=== PATIENT | male | born 1945 | race Caucasian/White ===

== ENCOUNTER 2022-01-09 14:43 | Inpatient (IN) | payer MEDICARE, OTHER ==
[2022-01-09 15:52] LABS: Basophils % (A) 0 %; Eosinophils % (A) 0 %; HCT 30.7 % (39.0-53.0); HGB 9.8 gm/dL (13.0-17.5); Lymphocytes # (A) 0.9 k/uL (1.0-4.8); Lymphocytes % (A) 22 %; MCH 29.7 pg (25.0-35.0); MCHC 31.9 g/dL (31.0-37.0); MCV 93.2 fL (80.0-100.0); Mean Platelet Volume 7.9; Monocytes # (A) 0.2 k/uL (0-1.0); Monocytes % (A) 5 %; Neutrophils # (A) 2.8 k/uL (1.3-7.7); Neutrophils % (A) 69 %; Platelet Count 258 k/uL (150-450); RBC 3.29 m/uL (4.30-5.90); RDW 13.8 % (11.5-15.5); WBC 4.1 k/uL (3.8-10.6)
[2022-01-09 15:54] LABS: INR 0.9 (<1.2); Partial Thromboplastin Time 26.8 sec (22.0-30.0); Prothrombin Time 10.2 sec (9.0-12.0)
[2022-01-09 16:04] LABS: Albumin 2.7 g/dL (3.5-5.0); Calcium 7.8 mg/dL (8.4-10.2); Magnesium 1.9 mg/dL (1.6-2.3); Potassium 3.7 mmol/L (3.5-5.1); Total Bilirubin 0.9 mg/dL (0.2-1.3); Total Protein 5.4 g/dL (6.3-8.2)
--- NOTE | 2022-01-09 16:12 | XR ---
EXAMINATION TYPE: XR chest 2V DATE OF EXAM: 01/09/2022 COMPARISON: NONE HISTORY: Difficulty breathing TECHNIQUE: 2 views FINDINGS: There is mild pulmonary vascular congestion. Heart is not grossly enlarged. There is some b lunting of the costophrenic angles. IMPRESSION: There is evidence for congestive heart failure with mild pleural effusions.
[2022-01-09 16:23] LABS: RBC Morphology Normal; Toxic Granulation Present; Toxic Vacuolation Present
[2022-01-09] MEDS ORDERED: FUROSEMIDE 10 MG/ML 10 ML VIAL IV STA (16:37)
--- NOTE | 2022-01-09 16:46 | ED ---
SOB HPI - General Chief Complaint: Shortness of Breath Stated Complaint: Difficulty Breathing Time Seen by Provider: 01/09/22 15:00 Source: EMS Mode of arrival: EMS Limitations: altered mental status - History of Present Illness Initial Comments: 76-year-old male presents to the emergency department from [facility] facility. EMS attempt to provide a history however they state that the nursing facility did not give him much information. They were called today after it was reported that the patient was having trouble breathing. He was saturating in the 80s without oxygen on. Does not wear oxygen. The patient is not able to provide any history. EMS reported he had hip surgery followed by a PE in August. No long on anticoagulation. Patient on Toprol, omeprazole, Synthroid, Paxil and ferrous sulfate. - Related Data Home Medications Medication Instructions Recorded Confirmed Alendronate Sodium [Fosamax] 70 mg PO SA@69901/09/22 01/09/22 Azithromycin [Zithromax Z-pack (6 See Taper PO DIRECTED 01/09/22 01/09/22 tabs)] Benzonatate [Tessalon Perles] 100 - 200 mg PO TID PRN 01/09/22 01/09/22 Cholecalciferol [Vitamin D3 (25 25 mcg PO BID@0700,1700 01/09/22 01/09/22 Mcg = 1000 Iu)] Cyanocobalamin (Vitamin B-12) 1,000 mcg PO DAILY@69901/09/22 01/09/22 [Vitamin B-12] Docusate [Colace] 100 mg PO HS@209901/09/22 01/09/22 Ferrous Sulfate [Feosol] 325 mg PO DAILY@69901/09/22 01/09/22 Lactulose 20 gm PO DAILY@699 PRN 01/09/22 01/09/22 Levothyroxine Sodium [Synthroid] 25 mcg PO DAILY@69901/09/22 01/09/22 Loratadine 10 mg PO DAILY@00 PRN 01/09/22 01/09/22 Melatonin 10 mg PO HS@209901/09/22 01/09/22 Metoprolol Tartrate 25 mg PO BID@0700,1700 01/09/22 01/09/22 [place]-3 Fatty Acids/Fish Oil [Fish 1 cap PO DAILY@0700 01/09/22 01/09/22 Oil 1,000 mg Softgel] Omeprazole [PriLOSEC] 20 mg PO BID@0700,2100 01/09/22 01/09/22 PARoxetine HCL 40 mg PO HS@209901/09/22 01/09/22 Triamterene/Hydrochlorothiazid 1 tab PO DAILY@0700 01/09/22 01/09/22 [Triamterene-Hctz 37.5-25 mg Tb] Allergies Allergy/AdvReac Type Severity Reaction Status Date / Time No Known Allergies Allergy Unverified 01/09/22 17:01 Review of Systems ROS Statement: Those systems with pertinent positive or pertinent negative responses have been documented in the HPI. ROS Other: All systems not noted in ROS Statement are negative. Past Medical History Past Medical History: Unable to Obtain History of Any Multi-Drug Resistant Organisms: Unobtainable Past Surgical History: Unable to Obtain Past Psychological History: Unable to Obtain Smoking Status: Unknown if ever smoked Past Alcohol Use History: Unable to Obtain Past Drug Use History: Unable to Obtain General Exam Limitations: altered mental status General appearance: alert, anxious Head exam: Present: atraumatic, normocephalic, normal inspection Eye exam: Present: normal appearance, PERRL, EOMI. Absent: scleral icterus, conjunctival injection, periorbital swelling ENT exam: Present: normal exam, mucous membranes moist Neck exam: Present: normal inspection. Absent: tenderness, meningismus, lymphadenopathy Respiratory exam: Present: respiratory distress, rales, accessory muscle use. Absent: wheezes, rhonchi, stridor Cardiovascular Exam: Present: regular rate, normal rhythm, normal heart sounds. Absent: systolic murmur, diastolic murmur, rubs, gallop, clicks GI/Abdominal exam: Present: soft, normal bowel sounds. Absent: distended, tenderness, guarding, rebound, rigid Extremities exam: Present: normal inspection, full ROM, normal capillary refill. Absent: tenderness, pedal edema, joint swelling, calf tenderness Back exam: Present: normal inspection Neurological exam: Present: alert, CN II-XII intact Psychiatric exam: Present: normal affect, normal mood Skin exam: Present: warm, dry, intact, normal color. Absent: rash Course Vital Signs 01/09/22 01/09/22 01/09/22 14:47 15:15 15:26 Temperature 99.6 F Pulse Rate 80 Pulse Rate [ Pulse Oximetery ] Respiratory 18 20 35 H Rate Blood Pressure 111/54 Blood Pressure [Left Arm] O2 Sat by Pulse 87 L 90 L Oximetry 01/09/22 01/09/22 01/09/22 15:30 16:00 18:00 Temperature Pulse Rate 91 92 102 H Pulse Rate [ Pulse Oximetery ] Respiratory 20 20 20 Rate Blood Pressure 113/54 120/58 125/63 Blood Pressure [Left Arm] O2 Sat by Pulse 93 L 97 Oximetry 01/09/22 01/09/22 01/09/22 18:30 19:00 19:18 Temperature Pulse Rate 98 102 H 106 H Pulse Rate [ Pulse Oximetery ] Respiratory 20 20 20 Rate Blood Pressure 128/63 106/54 107/62 Blood Pressure [Left Arm] O2 Sat by Pulse 95 81 L 98 Oximetry 01/09/22 20:00 Temperature 101.0 F H Pulse Rate Pulse Rate [ 108 H Pulse Oximetery ] Respiratory 22 Rate Blood Pressure Blood Pressure 107/45 [Left Arm] O2 Sat by Pulse 91 L Oximetry Medical Decision Making - Medical Decision Making Upon arrival patient is placed into room 5. A thorough history and physical exam was performed. He is placed on 6 L. Laboratory studies are conducted and reviewed. I have no old for comparison. Creatinine is 1.3. Troponin 0.055. BNP 5950. Cold and influenza are negative. Chest x-ray demonstrates pulmonary vascular congestion. I did CT the chest because of the patient's history of PE which demonstrates no evidence of pulmonary embolism however there is bilateral lower lobe pneumonia and atelectasis. The interstitial edema. Patient will be admitted. Given 60 mg of Lasix. Admitted with home and cardiology consults. Antibiotics additionally ordered as well as chest physiotherapy. Spoke with who agreed to admit the patient - Lab Data Result diagrams: 01/13/22 06:58 01/15/22 08:05 Lab Results 01/09/22 01/09/22 01/09/22 Range/Units 15:26 15:26 15:26 WBC 4.1 (3.8-10.6) k/uL RBC 3.29 L (4.30-5.90) m/uL Hgb 9.8 L (13.0-17.5) gm/dL Hct 30.7 L (39.0-53.0) % MCV 93.2 (80.0-100.0) fL MCH 29.7 (25.0-35.0) pg MCHC 31.9 (31.0-37.0) g/dL RDW 13.8 (11.5-15.5) % Plt Count 258 (150-450) k/uL MPV 7.9 Neutrophils % 69 % Lymphocytes % 22 % Monocytes % 5 % Eosinophils % 0 % Basophils % 0 % Neutrophils # 2.8 (1.3-7.7) k/uL Lymphocytes # 0.9 L (1.0-4.8) k/uL Monocytes # 0.2 (0-1.0) k/uL Eosinophils # 0.0 (0-0.7) k/uL Basophils # 0.0 (0-0.2) k/uL Manual Slide Review Performed Toxic Granulation Present Toxic Vacuolation Present RBC Morphology Normal PT 10.2 (9.0-12.0) sec INR 0.9 (<1.2) APTT 26.8 (22.0-30.0) sec Sodium 132 L (137-145) mmol/L Potassium 3.7 (3.5-5.1) mmol/L Chloride 98 (98-107) mmol/L Carbon Dioxide 28 (22-30) mmol/L Anion Gap 6 mmol/L BUN 32 H (9-20) mg/dL Creatinine 1.30 H (0.66-1.25) mg/dL Est GFR (CKD-EPI)AfAm 61 (>60 ml/min/1.73 sqM) Est GFR (CKD-EPI)NonAf 52 (>60 ml/min/1.73 sqM) Glucose 94 (74-99) mg/dL Plasma Lactic Acid Ata (0.7-2.0) mmol/L Calcium 7.8 L (8.4-10.2) mg/dL Magnesium 1.9 (1.6-2.3) mg/dL Total Bilirubin 0.9 (0.2-1.3) mg/dL AST 26 (17-59) U/L ALT 22 (4-49) U/L Alkaline Phosphatase 77 (38-126) U/L Troponin I (0.000-0.034) ng/mL NT-Pro-B Natriuret Pep pg/mL Total Protein 5.4 L (6.3-8.2) g/dL Albumin 2.7 L (3.5-5.0) g/dL Procalcitonin (0.02-0.09) ng/mL Coronavirus (PCR) (Not Detectd) Influenza Type A RNA (Not Detectd) Influenza Type B (PCR) (Not Detectd) 01/09/22 01/09/22 01/09/22 Range/Units 15:26 15:26 15:26 WBC (3.8-10.6) k/uL RBC (4.30-5.90) m/uL Hgb (13.0-17.5) gm/dL Hct (39.0-53.0) % MCV (80.0-100.0) fL MCH (25.0-35.0) pg MCHC (31.0-37.0) g/dL RDW (11.5-15.5) % Plt Count (150-450) k/uL MPV Neutrophils % % Lymphocytes % % Monocytes % % Eosinophils % % Basophils % % Neutrophils # (1.3-7.7) k/uL Lymphocytes # (1.0-4.8) k/uL Monocytes # (0-1.0) k/uL Eosinophils # (0-0.7) k/uL Basophils # (0-0.2) k/uL Manual Slide Review Toxic Granulation Toxic Vacuolation RBC Morphology PT (9.0-12.0) sec INR (<1.2) APTT (22.0-30.0) sec Sodium (137-145) mmol/L Potassium (3.5-5.1) mmol/L Chloride (98-107) mmol/L Carbon Dioxide (22-30) mmol/L Anion Gap mmol/L BUN (9-20) mg/dL Creatinine (0.66-1.25) mg/dL Est GFR (CKD-EPI)AfAm (>60 ml/min/1.73 sqM) Est GFR (CKD-EPI)NonAf (>60 ml/min/1.73 sqM) Glucose (74-99) mg/dL Plasma Lactic Acid Ata 1.1 (0.7-2.0) mmol/L Calcium (8.4-10.2) mg/dL Magnesium (1.6-2.3) mg/dL Total Bilirubin (0.2-1.3) mg/dL AST (17-59) U/L ALT (4-49) U/L Alkaline Phosphatase (38-126) U/L Troponin I 0.055 H* (0.000-0.034) ng/mL NT-Pro-B Natriuret Pep 5950 pg/mL Total Protein (6.3-8.2) g/dL Albumin (3.5-5.0) g/dL Procalcitonin (0.02-0.09) ng/mL Coronavirus (PCR) (Not Detectd) Influenza Type A RNA (Not Detectd) Influenza Type B (PCR) (Not Detectd) 01/09/22 01/09/22 01/09/22 Range/Units 15:26 15:26 15:26 WBC (3.8-10.6) k/uL RBC (4.30-5.90) m/uL Hgb (13.0-17.5) gm/dL Hct (39.0-53.0) % MCV (80.0-100.0) fL MCH (25.0-35.0) pg MCHC (31.0-37.0) g/dL RDW (11.5-15.5) % Plt Count (150-450) k/uL MPV Neutrophils % % Lymphocytes % % Monocytes % % Eosinophils % % Basophils % % Neutrophils # (1.3-7.7) k/uL Lymphocytes # (1.0-4.8) k/uL Monocytes # (0-1.0) k/uL Eosinophils # (0-0.7) k/uL Basophils # (0-0.2) k/uL Manual Slide Review Toxic Granulation Toxic Vacuolation RBC Morphology PT (9.0-12.0) sec INR (<1.2) APTT (22.0-30.0) sec Sodium (137-145) mmol/L Potassium (3.5-5.1) mmol/L Chloride (98-107) mmol/L Carbon Dioxide (22-30) mmol/L Anion Gap mmol/L BUN (9-20) mg/dL Creatinine (0.66-1.25) mg/dL Est GFR (CKD-EPI)AfAm (>60 ml/min/1.73 sqM) Est GFR (CKD-EPI)NonAf (>60 ml/min/1.73 sqM) Glucose (74-99) mg/dL Plasma Lactic Acid Ata (0.7-2.0) mmol/L Calcium (8.4-10.2) mg/dL Magnesium (1.6-2.3) mg/dL Total Bilirubin (0.2-1.3) mg/dL AST (17-59) U/L ALT (4-49) U/L Alkaline Phosphatase (38-126) U/L Troponin I (0.000-0.034) ng/mL NT-Pro-B Natriuret Pep pg/mL Total Protein (6.3-8.2) g/dL Albumin (3.5-5.0) g/dL Procalcitonin 3.74 H (0.02-0.09) ng/mL Coronavirus (PCR) Not Detected (Not Detectd) Influenza Type A RNA Not Detected (Not Detectd) Influenza Type B (PCR) Not Detected (Not Detectd) - EKG Data EKG Comments: EKG demonstrates sinus rhythm with a rate of 93. [place] interval 148. QRS 89. QTC of 394. No acute ST segment elevations or depressions Disposition Clinical Impression: Hypoxia, Acute respiratory failure, Heart failure Disposition: ADMITTED IP TO THIS HOSP Condition: Stable Is patient prescribed a controlled substance at d/c from ED?: No Time of Disposition: 16:54 Decision to Admit Reason: Admit from EC Decision Date: 01/09/22 Decision Time: 16:54
--- NOTE | 2022-01-09 17:15 | CT ---
EXAMINATION TYPE: CT chest angio for PE DATE OF EXAM: 01/09/2022 COMPARISON: None HISTORY: SOB CT DLP: 341 mGycm Automated exposure control for dose reduction was used. CONTRAST: Performed with IV Contrast, patient injected with 80cc mL of Isovue 370. Images obtained from the thoracic inlet through the diaphragm with IV contrast. There are Three-D pos tprocessed images. There are patchy airspace infiltrates and atelectasis at the posterior lung bases. There is consolida tion at the posterior lung bases. No pleural effusion. Heart is borderline enlarged. No evidence of p neumothorax. Thoracic aorta is atheromatous. No aneurysm or dissection. The ascending aorta measures 3.2 cm. There is no evidence of filling defect in the pulmonary arteries. There is biconcave compression fractures in the lower thoracic spine. There is involvement of T10-T11 and T12 and L1 and L2. IMPRESSION: No evidence of pulmonary embolism. Bilateral lower lobe pneumonia and atelectasis. Mild pulmonary int erstitial edema.
[2022-01-09] MEDS ORDERED: AZITHROMYCIN 500 MG in SODIUM CHLORIDE 0.9% 250 ML IVPB STA (17:17)
[2022-01-09] MEDS ORDERED: ALBUTEROL NEBULIZED 2.5 MG/3 ML INHALATION PRN (17:17)
[2022-01-09] MEDS ORDERED: PNEUMONIA PROTOCOL UTILIZED 1 EACH MISC PO PRN (17:17)
[2022-01-09] MEDS: ACETAMINOPHEN TAB 325 MG TAB PO PRN (21:36)
[2022-01-09] MEDS: PARoxetine 20 MG TAB PO SCH (21:37)
[2022-01-09] MEDS: PANTOPRAZOLE 40 MG TABLET PO SCH (21:43)
[2022-01-09] MEDS: DOCUSATE 100 MG CAP PO SCH (21:43)
[2022-01-09] MEDS: MELATONIN 5 MG TABLET PO SCH (21:45)
[2022-01-10 02:59] LABS: Glucose,Whole Blood 95 mg/dL (75-99)
[2022-01-10] MEDS: METOPROLOL TARTRATE 25 MG TAB PO SCH ×2 (06:05→17:04)
[2022-01-10] MEDS: PANTOPRAZOLE 40 MG TABLET PO SCH ×2 (06:06→21:29)
[2022-01-10] MEDS: LEVOTHYROXINE 25 MCG TAB PO SCH (06:06)
[2022-01-10] MEDS: CYANOCOBALAMIN 500 MCG TAB PO SCH (06:08)
[2022-01-10] MEDS: CHOLECALCIFEROL 25 MCG (1000 IU) TABLET PO SCH ×2 (06:08→17:04)
[2022-01-10] MEDS: FERROUS SULFATE 325 MG TAB PO SCH (06:08)
[2022-01-10] MEDS ORDERED: LORATADINE 10 MG TAB PO PRN (07:00)
[2022-01-10] MEDS ORDERED: LACTULOSE 20 GM/30 ML CUP PO PRN (07:00)
[2022-01-10] MEDS ORDERED: NON FORMULARY DRUG (Omega-3 Fatty Acids/Fish Oil [Fish Oil 1,000 Mg Softgel] 1 EACH Capsul PO SCH (07:00)
[2022-01-10] MEDS ORDERED: TRIAMTERENE-HCTZ 37.5-25MG 1 EACH TAB PO SCH (07:00)
[2022-01-10] MEDS: FUROSEMIDE 10 MG/ML 4 ML VIAL IV SCH ×2 (08:08→21:31)
--- NOTE | 2022-01-10 08:09 | P.CRDCN ---
History of Present Illness Consult date: 01/10/22 Chief complaint: Shortness of breath History of present illness: The patient is a 76-year-old gentleman who we requested to see for further evalu ation of congestive heart failure. The patient is a poor historian and he does have some underlying dementia. He lives at [facility]. The history was taken from the chart as well as from the nurse taking care of the patient. Apparently the patient was noted to be more short of breath and he was hypoxic at the extended care facility. No indication that he was experiencing any sympt oms of chest pain or chest discomfort. It also noted that he did have increase in the lower extremities edema and also change in mental status. For the above reasons he was brought to the emergency department here for further evaluation. At this point I don't know if the patient is on oxygen at the [facility] care facility or no. He underwent an extensive evaluation here including an EKG which showed sinus rhythm without any significant ST or T-wave abnormalities. He also underwent a chest x-ray which showed evidence of heart failure with pleural effusion. Also he underwent a computed tomography scan of the chest which showed no evidence of pulmonary embolism. His blood work was reviewed and showed mildly elevated NT proBNP at around 6000. Troponin was also mildly elevated. Subsequently the patient wasn't started on Lasix and also he was started on antibiotic for possible underlying pneumonia. No indication that the patient did have any previous cardiac history. When I interviewed him he stated that he is a bit more short of breath. On examination he definitely had diminished breathing sounds bilaterally and also does have mild bilateral lower extended is edema noted. Beside that an echocardiogram was ordered. Past Medical History Past Medical History: Unable to Obtain History of Any Multi-Drug Resistant Organisms: Unobtainable Past Surgical History: Unable to Obtain Additional Past Surgical History / Comment(s): R Hip Surgery; unspecified abdominal surgery Past Psychological History: Unable to Obtain Smoking Status: Unknown if ever smoked Past Alcohol Use History: Unable to Obtain Past Drug Use History: Unable to Obtain Medications and Allergies Home Medications Medication Instructions Recorded Confirmed Type Alendronate Sodium [Fosamax] 70 mg PO SA@0700 01/09/22 01/09/22 History Azithromycin [Zithromax Z-pack (6 See Taper PO DIRECTED 01/09/22 01/09/22 History tabs)] Benzonatate [Tessalon Perles] 100 - 200 mg PO TID PRN 01/09/22 01/09/22 History Cholecalciferol [Vitamin D3 (25 25 mcg PO BID@0700,1700 01/09/22 01/09/22 History Mcg = 1000 Iu)] Cyanocobalamin (Vitamin B-12) 1,000 mcg PO DAILY@0700 01/09/22 01/09/22 History [Vitamin B-12] Docusate [Colace] 100 mg PO HS@209901/09/22 01/09/22 History Ferrous Sulfate [Feosol] 325 mg PO DAILY@69901/09/22 01/09/22 History Lactulose 20 gm PO DAILY@0700 PRN 01/09/22 01/09/22 History Levothyroxine Sodium [Synthroid] 25 mcg PO DAILY@69901/09/22 01/09/22 History Loratadine 10 mg PO DAILY@0700 PRN 01/09/22 01/09/22 History Melatonin 10 mg PO HS@209901/09/22 01/09/22 History Metoprolol Tartrate 25 mg PO BID@0700,1700 01/09/22 01/09/22 History [place]-3 Fatty Acids/Fish Oil [Fish 1 cap PO DAILY@69901/09/22 01/09/22 History Oil 1,000 mg Softgel] Omeprazole [PriLOSEC] 20 mg PO BID@0700,209901/09/22 01/09/22 History PARoxetine HCL 40 mg PO HS@209901/09/22 01/09/22 History Triamterene/Hydrochlorothiazid 1 tab PO DAILY@69901/09/22 01/09/22 History [Triamterene-Hctz 37.5-25 mg Tb] Allergies Allergy/AdvReac Type Severity Reaction Status Date / Time No Known Allergies Allergy Unverified 01/09/22 17:01 Physical Exam Vitals: Vital Signs Temp Pulse Pulse Resp BP BP Pulse Ox 01/10/22 07:43 76 01/10/22 07:35 98 01/10/22 07:34 78 01/10/22 04:00 98.1 F 94 20 126/57 96 01/09/22 23:55 99.4 F 101 H 20 93/46 90 L 01/09/22 22:49 100.3 F H 05/07/22 20:00 101.0 F H 108 H 22 107/45 91 L 01/09/22 19:18 106 H 20 107/62 98 01/09/22 19:00 102 H 20 106/54 81 L 01/09/22 18:30 98 20 128/63 95 01/09/22 18:00 102 H 20 125/63 01/09/22 16:00 92 20 120/58 97 01/09/22 15:30 91 20 113/54 93 L 01/09/22 15:26 35 H 90 L 01/09/22 15:15 20 01/09/22 14:47 99.6 F 80 18 111/54 87 L Intake and Output 01/09/22 01/10/22 01/10/22 22:59 06:59 14:59 Output Total 200 Balance -200 Output: Urine 200 Other: # Voids 1 Weight 62.596 kg 59.4 kg - Constitutional General appearance: no acute distress - Respiratory Respiratory: bilateral: diminished - Cardiovascular Rhythm: regular Heart sounds: normal: S1, S2 Abnormal Heart Sounds: systolic murmur Results 01/09/22 15:26 01/09/22 15:26 Cardiac Enzymes 01/09/22 01/09/22 Range/Units 15:26 15:26 AST 26 (17-59) U/L Troponin I 0.055 H* (0.000-0.034) ng/mL Coagulation 01/09/22 Range/Units 15:26 PT 10.2 (9.0-12.0) sec APTT 26.8 (22.0-30.0) sec CBC 01/09/22 Range/Units 15:26 WBC 4.1 (3.8-10.6) k/uL RBC 3.29 L (4.30-5.90) m/uL Hgb 9.8 L (13.0-17.5) gm/dL Hct 30.7 L (39.0-53.0) % Plt Count 258 (150-450) k/uL Comprehensive Metabolic Panel 01/09/22 Range/Units 15:26 Sodium 132 L (137-145) mmol/L Potassium 3.7 (3.5-5.1) mmol/L Chloride 98 (98-107) mmol/L Carbon Dioxide 28 (22-30) mmol/L BUN 32 H (9-20) mg/dL Creatinine 1.30 H (0.66-1.25) mg/dL Glucose 94 (74-99) mg/dL Calcium 7.8 L (8.4-10.2) mg/dL AST 26 (17-59) U/L ALT 22 (4-49) U/L Alkaline Phosphatase 77 (38-126) U/L Total Protein 5.4 L (6.3-8.2) g/dL Albumin 2.7 L (3.5-5.0) g/dL Current Medications Generic Name Dose Route Start Last Admin Trade Name Freq PRN Reason Stop Dose Admin Acetaminophen 650 mg 01/09/22 21:30 01/09/22 21:36 Acetaminophen Tab 325 Mg Tab PO 650 mg Q6HR PRN Administration Fever and/ or Pain Albuterol Sulfate 2.5 mg 01/09/22 17:17 01/10/22 07:32 Albuterol Nebulized 2.5 Mg/3 Ml INHALATION 2.5 mg RT-Q4H PRN Administration Shortness Of Breath Or Wheezing Cholecalciferol 25 mcg 01/10/22 07:00 01/10/22 06:08 Cholecalciferol 25 Mcg (1000 Iu) Tablet PO 25 mcg BID@0700,1700 [facility] Administration Cyanocobalamin 1,000 mcg 01/10/22 07:00 01/10/22 06:08 Cyanocobalamin 500 Mcg Tab PO 1,000 mcg DAILY@0700 [facility] Administration Docusate Sodium 100 mg 01/09/22 21:00 01/09/22 21:43 Docusate 100 Mg Cap PO 100 mg HS@2100 [facility] Administration Ferrous Sulfate 325 mg 01/10/22 07:00 01/10/22 06:08 Ferrous Sulfate 325 Mg Tab PO 325 mg DAILY@0700 [facility] Administration Furosemide 40 mg 01/10/22 09:00 Furosemide 10 Mg/Ml 4 Ml Vial IV Q12HR [facility] Ceftriaxone Sodium 2 gm/ 50 mls @ 100 mls/hr 01/10/22 18:00 Sodium Chloride IVPB 01/13/22 18:29 Q24H [facility] Protocol Lactulose 20 gm 01/10/22 07:00 Lactulose 20 Gm/30 Ml Cup PO DAILY@0700 PRN HOLD FOR LOOSE STOOLS Levothyroxine Sodium 25 mcg 01/10/22 07:00 01/10/22 06:06 Levothyroxine 25 Mcg Tab PO 25 mcg DAILY@0700 [facility] Administration Loratadine 10 mg 01/10/22 07:00 Loratadine 10 Mg Tab PO DAILY@0700 PRN Allergy Symptoms Melatonin 10 mg 01/09/22 21:00 01/09/22 21:45 Melatonin 5 Mg Tablet PO Not Given HS@2100 [facility] Metoprolol Tartrate 25 mg 01/10/22 07:00 01/10/22 06:05 Metoprolol Tartrate 25 Mg Tab PO 25 mg BID@0700,1700 [facility] Administration Miscellaneous Information 1 each 01/09/22 17:17 Pneumonia Protocol Utilized 1 Each Misc PO ONCE PRN Per Protocol Pantoprazole Sodium 40 mg 01/09/22 21:00 01/10/22 06:06 Pantoprazole 40 Mg Tablet PO 40 mg BID@0700,2100 [facility] Administration Paroxetine HCl 40 mg 01/09/22 21:00 01/09/22 21:37 Paroxetine 20 Mg Tab PO 40 mg HS@2100 [facility] Administration Triamterene/Hydrochlorothiazide 1 each 01/10/22 07:00 01/10/22 06:11 Triamterene-Hctz 37.5-25mg 1 Each Tab PO 1 each DAILY@0700 [facility] Administration Intake and Output 01/09/22 01/10/22 01/10/22 22:59 06:59 14:59 Output Total 200 Balance -200 Output: Urine 200 Other: # Voids 1 Weight 62.596 kg 59.4 kg 01/09/22 15:26 01/09/22 15:26 Assessment and Plan Assessment: Assessment #1 change in mental status #2 evidence of myocardial injury without any evidence of ischemia clinically or by EKG #3 heart failure of unknown etiology at this point #4 possible underlying pneumonia Plan #1 consider medical treatment for the abnormal troponin in the light of absence of any ischemia as well as the patient's age and mental status #2 continue IV Lasix for additional 24 hours #3 monitor the kidney function and electrolytes #4 follow-up on the echocardiogram #5 follow-up with the patient
[2022-01-10] MEDS: IPRATROPIUM-ALBUTEROL 3 ML NEB INHALATION SCH ×3 (11:23→19:15)
[2022-01-10 11:39] LABS: Glucose,Whole Blood 112 mg/dL (75-99)
[2022-01-10] MEDS: methylPREDNISolone SOD SUCCI 125 MG/2 ML VIAL IV SCH ×3 (11:50→23:59)
--- NOTE | 2022-01-10 12:43 | P.CNPUL ---
History of Present Illness Consult date: 01/10/22 Requesting physician: Jarred Cullen Reason for consult: pneumonia Chief complaint: Shortness of breath History of present illness: This is a 76-year-old white male admitted yesterday from the emergency room, patient is an adult foster care facility resident, apparently the patient was noted to have trouble breathing at the facility. His O2 saturation was in the 80s without oxygen, patient does not normally wear oxygen. The patient himself is a very poor historian, and not much information could be obtained from the patient as he does have profound dementia. Apparently the patient is known to have history of pulmonary embolism back in August but has been off anticoagulation therapy maintained mostly on Toprol omeprazole Synthroid and Paxil as well as iron. Workup in the ER included a CT of the chest which showed evidence of bilateral infiltrates/pneumonia and atelectasis it was also suspicious for interstitial edema. Patient had a relatively elevated pro BNP level, and he also had significantly elevated pro calcitonin level of 3.74. CT of the chest was reviewed, I am strongly suspicious that the patient may be having aspiration pneumonia. Hence I have changed his antibiotics to Zosyn. In the meantime the patient will remain on oxygen and it will be titrated accordin gly. He is receiving Lasix 40 mg IV push every 12 hours, ordered by cardiology, and I have recommended methylprednisolone as the patient has significant wheezing on physical examination. Patient may have a component of underlying COPD. Again not much history could be obtained from the patient himself most of the information was obtained from the chart Review of Systems ROS unobtainable: due to mental status Past Medical History Past Medical History: Unable to Obtain History of Any Multi-Drug Resistant Organisms: Unobtainable Past Surgical History: Unable to Obtain Additional Past Surgical History / Comment(s): R Hip Surgery; unspecified abdominal surgery Past Psychological History: Unable to Obtain Smoking Status: Unknown if ever smoked Past Alcohol Use History: Unable to Obtain Past Drug Use History: Unable to Obtain Medications and Allergies Home Medications Medication Instructions Recorded Confirmed Type Alendronate Sodium [Fosamax] 70 mg PO SA@0700 01/09/22 01/09/22 History Azithromycin [Zithromax Z-pack (6 See Taper PO DIRECTED 01/09/22 01/09/22 History tabs)] Benzonatate [Tessalon Perles] 100 - 200 mg PO TID PRN 01/09/22 01/09/22 History Cholecalciferol [Vitamin D3 (25 25 mcg PO BID@0700,1700 01/09/22 01/09/22 History Mcg = 1000 Iu)] Cyanocobalamin (Vitamin B-12) 1,000 mcg PO DAILY@69901/09/22 01/09/22 History [Vitamin B-12] Docusate [Colace] 100 mg PO HS@209901/09/22 01/09/22 History Ferrous Sulfate [Feosol] 325 mg PO DAILY@69901/09/22 01/09/22 History Lactulose 20 gm PO DAILY@0700 PRN 01/09/22 01/09/22 History Levothyroxine Sodium [Synthroid] 25 mcg PO DAILY@69901/09/22 01/09/22 History Loratadine 10 mg PO DAILY@07 PRN 01/09/22 01/09/22 History Melatonin 10 mg PO HS@209901/09/22 01/09/22 History Metoprolol Tartrate 25 mg PO BID@0700,169901/09/22 01/09/22 History [place]-3 Fatty Acids/Fish Oil [Fish 1 cap PO DAILY@69901/09/22 01/09/22 History Oil 1,000 mg Softgel] Omeprazole [PriLOSEC] 20 mg PO BID@0700,209901/09/22 01/09/22 History PARoxetine HCL 40 mg PO HS@209901/09/22 01/09/22 History Triamterene/Hydrochlorothiazid 1 tab PO DAILY@69901/09/22 01/09/22 History [Triamterene-Hctz 37.5-25 mg Tb] Allergies Allergy/AdvReac Type Severity Reaction Status Date / Time No Known Allergies Allergy Unverified 01/09/22 17:01 Physical Exam Vitals: Vital Signs Temp Pulse Pulse Resp BP BP Pulse Ox 01/10/22 11:50 98.4 F 70 18 103/49 92 L 01/10/22 08:04 97.3 F L 79 18 107/48 97 01/10/22 07:43 76 01/10/22 07:35 98 01/10/22 07:34 78 01/10/22 04:00 98.1 F 94 20 126/57 96 01/09/22 23:55 99.4 F 101 H 20 93/46 90 L 01/09/22 22:49 100.3 F H 01/09/22 20:00 101.0 F H 108 H 22 107/45 91 L 01/09/22 19:18 106 H 20 107/62 98 01/09/22 19:00 102 H 20 106/54 81 L 01/09/22 18:30 98 20 128/63 95 01/09/22 18:00 102 H 20 125/63 01/09/22 16:00 92 20 120/58 97 01/09/22 15:30 91 20 113/54 93 L 01/09/22 15:26 35 H 90 L 01/09/22 15:15 20 01/09/22 14:47 99.6 F 80 18 111/54 87 L Intake and Output 01/09/22 01/10/22 01/10/22 22:59 06:59 14:59 Intake Total 118 Output Total 200 Balance -200 118 Intake: Oral 118 Output: Urine 200 Other: # Voids 1 Weight 62.596 kg 59.4 kg Physical Exam: Revealed 76-year-old white male, confused, on oxygen at 2 L nasal cannula, and his O2 sats is 92%. Patient does not seem to be in respiratory distress. Patient looks frail and chronically ill. Head: Atraumatic, normocephalic. HEENT:[Neck is supple.] [No neck masses.] [No thyromegaly.] [No JVD.] Chest: [Crackles and rhonchi and wheezes noted bilaterally. Symmetrical chest expansion.] Cardiac Exam: [Normal S1 and S2, no S3 gallop, no murmur.] Abdomen: [Soft, nontender, no megaly, no rebound, no guarding, normal bowel sounds.] Extremities: [No clubbing, no edema, no cyanosis.] Neurological Exam: Patient follows simple instructions, however he is quite conf used, and obviously has underlying dementia. Psychiatric: Normal mood affect and abnormal mental status. Patient seems to be quite confused. Results - Laboratory Findings CBC and BMP: 01/09/22 15:26 01/09/22 15:26 PT/INR, D-dimer PT 10.2 sec (9.0-12.0) 01/09/22 15:26 INR 0.9 (<1.2) 01/09/22 15:26 Abnormal lab findings: Abnormal Labs 01/09/22 01/09/22 01/09/22 15:26 15:26 15:26 RBC 3.29 L Hgb 9.8 L Hct 30.7 L Lymphocytes # 0.9 L Sodium 132 L BUN 32 H Creatinine 1.30 H POC Glucose (mg/dL) Calcium 7.8 L Troponin I 0.055 H* Total Protein 5.4 L Albumin 2.7 L Procalcitonin 01/09/22 01/10/22 01/10/22 15:26 07:03 09:55 RBC Hgb Hct Lymphocytes # Sodium BUN Creatinine POC Glucose (mg/dL) Calcium Troponin I 0.044 H* 0.036 H* Total Protein Albumin Procalcitonin 3.74 H 01/10/22 11:37 RBC Hgb Hct Lymphocytes # Sodium BUN Creatinine POC Glucose (mg/dL) 112 H Calcium Troponin I Total Protein Albumin Procalcitonin - Diagnostic Findings CT scan - chest: image reviewed (As noted in HPI.) Assessment and Plan Assessment: Impression: Acute hypoxic respiratory failure, multifactorial. Acute pneumonia, most likely aspiration related unless for otherwise. Acute diastolic congestive heart failure is also suspected, echocardiogram is pending. Acute exacerbation of COPD History of underlying dementia. Possible acute kidney injury, baseline creatinine is unknown but his creatinine on this admission is 1.30. Possible sepsis History of hypothyroidism Benign essential hypertension Recommendation: Continue oxygen and titrate accordingly Empiric antibiotics in the form of Zosyn. Continue bronchodilators for his underlying COPD. Swallow evaluation should be addressed on this patient. Continue diuretics as per cardiology on the case. GI and DVT prophylaxis. Echocardiogram is pending. Continue to monitor renal profile and electrolytes on a daily basis. Patient will eventually require placement. Overall prognosis is relatively guarded. We will continue to follow Time with Patient: Greater than 30
[2022-01-10] MEDS: INSULIN ASPART (NovoLOG) 100 UNIT/ML VIAL SQ SCH ×3 (12:46→21:25)
[2022-01-10] MEDS: ENOXAPARIN 40 MG/0.4 ML SYRINGE SQ SCH (12:52)
[2022-01-10] MEDS: PIPERACILLIN-TAZOBACTAM 3.375 GM in SODIUM CHLORIDE 0.9% 100 ML IVPB SCH (15:50)
[2022-01-10 16:19] LABS: Glucose,Whole Blood 129 mg/dL (75-99)
--- NOTE | 2022-01-10 18:32 | P.HPIM ---
History of Present Illness H&P Date: 01/10/22 Chief Complaint: Short of breath This is a 76-year-old patient who follows with visiting physicians Dr. Watson. Chronic stable medical conditions include osteoporosis, hypothyroid, insomnia, hypertension, depression. Patient unable to give much of history.. Per the nursing noted ER patient been increasingly short of breath for one week. Patient was started on Z-Sedrick by the family doctor. Patient normally uses a walker to get about. For one week has had decreased activity. Patient lives at the [facility]. This morning patient did eat with assistance. At her baseline patient really does not speak. Patient is noted to have a fever of 101 last night. Admitting review of systems cannot be done as patient does not really communicate Past medical history to include: Osteoporosis, hypothyroid, insomnia, hypertension, GERD, depression, Social history: Lives at [facility]. Does use a walker. Cannot tell any history of smoking or alcohol. Family history: Patient cannot tell Physical examination: VITAL SIGNS: 101, 108, 22, 107/45, 91% on 4 L GENERAL: BMI 19.9, laying in bed, short of breath. EYES: Pupils equal. Conjunctiva normal. HEENT: External appearance of nose and ears normal, oral cavity grossly normal. NECK: JVD not raised; masses not palpable. HEART: First and second heart sounds are normal; no edema. LUNGS: Respiratory rate increased; decreased breath sounds. ABDOMEN: Soft, nontender, liver spleen not palpable, no masses palpable. PSYCH: Unable to assess, patient able to answer questionsl. MUSCULOSKELETAL:No Clubbing/cyanosis;muscles-grossly intact. Evidence of OA NEUROLOGICAL: [Cranial nerves grossly intact; no facial asymmetry, sensation grossly present. Moving all 4 limbs. LYMPHATICS: No lymph nodes palpable in the axilla and neck INVESTIGATIONS, reviewed in the clinical context: White count 4.1 hemoglobin 9.8 platelets 258 sodium 132 potassium 3.7 BUN 32 creatinine 1.3 Troponin I 0.055, 0.044, 0.036 Pro-calcitonin 3.74 COVID 19/influenza type A/influenza type B: Not detected EKG tracing personally reviewed by me-normal sinus rhythm, rate 93 Chest x-ray film personally reviewed by me-bilateral infiltrates Assessment plan: -Bilateral pneumonia suspected gram-negative organism, causing sepsis IV Zosyn. -Sepsis secondary to pneumonia IV Zosyn. 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 IV Solu-Medrol -Abdominal renal function. Chronicity not known Reason ultrasound. UA IV Zosyn. IV Solu-Medrol. Bronchodilator. IV Lasix per cardiology. Consultation to pulmonary and cardiology. Feedings with assistance. Given the complexity and severity of patient's condition expect the patient to be in the hospital at least for 2 overnights Past Medical History Past Medical History: Unable to Obtain History of Any Multi-Drug Resistant Organisms: Unobtainable Past Surgical History: Unable to Obtain Additional Past Surgical History / Comment(s): R Hip Surgery; unspecified abdominal surgery Past Psychological History: Unable to Obtain Smoking Status: Unknown if ever smoked Past Alcohol Use History: Unable to Obtain Past Drug Use History: Unable to Obtain Medications and Allergies Home Medications Medication Instructions Recorded Confirmed Type Alendronate Sodium [Fosamax] 70 mg PO SA@0701/09/22 01/09/22 History Azithromycin [Zithromax Z-pack (6 See Taper PO DIRECTED 01/09/22 01/09/22 History tabs)] Benzonatate [Tessalon Perles] 100 - 200 mg PO TID PRN 01/09/22 01/09/22 History Cholecalciferol [Vitamin D3 (25 25 mcg PO BID@0700,1700 01/09/22 01/09/22 History Mcg = 1000 Iu)] Cyanocobalamin (Vitamin B-12) 1,000 mcg PO DAILY@0700 01/09/22 01/09/22 History [Vitamin B-12] Docusate [Colace] 100 mg PO HS@2100 01/09/22 01/09/22 History Ferrous Sulfate [Feosol] 325 mg PO DAILY@69901/09/22 01/09/22 History Lactulose 20 gm PO DAILY@0700 PRN 01/09/22 01/09/22 History Levothyroxine Sodium [Synthroid] 25 mcg PO DAILY@0700 01/09/22 01/09/22 History Loratadine 10 mg PO DAILY@0700 PRN 01/09/22 01/09/22 History Melatonin 10 mg PO HS@209901/09/22 01/09/22 History Metoprolol Tartrate 25 mg PO BID@0700,1700 01/09/22 01/09/22 History [place]-3 Fatty Acids/Fish Oil [Fish 1 cap PO DAILY@0701/09/22 01/09/22 History Oil 1,000 mg Softgel] Omeprazole [PriLOSEC] 20 mg PO BID@0700,2100 01/09/22 01/09/22 History PARoxetine HCL 40 mg PO HS@209901/09/22 01/09/22 History Triamterene/Hydrochlorothiazid 1 tab PO DAILY@00 01/09/22 01/09/22 History [Triamterene-Hctz 37.5-25 mg Tb] Allergies Allergy/AdvReac Type Severity Reaction Status Date / Time No Known Allergies Allergy Unverified 01/09/22 17:01 Physical Exam Vitals: Vital Signs Temp Pulse Pulse Resp BP BP Pulse Ox 01/10/22 11:50 98.4 F 70 18 103/49 92 L 01/10/22 08:04 97.3 F L 79 18 107/48 97 01/10/22 07:43 76 01/10/22 07:35 98 01/10/22 07:34 78 01/10/22 04:00 98.1 F 94 20 126/57 96 01/09/22 23:55 99.4 F 101 H 20 93/46 90 L 01/09/22 22:49 100.3 F H 01/09/22 20:00 101.0 F H 108 H 22 107/45 91 L 01/09/22 19:18 106 H 20 107/62 98 01/09/22 19:00 102 H 20 106/54 81 L 01/09/22 18:30 98 20 128/63 95 01/09/22 18:00 102 H 20 125/63 01/09/22 16:00 92 20 120/58 97 01/09/22 15:30 91 20 113/54 93 L 01/09/22 15:26 35 H 90 L 01/09/22 15:15 20 01/09/22 14:47 99.6 F 80 18 111/54 87 L Intake and Output 05/07/22 05/08/22 05/08/22 22:59 06:59 14:59 Intake Total 118 Output Total 200 Balance -200 118 Intake: Oral 118 Output: Urine 200 Other: # Voids 1 Weight 62.596 kg 59.4 kg Results CBC & Chem 7: 01/09/22 15:26 01/09/22 15: Labs: Abnormal Lab Results - Last 24 Hours (Table) 01/09/22 01/09/22 01/09/22 Range/Units 15:26 15: 15: RBC 3.29 L (4.30-5.90) m/uL Hgb 9.8 L (13.0-17.5) gm/dL Hct 30.7 L (39.0-53.0) % Lymphocytes # 0.9 L (1.0-4.8) k/uL Sodium 132 L (137-145) mmol/L BUN 32 H (9-20) mg/dL Creatinine 1.30 H (0.66-1.25) mg/dL POC Glucose (mg/dL) (75-99) mg/dL Calcium 7.8 L (8.4-10.2) mg/dL Troponin I 0.055 H* (0.000-0.034) ng/mL Total Protein 5.4 L (6.3-8.2) g/dL Albumin 2.7 L (3.5-5.0) g/dL Procalcitonin (0.02-0.09) ng/mL 01/09/22 01/10/22 01/10/22 Range/Units 15:26 07:03 09:55 RBC (4.30-5.90) m/uL Hgb (13.0-17.5) gm/dL Hct (39.0-53.0) % Lymphocytes # (1.0-4.8) k/uL Sodium (137-145) mmol/L BUN (9-20) mg/dL Creatinine (0.66-1.25) mg/dL POC Glucose (mg/dL) (75-99) mg/dL Calcium (8.4-10.2) mg/dL Troponin I 0.044 H* 0.036 H* (0.000-0.034) ng/mL Total Protein (6.3-8.2) g/dL Albumin (3.5-5.0) g/dL Procalcitonin 3.74 H (0.02-0.09) ng/mL 01/10/22 Range/Units 11:37 RBC (4.30-5.90) m/uL Hgb (13.0-17.5) gm/dL Hct (39.0-53.0) % Lymphocytes # (1.0-4.8) k/uL Sodium (137-145) mmol/L BUN (9-20) mg/dL Creatinine (0.66-1.25) mg/dL POC Glucose (mg/dL) 112 H (75-99) mg/dL Calcium (8.4-10.2) mg/dL Troponin I (0.000-0.034) ng/mL Total Protein (6.3-8.2) g/dL Albumin (3.5-5.0) g/dL Procalcitonin (0.02-0.09) ng/mL Thrombosis Risk Factor Assmnt - Choose All That Apply Any of the Below Risk Factors Present?: Yes Each Factor Represents 1 point: Medical pt on bed rest, Serious lung disease incl. pneumonia (< 1month) Other Risk Factors: Yes Each Risk Factor Represents 3 Points: Age 75 years or older Other congenital or acquired thrombophilia - If yes, enter type in comment: No Thrombosis Risk Factor Assessment Total Risk Factor Score: 5 Thrombosis Risk Factor Assessment Level: High Risk
[2022-01-10 20:00] LABS: Glucose,Whole Blood 220 mg/dL (75-99)
--- NOTE | 2022-01-10 20:28 | US ---
EXAMINATION TYPE: US kidneys/renal and bladder DATE OF EXAM: 01/10/2022 COMPARISON: NONE CLINICAL HISTORY: Abnormal renal function. Abnormal renal function. Unable to obtain history from pat ient. EXAM MEASUREMENTS: Right Kidney: 9.9 x 4.2 x 4.1 cm Left Kidney: 9.9 x 4.8 x 4.7 cm Exam is limited due to gas. Right Kidney: Limited visibility of lower pole. Hypoechoic area seen laterally: 2.3 x 2.1 x 2.3 cm. Left Kidney: Hyperechoic focus seen: 0.4 x 0.7 x 0.3 cm. Bladder: Not distended, unable to properly evaluate. Pt has external catheter. Bilateral Jets seen: No IMPRESSION: No evidence of renal obstruction. Small right renal cortical cyst. Nonobstructing calcifi cation in the left kidney.
[2022-01-10] MEDS: MELATONIN 5 MG TABLET PO SCH (21:29)
[2022-01-10] MEDS: DOCUSATE 100 MG CAP PO SCH (21:29)
[2022-01-10] MEDS: PARoxetine 20 MG TAB PO SCH (21:29)
[2022-01-10 21:30] LABS: Glucose,Whole Blood 250 mg/dL (75-99)
[2022-01-11] MEDS: PIPERACILLIN-TAZOBACTAM 3.375 GM in SODIUM CHLORIDE 0.9% 100 ML IVPB SCH ×4 (00:01→23:21)
[2022-01-11 00:38] LABS: Amorphous Sediment,Urine Few /hpf; Appearance,Urine Cloudy (Clear); Bilirubin,Urine Negative (Negative); Blood,Urine Trace (Negative); Color,Urine Yellow; Glucose,Urine (UA) Negative (Negative); Hyaline Casts,Urine 1 /lpf (0-2); Ketones,Urine Negative (Negative); Leukocyte Esterase,Urine Negative (Negative); Nitrite,Urine Negative (Negative); Protein,Urine 1+ (Negative); Squamous Epithelial Cell,Urine <1 /hpf (0-4); Urobilinogen,Urine <2.0 mg/dL (<2.0); WBC,Urine 1 /hpf (0-5)
[2022-01-11 05:55] LABS: Glucose,Whole Blood 185 mg/dL (75-99)
[2022-01-11] MEDS: PANTOPRAZOLE 40 MG TABLET PO SCH ×2 (06:08→20:50)
[2022-01-11] MEDS: CHOLECALCIFEROL 25 MCG (1000 IU) TABLET PO SCH ×2 (06:08→16:25)
[2022-01-11] MEDS: METOPROLOL TARTRATE 25 MG TAB PO SCH ×2 (06:08→16:25)
[2022-01-11] MEDS: CYANOCOBALAMIN 500 MCG TAB PO SCH (06:08)
[2022-01-11] MEDS: LEVOTHYROXINE 25 MCG TAB PO SCH (06:08)
[2022-01-11] MEDS: FERROUS SULFATE 325 MG TAB PO SCH (06:08)
[2022-01-11] MEDS: methylPREDNISolone SOD SUCCI 125 MG/2 ML VIAL IV SCH (06:10)
[2022-01-11] MEDS: INSULIN ASPART (NovoLOG) 100 UNIT/ML VIAL SQ SCH ×4 (06:53→20:50)
[2022-01-11] MEDS: IPRATROPIUM-ALBUTEROL 3 ML NEB INHALATION SCH ×4 (07:21→20:55)
[2022-01-11] MEDS: ENOXAPARIN 40 MG/0.4 ML SYRINGE SQ SCH (08:38)
[2022-01-11] MEDS: FUROSEMIDE 10 MG/ML 4 ML VIAL IV SCH (08:41)
[2022-01-11 09:31] LABS: Calcium 8.4 mg/dL (8.4-10.2); Potassium 3.5 mmol/L (3.5-5.1)
--- NOTE | 2022-01-11 10:11 | P.PN ---
Subjective Progress Note Date: 01/11/22 Principal diagnosis: Aspiration pneumonia. This is a 76-year-old white male admitted yesterday from the emergency room, patient is an adult foster care facility resident, apparently the patient was noted to have trouble breathing at the facility. His O2 saturation was in the 80s without oxygen, patient does not normally wear oxygen. The patient himself is a very poor historian, and not much information could be obtained from the patient as he does have profound dementia. Apparently the patient is known to have history of pulmonary embolism back in August but has been off anticoagulation therapy maintained mostly on Toprol omeprazole Synthroid and Paxil as well as iron. Workup in the ER included a CT of the chest which showed evidence of bilateral infiltrates/pneumonia and atelectasis it was also suspicious for interstitial edema. Patient had a relatively elevated pro BNP level, and he also had significantly elevated pro calcitonin level of 3.74. CT of the chest was reviewed, I am strongly suspicious that the patient may be having aspiration pneumonia. Hence I have changed his antibiotics to Zosyn. In the meantime the patient will remain on oxygen and it will be titrated accordingly. He is receiving Lasix 40 mg IV push every 12 hours, ordered by car diology, and I have recommended methylprednisolone as the patient has significant wheezing on physical examination. Patient may have a component of underlying COPD. Again not much history could be obtained from the patient himself most of the information was obtained from the chart Progress note dated 01/11/2022. The patient is seen in room 352, for possible aspiration pneumonia. The patient was seen yesterday in consultation. The patient's temperature is 97.8 degrees. 4 L saturation 91%. Blood pressure is 135/70. Sodium 138, potassium 3.5, chlorides 98, CO2 28, anion gap 12, BUN 59, creatinine 2.41. The urine is essentially negative. CT angiogram was negative for pulmonary embolism, but did show bilateral lower lobe pneumonia and atelectasis. In addition, there may be some mild interstitial edema. The patient's antibiotic is switched to Zosyn. Corticosteroids are discontinued. Objective - Vital Signs Vital signs: Vital Signs Temp 98.0 F 01/11/22 07:42 Pulse 77 01/11/22 07:42 Resp 18 01/11/22 07:42 BP 135/70 01/11/22 07:42 Pulse Ox 91 L 01/11/22 07:42 Intake & Output 01/10/22 01/11/22 01/11/22 18:59 06:59 18:59 Intake Total 356 Output Total 1000 350 Balance -644 -350 Weight 61 kg Intake: Oral 356 Output: Urine 1000 350 Other: Voiding Method External Catheter # Bowel Movements 1 - Exam No acute distress, confused, and not able to give much in the way of additional history. HEENT examination is grossly unremarkable. Neck supple. Full range of motion. No adenopathy thyromegaly or neck vein distention. Cardiovascular examination reveals regular rhythm rate. S1-S2 normal. No S3 or S4. No discernible murmur noted. Heart sounds are distant. Heart rate 77 bpm. Lungs reveal scattered bilateral rhonchi. No wheezes or crackles. 4 L saturation is 94%. Abdomen soft, without bowel sounds. No masses or tenderness. Extremities are intact. No cyanosis clubbing or edema. Skin is without rash or lesion. Neurologic examination is difficult to assess. The patient is confused. He does move all 4 extremities. - Labs CBC & Chem 7: 01/09/22 15:26 01/11/22 08:48 Labs: Abnormal Lab Results - Last 24 Hours (Table) 01/10/22 01/10/22 01/10/22 Range/Units 09:55 11:37 16:17 BUN (9-20) mg/dL Creatinine (0.66-1.25) mg/dL Glucose (74-99) mg/dL POC Glucose (mg/dL) 112 H 129 H (75-99) mg/dL Troponin I 0.036 H* (0.000-0.034) ng/mL Urine Protein (Negative) Urine Blood (Negative) Amorphous Sediment (None) /hpf 01/10/22 01/10/22 01/10/22 Range/Units 19:58 21:28 22:18 BUN (9-20) mg/dL Creatinine (0.66-1.25) mg/dL Glucose (74-99) mg/dL POC Glucose (mg/dL) 220 H 250 H (75-99) mg/dL Troponin I (0.000-0.034) ng/mL Urine Protein 1+ H (Negative) Urine Blood Trace H (Negative) Amorphous Sediment Few H (None) /hpf 01/11/22 01/11/22 Range/Units 05:54 08:48 BUN 59 H (9-20) mg/dL Creatinine 2.41 H (0.66-1.25) mg/dL Glucose 141 H (74-99) mg/dL POC Glucose (mg/dL) 185 H (75-99) mg/dL Troponin I (0.000-0.034) ng/mL Urine Protein (Negative) Urine Blood (Negative) Amorphous Sediment (None) /hpf Microbiology - Last 24 Hours (Table) 01/09/22 18:24 Blood Culture - Preliminary Blood No Growth after 24 hours 01/09/22 18:08 Blood Culture - Preliminary Blood No Growth after 24 hours Assessment and Plan Assessment: Acute hypoxemic respiratory failure, thought to be related to underlying aspiration. Acute diastolic CHF. 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 History of dementia. Acute kidney injury. Hypothyroidism. Benign essential hypertension. Plan: Plan dated January 11 The patient's oxygen is titrated appropriately. We continue the patient on Zosyn. We also continue bronchodilators. The patient is to have a swallow evaluation. The patient continues on GI and DVT prophylaxis. Labs, x-rays, medications are reviewed. Echocardiogram will be done this morning. No additional recommendations. Prognosis is guarded. We will continue to follow the patient make recommendations where appropriate. Time with Patient: Less than 30
--- NOTE | 2022-01-11 11:41 | CA ---
Transthoracic Echo Report Name: Rambo Burton Age: 76 Gender: M : 1945 Exam Date: 01/11/2022 07:56 Exam Location: [facility] Ht (in): 68 Wt (lb): 134 Ordering Physician: Esvin Moya MD ([id number]) Attending/Referring Phys: Supervisor Blood Alicia Gunter RDCS Procedure CPT: Indications: New heart failure Cardiac Hx: Technical Quality: Fair Contrast 1: Total Dose (mL): Contrast 2: Total Dose (mL): MEASUREMENTS (Male / Female) Normal Values 2D ECHO LV Diastolic Diameter PLAX 4.4 cm 4.2 - 5.9 / 3.9 - 5.3 cm LV Systolic Diameter PLAX 2.7 cm IVS Diastolic Thickness 1.0 cm 0.6 - 1.0 / 0.6 - 0.9 cm LVPW Diastolic Thickness 1.0 cm 0.6 - 1.0 / 0.6 - 0.9 cm LV Relative Wall Thickness 0.5 RV Internal Dim ED PLAX 2.8 cm LA Systolic Diameter LX 3.1 cm 3.0 - 4.0 / 2.7 - 3.8 cm LA Volume 31.6 cm??? 18 - 58 / 22 - 52 cm??? M-MODE Aortic Root Diameter MM 3.2 cm MV E Point Septal Separation 0.7 cm AV Cusp Separation MM 1.8 cm DOPPLER AV Peak Velocity 121.5 cm/s AV Peak Gradient 5.9 mmHg MV E' Velocity 6.9 cm/s FINDINGS Left Ventricle Left ventricular ejection fraction is estimated at 55-60 %. Left ventricular cavity size normal. Left ventricular wall thickness at upper limits of normal. Right Ventricle Normal right ventricular size and function. Unable to estimate the right ventricular systolic pressure. Right Atrium Normal right atrial size. Left Atrium Normal left atrial size. Mitral Valve Structurally normal mitral valve. No mitral stenosis, regurgitation or prolapse. Aortic Valve Trileaflet aortic valve. No aortic valve stenosis or regurgitation. Tricuspid Valve Structurally normal tricuspid valve. Pulmonic Valve Pulmonic valve not well visualized. Pericardium Trace pericardial effusion Aorta Normal size aortic root and proximal ascending aorta. CONCLUSIONS Normal LV systolic function Trace pericardial effusion Previewed by: Dr. Hans Boone MD (Electronically Signed) Final Date: 11 Jan 2022 11:40
[2022-01-11 11:50] LABS: Glucose,Whole Blood 158 mg/dL (75-99)
--- NOTE | 2022-01-11 11:56 | P.PN ---
Subjective This is a 76-year-old male with a past medical history of dementia, hypertension, GERD, hypothyroidism. 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 We have been consulted to see the patient for congestive heart failure. Patient presents for extended care facility with hypoxia and shortness of breath, and also mental status. Chest CT revealed no evidence of pulmonary embolism, bilateral lower lobe pneumonia, pulmonary interstitial edema. Echocardiogram revealed EF 5560 percent, trace pericardial effusion. Patient seen and examined at bedside, no acute distress. He denies any shortness of breath or chest pain. He is compliant pleasant confused. Blood pressure 135/70, heart rate 70, afebrile, oxygen saturations 91% on 4 L nasal cannula. He's currently maintained on IV Lasix 40 mg twice a day, metoprolol titrate 25 mg twice a day Labs revealed sodium 1:30, potassium 4.5, BUN 59, serum creatinine 2.41 (1.30 yesterday) GENERAL: In no acute distress. NECK: Supple without JVD or thyromegaly. LUNGS: Breath sounds mild crackles bases to auscultation bilaterally. Respiration equal and unlabored. No wheezes, rales or rhonchi. HEART: Regular rate and rhythm without murmurs, rubs or gallops. S1 and S2 heard. EXTREMITIES: Normal range of motion, no edema. No clubbing or cyanosis. Peripheral pulses intact. NEURO: Alert, confused ASSESSMENT Acute hypoxic respiratory failure Acute pneumonia Acute on chronic heart failure with preserved ejection fraction Elevated troponin, likely due to hypoxia and supply and demand mismatch, no chest pain or ischemia noted on EKG. Echo with EF 55-60%. COPD exacerbation History of dementia Acute kidney injury, unknown baseline Hypothyroidism History of Hypertension PLAN Stop IV Lasix at this time secondary to increased Scr 2.41. Monitor renal function and electrolyes, I/Os, daily weights Pulmonary following Continue metoprolol tartrate Further recommendations based on clinical course Nurse Practitioner note has been reviewed, I agree with a documented findings and plan of care. Patient was seen and examined. Objective - Vital Signs Vital signs: Vital Signs Temp 98.0 F 01/11/22 07:42 Pulse 76 01/11/22 11:38 Resp 18 01/11/22 07:42 BP 135/70 01/11/22 07:42 Pulse Ox 91 L 01/11/22 07:42 Intake & Output 01/10/22 01/11/22 01/11/22 18:59 06:59 18:59 Intake Total 356 Output Total 1000 350 Balance -644 -350 Weight 61 kg Intake: Oral 356 Output: Urine 1000 350 Other: Voiding Method External Catheter External Catheter # Bowel Movements 1 - Labs CBC & Chem 7: 01/09/22 15:26 01/11/22 08:48 Labs: Abnormal Lab Results - Last 24 Hours (Table) 01/10/22 01/10/22 01/10/22 Range/Units 16:17 19:58 21:28 BUN (9-20) mg/dL Creatinine (0.66-1.25) mg/dL Glucose (74-99) mg/dL POC Glucose (mg/dL) 129 H 220 H 250 H (75-99) mg/dL Urine Protein (Negative) Urine Blood (Negative) Amorphous Sediment (None) /hpf 01/10/22 01/11/22 01/11/22 Range/Units 22:18 05:54 08:48 BUN 59 H (9-20) mg/dL Creatinine 2.41 H (0.66-1.25) mg/dL Glucose 141 H (74-99) mg/dL POC Glucose (mg/dL) 185 H (75-99) mg/dL Urine Protein 1+ H (Negative) Urine Blood Trace H (Negative) Amorphous Sediment Few H (None) /hpf Microbiology - Last 24 Hours (Table) 01/09/22 18:24 Blood Culture - Preliminary Blood No Growth after 24 hours 01/09/22 18:08 Blood Culture - Preliminary Blood No Growth after 24 hours
--- NOTE | 2022-01-11 15:08 | P.PN ---
Progress Note - Text Progress Note Date: 01/11/22 Chief Complaint: Short of breath This is a 76-year-old patient who follows with visiting physicians Dr. Watson. Chronic stable medical conditions include osteoporosis, hypothyroid, insomnia, hypertension, depression. Patient unable to give much of history.. Per the nursing noted ER patient been increasingly short of breath for one week. Patient was started on Z-Sedrick by the family doctor. Patient normally uses a walker to get about. For one week has had decreased activity. [facility]. This morning patient did eat with assistance. baseline patient really does not speak. Patient is noted to have a fever of 101 last night. Admitted with bilateral pneumonia, sepsis, COPD exacerbation. Started on IV Zosyn. January 11: Only fevers at 101 at 8 PM last night. None today. Creatinine has gone up. IV Lasix discontinued. Patient ate some breakfast and lunch today. Seen by speech. Continue with chopped diet. Active Medications Acetaminophen (Acetaminophen Tab 325 Mg Tab) 650 mg PO Q6HR PRN PRN Reason: Fever and/ or Pain Last Admin: 01/09/22 21:36 Dose: 650 mg Documented by: Albuterol/Ipratropium (Ipratropium-Albuterol 3 Ml Neb) 3 ml INHALATION RT-QID [facility] Last Admin: 01/11/22 11:24 Dose: 3 ml Documented by: Cholecalciferol (Cholecalciferol 25 Mcg (1000 Iu) Tablet) 25 mcg PO BID@0700,1700 [facility] Last Admin: 01/11/22 06:08 Dose: 25 mcg Documented by: Cyanocobalamin (Cyanocobalamin 500 Mcg Tab) 1,000 mcg PO DAILY@0700 [facility] Last Admin: 01/11/22 06:08 Dose: 1,000 mcg Documented by: Docusate Sodium (Docusate 100 Mg Cap) 100 mg PO HS@2100 [facility] Last Admin: 01/10/22 21:29 Dose: 100 mg Documented by: Enoxaparin Sodium (Enoxaparin 30 Mg/0.3 Ml Syringe) 30 mg SQ DAILY [facility] Ferrous Sulfate (Ferrous Sulfate 325 Mg Tab) 325 mg PO DAILY@0700 [facility] Last Admin: 01/11/22 06:08 Dose: 325 mg Documented by: Piperacillin Sod/Tazobactam (Sod 3.375 gm/ Sodium Chloride) 100 mls @ 25 mls/hr IVPB Q8HR [facility]; Protocol Last Admin: 01/11/22 08:38 Dose: 25 mls/hr Documented by: Insulin Aspart (Insulin Aspart (Novolog) 100 Unit/Ml Vial) 0 unit SQ ACHS [facility]; Protocol Last Admin: 01/11/22 13:12 Dose: 3 unit Documented by: Lactulose (Lactulose 20 Gm/30 Ml Cup) 20 gm PO DAILY@0700 PRN PRN Reason: HOLD FOR LOOSE STOOLS Levothyroxine Sodium (Levothyroxine 25 Mcg Tab) 25 mcg PO DAILY@0700 [facility] Last Admin: 01/11/22 06:08 Dose: 25 mcg Documented by: Loratadine (Loratadine 10 Mg Tab) 10 mg PO DAILY@0700 PRN PRN Reason: Allergy Symptoms Melatonin (Melatonin 5 Mg Tablet) 10 mg PO HS@2100 [facility] Last Admin: 01/10/22 21:29 Dose: 10 mg Documented by: Metoprolol Tartrate (Metoprolol Tartrate 25 Mg Tab) 25 mg PO BID@0700,1700 [facility] Last Admin: 01/11/22 06:08 Dose: 25 mg Documented by: Miscellaneous Information (Pneumonia Protocol Utilized 1 Each [facility]) 1 each PO ONCE PRN PRN Reason: Per Protocol Pantoprazole Sodium (Pantoprazole 40 Mg Tablet) 40 mg PO BID@0700,2100 [facility] Last Admin: 01/11/22 06:08 Dose: 40 mg Documented by: Paroxetine HCl (Paroxetine 20 Mg Tab) 40 mg PO HS@2100 [facility] Last Admin: 01/10/22 21:29 Dose: 40 mg Documented by: Past medical history to include: Osteoporosis, hypothyroid, insomnia, hypertension, GERD, depression, Social history: Lives at [facility]. Does use a walker. Cannot tell any history of smoking or alcohol. Family history: Patient cannot tell Physical examination: VITAL SIGNS: 98, 77, 18, 135-70, 91% on 4 L GENERAL: laying in bed, short of breath. EYES: Pupils equal. Conjunctiva normal. HEENT: External appearance of nose and ears normal, oral cavity grossly normal. NECK: JVD not raised; masses not palpable. HEART: First and second heart sounds are normal; no edema. LUNGS: Respiratory rate increased; decreased breath sounds. ABDOMEN: Soft, nontender, liver spleen not palpable, no masses palpable. PSYCH: Unable to assess, patient able to answer questionsl. MUSCULOSKELETAL:No Clubbing/cyanosis;muscles-grossly intact. Evidence of OA INVESTIGATIONS, reviewed in the clinical context: January 11: Potassium 3.5 BUN 59 creatinine 2.41 2-D echocardiogram: EF 55-60%. Ultrasound: No evidence of renal obstruction. White count 4.1 hemoglobin 9.8 platelets 258 sodium 132 potassium 3.7 BUN 32 creatinine 1.3 Troponin I 0.055, 0.044, 0.036 Pro-calcitonin 3.74 COVID 19/influenza type A/influenza type B: Not detected EKG tracing personally reviewed by me-normal sinus rhythm, rate 93 Chest x-ray film personally reviewed by me-bilateral infiltrates Assessment plan: -Bilateral pneumonia suspected gram-negative organism, causing sepsis: Slow to respond IV Zosyn. -Sepsis secondary to pneumonia IV Zosyn. 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 -Acute kidney injury, prerenal from IV diuresis IV Lasix discontinued. Gentle hydration. IV Zosyn. Bronchodilator. IV Lasix discontinued. Gentle hydration. Repeat labs in the morning. Supervised feeding.
[2022-01-11 16:11] LABS: Glucose,Whole Blood 180 mg/dL (75-99)
[2022-01-11] MEDS: SODIUM CHLORIDE 0.9% 1,000 ML IV SCH (16:26)
[2022-01-11 20:41] LABS: Glucose,Whole Blood 169 mg/dL (75-99)
[2022-01-11] MEDS: PARoxetine 20 MG TAB PO SCH (20:50)
[2022-01-11] MEDS: DOCUSATE 100 MG CAP PO SCH (20:50)
[2022-01-11] MEDS: MELATONIN 5 MG TABLET PO SCH (20:50)
[2022-01-12 06:04] LABS: Glucose,Whole Blood 124 mg/dL (75-99)
[2022-01-12] MEDS: SODIUM CHLORIDE 0.9% 1,000 ML IV SCH ×2 (06:11→20:14)
[2022-01-12] MEDS: FERROUS SULFATE 325 MG TAB PO SCH (06:25)
[2022-01-12] MEDS: METOPROLOL TARTRATE 25 MG TAB PO SCH ×2 (06:25→17:47)
[2022-01-12] MEDS: CHOLECALCIFEROL 25 MCG (1000 IU) TABLET PO SCH ×2 (06:25→17:47)
[2022-01-12] MEDS: LEVOTHYROXINE 25 MCG TAB PO SCH (06:25)
[2022-01-12] MEDS: PANTOPRAZOLE 40 MG TABLET PO SCH ×2 (06:25→21:27)
[2022-01-12] MEDS: INSULIN ASPART (NovoLOG) 100 UNIT/ML VIAL SQ SCH ×4 (06:25→21:28)
[2022-01-12] MEDS: CYANOCOBALAMIN 500 MCG TAB PO SCH (06:25)
[2022-01-12 08:55] LABS: Calcium 8.3 mg/dL (8.4-10.2); Potassium 3.4 mmol/L (3.5-5.1)
[2022-01-12] MEDS: IPRATROPIUM-ALBUTEROL 3 ML NEB INHALATION SCH ×4 (09:23→21:25)
[2022-01-12] MEDS: PIPERACILLIN-TAZOBACTAM 3.375 GM in SODIUM CHLORIDE 0.9% 100 ML IVPB SCH ×2 (09:33→21:27)
[2022-01-12] MEDS: ENOXAPARIN 30 MG/0.3 ML SYRINGE SQ SCH (09:34)
[2022-01-12] MEDS ORDERED: Potassium Replacement Protocol 1 EACH MISC MISCELLANE PRN (11:13)
[2022-01-12] MEDS ORDERED: POTASSIUM CHLORIDE ER 20 MEQ TAB.ER PO STA (11:14)
[2022-01-12 11:57] LABS: Glucose,Whole Blood 112 mg/dL (75-99)
--- NOTE | 2022-01-12 12:35 | P.PN ---
Subjective This is a 76-year-old male with a past medical history of dementia, hypertension, GERD, hypothyroidism. 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 We have been consulted to see the patient for congestive heart failure. Patient presents for extended care facility with hypoxia and shortness of breath, and also altered mental status. Chest CT revealed no evidence of pulmonary embolism, bilateral lower lobe pneumonia, pulmonary interstitial edema. Echocardiogram revealed EF 5560%, trace pericardial effusion. He was started on IV lasix for possible congestive heart failure, this was discontinued due to increase serum creatinine to 2.41. Patient seen and examined at bedside, no acute distress. He is alert and oriented to person and knows he is in the hospital in [place]. He denies any shortness of breath or chest pain. He is pleasantly confused. He has been weaned to 2L nasal cannula. Sinus rhythm HR 70s-80s Blood pressure 90/54, heart rate 70, afebrile, oxygen saturations 98% on 2 L nasal cannula. He's currently maintained on metoprolol tartrate 25 mg twice a day Labs revealed sodium 142, potassium 3.4, BUN 77, serum creatinine 3.10 (2.41 yesterday) GENERAL: In no acute distress. NECK: Supple without JVD or thyromegaly. LUNGS: Breath sounds rhonchi to auscultation bilaterally. Respiration equal and unlabored. No wheezes, rales HEART: Regular rate and rhythm without murmurs, rubs or gallops. S1 and S2 heard. EXTREMITIES: Normal range of motion, no edema. No clubbing or cyanosis. Peripheral pulses intact. NEURO: Alert, confused ASSESSMENT Acute hypoxic respiratory failure Acute pneumonia Elevated troponin, likely due to hypoxia and supply and demand mismatch, no chest pain or ischemia noted on EKG. Echo with EF 55-60%. COPD exacerbation History of dementia Acute kidney injury, unknown baseline Hypothyroidism History of Hypertension Hypotension PLAN Hold diuretics. Patient does not appear to be in acute heart failure on exam, symptoms likely related to acute pneumonia. Echocardiogram revealed EF 5560 %, trace pericardial effusion. No significant wall motion abnormalities Monitor renal function and electrolytes Pulmonary following Continue metoprolol tartrate From a cardiac standpoint, no further changes at this time. Please reach out if any questions or concerns. Nurse Practitioner note has been reviewed, I agree with a documented findings and plan of care. Patient was seen and examined. Objective - Vital Signs Vital signs: Vital Signs Temp 98.7 F 01/11/22 20:50 Pulse 83 01/12/22 03:45 Resp 17 01/12/22 03:45 BP 116/59 01/12/22 03:45 Pulse Ox 92 L 01/12/22 03:45 Intake & Output 01/11/22 01/12/22 01/12/22 18:59 06:59 18:59 Intake Total 320 540 Output Total 600 Balance 320 -60 Intake: Oral 320 540 Output: Urine 600 Straight 200 Other: Voiding Method External Catheter External Catheter # Voids 0 - Labs CBC & Chem 7: 01/09/22 15:26 01/12/22 08:04 Labs: Abnormal Lab Results - Last 24 Hours (Table) 01/11/22 01/11/22 01/11/22 Range/Units 08:48 11:46 16:09 BUN 59 H (9-20) mg/dL Creatinine 2.41 H (0.66-1.25) mg/dL Glucose 141 H (74-99) mg/dL POC Glucose (mg/dL) 158 H 180 H (75-99) mg/dL 01/11/22 01/12/22 Range/Units 20:37 05:57 BUN (9-20) mg/dL Creatinine (0.66-1.25) mg/dL Glucose (74-99) mg/dL POC Glucose (mg/dL) 169 H 124 H (75-99) mg/dL Microbiology - Last 24 Hours (Table) 01/09/22 18:24 Blood Culture - Preliminary Blood No Growth after 48 hours 01/09/22 18:08 Blood Culture - Preliminary Blood No Growth after 48 hours
--- NOTE | 2022-01-12 12:37 | P.PN ---
Subjective Progress Note Date: 01/12/22 Principal diagnosis: Aspiration pneumonia. This is a 76-year-old white male admitted yesterday from the emergency room, patient is an adult foster care facility resident, apparently the patient was noted to have trouble breathing at the facility. His O2 saturation was in the 80s without oxygen, patient does not normally wear oxygen. The patient himself is a very poor historian, and not much information could be obtained from the patient as he does have profound dementia. Apparently the patient is known to have history of pulmonary embolism back in August but has been off anticoagulation therapy maintained mostly on Toprol omeprazole Synthroid and Paxil as well as iron. Workup in the ER included a CT of the chest which showed evidence of bilateral infiltrates/pneumonia and atelectasis it was also suspicious for interstitial edema. Patient had a relatively elevated pro BNP level, and he also had significantly elevated pro calcitonin level of 3.74. CT of the chest was reviewed, I am strongly suspicious that the patient may be having aspiration pneumonia. Hence I have changed his antibiotics to Zosyn. In the meantime the patient will remain on oxygen and it will be titrated accordingly. He is receiving Lasix 40 mg IV push every 12 hours, ordered by car diology, and I have recommended methylprednisolone as the patient has significant wheezing on physical examination. Patient may have a component of underlying COPD. Again not much history could be obtained from the patient himself most of the information was obtained from the chart Progress note dated 01/11/2022. The patient is seen in room 352, for possible aspiration pneumonia. The patient was seen yesterday in consultation. The patient's temperature is 97.8 degrees. 4 L saturation 91%. Blood pressure is 135/70. Sodium 138, potassium 3.5, chlorides 98, CO2 28, anion gap 12, BUN 59, creatinine 2.41. The urine is essentially negative. CT angiogram was negative for pulmonary embolism, but did show bilateral lower lobe pneumonia and atelectasis. In addition, there may be some mild interstitial edema. The patient's antibiotic is switched to Zosyn. Corticosteroids are discontinued. Progress note dated 01/12/2022. The patient is again seen in room 352 for aspiration pneumonia. The patient not a particularly good historian. He was not wearing his nasal oxygen properly. I did mention this to the nurse. The patient is a very poor historian. Somewhat lethargic and somnolent. Labs today include a sodium 142, potassium 3.4, chlorides 103, CO2 27, BUN 77, and creatinine 3.10. The pro-calcitonin level is 3.96. Calcium is 8.3. Blood cultures are negative. CT angiogram was negative for pulmonary embolism. The patient is currently on Zosyn. He's on 2 L nasal cannula. Objective - Vital Signs Vital signs: Vital Signs Temp 98.1 F 01/12/22 08:00 Pulse 72 01/12/22 09:36 Resp 18 01/12/22 08:00 BP 90/54 01/12/22 08:00 Pulse Ox 92 L 01/12/22 09:25 Intake & Output 01/11/22 01/12/22 01/12/22 18:59 06:59 18:59 Intake Total 320 540 Output Total 600 Balance 320 -60 Intake: Oral 320 540 Output: Urine 600 Straight 200 Other: Voiding Method External Catheter External Catheter External Catheter # Voids 0 - Exam No acute distress, confused, and not able to give much in the way of additional history. HEENT examination is grossly unremarkable. Neck supple. Full range of motion. No adenopathy thyromegaly or neck vein distention. Cardiovascular examination reveals regular rhythm rate. S1-S2 normal. No S3 or S4. No discernible murmur noted. Heart sounds are distant. Heart rate 72 bpm. Lungs reveal scattered bilateral rhonchi. No wheezes or crackles. 2 L saturation is 95%. Abdomen soft, without bowel sounds. No masses or tenderness. Extremities are intact. No cyanosis clubbing or edema. Skin is without rash or lesion. Neurologic examination is difficult to assess. The patient is confused. He does move all 4 extremities. - Labs CBC & Chem 7: 01/09/22 15:26 01/12/22 08:04 Labs: Abnormal Lab Results - Last 24 Hours (Table) 01/11/22 01/11/22 01/12/22 Range/Units 16:09 20:37 05:57 Potassium (3.5-5.1) mmol/L BUN (9-20) mg/dL Creatinine (0.66-1.25) mg/dL POC Glucose (mg/dL) 180 H 169 H 124 H (75-99) mg/dL Calcium (8.4-10.2) mg/dL Procalcitonin (0.02-0.09) ng/mL 01/12/22 01/12/22 01/12/22 Range/Units 08:04 08:04 11:55 Potassium 3.4 L (3.5-5.1) mmol/L BUN 77 H (9-20) mg/dL Creatinine 3.10 H (0.66-1.25) mg/dL POC Glucose (mg/dL) 112 H (75-99) mg/dL Calcium 8.3 L (8.4-10.2) mg/dL Procalcitonin 3.96 H (0.02-0.09) ng/mL Microbiology - Last 24 Hours (Table) 01/09/22 18:24 Blood Culture - Preliminary Blood No Growth after 48 hours 01/09/22 18:08 Blood Culture - Preliminary Blood No Growth after 48 hours Assessment and Plan Assessment: Acute hypoxemic respiratory failure, thought to be related to underlying aspiration. Acute diastolic CHF. 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 History of dementia. Acute kidney injury. Hypothyroidism. Benign essential hypertension. Plan: Plan dated January 11 The patient's oxygen is titrated appropriately. We continue the patient on Zosyn. We also continue bronchodilators. The patient is to have a swallow evaluation. The patient continues on GI and DVT prophylaxis. Labs, x-rays, medications are reviewed. Echocardiogram will be done this morning. No additional recommendations. Prognosis is guarded. We will continue to follow the patient make recommendations where appropriate. Plan dated 01/12/2022. The patient is doing about the same today as he was yesterday. He's been weaned down to 2 L. Labs are reviewed. Renal function is poor. The patient is to have a swallow evaluation. He continues on GI and DVT prophylaxis. He also continues on Zosyn. Prognosis is very guarded. We will continue to follow the patient and make recommendations were appropriate. The patient will have a follow-up chest x-ray tomorrow. Time with Patient: Less than 30
--- NOTE | 2022-01-12 15:12 | P.PN ---
Progress Note - Text Progress Note Date: 01/12/22 Chief Complaint: Short of breath This is a 76-year-old patient who follows with visiting physicians Dr. Watson. Chronic stable medical conditions include osteoporosis, hypothyroid, insomnia, hypertension, depression. Patient unable to give much of history.. Per the nursing noted ER patient been increasingly short of breath for one week. Patient was started on Z-Sedrick by the family doctor. Patient normally uses a walker to get about. For one week has had decreased activity. [facility]. This morning patient did eat with assistance. baseline patient really does not speak. Patient is noted to have a fever of 101 last night. Admitted with bilateral pneumonia, sepsis, COPD exacerbation. Started on IV Zosyn. January 11: Only fevers at 101 at 8 PM last night. None today. Creatinine has gone up. IV Lasix discontinued. Patient ate some breakfast and lunch today. Seen by speech. Continue with chopped diet. January 12: Eating about 50%. On IV Zosyn. Afebrile. Diet. 2 L nasal cannula. Short of breath. Active Medications Acetaminophen (Acetaminophen Tab 325 Mg Tab) 650 mg PO Q6HR PRN PRN Reason: Fever and/ or Pain Last Admin: 01/09/22 21:36 Dose: 650 mg Documented by: Albuterol/Ipratropium (Ipratropium-Albuterol 3 Ml Neb) 3 ml INHALATION RT-QID [facility] Last Admin: 01/12/22 13:16 Dose: Not Given Documented by: Cholecalciferol (Cholecalciferol 25 Mcg (1000 Iu) Tablet) 25 mcg PO BID@07 00,1700 [facility] Last Admin: 01/12/22 06:25 Dose: 25 mcg Documented by: Cyanocobalamin (Cyanocobalamin 500 Mcg Tab) 1,000 mcg PO DAILY@0700 [facility] Last Admin: 01/12/22 06:25 Dose: 1,000 mcg Documented by: Docusate Sodium (Docusate 100 Mg Cap) 100 mg PO HS@2100 [facility] Last Admin: 01/11/22 20:50 Dose: 100 mg Documented by: Enoxaparin Sodium (Enoxaparin 30 Mg/0.3 Ml Syringe) 30 mg SQ DAILY [facility] Last Admin: 01/12/22 09:34 Dose: 30 mg Documented by: Ferrous Sulfate (Ferrous Sulfate 325 Mg Tab) 325 mg PO DAILY@0700 [facility] Last Admin: 01/12/22 06:25 Dose: 325 mg Documented by: Sodium Chloride (Saline 0.9%) 1,000 mls @ 75 mls/hr IV .[id number] [facility] Last Admin: 01/12/22 06:11 Dose: Not Given Documented by: Piperacillin Sod/Tazobactam (Sod 3.375 gm/ Sodium Chloride) 100 mls @ 25 mls/hr IVPB Q12H [facility]; Protocol Insulin Aspart (Insulin Aspart (Novolog) 100 Unit/Ml Vial) 0 unit SQ ACHS [facility]; Protocol Last Admin: 01/12/22 13:57 Dose: Not Given Documented by: Lactulose (Lactulose 20 Gm/30 Ml Cup) 20 gm PO DAILY@0700 PRN PRN Reason: HOLD FOR LOOSE STOOLS Levothyroxine Sodium (Levothyroxine 25 Mcg Tab) 25 mcg PO DAILY@0700 [facility] Last Admin: 01/12/22 06:25 Dose: 25 mcg Documented by: Loratadine (Loratadine 10 Mg Tab) 10 mg PO DAILY@0700 PRN PRN Reason: Allergy Symptoms Melatonin (Melatonin 5 Mg Tablet) 10 mg PO HS@2100 [facility] Last Admin: 01/11/22 20:50 Dose: 10 mg Documented by: Metoprolol Tartrate (Metoprolol Tartrate 25 Mg Tab) 25 mg PO BID@0700,1700 [facility] Last Admin: 01/12/22 06:25 Dose: 25 mg Documented by: Miscellaneous Information (Pneumonia Protocol Utilized 1 Each [facility]) 1 each PO ONCE PRN PRN Reason: Per Protocol Miscellaneous Information (Potassium Replacement Protocol 1 Each [facility]) 1 each MISCELLANE DAILY PRN; Protocol PRN Reason: Per Protocol Pantoprazole Sodium (Pantoprazole 40 Mg Tablet) 40 mg PO BID@0700,2100 [facility] Last Admin: 01/12/22 06:25 Dose: 40 mg Documented by: Paroxetine HCl (Paroxetine 20 Mg Tab) 40 mg PO HS@2100 [facility] Last Admin: 01/11/22 20:50 Dose: 40 mg Documented by: Past medical history to include: Osteoporosis, hypothyroid, insomnia, hypertension, GERD, depression, Social history: Lives at [facility]. Does use a walker. Cannot tell any history of smoking or alcohol. Family history: Patient cannot tell Physical examination: VITAL SIGNS: 98.1, 70, 18, 90/54, 98% on 2 L GENERAL: laying in bed, tired EYES: Pupils equal. Conjunctiva normal. HEENT: External appearance of nose and ears normal, oral cavity grossly normal. NECK: JVD not raised; masses not palpable. HEART: First and second heart sounds are normal; no edema. LUNGS: Respiratory rate increased; decreased breath sounds, some crackles. ABDOMEN: Soft, nontender, liver spleen not palpable, no masses palpable. PSYCH: Unable to assess, patient doesn't talk MUSCULOSKELETAL:No Clubbing/cyanosis;muscles-grossly intact. Evidence of OA INVESTIGATIONS, reviewed in the clinical context: January 12: Potassium 3.4 BUN 77 creatinine 3.10 procalcitonin 3.96 January 11: Potassium 3.5 BUN 59 creatinine 2.41 2-D echocardiogram: EF 55-60%. Ultrasound: No evidence of renal obstruction. White count 4.1 hemoglobin 9.8 platelets 258 sodium 132 potassium 3.7 BUN 32 creatinine 1.3 Troponin I 0.055, 0.044, 0.036 Pro-calcitonin 3.74 COVID 19/influenza type A/influenza type B: Not detected EKG tracing personally reviewed by me-normal sinus rhythm, rate 93 Chest x-ray film personally reviewed by me-bilateral infiltrates Assessment plan: -Bilateral pneumonia suspected gram-negative organism, causing sepsis: Slow to respond IV Zosyn. -Sepsis secondary to pneumonia IV Zosyn. 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 -Acute kidney injury, prerenal from IV diuresis: Worsening IV Lasix discontinued. Gentle hydration. IV Zosyn. Bronchodilator. Saline at 75 mL an hour. Supervised feeding. Other medications to continue.
[2022-01-12 17:05] LABS: Glucose,Whole Blood 134 mg/dL (75-99)
[2022-01-12 20:04] LABS: Glucose,Whole Blood 169 mg/dL (75-99)
[2022-01-12] MEDS: PARoxetine 20 MG TAB PO SCH (21:27)
[2022-01-12] MEDS: MELATONIN 5 MG TABLET PO SCH (21:27)
[2022-01-12] MEDS: DOCUSATE 100 MG CAP PO SCH (21:27)
[2022-01-12] MEDS: ACETAMINOPHEN TAB 325 MG TAB PO PRN (21:29)
[2022-01-13] MEDS: LEVOTHYROXINE 25 MCG TAB PO SCH (06:01)
[2022-01-13] MEDS: PANTOPRAZOLE 40 MG TABLET PO SCH ×2 (06:01→20:32)
[2022-01-13] MEDS: FERROUS SULFATE 325 MG TAB PO SCH (06:01)
[2022-01-13] MEDS: CYANOCOBALAMIN 500 MCG TAB PO SCH (06:01)
[2022-01-13] MEDS: CHOLECALCIFEROL 25 MCG (1000 IU) TABLET PO SCH ×2 (06:01→17:19)
[2022-01-13] MEDS: METOPROLOL TARTRATE 25 MG TAB PO SCH ×2 (06:02→17:26)
[2022-01-13 06:03] LABS: Glucose,Whole Blood 144 mg/dL (75-99)
[2022-01-13] MEDS: INSULIN ASPART (NovoLOG) 100 UNIT/ML VIAL SQ SCH ×4 (06:06→20:33)
[2022-01-13] MEDS: SODIUM CHLORIDE 0.9% 1,000 ML IV SCH (06:07)
[2022-01-13 07:52] LABS: Basophils % (A) 0 %; Eosinophils % (A) 0 %; HCT 31.6 % (39.0-53.0); HGB 9.6 gm/dL (13.0-17.5); Lymphocytes # (A) 1.1 k/uL (1.0-4.8); Lymphocytes % (A) 13 %; MCH 29.1 pg (25.0-35.0); MCHC 30.3 g/dL (31.0-37.0); Mean Platelet Volume 7.7; Monocytes # (A) 0.3 k/uL (0-1.0); Monocytes % (A) 3 %; Neutrophils # (A) 7.2 k/uL (1.3-7.7); Neutrophils % (A) 82 %; Platelet Count 362 k/uL (150-450); RBC 3.29 m/uL (4.30-5.90); RDW 13.5 % (11.5-15.5); WBC 8.7 k/uL (3.8-10.6)
--- NOTE | 2022-01-13 08:09 | XR ---
EXAMINATION TYPE: XR chest 1V portable DATE OF EXAM: 01/13/2022 COMPARISON: X-ray dated 01/09/2022 HISTORY: Pneumonia TECHNIQUE: Single frontal view of the chest is obtained. FINDINGS: Slightly improved left lower lung zone opacities/areas of consolidation yet not completely resolved. Questionable small atelectasis in the right lung base. Congested pulmonary vasculature, mild pulmonar y edema cannot be excluded. Blunting of the right CP recess. No gross cardiomegaly. Osteopenia. Chronic healed fracture of the ri ght fourth rib. Multilevel lower thoracic and upper lumbar vertebral body collapse, appreciated previ ously. IMPRESSION: Interval changes as described above.
[2022-01-13 08:14] LABS: Calcium 8.3 mg/dL (8.4-10.2); Potassium 4.1 mmol/L (3.5-5.1)
[2022-01-13] MEDS: IPRATROPIUM-ALBUTEROL 3 ML NEB INHALATION SCH ×4 (09:01→19:16)
[2022-01-13] MEDS: ENOXAPARIN 30 MG/0.3 ML SYRINGE SQ SCH (09:52)
[2022-01-13 11:34] LABS: Glucose,Whole Blood 123 mg/dL (75-99)
[2022-01-13] MEDS: PIPERACILLIN-TAZOBACTAM 3.375 GM in SODIUM CHLORIDE 0.9% 100 ML IVPB SCH ×2 (11:34→20:32)
--- NOTE | 2022-01-13 12:04 | P.PN ---
Subjective Progress Note Date: 01/13/22 Principal diagnosis: Aspiration pneumonia. This is a 76-year-old white male admitted yesterday from the emergency room, patient is an adult foster care facility resident, apparently the patient was noted to have trouble breathing at the facility. His O2 saturation was in the 80s without oxygen, patient does not normally wear oxygen. The patient himself is a very poor historian, and not much information could be obtained from the patient as he does have profound dementia. Apparently the patient is known to have history of pulmonary embolism back in August but has been off anticoagulation therapy maintained mostly on Toprol omeprazole Synthroid and Paxil as well as iron. Workup in the ER included a CT of the chest which showed evidence of bilateral infiltrates/pneumonia and atelectasis it was also suspicious for interstitial edema. Patient had a relatively elevated pro BNP level, and he also had significantly elevated pro calcitonin level of 3.74. CT of the chest was reviewed, I am strongly suspicious that the patient may be having aspiration pneumonia. Hence I have changed his antibiotics to Zosyn. In the meantime the patient will remain on oxygen and it will be titrated accordingly. He is receiving Lasix 40 mg IV push every 12 hours, ordered by car diology, and I have recommended methylprednisolone as the patient has significant wheezing on physical examination. Patient may have a component of underlying COPD. Again not much history could be obtained from the patient himself most of the information was obtained from the chart Progress note dated 01/11/2022. The patient is seen in room 352, for possible aspiration pneumonia. The patient was seen yesterday in consultation. The patient's temperature is 97.8 degrees. 4 L saturation 91%. Blood pressure is 135/70. Sodium 138, potassium 3.5, chlorides 98, CO2 28, anion gap 12, BUN 59, creatinine 2.41. The urine is essentially negative. CT angiogram was negative for pulmonary embolism, but did show bilateral lower lobe pneumonia and atelectasis. In addition, there may be some mild interstitial edema. The patient's antibiotic is switched to Zosyn. Corticosteroids are discontinued. Progress note dated 01/12/2022. The patient is again seen in room 352 for aspiration pneumonia. The patient not a particularly good historian. He was not wearing his nasal oxygen properly. I did mention this to the nurse. The patient is a very poor historian. Somewhat lethargic and somnolent. Labs today include a sodium 142, potassium 3.4, chlorides 103, CO2 27, BUN 77, and creatinine 3.10. The pro-calcitonin level is 3.96. Calcium is 8.3. Blood cultures are negative. CT angiogram was negative for pulmonary embolism. The patient is currently on Zosyn. He's on 2 L nasal cannula. Progress note dated 01/13/2022. This is a 76-year-old male who was seen in consultation a few days ago. He was admitted with a diagnosis of aspiration pneumonia. He is seen today again in room 352. He's currently on 3 L. His saturations are adequate. He does have quite a bit of chest congestion. We did mention to the nurse that the patient could be discharged to a assisted or rehab facility. White count 8.7, hemoglobin 9.6, hematocrit 31.6, with a normal platelet count. Sodium and potassium are normal. Chloride 108. CO2 26, with a normal anion gap, BUN 70, with a creatinine of 2.45. Chest x-ray shows improvement. The patient remains on Zosyn. Blood cultures are negative. Objective - Vital Signs Vital signs: Vital Signs Temp 98.0 F 01/13/22 04:00 Pulse 76 01/13/22 09:09 Resp 18 01/13/22 04:00 BP 108/58 01/13/22 04:00 Pulse Ox 93 L 01/13/22 04:00 Intake & Output 01/12/22 01/13/22 01/13/22 18:59 06:59 18:59 Intake Total 360 10 240 Output Total 250 350 Balance 360 -240 -110 Intake: IV 10 Invasive Line 1 10 Oral 360 240 Output: Urine 250 350 Other: Voiding Method External Catheter External Catheter # Voids 2 2 # Bowel Movements 0 - Exam No acute distress, confused, and not able to give much in the way of additional history. HEENT examination is grossly unremarkable. Neck supple. Full range of motion. No adenopathy thyromegaly or neck vein di stention. Cardiovascular examination reveals regular rhythm rate. S1-S2 normal. No S3 or S4. No discernible murmur noted. Heart sounds are distant. Heart rate 76 bpm. Lungs reveal scattered bilateral rhonchi. No wheezes or crackles. 3 L saturation is 94%. Abdomen soft, without bowel sounds. No masses or tenderness. Extremities are intact. No cyanosis clubbing or edema. Skin is without rash or lesion. Neurologic examination is difficult to assess. The patient is confused. He does move all 4 extremities. - Labs CBC & Chem 7: 01/13/22 06:58 01/13/22 06:58 Labs: Abnormal Lab Results - Last 24 Hours (Table) 01/12/22 01/12/22 01/13/22 Range/Units 17:03 20:03 06:02 RBC (4.30-5.90) m/uL Hgb (13.0-17.5) gm/dL Hct (39.0-53.0) % MCHC (31.0-37.0) g/dL Chloride (98-107) mmol/L BUN (9-20) mg/dL Creatinine (0.66-1.25) mg/dL Glucose (74-99) mg/dL POC Glucose (mg/dL) 134 H 169 H 144 H (75-99) mg/dL Calcium (8.4-10.2) mg/dL 01/13/22 01/13/22 01/13/22 Range/Units 06:58 06:58 11:33 RBC 3.29 L (4.30-5.90) m/uL Hgb 9.6 L (13.0-17.5) gm/dL Hct 31.6 L (39.0-53.0) % MCHC 30.3 L (31.0-37.0) g/dL Chloride 108 H (98-107) mmol/L BUN 70 H (9-20) mg/dL Creatinine 2.45 H (0.66-1.25) mg/dL Glucose 104 H (74-99) mg/dL POC Glucose (mg/dL) 123 H (75-99) mg/dL Calcium 8.3 L (8.4-10.2) mg/dL Microbiology - Last 24 Hours (Table) 01/09/22 18:24 Blood Culture - Preliminary Blood No Growth after 72 hours 01/09/22 18:08 Blood Culture - Preliminary Blood No Growth after 72 hours Assessment and Plan Assessment: Acute hypoxemic respiratory failure, thought to be related to underlying aspiration. Acute diastolic CHF. 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 History of dementia. Acute kidney injury. Hypothyroidism. Benign essential hypertension. Plan: Plan dated January 11 The patient's oxygen is titrated appropriately. We continue the patient on Zosyn. We also continue bronchodilators. The patient is to have a swallow evaluation. The patient continues on GI and DVT prophylaxis. Labs, x-rays, medications are reviewed. Echocardiogram will be done this morning. No additional recommendations. Prognosis is guarded. We will continue to follow the patient make recommendations where appropriate. Plan dated 01/12/2022. The patient is doing about the same today as he was yesterday. He's been weaned down to 2 L. Labs are reviewed. Renal function is poor. The patient is to have a swallow evaluation. He continues on GI and DVT prophylaxis. He also continues on Zosyn. Prognosis is very guarded. We will continue to follow the patient and make recommendations were appropriate. The patient will have a follow-up chest x-ray tomorrow. Plan dated 01/13/2022. The patient's chest x-ray does show improvement. The patient remains on 3 L nasal cannula. The patient is currently being evaluated for placement at a assisted or rehab facility. The patient's labs, x-rays, medications are all reviewed. He continues on GI and DVT prophylaxis. Blood cultures are negative. We will continue to follow the patient make recommendations where appropriate. His prognosis is certainly guarded. Time with Patient: Less than 30
--- NOTE | 2022-01-13 15:20 | P.PN ---
Progress Note - Text Progress Note Date: 01/13/22 Chief Complaint: Short of breath This is a 76-year-old patient who follows with visiting physicians Dr. Watson. Chronic stable medical conditions include osteoporosis, hypothyroid, insomnia, hypertension, depression. Patient unable to give much of history.. Per the nursing noted ER patient been increasingly short of breath for one week. Patient was started on Z-Sedrick by the family doctor. Patient normally uses a walker to get about. For one week has had decreased activity. Patient lives [facility] the [facility]. This morning patient did eat with assistance. baseline patient really does not speak. Patient is noted to have a fever of 101 last night. Admitted with bilateral pneumonia, sepsis, COPD exacerbation. Started on IV Zosyn. January 11: Only fevers at 101 at 8 PM last night. None today. Creatinine has gone up. IV Lasix discontinued. Patient ate some breakfast and lunch today. Seen by speech. Continue with chopped diet. January 12: Eating about 50%. On IV Zosyn. Afebrile. Diet. 2 L nasal cannula. Short of breath. January 13: IV Zosyn. Eating better. Gentle hydration. Congested cough. Active Medications Acetaminophen (Acetaminophen Tab 325 Mg Tab) 650 mg PO Q6HR PRN PRN Reason: Fever and/ or Pain Last Admin: 01/09/22 21:36 Dose: 650 mg Documented by: Albuterol/Ipratropium (Ipratropium-Albuterol 3 Ml Neb) 3 ml INHALATION RT-QID [facility] Last Admin: 01/12/22 13:16 Dose: Not Given Documented by: Cholecalciferol (Cholecalciferol 25 Mcg (1000 Iu) Tablet) 25 mcg PO BID@0700,1700 [facility] Last Admin: 01/12/22 06:25 Dose: 25 mcg Documented by: Cyanocobalamin (Cyanocobalamin 500 Mcg Tab) 1,000 mcg PO DAILY@0700 [facility] Last Admin: 01/12/22 06:25 Dose: 1,000 mcg Documented by: Docusate Sodium (Docusate 100 Mg Cap) 100 mg PO HS@2100 [facility] Last Admin: 01/11/22 20:50 Dose: 100 mg Documented by: Enoxaparin Sodium (Enoxaparin 30 Mg/0.3 Ml Syringe) 30 mg SQ DAILY [facility] Last Admin: 01/12/22 09:34 Dose: 30 mg Documented by: Ferrous Sulfate (Ferrous Sulfate 325 Mg Tab) 325 mg PO DAILY@0700 [facility] Last Admin: 01/12/22 06:25 Dose: 325 mg Documented by: Sodium Chloride (Saline 0.9%) 1,000 mls @ 75 mls/hr IV .[id number] [facility] Last Admin: 01/12/22 06:11 Dose: Not Given Documented by: Piperacillin Sod/Tazobactam (Sod 3.375 gm/ Sodium Chloride) 100 mls @ 25 mls/hr IVPB Q12H [facility]; Protocol Insulin Aspart (Insulin Aspart (Novolog) 100 Unit/Ml Vial) 0 unit SQ ACHS [facility]; Protocol Last Admin: 01/12/22 13:57 Dose: Not Given Documented by: Lactulose (Lactulose 20 Gm/30 Ml Cup) 20 gm PO DAILY@0700 PRN PRN Reason: HOLD FOR LOOSE STOOLS Levothyroxine Sodium (Levothyroxine 25 Mcg Tab) 25 mcg PO DAILY@0700 [facility] Last Admin: 01/12/22 06:25 Dose: 25 mcg Documented by: Loratadine (Loratadine 10 Mg Tab) 10 mg PO DAILY@0700 PRN PRN Reason: Allergy Symptoms Melatonin (Melatonin 5 Mg Tablet) 10 mg PO HS@2100 [facility] Last Admin: 01/11/22 20:50 Dose: 10 mg Documented by: Metoprolol Tartrate (Metoprolol Tartrate 25 Mg Tab) 25 mg PO BID@0700,1700 [facility] Last Admin: 01/12/22 06:25 Dose: 25 mg Documented by: Miscellaneous Information (Pneumonia Protocol Utilized 1 Each [facility]) 1 each PO ONCE PRN PRN Reason: Per Protocol Miscellaneous Information (Potassium Replacement Protocol 1 Each [facility]) 1 each MISCELLANE DAILY PRN; Protocol PRN Reason: Per Protocol Pantoprazole Sodium (Pantoprazole 40 Mg Tablet) 40 mg PO BID@0700,2100 [facility] Last Admin: 01/12/22 06:25 Dose: 40 mg Documented by: Paroxetine HCl (Paroxetine 20 Mg Tab) 40 mg PO HS@2100 [facility] Last Admin: 01/11/22 20:50 Dose: 40 mg Documented by: Past medical history to include: Osteoporosis, hypothyroid, insomnia, hypertension, GERD, depression, Social history: Lives at [facility]. Does use a walker. Cannot tell any history of smoking or alcohol. Family history: Patient cannot tell Physical examination: VITAL SIGNS: 98.1, 70, 18, 90/54, 98% on 2 L GENERAL: laying in bed, tired EYES: Pupils equal. Conjunctiva normal. HEENT: External appearance of nose and ears normal, oral cavity grossly normal. NECK: JVD not raised; masses not palpable. HEART: First and second heart sounds are normal; no edema. LUNGS: Respiratory rate increased; decreased breath sounds, some crackles. ABDOMEN: Soft, nontender, liver spleen not palpable, no masses palpable. PSYCH: Unable to assess, patient doesn't talk MUSCULOSKELETAL:No Clubbing/cyanosis;muscles-grossly intact. Evidence of OA INVESTIGATIONS, reviewed in the clinical context: January 13: Potassium 4.1 creatinine 2.45 January 12: Potassium 3.4 BUN 77 creatinine 3.10 procalcitonin 3.96 January 11: Potassium 3.5 BUN 59 creatinine 2.41 2-D echocardiogram: EF 55-60%. Ultrasound: No evidence of renal obstruction. White count 4.1 hemoglobin 9.8 platelets 258 sodium 132 potassium 3.7 BUN 32 creatinine 1.3 Troponin I 0.055, 0.044, 0.036 Pro-calcitonin 3.74 COVID 19/influenza type A/influenza type B: Not detected EKG tracing personally reviewed by me-normal sinus rhythm, rate 93 Chest x-ray film personally reviewed by me-bilateral infiltrates Assessment plan: -Bilateral pneumonia suspected gram-negative organism, causing sepsis: Slow to respond IV Zosyn. -Sepsis secondary to pneumonia IV Zosyn. 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 -Acute kidney injury, prerenal from IV diuresis: Slow to respond IV Lasix discontinued. Gentle hydration. IV Zosyn. Bronchodilator. DC fluids. Supervised feeding. Other medications to continue.
[2022-01-13 16:14] LABS: Glucose,Whole Blood 153 mg/dL (75-99)
[2022-01-13] MEDS: guaiFENesin 600 MG TABLET.ER PO SCH ×3 (17:19→20:32)
[2022-01-13 19:40] LABS: Glucose,Whole Blood 155 mg/dL (75-99)
[2022-01-13] MEDS: PARoxetine 20 MG TAB PO SCH (20:32)
[2022-01-13] MEDS: ACETAMINOPHEN TAB 325 MG TAB PO PRN (20:32)
[2022-01-13] MEDS: DOCUSATE 100 MG CAP PO SCH (20:32)
[2022-01-13] MEDS: MELATONIN 5 MG TABLET PO SCH (20:32)
[2022-01-14 05:55] LABS: Glucose,Whole Blood 115 mg/dL (75-99)
[2022-01-14] MEDS: INSULIN ASPART (NovoLOG) 100 UNIT/ML VIAL SQ SCH ×4 (06:14→20:34)
[2022-01-14] MEDS: CYANOCOBALAMIN 500 MCG TAB PO SCH (06:41)
[2022-01-14] MEDS: FERROUS SULFATE 325 MG TAB PO SCH (06:41)
[2022-01-14] MEDS: LEVOTHYROXINE 25 MCG TAB PO SCH (06:41)
[2022-01-14] MEDS: PANTOPRAZOLE 40 MG TABLET PO SCH ×2 (06:41→21:08)
[2022-01-14] MEDS: METOPROLOL TARTRATE 25 MG TAB PO SCH ×2 (06:41→17:20)
[2022-01-14] MEDS: CHOLECALCIFEROL 25 MCG (1000 IU) TABLET PO SCH ×2 (06:41→17:20)
[2022-01-14] MEDS: IPRATROPIUM-ALBUTEROL 3 ML NEB INHALATION SCH ×4 (07:29→21:31)
[2022-01-14] MEDS: ENOXAPARIN 30 MG/0.3 ML SYRINGE SQ SCH (08:28)
[2022-01-14] MEDS: guaiFENesin 600 MG TABLET.ER PO SCH ×4 (08:28→21:08)
[2022-01-14] MEDS: PIPERACILLIN-TAZOBACTAM 3.375 GM in SODIUM CHLORIDE 0.9% 100 ML IVPB SCH ×3 (08:28→23:15)
[2022-01-14 09:59] LABS: Calcium 8.5 mg/dL (8.4-10.2); Potassium 3.5 mmol/L (3.5-5.1)
[2022-01-14 11:43] LABS: Glucose,Whole Blood 136 mg/dL (75-99)
--- NOTE | 2022-01-14 11:45 | P.PN ---
Subjective Progress Note Date: 01/14/22 Principal diagnosis: Aspiration pneumonia. This is a 76-year-old white male admitted yesterday from the emergency room, patient is an adult foster care facility resident, apparently the patient was noted to have trouble breathing at the facility. His O2 saturation was in the 80s without oxygen, patient does not normally wear oxygen. The patient himself is a very poor historian, and not much information could be obtained from the patient as he does have profound dementia. Apparently the patient is known to have history of pulmonary embolism back in August but has been off anticoagulation therapy maintained mostly on Toprol omeprazole Synthroid and Paxil as well as iron. Workup in the ER included a CT of the chest which showed evidence of bilateral infiltrates/pneumonia and atelectasis it was also suspicious for interstitial edema. Patient had a relatively elevated pro BNP level, and he also had significantly elevated pro calcitonin level of 3.74. CT of the chest was reviewed, I am strongly suspicious that the patient may be having aspiration pneumonia. Hence I have changed his antibiotics to Zosyn. In the meantime the patient will remain on oxygen and it will be titrated accordingly. He is receiving Lasix 40 mg IV push every 12 hours, ordered by car diology, and I have recommended methylprednisolone as the patient has significant wheezing on physical examination. Patient may have a component of underlying COPD. Again not much history could be obtained from the patient himself most of the information was obtained from the chart Progress note dated 01/11/2022. The patient is seen in room 352, for possible aspiration pneumonia. The patient was seen yesterday in consultation. The patient's temperature is 97.8 degrees. 4 L saturation 91%. Blood pressure is 135/70. Sodium 138, potassium 3.5, chlorides 98, CO2 28, anion gap 12, BUN 59, creatinine 2.41. The urine is essentially negative. CT angiogram was negative for pulmonary embolism, but did show bilateral lower lobe pneumonia and atelectasis. In addition, there may be some mild interstitial edema. The patient's antibiotic is switched to Zosyn. Corticosteroids are discontinued. Progress note dated 01/12/2022. The patient is again seen in room 352 for aspiration pneumonia. The patient not a particularly good historian. He was not wearing his nasal oxygen properly. I did mention this to the nurse. The patient is a very poor historian. Somewhat lethargic and somnolent. Labs today include a sodium 142, potassium 3.4, chlorides 103, CO2 27, BUN 77, and creatinine 3.10. The pro-calcitonin level is 3.96. Calcium is 8.3. Blood cultures are negative. CT angiogram was negative for pulmonary embolism. The patient is currently on Zosyn. He's on 2 L nasal cannula. Progress note dated 01/13/2022. This is a 76-year-old male who was seen in consultation a few days ago. He was admitted with a diagnosis of aspiration pneumonia. He is seen today again in room 352. He's currently on 3 L. His saturations are adequate. He does have quite a bit of chest congestion. We did mention to the nurse that the patient could be discharged to a [facility] or rehab facility. White count 8.7, hemoglobin 9.6, hematocrit 31.6, with a normal platelet count. Sodium and potassium are normal. Chloride 108. CO2 26, with a normal anion gap, BUN 70, with a creatinine of 2.45. Chest x-ray shows improvement. The patient remains on Zosyn. Blood cultures are negative. Progress note dated 01/14/2022. 76-year-old male who was seen in consultation on January 10. The patient was admitted with a diagnosis of aspiration pneumonia. He seen in room 352. Currently, the patient's on 4 L nasal cannula. Is not receiving any IV fluids. Blood cultures are negative. The patient does not like the chest physiotherapy, and therefore, it will be discontinued. He remains on Zosyn for aspiration pneumonia. The patient's sodium is 141, potassium 3.5, chlorides 106, CO2 28, BUN 46, creatinine 1.77. He appears stable. Objective - Vital Signs Vital signs: Vital Signs Temp 97.5 F L 01/14/22 11:40 Pulse 70 01/14/22 11:40 Resp 20 01/14/22 11:40 BP 104/59 01/14/22 11:40 Pulse Ox 96 01/14/22 11:40 Intake & Output 01/13/22 01/14/22 01/14/22 18:59 06:59 18:59 Intake Total 840 180 Output Total 850 500 Balance -10 -500 180 Intake: Oral 840 180 Output: Urine 850 500 Other: Voiding Method External Catheter External Catheter External Catheter - Exam No acute distress, confused, and not able to give much in the way of additional history. HEENT examination is grossly unremarkable. Neck supple. Full range of motion. No adenopathy thyromegaly or neck vein distention. Cardiovascular examination reveals regular rhythm rate. S1-S2 normal. No S3 or S4. No discernible murmur noted. Heart sounds are distant. Heart rate 82 bpm. Lungs reveal scattered bilateral rhonchi. No wheezes or crackles. 4 L saturation is 96%. Abdomen soft, without bowel sounds. No masses or tenderness. Extremities are intact. No cyanosis clubbing or edema. Skin is without rash or lesion. Neurologic examination is difficult to assess. The patient is confused. He does move all 4 extremities. - Labs CBC & Chem 7: 01/13/22 06:58 01/14/22 08:24 Labs: Abnormal Lab Results - Last 24 Hours (Table) 01/13/22 01/13/22 01/14/22 Range/Units 16:13 19:38 05:54 BUN (9-20) mg/dL Creatinine (0.66-1.25) mg/dL Glucose (74-99) mg/dL POC Glucose (mg/dL) 153 H 155 H 115 H (75-99) mg/dL 01/14/22 Range/Units 08:24 BUN 46 H (9-20) mg/dL Creatinine 1.77 H (0.66-1.25) mg/dL Glucose 107 H (74-99) mg/dL POC Glucose (mg/dL) (75-99) mg/dL Microbiology - Last 24 Hours (Table) 01/09/22 18:24 Blood Culture - Preliminary Blood No Growth after 96 hours 01/09/22 18:08 Blood Culture - Preliminary Blood No Growth after 96 hours Assessment and Plan Assessment: Acute hypoxemic respiratory failure, thought to be related to underlying aspiration. Acute diastolic CHF. 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 History of dementia. Acute kidney injury. Hypothyroidism. Benign essential hypertension. Plan: Plan dated January 11 The patient's oxygen is titrated appropriately. We continue the patient on Zosyn. We also continue bronchodilators. The patient is to have a swallow evaluation. The patient continues on GI and DVT prophylaxis. Labs, x-rays, med ications are reviewed. Echocardiogram will be done this morning. No additional recommendations. Prognosis is guarded. We will continue to follow the patient make recommendations where appropriate. Plan dated 01/12/2022. The patient is doing about the same today as he was yesterday. He's been weaned down to 2 L. Labs are reviewed. Renal function is poor. The patient is to have a swallow evaluation. He continues on GI and DVT prophylaxis. He also continues on Zosyn. Prognosis is very guarded. We will continue to follow the patient and make recommendations were appropriate. The patient will have a follow-up chest x-ray tomorrow. Plan dated 01/13/2022. The patient's chest x-ray does show improvement. The patient remains on 3 L nasal cannula. The patient is currently being evaluated for placement at a [facility] or rehab facility. The patient's labs, x-rays, medications are all reviewed. He continues on GI and DVT prophylaxis. Blood cultures are negative. We will continue to follow the patient make recommendations where appropriate. His prognosis is certainly guarded. Plan dated 01/14/2022. The patient appears to be doing relatively well. The patient remains on O2 at 4 L. He's not receiving any IV fluids. He remains on Zosyn as an antibiotic. He is being treated for aspiration pneumonia. The patient continues on GI and DVT prophylaxis. Blood cultures are negative. Laboratory data is reviewed. Prognosis is guarded. The patient does not like the mechanical chest physiotherapy device, and it will be discontinued. Time with Patient: Less than 30
[2022-01-14 14:01] VITALS: BMI 20.4
--- NOTE | 2022-01-14 14:20 | P.PN ---
Progress Note - Text Progress Note Date: 01/14/22 Chief Complaint: Short of breath This is a 76-year-old patient who follows with visiting physicians Dr. Watson. Chronic stable medical conditions include osteoporosis, hypothyroid, insomnia, hypertension, depression. Patient unable to give much of history.. Per the nursing noted ER patient been increasingly short of breath for one week. Patient was started on Z-Sedrick by the family doctor. Patient normally uses a walker to get about. For one week has had decreased activity. Patient lives at the adult foster [facility] home. This morning patient did eat with assistance. baseline patient really does not speak. Patient is noted to have a fever of 101 last night. Admitted with bilateral pneumonia, sepsis, COPD exacerbation. Started on IV Zosyn. January 11: Only fevers at 101 at 8 PM last night. None today. Creatinine has gone up. IV Lasix discontinued. Patient ate some breakfast and lunch today. Seen by speech. Continue with chopped diet. January 12: Eating about 50%. On IV Zosyn. Afebrile. Diet. 2 L nasal cannula. Short of breath. January 13: IV Zosyn. Eating better. Gentle hydration. Congested cough. January 14: Not hungry today. Tired. Was tried on mechanical chest PT by pulmonary. Patient did not like it. Discontinued. Tired Active Medications Acetaminophen (Acetaminophen Tab 325 Mg Tab) 650 mg PO Q6HR PRN PRN Reason: Fever and/ or Pain Last Admin: 01/13/22 20:32 Dose: 650 mg Documented by: Albuterol/Ipratropium (Ipratropium-Albuterol 3 Ml Neb) 3 ml INHALATION RT-QID [facility] Last Admin: 01/14/22 11:00 Dose: 3 ml Documented by: Cholecalciferol (Cholecalciferol 25 Mcg (1000 Iu) Tablet) 25 mcg PO BID@0700,1 700 [facility] Last Admin: 01/14/22 06:41 Dose: 25 mcg Documented by: Cyanocobalamin (Cyanocobalamin 500 Mcg Tab) 1,000 mcg PO DAILY@0700 [facility] Last Admin: 01/14/22 06:41 Dose: 1,000 mcg Documented by: Docusate Sodium (Docusate 100 Mg Cap) 100 mg PO HS@2100 [facility] Last Admin: 01/13/22 20:32 Dose: 100 mg Documented by: Enoxaparin Sodium (Enoxaparin 30 Mg/0.3 Ml Syringe) 30 mg SQ DAILY [facility] Last Admin: 01/14/22 08:28 Dose: 30 mg Documented by: Ferrous Sulfate (Ferrous Sulfate 325 Mg Tab) 325 mg PO DAILY@0700 [facility] Last Admin: 01/14/22 06:41 Dose: 325 mg Documented by: Guaifenesin (Guaifenesin 600 Mg Tablet.Er) 600 mg PO QID [facility] Last Admin: 01/14/22 12:12 Dose: 600 mg Documented by: Piperacillin Sod/Tazobactam (Sod 3.375 gm/ Sodium Chloride) 100 mls @ 25 mls/hr IVPB Q8HR [facility]; Protocol Insulin Aspart (Insulin Aspart (Novolog) 100 Unit/Ml Vial) 0 unit SQ ACHS [facility]; Protocol Last Admin: 01/14/22 12:12 Dose: 1 unit Documented by: Lactulose (Lactulose 20 Gm/30 Ml Cup) 20 gm PO DAILY@0700 PRN PRN Reason: HOLD FOR LOOSE STOOLS Levothyroxine Sodium (Levothyroxine 25 Mcg Tab) 25 mcg PO DAILY@0700 [facility] Last Admin: 01/14/22 06:41 Dose: 25 mcg Documented by: Loratadine (Loratadine 10 Mg Tab) 10 mg PO DAILY@0700 PRN PRN Reason: Allergy Symptoms Melatonin (Melatonin 5 Mg Tablet) 10 mg PO HS@2100 [facility] Last Admin: 01/13/22 20:32 Dose: 10 mg Documented by: Metoprolol Tartrate (Metoprolol Tartrate 25 Mg Tab) 25 mg PO BID@0700,1700 [facility] Last Admin: 01/14/22 06:41 Dose: 25 mg Documented by: Miscellaneous Information (Pneumonia Protocol Utilized 1 Each [facility] [place]) 1 each PO ONCE PRN PRN Reason: Per Protocol Miscellaneous Information (Potassium Replacement Protocol 1 Each [facility] [place]) 1 each MISCELLANE DAILY PRN; Protocol PRN Reason: Per Protocol Pantoprazole Sodium (Pantoprazole 40 Mg Tablet) 40 mg PO BID@0700,2100 [facility] Last Admin: 01/14/22 06:41 Dose: 40 mg Documented by: Paroxetine HCl (Paroxetine 20 Mg Tab) 40 mg PO HS@2100 [facility] Last Admin: 01/13/22 20:32 Dose: 40 mg Documented by: Past medical history to include: Osteoporosis, hypothyroid, insomnia, hypertension, GERD, depression, Social history: Lives at [facility]. Does use a walker. Cannot tell any history of smoking or alcohol. Family history: Patient cannot tell Physical examination: VITAL SIGNS: 97.5, 70, 20, 104/59, 96% on 4 L GENERAL: laying in bed, tired EYES: Pupils equal. Conjunctiva normal. HEENT: External appearance of nose and ears normal, oral cavity grossly normal. NECK: JVD not raised; masses not palpable. HEART: First and second heart sounds are normal; no edema. LUNGS: Respiratory rate increased; decreased breath sounds, expiratory crackles. ABDOMEN: Soft, nontender, liver spleen not palpable, no masses palpable. PSYCH: Unable to assess, patient doesn't talk MUSCULOSKELETAL:No Clubbing/cyanosis;muscles-grossly intact. Evidence of OA INVESTIGATIONS, reviewed in the clinical context: January 14: Potassium 3.5 creatinine 1.77 January 13: Potassium 4.1 creatinine 2.45 January 12: Potassium 3.4 BUN 77 creatinine 3.10 procalcitonin 3.96 January 11: Potassium 3.5 BUN 59 creatinine 2.41 2-D echocardiogram: EF 55-60%. Ultrasound: No evidence of renal obstruction. White count 4.1 hemoglobin 9.8 platelets 258 sodium 132 potassium 3.7 BUN 32 creatinine 1.3 Troponin I 0.055, 0.044, 0.036 Pro-calcitonin 3.74 COVID 19/influenza type A/influenza type B: Not detected EKG tracing personally reviewed by me-normal sinus rhythm, rate 93 Chest x-ray film personally reviewed by me-bilateral infiltrates Assessment plan: -Bilateral pneumonia suspected gram-negative organism, causing sepsis: Slow to respond IV Zosyn. -Sepsis secondary to pneumonia IV Zosyn. 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 -Acute kidney injury, prerenal from IV diuresis: Some improvement IV Lasix discontinued. Creatinine had gone up to 3.1. Gentle hydration. IV Zosyn. Bronchodilator. Supervised feeding. Other medications to continue. Patient not eating. Start fluids at 50 mL an hour.
--- NOTE | 2022-01-14 16:08 | FL ---
EXAMINATION TYPE: FL barium swallow w video DATE OF EXAM: 01/14/2022 CLINICAL HISTORY: 76-year-old male gurgling sounds, assess for aspiration. TECHNIQUE: Deglutition study is performed utilizing thin liquid barium and nectar thick liquid bariu m, barium thick applesauce, and barium coated cracker. Total fluoroscopy time: 2 minutes 1 second. Total images: None. Real-time fluoroscopy support was provided to speech pathology. COMPARISON: None. FINDINGS: The oral and pharyngeal phases show satisfactory initiation and propagation with all modalities teste d. Patient is partially dentulous but is able to take solid consistency. There is aspiration demonstr ated with thin liquids. [place] liquid which shows episodes of transient penetration. No other aspirat ion or penetration seen. Mild residuals noted. IMPRESSION: Aspiration of thin liquids and transient penetration of nectar liquid. Mild residuals. Please refer to speech therapist notes for further details if necessary.
[2022-01-14 16:21] LABS: Glucose,Whole Blood 134 mg/dL (75-99)
[2022-01-14] MEDS: DEXTROSE 5%-0.45% NACL 1,000 ML IV SCH (17:28)
[2022-01-14 20:35] LABS: Glucose,Whole Blood 107 mg/dL (75-99)
[2022-01-14] MEDS: PARoxetine 20 MG TAB PO SCH (21:08)
[2022-01-14] MEDS: DOCUSATE 100 MG CAP PO SCH (21:08)
[2022-01-14] MEDS: MELATONIN 5 MG TABLET PO SCH (21:08)
[2022-01-15] MEDS: INSULIN ASPART (NovoLOG) 100 UNIT/ML VIAL SQ SCH ×4 (06:17→22:40)
[2022-01-15] MEDS: CHOLECALCIFEROL 25 MCG (1000 IU) TABLET PO SCH ×2 (06:20→15:27)
[2022-01-15] MEDS: PANTOPRAZOLE 40 MG TABLET PO SCH ×2 (06:20→20:23)
[2022-01-15] MEDS: FERROUS SULFATE 325 MG TAB PO SCH (06:20)
[2022-01-15] MEDS: CYANOCOBALAMIN 500 MCG TAB PO SCH (06:20)
[2022-01-15] MEDS: METOPROLOL TARTRATE 25 MG TAB PO SCH ×2 (06:20→15:27)
[2022-01-15] MEDS: LEVOTHYROXINE 25 MCG TAB PO SCH (06:20)
[2022-01-15 06:50] LABS: Glucose,Whole Blood 124 mg/dL (75-99)
[2022-01-15] MEDS: IPRATROPIUM-ALBUTEROL 3 ML NEB INHALATION SCH ×4 (08:38→19:40)
[2022-01-15] MEDS: ENOXAPARIN 30 MG/0.3 ML SYRINGE SQ SCH (08:45)
[2022-01-15] MEDS: guaiFENesin 600 MG TABLET.ER PO SCH ×4 (08:45→20:23)
[2022-01-15 09:01] LABS: Calcium 8.5 mg/dL (8.4-10.2); Potassium 3.5 mmol/L (3.5-5.1)
[2022-01-15] MEDS: DEXTROSE 5%-0.45% NACL 1,000 ML IV SCH (10:40)
[2022-01-15] MEDS: PIPERACILLIN-TAZOBACTAM 3.375 GM in SODIUM CHLORIDE 0.9% 100 ML IVPB SCH (11:33)
--- NOTE | 2022-01-15 11:39 | P.PN ---
Subjective Progress Note Date: 01/15/22 Principal diagnosis: Aspiration pneumonia. This is a 76-year-old white male admitted yesterday from the emergency room, patient is an adult foster care facility resident, apparently the patient was noted to have trouble breathing at the facility. His O2 saturation was in the 80s without oxygen, patient does not normally wear oxygen. The patient himself is a very poor historian, and not much information could be obtained from the patient as he does have profound dementia. Apparently the patient is known to have history of pulmonary embolism back in August but has been off anticoagulation therapy maintained mostly on Toprol omeprazole Synthroid and Paxil as well as iron. Workup in the ER included a CT of the chest which showed evidence of bilateral infiltrates/pneumonia and atelectasis it was also suspicious for interstitial edema. Patient had a relatively elevated pro BNP level, and he also had significantly elevated pro calcitonin level of 3.74. CT of the chest was reviewed, I am strongly suspicious that the patient may be having aspiration pneumonia. Hence I have changed his antibiotics to Zosyn. In the meantime the patient will remain on oxygen and it will be titrated accordingly. He is receiving Lasix 40 mg IV push every 12 hours, ordered by car diology, and I have recommended methylprednisolone as the patient has significant wheezing on physical examination. Patient may have a component of underlying COPD. Again not much history could be obtained from the patient himself most of the information was obtained from the chart Progress note dated 01/11/2022. The patient is seen in room 352, for possible aspiration pneumonia. The patient was seen yesterday in consultation. The patient's temperature is 97.8 degrees. 4 L saturation 91%. Blood pressure is 135/70. Sodium 138, potassium 3.5, chlorides 98, CO2 28, anion gap 12, BUN 59, creatinine 2.41. The urine is essentially negative. CT angiogram was negative for pulmonary embolism, but did show bilateral lower lobe pneumonia and atelectasis. In addition, there may be some mild interstitial edema. The patient's antibiotic is switched to Zosyn. Corticosteroids are discontinued. Progress note dated 01/12/2022. The patient is again seen in room 352 for aspiration pneumonia. The patient not a particularly good historian. He was not wearing his nasal oxygen properly. I did mention this to the nurse. The patient is a very poor historian. Somewhat lethargic and somnolent. Labs today include a sodium 142, potassium 3.4, chlorides 103, CO2 27, BUN 77, and creatinine 3.10. The pro-calcitonin level is 3.96. Calcium is 8.3. Blood cultures are negative. CT angiogram was negative for pulmonary embolism. The patient is currently on Zosyn. He's on 2 L nasal cannula. Progress note dated 01/13/2022. This is a 76-year-old male who was seen in consultation a few days ago. He was admitted with a diagnosis of aspiration pneumonia. He is seen today again in room 352. He's currently on 3 L. His saturations are adequate. He does have quite a bit of chest congestion. We did mention to the nurse that the patient could be discharged to a assisted or rehab facility. White count 8.7, hemoglobin 9.6, hematocrit 31.6, with a normal platelet count. Sodium and potassium are normal. Chloride 108. CO2 26, with a normal anion gap, BUN 70, with a creatinine of 2.45. Chest x-ray shows improvement. The patient remains on Zosyn. Blood cultures are negative. Progress note dated 01/14/2022. 76-year-old male who was seen in consultation on January 10. The patient was admitted with a diagnosis of aspiration pneumonia. He seen in room 352. Currently, the patient's on 4 L nasal cannula. Is not receiving any IV fluids. Blood cultures are negative. The patient does not like the chest physiotherapy, and therefore, it will be discontinued. He remains on Zosyn for aspiration pneumonia. The patient's sodium is 141, potassium 3.5, chlorides 106, CO2 28, BUN 46, creatinine 1.77. He appears stable. Progress note dated 01/15/2022. 76-year-old male, again seen in room 352. According to the nurse, the patient may be discharged to adult foster long-term today. Remains on saline at 50 mL an hour. He is getting O2 at 4 L by nasal cannula. Sodium 139, potassium 3.5, chlorides 104, CO2 29, BUN 33, and creatinine 1.49. The patient remains on Zosyn. Blood cultures are negative. Zosyn is discontinued. The patient can be discharged on Augmentin. Objective - Vital Signs Vital signs: Vital Signs Temp 98.6 F 01/15/22 07:56 Pulse 83 01/15/22 08:49 Resp 17 01/15/22 07:56 BP 121/52 01/15/22 07:56 Pulse Ox 96 01/15/22 08:41 Intake & Output 01/14/22 01/15/22 01/15/22 18:59 06:59 18:59 Intake Total 640 Output Total 650 Balance 640 -650 Weight 61 kg Intake: Intake, IV Titration 100 Amount Piperacillin-Tazobactam 3 100 .375 gm In Sodium Chloride 0.9% 100 ml @ 25 mls/hr IVPB Q8HR [facility], [facility]–1983 Rx# :[id number] Oral 540 Output: Urine 650 Other: Voiding Method External Catheter External Catheter External Catheter - Exam No acute distress, confused, and not able to give much in the way of additional history. HEENT examination is grossly unremarkable. Neck supple. Full range of motion. No adenopathy thyromegaly or neck vein distention. Cardiovascular examination reveals regular rhythm rate. S1-S2 normal. No S3 or S4. No discernible murmur noted. Heart sounds are distant. Heart rate 82 bpm. Lungs reveal scattered bilateral rhonchi. No wheezes or crackles. 4 L saturation is 96%. Abdomen soft, without bowel sounds. No masses or tenderness. Extremities are intact. No cyanosis clubbing or edema. Skin is without rash or lesion. Neurologic examination is difficult to assess. The patient is confused. He does move all 4 extremities. - Labs CBC & Chem 7: 01/13/22 06:58 01/15/22 08:05 Labs: Abnormal Lab Results - Last 24 Hours (Table) 01/14/22 01/14/22 01/14/22 Range/Units 08:24 11:41 16:19 BUN (9-20) mg/dL Creatinine (0.66-1.25) mg/dL Glucose (74-99) mg/dL POC Glucose (mg/dL) 136 H 134 H (75-99) mg/dL Procalcitonin 0.72 H (0.02-0.09) ng/mL 01/14/22 01/15/22 01/15/22 Range/Units 20:31 06:16 08:05 BUN (9-20) mg/dL Creatinine (0.66-1.25) mg/dL Glucose (74-99) mg/dL POC Glucose (mg/dL) 107 H 124 H (75-99) mg/dL Procalcitonin 0.48 H (0.02-0.09) ng/mL 01/15/22 Range/Units 08:05 BUN 33 H (9-20) mg/dL Creatinine 1.49 H (0.66-1.25) mg/dL Glucose 132 H (74-99) mg/dL POC Glucose (mg/dL) (75-99) mg/dL Procalcitonin (0.02-0.09) ng/mL Microbiology - Last 24 Hours (Table) 01/09/22 18:24 Blood Culture - Preliminary Blood No Growth after 120 hours 01/09/22 18:08 Blood Culture - Preliminary Blood No Growth after 120 hours Assessment and Plan Assessment: Acute hypoxemic respiratory failure, thought to be related to underlying aspiration. Acute diastolic CHF. 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 History of dementia. Acute kidney injury. Hypothyroidism. Benign essential hypertension. Plan: Plan dated January 11 The patient's oxygen is titrated appropriately. We continue the patient on Zosyn. We also continue bronchodilators. The patient is to have a swallow evaluation. The patient continues on GI and DVT prophylaxis. Labs, x-rays, medications are reviewed. Echocardiogram will be done this morning. No additional recommendations. Prognosis is guarded. We will continue to follow the patient make recommendations where appropriate. Plan dated 01/12/2022. The patient is doing about the same today as he was yesterday. He's been weaned down to 2 L. Labs are reviewed. Renal function is poor. The patient is to have a swallow evaluation. He continues on GI and DVT prophylaxis. He also continues on Zosyn. Prognosis is very guarded. We will continue to follow the patient and make recommendations were appropriate. The patient will have a follow-up chest x-ray tomorrow. Plan dated 01/13/2022. The patient's chest x-ray does show improvement. The patient remains on 3 L nasal cannula. The patient is currently being evaluated for placement at a assisted or rehab facility. The patient's labs, x-rays, medications are all reviewed. He continues on GI and DVT prophylaxis. Blood cultures are negative. We will continue to follow the patient make recommendations where appropriate. His prognosis is certainly guarded. Plan dated 01/14/2022. The patient appears to be doing relatively well. The patient remains on O2 at 4 L. He's not receiving any IV fluids. He remains on Zosyn as an antibiotic. He is being treated for aspiration pneumonia. The patient continues on GI and DVT prophylaxis. Blood cultures are negative. Laboratory data is reviewed. Prognosis is guarded. The patient does not like the mechanical chest physiotherapy device, and it will be discontinued. Plan dated 01/15/2022. According to the nurse, the patient be discharged to adult foster long-term today. Labs are reviewed. Medications and x-rays are reviewed. The patient's on saline at 50 mL an hour, and oxygen at 4 L. Zosyn will be discontinued. The patient be started on Augmentin twice a day. Overall prognosis remains guarded. No additional recommendations are made. We'll follow as needed. Time with Patient: Less than 30
[2022-01-15 11:55] LABS: Glucose,Whole Blood 143 mg/dL (75-99)
[2022-01-15 16:34] LABS: Glucose,Whole Blood 135 mg/dL (75-99)
--- NOTE | 2022-01-15 17:12 | P.PN ---
Progress Note - Text Progress Note Date: 01/15/22 Chief Complaint: Short of breath This is a 76-year-old patient who follows with visiting physicians Dr. Watson. Chronic stable medical conditions include osteoporosis, hypothyroid, insomnia, hypertension, depression. Patient unable to give much of history.. Per the nursing noted ER patient been increasingly short of breath for one week. Patient was started on Z-Sedrick by the family doctor. Patient normally uses a walker to get about. For one week has had decreased activity. Patient lives at the adult foster [facility]. This morning patient did eat with assistance. baseline patient really does not speak. Patient is noted to have a fever of 101 last night. Admitted with bilateral pneumonia, sepsis, COPD exacerbation. Started on IV Zosyn. January 11: Only fevers at 101 at 8 PM last night. None today. Creatinine has gone up. IV Lasix discontinued. Patient ate some breakfast and lunch today. Seen by speech. Continue with chopped diet. January 12: Eating about 50%. On IV Zosyn. Afebrile. Diet. 2 L nasal cannula. Short of breath. January 13: IV Zosyn. Eating better. Gentle hydration. Congested cough. January 14: Not hungry today. Tired. Was tried on mechanical chest PT by pulmonary. Patient did not like it. Discontinued. Tired January 15: Refused food. On 4 L nasal cannula. Patient underwent a modified barium swallow. Patient noted to have some aspiration. Recommended to have mechanical soft with nectar thick liquids. over the horizon targeting supervisor to Augmentin. Encourage oral intake. Active Medications Acetaminophen (Acetaminophen Tab 325 Mg Tab) 650 mg PO Q6HR PRN PRN Reason: Fever and/ or Pain Last Admin: 01/13/22 20:32 Dose: 650 mg Documented by: Albuterol/Ipratropium (Ipratropium-Albuterol 3 Ml Neb) 3 ml INHALATION RT-QID [facility] Last Admin: 01/15/22 15:43 Dose: 3 ml Documented by: Amoxicillin/Clavulanate Potassium (Amoxic-Pot Clav 500-125 Mg 1 Each Tab) 1 each PO BID [facility]; Protocol Cholecalciferol (Cholecalciferol 25 Mcg (1000 Iu) Tablet) 25 mcg PO BID@0700,1700 [facility] Last Admin: 01/15/22 15:27 Dose: 25 mcg Documented by: Cyanocobalamin (Cyanocobalamin 500 Mcg Tab) 1,000 mcg PO DAILY@0700 [facility] Last Admin: 01/15/22 06:20 Dose: 1,000 mcg Documented by: Docusate Sodium (Docusate 100 Mg Cap) 100 mg PO HS@2100 [facility] Last Admin: 01/14/22 21:08 Dose: 100 mg Documented by: Enoxaparin Sodium (Enoxaparin 40 Mg/0.4 Ml Syringe) 40 mg SQ DAILY [facility] Ferrous Sulfate (Ferrous Sulfate 325 Mg Tab) 325 mg PO DAILY@0700 [facility] Last Admin: 01/15/22 06:20 Dose: 325 mg Documented by: Guaifenesin (Guaifenesin 600 Mg Tablet.Er) 600 mg PO QID [facility] Last Admin: 01/15/22 16:43 Dose: Not Given Documented by: Dextrose/Sodium Chloride (Dextrose 5%-1/2ns Iv Soln) 1,000 mls @ 50 mls/hr IV .Q20H [facility] Last Admin: 01/15/22 10:40 Dose: Not Given Documented by: Insulin Aspart (Insulin Aspart (Novolog) 100 Unit/Ml Vial) 0 unit SQ ACHS [facility]; Protocol Last Admin: 01/15/22 16:43 Dose: Not Given Documented by: Lactulose (Lactulose 20 Gm/30 Ml Cup) 20 gm PO DAILY@0700 PRN PRN Reason: HOLD FOR LOOSE STOOLS Levothyroxine Sodium (Levothyroxine 25 Mcg Tab) 25 mcg PO DAILY@0700 [facility] Last Admin: 01/15/22 06:20 Dose: 25 mcg Documented by: Loratadine (Loratadine 10 Mg Tab) 10 mg PO DAILY@0700 PRN PRN Reason: Allergy Symptoms Melatonin (Melatonin 5 Mg Tablet) 10 mg PO HS@2100 [facility] Last Admin: 01/14/22 21:08 Dose: 10 mg Documented by: Metoprolol Tartrate (Metoprolol Tartrate 25 Mg Tab) 25 mg PO BID@0700,1700 [facility] Last Admin: 01/15/22 15:27 Dose: 25 mg Documented by: Miscellaneous Information (Pneumonia Protocol Utilized 1 Each Misc) 1 each PO ONCE PRN PRN Reason: Per Protocol Miscellaneous Information (Potassium Replacement Protocol 1 Each Misc) 1 each MISCELLANE DAILY PRN; Protocol PRN Reason: Per Protocol Pantoprazole Sodium (Pantoprazole 40 Mg Tablet) 40 mg PO BID@0700,2100 [facility] Last Admin: 01/15/22 06:20 Dose: 40 mg Documented by: Paroxetine HCl (Paroxetine 20 Mg Tab) 40 mg PO HS@2100 [facility] Last Admin: 01/14/22 21:08 Dose: 40 mg Documented by: Past medical history to include: Osteoporosis, hypothyroid, insomnia, hypertension, GERD, depression, Social history: Lives at [facility]. Does use a walker. Cannot tell any history of smoking or alcohol. Family history: Patient cannot tell Physical examination: VITAL SIGNS: 97.8, 79, 18, 100 deficits 69, 97% on 4 L GENERAL: Reclining in bed. EYES: Pupils equal. Conjunctiva normal. HEENT: External appearance of nose and ears normal, oral cavity grossly normal. NECK: JVD not raised; masses not palpable. HEART: First and second heart sounds are normal; no edema. LUNGS: Respiratory rate increased; some basal crackles. ABDOMEN: Soft, nontender, liver spleen not palpable, no masses palpable. PSYCH: Unable to assess, patient doesn't talk MUSCULOSKELETAL:No Clubbing/cyanosis;muscles-grossly intact. Evidence of OA INVESTIGATIONS, reviewed in the clinical context: January 15: Potassium 3.5 BUN 33 creatinine 1.49 January 14: Potassium 3.5 creatinine 1.77 January 13: Potassium 4.1 creatinine 2.45 January 12: Potassium 3.4 BUN 77 creatinine 3.10 procalcitonin 3.96 January 11: Potassium 3.5 BUN 59 creatinine 2.41 2-D echocardiogram: EF 55-60%. Ultrasound: No evidence of renal obstruction. White count 4.1 hemoglobin 9.8 platelets 258 sodium 132 potassium 3.7 BUN 32 creatinine 1.3 Troponin I 0.055, 0.044, 0.036 Pro-calcitonin 3.74 COVID 19/influenza type A/influenza type B: Not detected EKG tracing personally reviewed by me-normal sinus rhythm, rate 93 Chest x-ray film personally reviewed by me-bilateral infiltrates Assessment plan: -Bilateral pneumonia suspected gram-negative organism/aspiration, causing sepsis : Augmentin -Sepsis secondary to pneumonia IV Zosyn. Changed to Augmentin -Acute hypoxic respiratory failure secondary to pneumonia possibly aspiration Current 84 L of oxygen. 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 -Acute kidney injury, prerenal from IV diuresis: Some improvement IV Lasix discontinued. Creatinine had gone up to 3.1. Gentle hydration. By mouth Augmentin. Diet changed to nectar thickened mechanical soft. Encourage oral intake. Titrate down FiO2.
[2022-01-15] MEDS: MELATONIN 5 MG TABLET PO SCH (20:23)
[2022-01-15] MEDS: DOCUSATE 100 MG CAP PO SCH (20:23)
[2022-01-15] MEDS: AMOXIC-POT CLAV 500-125 MG 1 EACH TAB PO SCH (20:24)
[2022-01-15 21:08] LABS: Glucose,Whole Blood 121 mg/dL (75-99)
[2022-01-15] MEDS: PARoxetine 20 MG TAB PO SCH (22:53)
[2022-01-16] MEDS: DEXTROSE 5%-0.45% NACL 1,000 ML IV SCH (06:35)
[2022-01-16 06:51] LABS: Glucose,Whole Blood 102 mg/dL (75-99)
[2022-01-16] MEDS: IPRATROPIUM-ALBUTEROL 3 ML NEB INHALATION SCH ×4 (07:54→20:39)
[2022-01-16] MEDS: METOPROLOL TARTRATE 25 MG TAB PO SCH ×3 (08:44→18:23)
[2022-01-16] MEDS: guaiFENesin 600 MG TABLET.ER PO SCH (08:44)
[2022-01-16] MEDS: FERROUS SULFATE 325 MG TAB PO SCH (08:44)
[2022-01-16] MEDS: CYANOCOBALAMIN 500 MCG TAB PO SCH (08:44)
[2022-01-16] MEDS: CHOLECALCIFEROL 25 MCG (1000 IU) TABLET PO SCH ×3 (08:44→18:23)
[2022-01-16] MEDS: INSULIN ASPART (NovoLOG) 100 UNIT/ML VIAL SQ SCH ×4 (08:45→21:09)
[2022-01-16] MEDS: AMOXIC-POT CLAV 500-125 MG 1 EACH TAB PO SCH ×2 (08:45→21:32)
[2022-01-16] MEDS: PANTOPRAZOLE 40 MG TABLET PO SCH ×2 (08:45→21:32)
[2022-01-16] MEDS: LEVOTHYROXINE 25 MCG TAB PO SCH (08:45)
[2022-01-16] MEDS ORDERED: ENOXAPARIN 40 MG/0.4 ML SYRINGE SQ SCH (09:00)
[2022-01-16 11:47] LABS: Glucose,Whole Blood 127 mg/dL (75-99)
--- NOTE | 2022-01-16 15:05 | P.PN ---
Progress Note - Text Progress Note Date: 01/16/22 Chief Complaint: Short of breath This is a 76-year-old patient who follows with visiting physicians Dr. Watson. Chronic stable medical conditions include osteoporosis, hypothyroid, insomnia, hypertension, depression. Patient unable to give much of history.. Per the nursing noted ER patient been increasingly short of breath for one week. Patient was started on Z-Sedrick by the family doctor. Patient normally uses a walker to get about. For one week has had decreased activity. Patient lives at the adult foster [facility] home. This morning patient did eat with assistance. baseline patient really does not speak. Patient is noted to have a fever of 101 last night. Admitted with bilateral pneumonia, sepsis, COPD exacerbation. Started on IV Zosyn. January 11: Only fevers at 101 at 8 PM last night. None today. Creatinine has gone up. IV Lasix discontinued. Patient ate some breakfast and lunch today. Seen by speech. Continue with chopped diet. January 12: Eating about 50%. On IV Zosyn. Afebrile. Diet. 2 L nasal cannula. Short of breath. January 13: IV Zosyn. Eating better. Gentle hydration. Congested cough. January 14: Not hungry today. Tired. Was tried on mechanical chest PT by pulmonary. Patient did not like it. Discontinued. Tired January 15: Refused food. On 4 L nasal cannula. Patient underwent a modified barium swallow. Patient noted to have some aspiration. Recommended to have mechanical soft with nectar thick liquids. 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 Encourage oral intake. January 16: Patient been tolerating diet with assistance. Down to 2 L on nasal cannula. Patient was to be discharged today but no transport available. Breathing stable. Active Medications Acetaminophen (Acetaminophen Tab 325 Mg Tab) 650 mg PO Q6HR PRN PRN Reason: Fever and/ or Pain Last Admin: 01/13/22 20:32 Dose: 650 mg Documented by: Albuterol/Ipratropium (Ipratropium-Albuterol 3 Ml Neb) 3 ml INHALATION RT-QID [facility] Last Admin: 01/16/22 11:47 Dose: Not Given Documented by: Amoxicillin/Clavulanate Potassium (Amoxic-Pot Clav 500-125 Mg 1 Each Tab) 1 each PO BID [facility]; Protocol Last Admin: 01/16/22 08:45 Dose: 1 each Documented by: Cholecalciferol (Cholecalciferol 25 Mcg (1000 Iu) Tablet) 25 mcg PO BID@0700,1700 [facility] Last Admin: 01/16/22 08:44 Dose: 25 mcg Documented by: Cyanocobalamin (Cyanocobalamin 500 Mcg Tab) 1,000 mcg PO DAILY@0700 [facility] Last Admin: 01/16/22 08:44 Dose: 1,000 mcg Documented by: Docusate Sodium (Docusate 100 Mg Cap) 100 mg PO HS@2100 [facility] Last Admin: 01/15/22 20:23 Dose: 100 mg Documented by: Enoxaparin Sodium (Enoxaparin 40 Mg/0.4 Ml Syringe) 40 mg SQ DAILY [facility] Last Admin: 01/16/22 08:44 Dose: 40 mg Documented by: Ferrous Sulfate (Ferrous Sulfate 325 Mg Tab) 325 mg PO DAILY@0700 [facility] Last Admin: 01/16/22 08:44 Dose: 325 mg Documented by: Guaifenesin (Guaifenesin Syrup 100mg/5ml 200 Mg/10 Ml Cup) 200 mg PO Q6HR [facility] Dextrose/Sodium Chloride (Dextrose 5%-1/2ns Iv Soln) 1,000 mls @ 50 mls/hr IV .Q20H [facility] Last Admin: 01/16/22 06:35 Dose: 50 mls/hr Documented by: Insulin Aspart (Insulin Aspart (Novolog) 100 Unit/Ml Vial) 0 unit SQ ACHS [facility]; Protocol Last Admin: 01/16/22 13:34 Dose: Not Given Documented by: Lactulose (Lactulose 20 Gm/30 Ml Cup) 20 gm PO DAILY@0700 PRN PRN Reason: HOLD FOR LOOSE STOOLS Levothyroxine Sodium (Levothyroxine 25 Mcg Tab) 25 mcg PO DAILY@0700 [facility] Last Admin: 01/16/22 08:45 Dose: 25 mcg Documented by: Loratadine (Loratadine 10 Mg Tab) 10 mg PO DAILY@0700 PRN PRN Reason: Allergy Symptoms Melatonin (Melatonin 5 Mg Tablet) 10 mg PO HS@2100 [facility] Last Admin: 01/15/22 20:23 Dose: 10 mg Documented by: Metoprolol Tartrate (Metoprolol Tartrate 25 Mg Tab) 25 mg PO BID@0700,1700 [facility] Last Admin: 01/16/22 08:44 Dose: 25 mg Documented by: Miscellaneous Information (Pneumonia Protocol Utilized 1 Each [facility]) 1 each PO ONCE PRN PRN Reason: Per Protocol Miscellaneous Information (Potassium Replacement Protocol 1 Each [facility]) 1 each MISCELLANE DAILY PRN; Protocol PRN Reason: Per Protocol Pantoprazole Sodium (Pantoprazole 40 Mg Tablet) 40 mg PO BID@0700,2100 [facility] Last Admin: 01/16/22 08:45 Dose: 40 mg Documented by: Paroxetine HCl (Paroxetine 20 Mg Tab) 40 mg PO HS@2100 [facility] Last Admin: 01/15/22 22:53 Dose: 40 mg Documented by: Past medical history to include: Osteoporosis, hypothyroid, insomnia, hypertension, GERD, depression, Social history: Lives at [facility]. Does use a walker. Cannot tell any history of smoking or alcohol. Family history: Patient cannot tell Physical examination: VITAL SIGNS: 98.1, 87, 17, 131/66, 97% on 2 L GENERAL: Reclining in bed. EYES: Pupils equal. Conjunctiva normal. HEENT: External appearance of nose and ears normal, oral cavity grossly normal. NECK: JVD not raised; masses not palpable. HEART: First and second heart sounds are normal; no edema. LUNGS: Respiratory rate normal; decreased breath sounds ABDOMEN: Soft, nontender, liver spleen not palpable, no masses palpable. PSYCH: Unable to assess, patient doesn't talk MUSCULOSKELETAL:No Clubbing/cyanosis;muscles-grossly intact. Evidence of OA INVESTIGATIONS, reviewed in the clinical context: January 15: Potassium 3.5 BUN 33 creatinine 1.49 January 12: Potassium 3.5 creatinine 1.77 January 11: Potassium 4.1 creatinine 2.45 January 12: Potassium 3.4 BUN 77 creatinine 3.10 procalcitonin 3.96 January 9: Potassium 3.5 BUN 59 creatinine 2.41 2-D echocardiogram: EF 55-60%. Ultrasound: No evidence of renal obstruction. White count 4.1 hemoglobin 9.8 platelets 258 sodium 132 potassium 3.7 BUN 32 creatinine 1.3 Troponin I 0.055, 0.044, 0.036 Pro-calcitonin 3.74 COVID 19/influenza type A/influenza type B: Not detected EKG tracing personally reviewed by me-normal sinus rhythm, rate 93 Chest x-ray film personally reviewed by me-bilateral infiltrates Assessment plan: -Bilateral pneumonia suspected gram-negative organism/aspiration, causing sepsis: Augmentin -Sepsis secondary to pneumonia IV Zosyn. Changed to Augmentin -Acute hypoxic respiratory failure secondary to pneumonia possibly aspiration Current 84 L of oxygen. 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 -Acute kidney injury, prerenal from IV diuresis: Some improvement IV Lasix discontinued. Creatinine had gone up to 3.1. Gentle hydration. By mouth Augmentin. Diet - nectar thickened mechanical soft. Titrate down FiO2. Continue other medications. No transport available for DC.
[2022-01-16 16:50] LABS: Glucose,Whole Blood 130 mg/dL (75-99)
[2022-01-16] MEDS: guaiFENesin SYRUP 100MG/5ML 200 MG/10 ML CUP PO SCH (18:13)
[2022-01-16 21:09] LABS: Glucose,Whole Blood 132 mg/dL (75-99)
[2022-01-16] MEDS: DOCUSATE 100 MG CAP PO SCH (21:31)
[2022-01-16] MEDS: PARoxetine 20 MG TAB PO SCH (21:31)
[2022-01-16] MEDS: ACETAMINOPHEN TAB 325 MG TAB PO PRN (21:31)
[2022-01-16] MEDS: MELATONIN 5 MG TABLET PO SCH (21:31)
[2022-01-17] MEDS: guaiFENesin SYRUP 100MG/5ML 200 MG/10 ML CUP PO SCH ×6 (00:41→22:47)
[2022-01-17] MEDS: DEXTROSE 5%-0.45% NACL 1,000 ML IV SCH ×2 (00:42→21:23)
[2022-01-17] MEDS: METOPROLOL TARTRATE 25 MG TAB PO SCH ×2 (05:49→17:12)
[2022-01-17] MEDS: LEVOTHYROXINE 25 MCG TAB PO SCH (05:49)
[2022-01-17] MEDS: CHOLECALCIFEROL 25 MCG (1000 IU) TABLET PO SCH ×2 (05:49→17:12)
[2022-01-17] MEDS: ENOXAPARIN 40 MG/0.4 ML SYRINGE SQ SCH (05:49)
[2022-01-17] MEDS: PANTOPRAZOLE 40 MG TABLET PO SCH ×2 (05:49→21:22)
[2022-01-17] MEDS: FERROUS SULFATE 325 MG TAB PO SCH (05:49)
[2022-01-17] MEDS: CYANOCOBALAMIN 500 MCG TAB PO SCH (05:50)
[2022-01-17] MEDS ORDERED: LORATADINE 10 MG TAB PO PRN (06:30)
[2022-01-17] MEDS ORDERED: LACTULOSE 20 GM/30 ML CUP PO PRN (06:30)
[2022-01-17 06:46] LABS: Glucose,Whole Blood 120 mg/dL (75-99)
[2022-01-17] MEDS: INSULIN ASPART (NovoLOG) 100 UNIT/ML VIAL SQ SCH ×4 (07:12→21:01)
[2022-01-17] MEDS: IPRATROPIUM-ALBUTEROL 3 ML NEB INHALATION SCH ×4 (07:35→19:06)
[2022-01-17] MEDS: AMOXIC-POT CLAV 500-125 MG 1 EACH TAB PO SCH ×2 (09:08→21:22)
[2022-01-17 11:31] LABS: Glucose,Whole Blood 96 mg/dL (75-99)
[2022-01-17] MEDS: ACETAMINOPHEN TAB 325 MG TAB PO PRN ×2 (12:05→21:23)
--- NOTE | 2022-01-17 12:50 | P.PN ---
Progress Note - Text Progress Note Date: 01/17/22 Chief Complaint: Short of breath This is a 76-year-old patient who follows with visiting physicians Dr. Watson. Chronic stable medical conditions include osteoporosis, hypothyroid, insomnia, hypertension, depression. Patient unable to give much of history.. Per the nursing noted ER patient been increasingly short of breath for one week. Patient was started on Z-Sedrick by the family doctor. Patient normally uses a walker to get about. For one week has had decreased activity. [facility] This morning patient did eat with assistance. baseline patient really does not speak. Patient is noted to have a fever of 101 last night. Admitted with bilateral pneumonia, sepsis, COPD exacerbation. Started on IV Zosyn. January 11: Only fevers at 101 at 8 PM last night. None today. Creatinine has gone up. IV Lasix discontinued. Patient ate some breakfast and lunch today. Seen by speech. Continue with chopped diet. January 12: Eating about 50%. On IV Zosyn. Afebrile. Diet. 2 L nasal cannula. Short of breath. January 13: IV Zosyn. Eating better. Gentle hydration. Congested cough. January 14: Not hungry today. Tired. Was tried on mechanical chest PT by pulmonary. Patient did not like it. Discontinued. Tired January 15: Refused food. On 4 L nasal cannula. Patient underwent a modified barium swallow. Patient noted to have some aspiration. Recommended to have mechanical soft with nectar thick liquids. 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 Encourage oral intake. January 16: Patient been tolerating diet with assistance. Down to 2 L on nasal cannula. Patient was to be discharged today but no transport available. Breathing stable. January 15: On 2 L nasal cannula. Tolerating diet. On Augmentin. Active Medications Acetaminophen (Acetaminophen Tab 325 Mg Tab) 650 mg PO Q6HR PRN PRN Reason: Fever and/ or Pain Last Admin: 01/13/22 20:32 Dose: 650 mg Documented by: Albuterol/Ipratropium (Ipratropium-Albuterol 3 Ml Neb) 3 ml INHALATION RT-QID [facility] Last Admin: 01/16/22 11:47 Dose: Not Given Documented by: Amoxicillin/Clavulanate Potassium (Amoxic-Pot Clav 500-125 Mg 1 Each Tab) 1 each PO BID [facility]; Protocol Last Admin: 01/16/22 08:45 Dose: 1 each Documented by: Cholecalciferol (Cholecalciferol 25 Mcg (1000 Iu) Tablet) 25 mcg PO BID@0700,1700 [facility] Last Admin: 01/16/22 08:44 Dose: 25 mcg Documented by: Cyanocobalamin (Cyanocobalamin 500 Mcg Tab) 1,000 mcg PO DAILY@0700 [facility] Last Admin: 01/16/22 08:44 Dose: 1,000 mcg Documented by: Docusate Sodium (Docusate 100 Mg Cap) 100 mg PO HS@2100 [facility] Last Admin: 01/15/22 20:23 Dose: 100 mg Documented by: Enoxaparin Sodium (Enoxaparin 40 Mg/0.4 Ml Syringe) 40 mg SQ DAILY [facility] Last Admin: 01/16/22 08:44 Dose: 40 mg Documented by: Ferrous Sulfate (Ferrous Sulfate 325 Mg Tab) 325 mg PO DAILY@0700 [facility] Last Admin: 01/16/22 08:44 Dose: 325 mg Documented by: Guaifenesin (Guaifenesin Syrup 100mg/5ml 200 Mg/10 Ml Cup) 200 mg PO Q6HR [facility] Dextrose/Sodium Chloride (Dextrose 5%-1/2ns Iv Soln) 1,000 mls @ 50 mls/hr IV .Q20H [facility] Last Admin: 01/16/22 06:35 Dose: 50 mls/hr Documented by: Insulin Aspart (Insulin Aspart (Novolog) 100 Unit/Ml Vial) 0 unit SQ ACHS [facility]; Protocol Last Admin: 01/16/22 13:34 Dose: Not Given Documented by: Lactulose (Lactulose 20 Gm/30 Ml Cup) 20 gm PO DAILY@0700 PRN PRN Reason: HOLD FOR LOOSE STOOLS Levothyroxine Sodium (Levothyroxine 25 Mcg Tab) 25 mcg PO DAILY@0700 [facility] Last Admin: 01/16/22 08:45 Dose: 25 mcg Documented by: Loratadine (Loratadine 10 Mg Tab) 10 mg PO DAILY@0700 PRN PRN Reason: Allergy Symptoms Melatonin (Melatonin 5 Mg Tablet) 10 mg PO HS@2100 [facility] Last Admin: 01/15/22 20:23 Dose: 10 mg Documented by: Metoprolol Tartrate (Metoprolol Tartrate 25 Mg Tab) 25 mg PO BID@0700,1700 [facility] Last Admin: 01/16/22 08:44 Dose: 25 mg Documented by: Miscellaneous Information (Pneumonia Protocol Utilized 1 Each [facility]) 1 each PO ONCE PRN PRN Reason: Per Protocol Miscellaneous Information (Potassium Replacement Protocol 1 Each [facility]) 1 each MISCELLANE DAILY PRN; Protocol PRN Reason: Per Protocol Pantoprazole Sodium (Pantoprazole 40 Mg Tablet) 40 mg PO BID@0700,2100 [facility] Last Admin: 01/16/22 08:45 Dose: 40 mg Documented by: Paroxetine HCl (Paroxetine 20 Mg Tab) 40 mg PO HS@2100 [facility] Last Admin: 01/15/22 22:53 Dose: 40 mg Documented by: Past medical history to include: Osteoporosis, hypothyroid, insomnia, hypertension, GERD, depression, Social history: Lives at [facility]. Does use a walker. Cannot tell any history of smoking or alcohol. Family history: Patient cannot tell Physical examination: VITAL SIGNS: 98.2, 78, 16, 137/68, 93% on 2 L GENERAL: Reclining in bed. Comfortable EYES: Pupils equal. Conjunctiva normal. HEENT: External appearance of nose and ears normal, oral cavity grossly normal. NECK: JVD not raised; masses not palpable. HEART: First and second heart sounds are normal; no edema. LUNGS: Respiratory rate normal; decreased breath sounds ABDOMEN: Soft, nontender, liver spleen not palpable, no masses palpable. PSYCH: Unable to assess, patient doesn't talk MUSCULOSKELETAL:No Clubbing/cyanosis;muscles-grossly intact. Evidence of OA INVESTIGATIONS, reviewed in the clinical context: January 15: Potassium 3.5 BUN 33 creatinine 1.49 January 14: Potassium 3.5 creatinine 1.77 January 13: Potassium 4.1 creatinine 2.45 January 10: Potassium 3.4 BUN 77 creatinine 3.10 procalcitonin 3.96 January 9: Potassium 3.5 BUN 59 creatinine 2.41 2-D echocardiogram: EF 55-60%. Ultrasound: No evidence of renal obstruction. White count 4.1 hemoglobin 9.8 platelets 258 sodium 132 potassium 3.7 BUN 32 creatinine 1.3 Troponin I 0.055, 0.044, 0.036 Pro-calcitonin 3.74 COVID 19/influenza type A/influenza type B: Not detected EKG tracing personally reviewed by me-normal sinus rhythm, rate 93 Chest x-ray film personally reviewed by me-bilateral infiltrates Assessment plan: -Bilateral pneumonia suspected gram-negative organism/aspiration, causing sepsis: Augmentin -Sepsis secondary to pneumonia IV Zosyn. Changed to Augmentin -Acute hypoxic respiratory failure secondary to pneumonia possibly aspiration Current 84 L of oxygen. 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 -Acute kidney injury, prerenal from IV diuresis: Some improvement IV Lasix discontinued. Creatinine had gone up to 3.1. Gentle hydration. Augmentin. Diet - nectar thickened mechanical soft. On FiO2 Continue other medications. No transport available for OR.
[2022-01-17] MEDS: CALCIUM CARBONATE LIQUID 500 MG/5 ML CUP PO SCH ×2 (13:34→17:11)
[2022-01-17 16:53] LABS: Glucose,Whole Blood 120 mg/dL (75-99)
[2022-01-17 20:50] LABS: Glucose,Whole Blood 93 mg/dL (75-99)
[2022-01-17] MEDS: MELATONIN 5 MG TABLET PO SCH (21:22)
[2022-01-17] MEDS: PARoxetine 20 MG TAB PO SCH (21:22)
[2022-01-17] MEDS: DOCUSATE 100 MG CAP PO SCH (21:22)
[2022-01-18] MEDS: guaiFENesin SYRUP 100MG/5ML 200 MG/10 ML CUP PO SCH ×3 (05:55→17:15)
[2022-01-18] MEDS: ENOXAPARIN 40 MG/0.4 ML SYRINGE SQ SCH (05:55)
[2022-01-18] MEDS: CHOLECALCIFEROL 25 MCG (1000 IU) TABLET PO SCH ×2 (05:56→17:14)
[2022-01-18] MEDS: METOPROLOL TARTRATE 25 MG TAB PO SCH ×2 (05:56→17:14)
[2022-01-18] MEDS: LEVOTHYROXINE 25 MCG TAB PO SCH (05:56)
[2022-01-18] MEDS: CYANOCOBALAMIN 500 MCG TAB PO SCH (05:56)
[2022-01-18] MEDS: FERROUS SULFATE 325 MG TAB PO SCH (05:56)
[2022-01-18] MEDS: PANTOPRAZOLE 40 MG TABLET PO SCH (05:56)
[2022-01-18 07:17] LABS: Glucose,Whole Blood 141 mg/dL (75-99)
[2022-01-18] MEDS: IPRATROPIUM-ALBUTEROL 3 ML NEB INHALATION SCH ×4 (08:34→20:24)
[2022-01-18] MEDS: INSULIN ASPART (NovoLOG) 100 UNIT/ML VIAL SQ SCH ×3 (08:53→17:15)
[2022-01-18] MEDS: AMOXIC-POT CLAV 500-125 MG 1 EACH TAB PO SCH (08:54)
[2022-01-18] MEDS: CALCIUM CARBONATE LIQUID 500 MG/5 ML CUP PO SCH ×3 (08:54→17:14)
[2022-01-18 11:46] LABS: Glucose,Whole Blood 98 mg/dL (75-99)
--- NOTE | 2022-01-18 16:31 | P.DS ---
Providers Date of admission: 01/09/22 17:21 Expected date of discharge: 01/18/22 Attending physician: Jarred Cullen Consults: 01/09/22 17:17 Consult Physician Routine Consulting Provider: Niyah Ho Consult Reason/Comments: acute hypoxic resp failure, CAP, new onset heart failure Do you want consulting provider notified?: Yes 01/09/22 17:19 Consult Physician Routine Consulting Provider: [facility] Consult Reason/Comments: new onset heart failure Do you want consulting provider notified?: Yes Primary care physician: [facility] Course: Chief Complaint: Short of breath This is a 76-year-old patient who follows with visiting physicians Dr. Watson. Chronic stable medical conditions include osteoporosis, hypothyroid, insomnia, hypertension, depression. Patient unable to give much of history.. Per the nursing noted ER patient been increasingly short of breath for one week. Patient was started on Z-Sedrick by the family doctor. Patient normally uses a walker to get about. For one week has had decreased activity. [facility]. This morning patient did eat with assistance. baseline patient really does not speak. Patient is noted to have a fever of 101 last night. Admitted with bilateral pneumonia, sepsis, COPD exacerbation. Started on IV Zosyn. Acute hypoxic respiratory failure. Oxygen. Patient seen by speech therapist. Modified barium swallow was done. Some aspiration. She did have mechanical soft diet with nectar thick liquids. Supervised. Also acute kidney injury from ATN, improved Patient responded well to antibiotics. Change to documented. Oxygen requirement coming down. January 18: Oral intake fair. Pulse ox 82% on room air. Good on 2-3 L. Home oxygen being arranged. Discussed with nursing staff and case making machine operator. Completed course of Augmentin Discussion and discharge planning more than 35 minutes Past medical history to include: Osteoporosis, hypothyroid, insomnia, hypertension, GERD, depression, Social history: Lives at [facility]. Does use a walker. Cannot tell any history of smoking or alcohol. Family history: Patient cannot tell Physical examination: VITAL SIGNS: 98.2, 90, 20, under good but 81, 94% on 3 Vu and 82% room air GENERAL: Reclining in bed. Comfortable EYES: Pupils equal. Conjunctiva normal. HEENT: External appearance of nose and ears normal, oral cavity grossly normal. NECK: JVD not raised; masses not palpable. HEART: First and second heart sounds are normal; no edema. LUNGS: Respiratory rate normal; decreased breath sounds ABDOMEN: Soft, nontender, liver spleen not palpable, no masses palpable. PSYCH: Unable to assess, patient doesn't talk MUSCULOSKELETAL:No Clubbing/cyanosis;muscles-grossly intact. Evidence of OA INVESTIGATIONS, reviewed in the clinical context: January 15: Potassium 3.5 BUN 33 creatinine 1.49 January 12: Potassium 3.4 BUN 77 creatinine 3.10 procalcitonin 3.96 January 11: Potassium 3.5 BUN 59 creatinine 2.41 2-D echocardiogram: EF 55-60%. Ultrasound: No evidence of renal obstruction. White count 4.1 hemoglobin 9.8 platelets 258 sodium 132 potassium 3.7 BUN 32 creatinine 1.3 Troponin I 0.055, 0.044, 0.036 Pro-calcitonin 3.74 COVID 19/influenza type A/influenza type B: Not detected EKG tracing personally reviewed by me-normal sinus rhythm, rate 93 Chest x-ray film personally reviewed by me-bilateral infiltrates Assessment plan: -Bilateral pneumonia suspected gram-negative organism/aspiration, causing sepsis: Better Augmentin -Sepsis secondary to pneumonia: Better IV Zosyn. Changed to Augmentin -Acute hypoxic respiratory failure secondary to pneumonia possibly aspiration Current 2-3 L of oxygen. 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 Creatinine had gone up to 3.1. Gentle hydration. Disposition: [facility] Plan - Discharge Summary New Discharge Prescriptions: New Amoxic-Pot Clav 500-125 mg [Augmentin 500-125 mg] 1 each PO BID #10 tab guaiFENesin [Mucinex] 600 mg PO QID #20 tablet Continue Docusate [Colace] 100 mg PO HS@2100 Cyanocobalamin (Vitamin B-12) [Vitamin B-12] 1,000 mcg PO DAILY@0700 Cholecalciferol [Vitamin D3 (25 Mcg = 1000 Iu)] 25 mcg PO BID@0700,1700 Triamterene/Hydrochlorothiazid [Triamterene-Hctz 37.5-25 mg Tb] 1 tab PO DAILY@0700 Omeprazole [PriLOSEC] 20 mg PO BID@699,2099 Levothyroxine Sodium [Synthroid] 25 mcg PO DAILY@07 PARoxetine HCL 40 mg PO HS@2099 Metoprolol Tartrate 25 mg PO BID@0700,1700 Melatonin 10 mg PO HS@2099 Loratadine 10 mg PO DAILY@0700 PRN PRN Reason: Allergy Symptoms Lactulose 20 gm PO DAILY@0700 PRN PRN Reason: HOLD FOR LOOSE STOOLS [place]-3 Fatty Acids/Fish Oil [Fish Oil 1,000 mg Softgel] 1 cap PO DAILY@0700 Ferrous Sulfate [Iron (65 MG Elemental)] 325 mg PO DAILY@07 Alendronate Sodium [Fosamax] 70 mg PO SA@699 Discontinued Benzonatate [Tessalon Perles] 100 - 200 mg PO TID PRN PRN Reason: Cough Azithromycin [Zithromax Z-pack (6 tabs)] See Taper PO DIRECTED Discharge Medication List Alendronate Sodium [Fosamax] 70 mg PO SA@69901/09/22 [History] Cholecalciferol [Vitamin D3 (25 Mcg = 1000 Iu)] 25 mcg PO BID@0700,1700 01/09/22 [History] Cyanocobalamin (Vitamin B-12) [Vitamin B-12] 1,000 mcg PO DAILY@69901/09/22 [History] Docusate [Colace] 100 mg PO HS@209901/09/22 [History] Ferrous Sulfate [Iron (65 MG Elemental)] 325 mg PO DAILY@69901/09/22 [History] Lactulose 20 gm PO DAILY@07 PRN 01/09/22 [History] Levothyroxine Sodium [Synthroid] 25 mcg PO DAILY@69901/09/22 [History] Loratadine 10 mg PO DAILY@07 PRN 01/09/22 [History] Melatonin 10 mg PO HS@209901/09/22 [History] Metoprolol Tartrate 25 mg PO BID@0700,1700 01/09/22 [History] [place]-3 Fatty Acids/Fish Oil [Fish Oil 1,000 mg Softgel] 1 cap PO DAILY@69901/09/22 [History] Omeprazole [PriLOSEC] 20 mg PO BID@0700,209901/09/22 [History] PARoxetine HCL 40 mg PO HS@209901/09/22 [History] Triamterene/Hydrochlorothiazid [Triamterene-Hctz 37.5-25 mg Tb] 1 tab PO DAILY@0700 01/09/22 [History] Amoxic-Pot Clav 500-125 mg [Augmentin 500-125 mg] 1 each PO BID #10 tab 01/16/22 [Rx] guaiFENesin [Mucinex] 600 mg PO QID #20 tablet 01/16/22 [Rx] Follow up Appointment(s)/Referral(s): [facility] [NON-STAFF] - As Needed (oxygen and transport chair.) [facility] [NON-STAFF] - Ritesh Watson MD [Primary Care Provider] - 01/19/22 () Activity/Diet/Wound Care/Special Instructions: Diet: Chopped (ground meats); Citrus thick liquids; 1:1 supervision with feeding; no straws Patient requires home oxygen at discharge to manage copd Patient requires a transport chair at discharge to assist with ADLS due to unsteady gait and COPD. Patient cannot self propel chair, will have a caregiver that can propel the chair.
[2022-01-18] MEDS: DEXTROSE 5%-0.45% NACL 1,000 ML IV SCH (17:15)
[2022-01-18 18:12] VITALS: BP 114/86; PULSE 92; RESP 16; TEMP 98.3
== END 2022-01-18 20:33 | disposition home health service (06) | DRG 871 ==
LOC: SUPCPDRO 14:43 → EC 14:43 → 3SCARD 17:21 → 4SSUR 01-15 23:33
PROVIDERS: ADMIT Hospitalist; ATTEND Hospitalist
PROC: 3E0F7SF Introduction of Other Gas into Respiratory Tract, Via Natural or Artificial Opening (ICD-10-PCS; principal; 2022-01-09)
DX: A41.50 Gram-negative sepsis, unspecified (principal); I50.33 Acute on chronic diastolic (congestive) heart failure; J15.6 Pneumonia due to other Gram-negative bacteria; J96.01 Acute respiratory failure with hypoxia; J69.0 Pneumonitis due to inhalation of food and vomit; N17.0 Acute kidney failure with tubular necrosis; Z16.24 Resistance to multiple antibiotics; J44.0 Chronic obstructive pulmonary disease with (acute) lower respiratory infection; J44.1 Chronic obstructive pulmonary disease with (acute) exacerbation; I5A Non-ischemic myocardial injury (non-traumatic); J98.11 Atelectasis; I31.3 Pericardial effusion (noninflammatory); T50.1X5A Adverse effect of loop [high-ceiling] diuretics, initial encounter; I95.9 Hypotension, unspecified; I11.0 Hypertensive heart disease with heart failure; R79.89 Other specified abnormal findings of blood chemistry; G30.1 Alzheimer's disease with late onset; F02.80 Dementia in other diseases classified elsewhere, unspecified severity, without behavioral disturbance, psychotic disturbance, mood disturbance, and anxiety; Z20.822 Contact with and (suspected) exposure to COVID-19; E03.9 Hypothyroidism, unspecified; G47.00 Insomnia, unspecified; K21.9 Gastro-esophageal reflux disease without esophagitis; M81.0 Age-related osteoporosis without current pathological fracture; R26.89 Other abnormalities of gait and mobility; F32.A Depression, unspecified; Z79.83 Long term (current) use of bisphosphonates; Z79.890 Hormone replacement therapy; Z79.899 Other long term (current) drug therapy; Z86.711 Personal history of pulmonary embolism; X58.XXXA Exposure to other specified factors, initial encounter
CPT/HCPCS: 36415; 71045; 71046; 71275; 74230; 76770; 80048; 80053; 81001; 83605; 83735; 83880; 84145; 84484; 85025; 85610; 85730; 87040; 87502; 87635; 93005; 93306; 94640; 94667; 94668; 94760; 96365; 96366; 96375; 99285

== ENCOUNTER 2022-04-22 10:02 | Inpatient (IN) | payer MEDICARE, OTHER ==
[2022-04-22] MEDS ORDERED: MIDAZOLAM 1 MG/ML 5 ML VIAL IV STA (10:05)
[2022-04-22] MEDS ORDERED: SUCCINYLCHOLINE CHLORIDE 200 MG/10 ML VIAL IV ONE (10:08)
[2022-04-22] MEDS ORDERED: FUROSEMIDE 10 MG/ML 2 ML VIAL IV ONE (10:13)
[2022-04-22 10:35] LABS: Basophils # (A) 0.1 k/uL (0-0.2); Basophils % (A) 0 %; Eosinophils # (A) 0.1 k/uL (0-0.7); Eosinophils % (A) 0 %; HCT 33.5 % (39.0-53.0); HGB 10.6 gm/dL (13.0-17.5); Hypochromasia Slight; Lymphocytes # (A) 4.9 k/uL (1.0-4.8); Lymphocytes % (A) 30 %; MCH 30.9 pg (25.0-35.0); MCHC 31.6 g/dL (31.0-37.0); MCV 97.8 fL (80.0-100.0); Mean Platelet Volume 7.8; Monocytes # (A) 0.5 k/uL (0-1.0); Monocytes % (A) 3 %; Neutrophils # (A) 10.9 k/uL (1.3-7.7); Neutrophils % (A) 66 %; Platelet Count 396 k/uL (150-450); RBC 3.42 m/uL (4.30-5.90); RDW 14.7 % (11.5-15.5); WBC 16.6 k/uL (3.8-10.6)
[2022-04-22 10:45] LABS: Albumin 3.6 g/dL (3.5-5.0); Calcium 9.2 mg/dL (8.4-10.2); Potassium 3.6 mmol/L (3.5-5.1); Total Bilirubin 0.2 mg/dL (0.2-1.3)
[2022-04-22 10:49] LABS: INR 0.9 (<1.2); Prothrombin Time 9.9 sec (9.0-12.0)
--- NOTE | 2022-04-22 10:50 | ED ---
General Adult HPI - General Chief complaint: Shortness of Breath Stated complaint: NATALI Time Seen by Provider: 04/22/22 10:02 Source: EMS, RN notes reviewed, old records reviewed Mode of arrival: EMS Limitations: no limitations - History of Present Illness Initial comments: This is a 77-year-old male who presents emergency department for difficulty breathing from the adult foster care. Patient does not give us any history because he is unable to communicate he follows very simple commands only. According to EMS the reason they have caused is having difficulty breathing and is decreased level of consciousness. According to EMS he initially got a pulse ox in the 50s into the put on a nonrebreather occasionally went up to 90 however on arrival he has a pulse ox of 58 with a good waveform. - Related Data Home Medications Medication Instructions Recorded Confirmed Cholecalciferol [Vitamin D3 (25 25 mcg PO BID@0700,1700 01/09/22 04/22/22 Mcg = 1000 Iu)] Cyanocobalamin (Vitamin B-12) 1,000 mcg PO DAILY@0700 01/09/22 04/22/22 [Vitamin B-12] Docusate [Colace] 100 mg PO DAILY PRN 01/09/22 04/22/22 Ferrous Sulfate [Iron (65 MG 325 mg PO Q48H 01/09/22 04/22/22 Elemental)] Lactulose 20 gm PO DAILY@0700 01/09/22 04/22/22 Levothyroxine Sodium [Synthroid] 25 mcg PO DAILY@0700 01/09/22 04/22/22 Loratadine 10 mg PO DAILY@0700 PRN 01/09/22 04/22/22 Melatonin [Melatonin ER] 10 mg PO HS@209901/09/22 04/22/22 Metoprolol Tartrate 25 mg PO BID@0700,1700 01/09/22 04/22/22 [place]-3 Fatty Acids/Fish Oil [Fish 1 cap PO DAILY@00 01/09/22 04/22/22 Oil 1,000 mg Softgel] Omeprazole [PriLOSEC] 20 mg PO BID@0700,2100 01/09/22 04/22/22 PARoxetine HCL 40 mg PO HS@209901/09/22 04/22/22 Triamterene/Hydrochlorothiazid 1 tab PO DAILY@69901/09/22 04/22/22 [Triamterene-Hctz 37.5-25 mg Tb] Ascorbic Acid [Vitamin C] 500 mg PO DAILY 04/22/22 04/22/22 Aspirin EC [Ecotrin Low Dose] 81 mg PO DAILY@0700 04/22/22 04/22/22 Benzonatate [Tessalon Perles] 100 - 200 mg PO TID PRN 04/22/22 04/22/22 Budesonide [Pulmicort] 0.25 mg INHALATION RT-BID 04/22/22 04/22/22 Fluticasone Propion/Salmeterol 1 puff INHALATION RT-BID@0700,1900 04/22/22 04/22/22 [Advair 250-50 Diskus] Ipratropium-Albuterol Nebulize 3 ml INHALATION RT-TID 04/22/22 04/22/22 [Duoneb 0.5 mg-3 mg/3 ml Soln] Liquacel 30 ml PO BID 04/22/22 04/22/22 Phenazopyridine [Pyridium] 200 mg PO TID 04/22/22 04/22/22 Sucralfate [Carafate] 1 gm PO TID-W/MEALS 04/22/22 04/22/22 Zinc 50 mg PO DAILY 04/22/22 04/22/22 Previous Rx's Medication Instructions Recorded guaiFENesin [Mucinex] 600 mg PO QID #20 tablet 01/16/22 Allergies Allergy/AdvReac Type Severity Reaction Status Date / Time No Known Allergies Allergy Verified 04/22/22 11:00 Review of Systems ROS Statement: Those systems with pertinent positive or pertinent negative responses have been documented in the HPI. ROS Other: All systems not noted in ROS Statement are negative. Past Medical History Past Medical History: Unable to Obtain History of Any Multi-Drug Resistant Organisms: Unobtainable Past Surgical History: Unable to Obtain Additional Past Surgical History / Comment(s): R Hip Surgery; unspecified abdominal surgery Past Psychological History: Unable to Obtain Smoking Status: Unknown if ever smoked Past Alcohol Use History: Unable to Obtain Past Drug Use History: Unable to Obtain General Exam - General Exam Comments Initial Comments: GENERAL: Patient is well-developed and well-nourished. Patient is nontoxic and well- hydrated and is in moderate distress. ENT: Neck is soft and supple. No significant lymphadenopathy is noted. Oropharynx is clear. Moist mucous membranes. Neck has full range of motion without eliciting any pain. EYES: The sclera were anicteric and conjunctiva were pink and moist. Extraocular movements were intact and pupils were equal round and reactive to light. Eyelid s were unremarkable. PULMONARY: Rales bilaterally CARDIOVASCULAR: There is a regular rate and rhythm without any murmurs gallops or rubs. ABDOMEN: Soft and nontender with normal bowel sounds. SKIN: Skin is clear with no lesions or rashes and otherwise unremarkable. NEUROLOGIC: Patient is alert and oriented 1. Cranial nerves II through XII are grossly intact. Motor and sensory are also intact. Normal speech, volume and content. Symmetrical smile. MUSCULOSKELETAL: Normal extremities with adequate strength and full range of motion. No lower extremity swelling or edema. No calf tenderness. LYMPHATICS: No significant lymphadenopathy is noted PSYCHIATRIC: Unable to assess Limitations: no limitations Course Vital Signs 04/22/22 04/22/22 04/22/22 10:03 10:10 10:13 Temperature 97.4 F L Pulse Rate 123 H 121 H Respiratory 18 Rate Blood Pressure 117/67 64/50 O2 Sat by Pulse 91 L Oximetry Fraction of 100 Inspired Oxygen (FIO2) 04/22/22 04/22/22 04/22/22 10:15 10:40 10:54 Temperature Pulse Rate 81 Respiratory 16 Rate Blood Pressure 106/73 121/65 O2 Sat by Pulse 100 Oximetry Fraction of 100 Inspired Oxygen (FIO2) 04/22/22 04/22/22 11:00 11:32 Temperature Pulse Rate 71 Respiratory 19 Rate Blood Pressure 125/70 O2 Sat by Pulse 100 Oximetry Fraction of 60 Inspired Oxygen (FIO2) Procedures - Intubation Sedative: Versed Paralytic: Succinylcholine Laryngoscope: Artis Size: 3 ET Tube Size: 7.5 ET Tube Uncuffed: No Tube Secured Location: teeth Tube Placement Confirmation: visualized tube passing through cords, equal breath sounds bilaterally, no breath sounds over epigastrium, confirmation by capnometry Patient Tolerated Procedure: well Intubation Complications: none Medical Decision Making - Medical Decision Making EKG shows sinus tachycardia at 105 bpm HI interval 100 390 QRS is 95 QT interval 340 QTC is 41 per patient's EKG shows no ST segment elevation however there is some ST segment depression in precordial leads V3 through V5. Chest x-ray shows questionable infiltrates CT was done because of elevated d-dimer no pulmonary embolism was noted. Patient's x-ray does show some bilateral basilar infiltrates could be consistent with pneumonia or pneumonitis. At this point in time 1:30 IV antibiotics were ordered because it was a diagnosis of possible infection. I spoke with the [facility] hospitalist Dr. love agreed to admit the patient admitted the patient wrote admitting orders. I also spoke with Dr. Ho he agreed to accept the patient to the ICU - Lab Data Result diagrams: 04/22/22 10:19 04/22/22 10:19 Lab Results 04/22/22 04/22/22 04/22/22 Range/Units 10:19 10:19 10:19 WBC 16.6 H (3.8-10.6) k/uL RBC 3.42 L (4.30-5.90) m/uL Hgb 10.6 L (13.0-17.5) gm/dL Hct 33.5 L (39.0-53.0) % MCV 97.8 (80.0-100.0) fL MCH 30.9 (25.0-35.0) pg MCHC 31.6 (31.0-37.0) g/dL RDW 14.7 (11.5-15.5) % Plt Count 396 (150-450) k/uL MPV 7.8 Neutrophils % 66 % Lymphocytes % 30 % Monocytes % 3 % Eosinophils % 0 % Basophils % 0 % Neutrophils # 10.9 H (1.3-7.7) k/uL Lymphocytes # 4.9 H (1.0-4.8) k/uL Monocytes # 0.5 (0-1.0) k/uL Eosinophils # 0.1 (0-0.7) k/uL Basophils # 0.1 (0-0.2) k/uL Hypochromasia Slight PT 9.9 (9.0-12.0) sec INR 0.9 (<1.2) APTT 22.0 (22.0-30.0) sec D-Dimer (<0.60) mg/L FEU Sample Site ABG pH (7.35-7.45) ABG pCO2 (35-45) mmHg ABG pO2 (83-108) mmHg ABG HCO3 (21-25) mmol/L ABG Total CO2 (19-24) mmol/L ABG O2 Saturation (94-97) % ABG Base Excess mmol/L Brandon Test FiO2 % Sodium 137 (137-145) mmol/L Potassium 3.6 (3.5-5.1) mmol/L Chloride 98 (98-107) mmol/L Carbon Dioxide 26 (22-30) mmol/L Anion Gap 13 mmol/L BUN 41 H (9-20) mg/dL Creatinine 1.19 (0.66-1.25) mg/dL Est GFR (CKD-EPI)AfAm 67 (>60 ml/min/1.73 sqM) Est GFR (CKD-EPI)NonAf 58 (>60 ml/min/1.73 sqM) Glucose 315 H (74-99) mg/dL Lactic Ac Sepsis Rflx Plasma Lactic Acid Ata (0.7-2.0) mmol/L Calcium 9.2 (8.4-10.2) mg/dL Magnesium 2.0 (1.6-2.3) mg/dL Total Bilirubin 0.2 (0.2-1.3) mg/dL AST 34 (17-59) U/L ALT 22 (4-49) U/L Alkaline Phosphatase 114 (38-126) U/L Troponin I (0.000-0.034) ng/mL NT-Pro-B Natriuret Pep pg/mL Total Protein 6.0 L (6.3-8.2) g/dL Albumin 3.6 (3.5-5.0) g/dL Coronavirus (PCR) (Not Detectd) 04/22/22 04/22/22 04/22/22 Range/Units 10:19 10:19 10:19 WBC (3.8-10.6) k/uL RBC (4.30-5.90) m/uL Hgb (13.0-17.5) gm/dL Hct (39.0-53.0) % MCV (80.0-100.0) fL MCH (25.0-35.0) pg MCHC (31.0-37.0) g/dL RDW (11.5-15.5) % Plt Count (150-450) k/uL MPV Neutrophils % % Lymphocytes % % Monocytes % % Eosinophils % % Basophils % % Neutrophils # (1.3-7.7) k/uL Lymphocytes # (1.0-4.8) k/uL Monocytes # (0-1.0) k/uL Eosinophils # (0-0.7) k/uL Basophils # (0-0.2) k/uL Hypochromasia PT (9.0-12.0) sec INR (<1.2) APTT (22.0-30.0) sec D-Dimer (<0.60) mg/L FEU Sample Site ABG pH (7.35-7.45) ABG pCO2 (35-45) mmHg ABG pO2 (83-108) mmHg ABG HCO3 (21-25) mmol/L ABG Total CO2 (19-24) mmol/L ABG O2 Saturation (94-97) % ABG Base Excess mmol/L Brandon Test FiO2 % Sodium (137-145) mmol/L Potassium (3.5-5.1) mmol/L Chloride (98-107) mmol/L Carbon Dioxide (22-30) mmol/L Anion Gap mmol/L BUN (9-20) mg/dL Creatinine (0.66-1.25) mg/dL Est GFR (CKD-EPI)AfAm (>60 ml/min/1.73 sqM) Est GFR (CKD-EPI)NonAf (>60 ml/min/1.73 sqM) Glucose (74-99) mg/dL Lactic Ac Sepsis Rflx Plasma Lactic Acid Ata 2.8 H* (0.7-2.0) mmol/L Calcium (8.4-10.2) mg/dL Magnesium (1.6-2.3) mg/dL Total Bilirubin (0.2-1.3) mg/dL AST (17-59) U/L ALT (4-49) U/L Alkaline Phosphatase (38-126) U/L Troponin I 0.019 (0.000-0.034) ng/mL NT-Pro-B Natriuret Pep 1220 pg/mL Total Protein (6.3-8.2) g/dL Albumin (3.5-5.0) g/dL Coronavirus (PCR) (Not Detectd) 04/22/22 04/22/22 04/22/22 Range/Units 10:19 10:36 11:08 WBC (3.8-10.6) k/uL RBC (4.30-5.90) m/uL Hgb (13.0-17.5) gm/dL Hct (39.0-53.0) % MCV (80.0-100.0) fL MCH (25.0-35.0) pg MCHC (31.0-37.0) g/dL RDW (11.5-15.5) % Plt Count (150-450) k/uL MPV Neutrophils % % Lymphocytes % % Monocytes % % Eosinophils % % Basophils % % Neutrophils # (1.3-7.7) k/uL Lymphocytes # (1.0-4.8) k/uL Monocytes # (0-1.0) k/uL Eosinophils # (0-0.7) k/uL Basophils # (0-0.2) k/uL Hypochromasia PT (9.0-12.0) sec INR (<1.2) APTT (22.0-30.0) sec D-Dimer 1.90 H (<0.60) mg/L FEU Sample Site Left Radial ABG pH 7.31 L (7.35-7.45) ABG pCO2 58 H (35-45) mmHg ABG pO2 248 H (83-108) mmHg ABG HCO3 29 H (21-25) mmol/L ABG Total CO2 31 H (19-24) mmol/L ABG O2 Saturation 100.0 H (94-97) % ABG Base Excess 2.7 mmol/L Brandon Test Yes FiO2 100 % Sodium (137-145) mmol/L Potassium (3.5-5.1) mmol/L Chloride (98-107) mmol/L Carbon Dioxide (22-30) mmol/L Anion Gap mmol/L BUN (9-20) mg/dL Creatinine (0.66-1.25) mg/dL Est GFR (CKD-EPI)AfAm (>60 ml/min/1.73 sqM) Est GFR (CKD-EPI)NonAf (>60 ml/min/1.73 sqM) Glucose (74-99) mg/dL Lactic Ac Sepsis Rflx Plasma Lactic Acid Ata (0.7-2.0) mmol/L Calcium (8.4-10.2) mg/dL Magnesium (1.6-2.3) mg/dL Total Bilirubin (0.2-1.3) mg/dL AST (17-59) U/L ALT (4-49) U/L Alkaline Phosphatase (38-126) U/L Troponin I (0.000-0.034) ng/mL NT-Pro-B Natriuret Pep pg/mL Total Protein (6.3-8.2) g/dL Albumin (3.5-5.0) g/dL Coronavirus (PCR) Not Detected (Not Detectd) 04/22/22 Range/Units 11:11 WBC (3.8-10.6) k/uL RBC (4.30-5.90) m/uL Hgb (13.0-17.5) gm/dL Hct (39.0-53.0) % MCV (80.0-100.0) fL MCH (25.0-35.0) pg MCHC (31.0-37.0) g/dL RDW (11.5-15.5) % Plt Count (150-450) k/uL MPV Neutrophils % % Lymphocytes % % Monocytes % % Eosinophils % % Basophils % % Neutrophils # (1.3-7.7) k/uL Lymphocytes # (1.0-4.8) k/uL Monocytes # (0-1.0) k/uL Eosinophils # (0-0.7) k/uL Basophils # (0-0.2) k/uL Hypochromasia PT (9.0-12.0) sec INR (<1.2) APTT (22.0-30.0) sec D-Dimer (<0.60) mg/L FEU Sample Site ABG pH (7.35-7.45) ABG pCO2 (35-45) mmHg ABG pO2 (83-108) mmHg ABG HCO3 (21-25) mmol/L ABG Total CO2 (19-24) mmol/L ABG O2 Saturation (94-97) % ABG Base Excess mmol/L Brandon Test FiO2 % Sodium (137-145) mmol/L Potassium (3.5-5.1) mmol/L Chloride (98-107) mmol/L Carbon Dioxide (22-30) mmol/L Anion Gap mmol/L BUN (9-20) mg/dL Creatinine (0.66-1.25) mg/dL Est GFR (CKD-EPI)AfAm (>60 ml/min/1.73 sqM) Est GFR (CKD-EPI)NonAf (>60 ml/min/1.73 sqM) Glucose (74-99) mg/dL Lactic Ac Sepsis Rflx Y Plasma Lactic Acid Ata (0.7-2.0) mmol/L Calcium (8.4-10.2) mg/dL Magnesium (1.6-2.3) mg/dL Total Bilirubin (0.2-1.3) mg/dL AST (17-59) U/L ALT (4-49) U/L Alkaline Phosphatase (38-126) U/L Troponin I (0.000-0.034) ng/mL NT-Pro-B Natriuret Pep pg/mL Total Protein (6.3-8.2) g/dL Albumin (3.5-5.0) g/dL Coronavirus (PCR) (Not Detectd) Critical Care Time Critical Care Time: Yes Total Critical Care Time: 35 Disposition Clinical Impression: Pneumonia, Respiratory failure Disposition: ADMITTED IP TO THIS HOSP Referrals: Ritesh Watson MD [Primary Care Provider] - 1-2 days Time of Disposition: 13:39
[2022-04-22 11:22] LABS: ABG Base Excess 2.7 mmol/L; ABG HCO3 29 mmol/L (21-25); ABG PCO2 58 mmHg (35-45); ABG PH 7.31 (7.35-7.45); ABG PO2 248 mmHg (83-108); ABG TCO2 31 mmol/L (19-24); Allen Test Performed? Yes
--- NOTE | 2022-04-22 11:33 | XR ---
EXAMINATION TYPE: XR chest 1V DATE OF EXAM: 04/22/2022 COMPARISON: 01/13/2022 HISTORY: 77 year-old male shortness of breath, difficulty breathing TECHNIQUE: Single frontal view of the chest is obtained. FINDINGS: ET tube tip at the level of the medial clavicular heads. NG tube courses below the diaphra gm. Side hole is at the GE junction. Heart upper limits of normal in size. Central interstitial opaci ties similar. No pleural effusion. Old healed bilateral rib fracture deformities. IMPRESSION: 1. ET tube tip at the medial clavicular heads should be adequate. NG tube sidehole at the GE junction level. Consider slight advancement. 2. Similar central interstitial opacities, possible bronchitis, atypical pneumonias, or mild pulmonar y vascular congestion.
--- NOTE | 2022-04-22 12:04 | CT ---
EXAMINATION TYPE: CT brain wo con DATE OF EXAM: 04/22/2022 COMPARISON: None HISTORY: Altered mental status CT DLP: 1172.4 mGycm Automated exposure control for dose reduction was used. FINDINGS: Moderate generalized degenerative change with low attenuation in the white matter which is nonspecifi c. No acute hemorrhage or mass effect. No midline shift. Calvarium intact. Changes of chronic sinusitis and mastoiditis on the left. Nasal septal deviation no bolivar. Orbits are symmetric. Craniocervical junction maintained. Sella turcica is IMPRESSION: 1. DEGENERATIVE AND NONSPECIFIC WHITE MATTER CHANGES MOST UNREMARKABLE ISCHEMIA. IF CONCERN FOR ACUTE ISCHEMIA CORRELATE WITH MRI . 2. SINUSITIS WITH LEFT-SIDED CHANGES OF MASTOIDITIS.
--- NOTE | 2022-04-22 12:28 | CT ---
EXAMINATION TYPE: CT chest angio for PE DATE OF EXAM: 04/22/2022 COMPARISON: 01/09/2022 HISTORY: 77-year-old male shortness of breath, difficulty breathing, elevated d-dimer TECHNIQUE: Contiguous axial scanning of the chest performed with IV Contrast, patient injected with 8 0 mL of Isovue 370. Coronal/sagittal MIP reconstructions performed. CT DLP: 325.3 mGycm Automated exposure control for dose reduction was used. FINDINGS: Heart limits of normal in size. Small pericardial effusion measuring 5 mm thick. No flattening of the interventricular septum or reflux of contrast into the hepatic veins. Bovine configuration to the aortic arch. The patient is intubated with NG tube in place. There is dependent secretions and debris along the mi d to lower trachea and mainstem bronchi. Satisfactory opacification of the pulmonary arterial system though with limitation due to breathing m otion. Segmental and smaller branches of the lower lobes are very limited. Otherwise, no definite pul monary embolus is seen. No thoracic lymphadenopathy. Diffuse bronchial wall thickening. Scattered tree-in-bud opacities as well as patchy groundglass ambriz ges. Some of the dependent consolidation within the bilateral posterior lung bases have improved thou gh bilateral infrahilar airspace disease shows some worsening. No pleural effusion. Visualized upper abdomen shows partial visualization of a 2.6 cm right renal cortical cyst. Low densi ty nodularity left adrenal gland measuring 1.5 cm likely a lipid rich adrenal adenoma. Similar findin g right adrenal gland at 1.3 cm. Small duodenal diverticulum measuring 1.8 cm. Bones: T12 and L1 vertebral compression deformities are unchanged. Mild endplate deformities of T10, T11, and L2 are unchanged as well. Osteopenia. IMPRESSION: 1. THE PATIENT IS INTUBATED ALONG WITH NG TUBE. NOTE SOME DEPENDENT LAYERING SECRETIONS AND DEBRIS WI THIN THE MID AND LOWER TRACHEA AND MAINSTEM BRONCHI. 2. BILATERAL BASILAR CONSOLIDATION SHOWS SOME IMPROVEMENT. BILATERAL INFRAHILAR AIRSPACE DISEASE SLIG HTLY WORSENED. CORRELATE FOR SOME IMPROVING BUT PERSISTENT INFECTIOUS OR ASPIRATION PNEUMONITIS. 3. ADDITIONAL SCATTERED PATCHY BILATERAL INTERSTITIAL INFILTRATES ALSO SHOW SOME IMPROVEMENT IN THE U PPER AND MIDLUNGS. 4. ASSESSMENT FOR PE LIMITED BY BREATHING MOTION ARTIFACT. NO DEFINITE PULMONARY EMBOLUS.
[2022-04-22] MEDS ORDERED: NALOXONE 0.4 MG/ML 1 ML VIAL IV PRN (13:40)
[2022-04-22] MEDS ORDERED: IPRATROPIUM-ALBUTEROL 3 ML NEB INHALATION PRN (14:28)
[2022-04-22] MEDS ORDERED: SODIUM CHLORIDE 0.9% 2,000 ML IV ONE (14:29)
--- NOTE | 2022-04-22 14:39 | P.CNPUL ---
History of Present Illness Consult date: 04/22/22 Requesting physician: Arpita Rosen Reason for consult: pneumonia Chief complaint: Shortness of breath History of present illness: This is a 77-year-old white male resident of adult foster care facility, patient does not give any history, unable to communicate, patient was noted by the staff at the foster care facility as having shortness of breath. Patient was also noted to have low pulse oximetry. EMS arrived to see the patient and his O2 saturation was in the 70s patient was placed on a nonrebreather mask, and his O2 satwent up to 90%. Brought into ER, patient apparently was in moderate severe respiratory distress, and his O2 saturation was in the 50s. According to the ER physician patient was noted to be in distress, hence he went ahead and intubated the patient. Patient was placed on mechanical ventilation, CT of the chest was done and there was no evidence of pulmonary embolism. There was however diffuse bronchial wall thickening and opacities in the bases of his lungs patchy groundglass changes consistent with airspace disease. Consistent with pneumonia. Looking at the chart from previous admission the patient was diagnosed previously with aspiration pneumonia and he failed his swallow evaluation back then. It is not surprising that the patient presented again with a similar presentation of aspiration pneumonia however it seems to be more severe, associated with respiratory failure requiring intubation and mechanical ventilation. Not much history could be obtained from the patient himself. Review of Systems ROS unobtainable: due to endotracheal tube Past Medical History Past Medical History: Unable to Obtain History of Any Multi-Drug Resistant Organisms: Unobtainable Past Surgical History: Unable to Obtain Additional Past Surgical History / Comment(s): R Hip Surgery; unspecified abdominal surgery Past Psychological History: Unable to Obtain Smoking Status: Unknown if ever smoked Past Alcohol Use History: Unable to Obtain Past Drug Use History: Unable to Obtain Medications and Allergies Home Medications Medication Instructions Recorded Confirmed Type Cholecalciferol [Vitamin D3 (25 25 mcg PO BID@0700,1700 01/09/22 04/22/22 History Mcg = 1000 Iu)] Cyanocobalamin (Vitamin B-12) 1,000 mcg PO DAILY@0700 01/09/22 04/22/22 History [Vitamin B-12] Docusate [Colace] 100 mg PO DAILY PRN 01/09/22 04/22/22 History Ferrous Sulfate [Iron (65 MG 325 mg PO Q48H 01/09/22 04/22/22 History Elemental)] Lactulose 20 gm PO DAILY@0700 01/09/22 04/22/22 History Levothyroxine Sodium [Synthroid] 25 mcg PO DAILY@0700 01/09/22 04/22/22 History Loratadine 10 mg PO DAILY@0700 PRN 01/09/22 04/22/22 History Melatonin [Melatonin ER] 10 mg PO HS@2100 01/09/22 04/22/22 History Metoprolol Tartrate 25 mg PO BID@0700,1700 01/09/22 04/22/22 History [place]-3 Fatty Acids/Fish Oil [Fish 1 cap PO DAILY@0700 01/09/22 04/22/22 History Oil 1,000 mg Softgel] Omeprazole [PriLOSEC] 20 mg PO BID@0700,2100 01/09/22 04/22/22 History PARoxetine HCL 40 mg PO HS@2100 01/09/22 04/22/22 History Triamterene/Hydrochlorothiazid 1 tab PO DAILY@0700 01/09/22 04/22/22 History [Triamterene-Hctz 37.5-25 mg Tb] guaiFENesin [Mucinex] 600 mg PO QID #20 tablet 01/16/22 04/22/22 Rx Ascorbic Acid [Vitamin C] 500 mg PO DAILY 04/22/22 04/22/22 History Aspirin EC [Ecotrin Low Dose] 81 mg PO DAILY@0700 04/22/22 04/22/22 History Benzonatate [Tessalon Perles] 100 - 200 mg PO TID PRN 04/22/22 04/22/22 History Budesonide [Pulmicort] 0.25 mg INHALATION RT-BID 04/22/22 04/22/22 History Fluticasone Propion/Salmeterol 1 puff INHALATION RT-BID@0700,1900 04/22/22 04/22/22 History [Advair 250-50 Diskus] Ipratropium-Albuterol Nebulize 3 ml INHALATION RT-TID 04/22/22 04/22/22 History [Duoneb 0.5 mg-3 mg/3 ml Soln] Liquacel 30 ml PO BID 04/22/22 04/22/22 History Phenazopyridine [Pyridium] 200 mg PO TID 04/22/22 04/22/22 History Sucralfate [Carafate] 1 gm PO TID-W/MEALS 04/22/22 04/22/22 History Zinc 50 mg PO DAILY 04/22/22 04/22/22 History Allergies Allergy/AdvReac Type Severity Reaction Status Date / Time No Known Allergies Allergy Verified 04/22/22 11:00 Physical Exam Vitals: Vital Signs Temp Pulse Resp BP Pulse Ox FiO2 04/22/22 14:00 75 17 125/72 100 04/22/22 13:00 86 20 112/64 100 04/22/22 11:32 60 04/22/22 11:00 71 19 125/70 100 04/22/22 10:54 81 16 121/65 100 04/22/22 10:40 100 04/22/22 10:15 106/73 04/22/22 10:13 121 H 64/50 04/22/22 10:10 100 04/22/22 10:03 97.4 F L 123 H 18 117/67 91 L Intake and Output 04/21/22 04/22/22 04/22/22 22:59 06:59 14:59 Intake Total 15.268 Balance 15.268 Intake: Intake, IV Titration 15.268 Amount propofoL 1,000 mg In 15.268 Empty Bag 1 bag @ 5 MCG/ KG/MIN 2.313 mls/hr IV . Q24H [facility] Rx#:[id number] Other: Weight 63.4 kg Physical Exam: Revealed 77-year-old white male,, patient looks frail and chronically ill. intubated mechanically ventilated, opens eyes, patient is on propofol at 30 mcg/kg/m Head: Atraumatic, normocephalic. Endotracheal tube is intact HEENT:[Neck is supple.] [No neck masses.] [No thyromegaly.] [No JVD.] Chest: [Crackles and rhonchi and wheezes noted bilaterally. Symmetrical chest expansion.] Cardiac Exam: [Normal S1 and S2, no S3 gallop, no murmur.] Abdomen: [Soft, nontender, no megaly, no rebound, no guarding, normal bowel sounds.] Extremities: [No clubbing, no edema, no cyanosis.] Neurological Exam: Patient is arousable opens eyes only does not follow any instructions. Psychiatric: Cannot be assessed, patient is sedated. Skin: No rashes Results - Laboratory Findings CBC and BMP: 04/22/22 10:19 04/22/22 10:19 ABG ABG pH 7.31 (7.35-7.45) L 04/22/22 11:08 ABG pCO2 58 mmHg (35-45) H 04/22/22 11:08 ABG pO2 248 mmHg (83-108) H 04/22/22 11:08 ABG O2 Saturation 100.0 % (94-97) H 04/22/22 11:08 PT/INR, D-dimer PT 9.9 sec (9.0-12.0) 04/22/22 10:19 INR 0.9 (<1.2) 04/22/22 10:19 D-Dimer 1.90 mg/L FEU (<0.60) H 04/22/22 10:19 Abnormal lab findings: Abnormal Labs 04/22/22 04/22/22 04/22/22 10:19 10:19 10:19 WBC 16.6 H RBC 3.42 L Hgb 10.6 L Hct 33.5 L Neutrophils # 10.9 H Lymphocytes # 4.9 H D-Dimer ABG pH ABG pCO2 ABG pO2 ABG HCO3 ABG Total CO2 ABG O2 Saturation BUN 41 H Glucose 315 H Plasma Lactic Acid Ata 2.8 H* Total Protein 6.0 L 04/22/22 04/22/22 10:19 11:08 WBC RBC Hgb Hct Neutrophils # Lymphocytes # D-Dimer 1.90 H ABG pH 7.31 L ABG pCO2 58 H ABG pO2 248 H ABG HCO3 29 H ABG Total CO2 31 H ABG O2 Saturation 100.0 H BUN Glucose Plasma Lactic Acid Ata Total Protein - Diagnostic Findings CT scan - chest: image reviewed (As noted in HPI) Assessment and Plan Assessment: Impression: Acute hypoxic respiratory failure secondary to aspiration pneumonia Recurrent episodes of aspiration pneumonia last episode was on 01/10/22 History of failed swallow evaluation History of underlying COPD History of diastolic congestive heart failure History of underlying dementia History of hypothyroidism Benign essential hypertension. Recommendation: Continue ventilatory support, ABG is pending and the ventilator settings will be adjusted accordingly Start patient on antibiotics recommend Zosyn. Start patient on bronchodilators including DuoNeb updrafts 4 times a day and when necessary Continue GI and DVT prophylaxis Monitor electrolytes Resume home meds Address nutritional support in the next 24 hours We will continue to follow. Critical care time is over 55 minute Time with Patient: Greater than 30
[2022-04-22] MEDS ORDERED: DOCUSATE 100 MG CAP PO PRN (14:50)
--- NOTE | 2022-04-22 15:01 | P.HPIM ---
History of Present Illness H&P Date: 04/22/22 Chief Complaint: Hypoxia 77-year-old man with medical history of hypothyroidism, depression, hypertension, COPD presented for hypoxia. Patient is intubated during my examination and therefore history is taken from chart review and ER provider signout. From my understanding, patient was brought in by ambulance to hypoxia and dyspnea, saturating in the 50s on room air and was brought up to 90 with on rebreather while in route. However, on arrival patient was saturating maximum in the mid 60s despite nonrebreather and therefore was intubated by the ER provider. Review of systems cannot be completed due to patient's clinical condition In the emergency room, patient was afebrile, 112/64, heart rate 86, 100% on before meals 500, FiO2 100%, PEEP 5. CBC is notable for leukocytosis to 16.6, mild anemia to 10.6. Chemistries are remarkable for BUN of 41, creatinine of 1.2, which is better than baseline. Liver function tests are unremarkable. Lactic acid shows an elevated value at 2.8. Covid was negative. D-dimer was elevated at 1.9. Coags are unremarkable. ABG status post intubation shows a pH of 7.1, pCO2 of 58, pO2 of 248. Chest x-ray shows some interstitial opacities. Brain CT was significant for degenerative and nonspecific white matter changes as well as sinusitis with left-sided changes of mastoiditis. CT angiography showed diffuse bronchial wall thickening, scattered tree-in-bud opacities as well as patchy groundglass changes as well as some dependent consolidations within the bilateral posterior lung bases, no pulmonary embolism. EKG showed sinus tachycardia. Review of systems cannot be completed as above Gen: in no apparent distress, resting comfortably in bed, intubated, sedated Eyes: PERRL, no scleral injection or icterus HENT: normocephalic, atraumatic, good hearing acuity, moist mucous membranes Neck: no tracheal deviation, full range of motion Resp: Mostly clear, some crackles in the bases CVS: good distal perfusion x 4, no pitting edema GI: soft, NTTP, ND, no hepatosplenomegaly : no suprapubic tenderness, no CVAT, ashley catheter is present MSK: no clubbing, no cyanosis, no noted contractures of extremities Skin: no noted rashes, petechiae; temperature of skin is appropriate Neuro: moving all extremities without signs of weakness, CN II-XII intact Labs and imaging as above Assessment/plan: Sepsis with acute hypoxemic respiratory failure Pneumonia, community acquired versus aspiration -Admit to inpatient, telemetry -Pulmonary consult -Zosyn -Sputum culture, blood culture -Oxygen as needed, hopeful extubation tomorrow -Propofol for sedation Hypertension Depression Hypothyroidism COPD without exacerbation -Home medications reviewed and reconciled Patient is full code DVT prophylaxis with enoxaparin Past Medical History Past Medical History: Unable to Obtain History of Any Multi-Drug Resistant Organisms: Unobtainable Past Surgical History: Unable to Obtain Additional Past Surgical History / Comment(s): R Hip Surgery; unspecified abdominal surgery Past Psychological History: Unable to Obtain Smoking Status: Unknown if ever smoked Past Alcohol Use History: Unable to Obtain Past Drug Use History: Unable to Obtain Medications and Allergies Home Medications Medication Instructions Recorded Confirmed Type Cholecalciferol [Vitamin D3 (25 25 mcg PO BID@0700,1700 01/09/22 04/22/22 History Mcg = 1000 Iu)] Cyanocobalamin (Vitamin B-12) 1,000 mcg PO DAILY@0700 01/09/22 04/22/22 History [Vitamin B-12] Docusate [Colace] 100 mg PO DAILY PRN 01/09/22 04/22/22 History Ferrous Sulfate [Iron (65 MG 325 mg PO Q48H 01/09/22 04/22/22 History Elemental)] Lactulose 20 gm PO DAILY@0700 01/09/22 04/22/22 History Levothyroxine Sodium [Synthroid] 25 mcg PO DAILY@0700 01/09/22 04/22/22 History Loratadine 10 mg PO DAILY@0700 PRN 01/09/22 04/22/22 History Melatonin [Melatonin ER] 10 mg PO HS@209901/09/22 04/22/22 History Metoprolol Tartrate 25 mg PO BID@0700,1700 01/09/22 04/22/22 History Dorsey-3 Fatty Acids/Fish Oil [Fish 1 cap PO DAILY@0700 01/09/22 04/22/22 History Oil 1,000 mg Softgel] Omeprazole [PriLOSEC] 20 mg PO BID@0700,2100 01/09/22 04/22/22 History PARoxetine HCL 40 mg PO HS@2100 01/09/22 04/22/22 History Triamterene/Hydrochlorothiazid 1 tab PO DAILY@0700 01/09/22 04/22/22 History [Triamterene-Hctz 37.5-25 mg Tb] guaiFENesin [Mucinex] 600 mg PO QID #20 tablet 01/16/22 04/22/22 Rx Ascorbic Acid [Vitamin C] 500 mg PO DAILY 04/22/22 04/22/22 History Aspirin EC [Ecotrin Low Dose] 81 mg PO DAILY@0700 04/22/22 04/22/22 History Benzonatate [Tessalon Perles] 100 - 200 mg PO TID PRN 04/22/22 04/22/22 History Budesonide [Pulmicort] 0.25 mg INHALATION RT-BID 04/22/22 04/22/22 History Fluticasone Propion/Salmeterol 1 puff INHALATION RT-BID@0700,1900 04/22/22 04/22/22 History [Advair 250-50 Diskus] Ipratropium-Albuterol Nebulize 3 ml INHALATION RT-TID 04/22/22 04/22/22 History [Duoneb 0.5 mg-3 mg/3 ml Soln] Liquacel 30 ml PO BID 04/22/22 04/22/22 History Phenazopyridine [Pyridium] 200 mg PO TID 04/22/22 04/22/22 History Sucralfate [Carafate] 1 gm PO TID-W/MEALS 04/22/22 04/22/22 History Zinc 50 mg PO DAILY 04/22/22 04/22/22 History Allergies Allergy/AdvReac Type Severity Reaction Status Date / Time No Known Allergies Allergy Verified 04/22/22 11:00 Physical Exam Osteopathic Statement: *. No significant issues noted on an osteopathic structural exam other than those noted in the History and Physical/Consult. Vitals: Vital Signs Temp Pulse Resp BP Pulse Ox FiO2 04/22/22 14:00 75 17 125/72 100 04/22/22 13:00 86 20 112/64 100 04/22/22 11:32 60 04/22/22 11:00 71 19 125/70 100 04/22/22 10:54 81 16 121/65 100 04/22/22 10:40 100 04/22/22 10:15 106/73 04/22/22 10:13 121 H 64/50 04/22/22 10:10 100 04/22/22 10:03 97.4 F L 123 H 18 117/67 91 L Intake and Output 04/21/22 04/22/22 04/22/22 22:59 06:59 14:59 Intake Total 15.268 Balance 15.268 Intake: Intake, IV Titration 15.268 Amount propofoL 1,000 mg In 15.268 Empty Bag 1 bag @ 5 MCG/ KG/MIN 2.313 mls/hr IV . Q24H [facility] Rx#:[id number] Other: Weight 63.4 kg Results CBC & Chem 7: 04/22/22 10:19 04/22/22 10:19 Labs: Abnormal Lab Results - Last 24 Hours (Table) 04/22/22 04/22/22 04/22/22 Range/Units 10:19 10:19 10:19 WBC 16.6 H (3.8-10.6) k/uL RBC 3.42 L (4.30-5.90) m/uL Hgb 10.6 L (13.0-17.5) gm/dL Hct 33.5 L (39.0-53.0) % Neutrophils # 10.9 H (1.3-7.7) k/uL Lymphocytes # 4.9 H (1.0-4.8) k/uL D-Dimer (<0.60) mg/L FEU ABG pH (7.35-7.45) ABG pCO2 (35-45) mmHg ABG pO2 (83-108) mmHg ABG HCO3 (21-25) mmol/L ABG Total CO2 (19-24) mmol/L ABG O2 Saturation (94-97) % BUN 41 H (9-20) mg/dL Glucose 315 H (74-99) mg/dL Plasma Lactic Acid Ata 2.8 H* (0.7-2.0) mmol/L Total Protein 6.0 L (6.3-8.2) g/dL 04/22/22 04/22/22 Range/Units 10:19 11:08 WBC (3.8-10.6) k/uL RBC (4.30-5.90) m/uL Hgb (13.0-17.5) gm/dL Hct (39.0-53.0) % Neutrophils # (1.3-7.7) k/uL Lymphocytes # (1.0-4.8) k/uL D-Dimer 1.90 H (<0.60) mg/L FEU ABG pH 7.31 L (7.35-7.45) ABG pCO2 58 H (35-45) mmHg ABG pO2 248 H (83-108) mmHg ABG HCO3 29 H (21-25) mmol/L ABG Total CO2 31 H (19-24) mmol/L ABG O2 Saturation 100.0 H (94-97) % BUN (9-20) mg/dL Glucose (74-99) mg/dL Plasma Lactic Acid Ata (0.7-2.0) mmol/L Total Protein (6.3-8.2) g/dL
[2022-04-22 15:16] LABS: Glucose,Whole Blood 158 mg/dL (70-110)
[2022-04-22] MEDS ORDERED: IPRATROPIUM-ALBUTEROL 3 ML NEB INHALATION SCH (16:00)
[2022-04-22] MEDS: METOPROLOL TARTRATE 25 MG TAB PO SCH (16:24)
[2022-04-22] MEDS: guaiFENesin 600 MG TABLET.ER PO SCH ×2 (16:25→22:08)
[2022-04-22] MEDS: SODIUM CHLORIDE 0.9% 1,000 ML IV SCH (16:33)
[2022-04-22] MEDS: CHOLECALCIFEROL 25 MCG (1000 IU) TABLET PO SCH (16:36)
[2022-04-22] MEDS: PANTOPRAZOLE 40 MG/10 ML VIAL IVP SCH (16:36)
[2022-04-22] MEDS: SUCRALFATE 1 GM TAB PO SCH (16:36)
[2022-04-22] MEDS: ENOXAPARIN 40 MG/0.4 ML SYRINGE SQ SCH (16:36)
[2022-04-22] MEDS: PHENAZOPYRIDINE 200 MG TAB PO SCH ×2 (16:36→22:47)
[2022-04-22] MEDS: PIPERACILLIN-TAZOBACTAM 3.375 GM in SODIUM CHLORIDE 0.9% 100 ML IVPB SCH (16:36)
[2022-04-22 17:04] LABS: Appearance,Urine Clear (Clear); Bilirubin,Urine Negative (Negative); Blood,Urine Negative (Negative); Color,Urine Light Yellow; Glucose,Urine (UA) 2+ (Negative); Ketones,Urine Negative (Negative); Leukocyte Esterase,Urine Negative (Negative); Nitrite,Urine Negative (Negative); Protein,Urine Trace (Negative); Specific Gravity,Urine 1.018 (1.001-1.035); Urobilinogen,Urine <2.0 mg/dL (<2.0)
[2022-04-22] MEDS: IPRATROPIUM-ALBUTEROL 3 ML NEB INHALATION SCH (19:44)
[2022-04-22] MEDS: SYMBICORT 80-4.5 MCG INHALER INHALATION SCH (19:44)
[2022-04-22] MEDS ORDERED: BUDESONIDE 0.25 MG/2 ML NEBU INHALATION SCH (20:00)
[2022-04-22] MEDS: MELATONIN 5 MG TABLET PO SCH (20:07)
[2022-04-22] MEDS: PARoxetine 20 MG TAB PO SCH (20:07)
[2022-04-22] MEDS ORDERED: NON FORMULARY DRUG (Liquacel 30 ML) PO SCH (21:00)
[2022-04-22 23:59] LABS: Glucose,Whole Blood 117 mg/dL (70-110)
[2022-04-23] MEDS: PIPERACILLIN-TAZOBACTAM 3.375 GM in SODIUM CHLORIDE 0.9% 100 ML IVPB SCH ×3 (01:11→17:37)
[2022-04-23 05:48] LABS: ABG Base Excess 5.8 mmol/L; ABG HCO3 30 mmol/L (21-25); ABG PCO2 48 mmHg (35-45); ABG PH 7.41 (7.35-7.45); ABG PO2 85 mmHg (83-108); ABG TCO2 32 mmol/L (19-24); Allen Test Performed? Yes
[2022-04-23] MEDS: SODIUM CHLORIDE 0.9% 1,000 ML IV SCH ×2 (05:54→18:12)
[2022-04-23 05:55] LABS: Basophils % (A) 0 %; Eosinophils % (A) 0 %; HCT 32.7 % (39.0-53.0); HGB 10.2 gm/dL (13.0-17.5); Hypochromasia Slight; Lymphocytes # (A) 1.6 k/uL (1.0-4.8); Lymphocytes % (A) 19 %; MCH 30.8 pg (25.0-35.0); MCHC 31.2 g/dL (31.0-37.0); MCV 98.7 fL (80.0-100.0); Mean Platelet Volume 7.7; Monocytes # (A) 0.3 k/uL (0-1.0); Monocytes % (A) 4 %; Neutrophils # (A) 6.7 k/uL (1.3-7.7); Neutrophils % (A) 75 %; Platelet Count 265 k/uL (150-450); RBC 3.31 m/uL (4.30-5.90); RDW 14.6 % (11.5-15.5); WBC 8.9 k/uL (3.8-10.6)
[2022-04-23 06:12] LABS: Albumin 3.1 g/dL (3.5-5.0); Calcium 8.6 mg/dL (8.4-10.2); Magnesium 1.7 mg/dL (1.6-2.3); Potassium 3.4 mmol/L (3.5-5.1); Total Bilirubin 0.4 mg/dL (0.2-1.3); Total Protein 5.6 g/dL (6.3-8.2)
[2022-04-23] MEDS ORDERED: TRIAMTERENE-HCTZ 37.5-25MG 1 EACH TAB PO SCH (07:00)
[2022-04-23] MEDS ORDERED: NON FORMULARY DRUG (Omega-3 Fatty Acids/Fish Oil [Fish Oil 1,000 Mg Softgel] 1 EACH Capsul PO SCH (07:00)
[2022-04-23] MEDS ORDERED: LORATADINE 10 MG TAB PO PRN (07:00)
[2022-04-23] MEDS ORDERED: PANTOPRAZOLE 40 MG TABLET PO SCH (07:30)
--- NOTE | 2022-04-23 08:03 | XR ---
EXAMINATION TYPE: XR chest 1V portable DATE OF EXAM: 04/23/2022 COMPARISON: 04/22/2022 HISTORY: SOB, Follow Up FINDINGS: Indwelling tubes and catheters are unchanged. No change in bibasilar opacities. Stable appearance of the cardio-mediastinal structures at this time. Pleural effusion unchanged. IMPRESSION: 1. Stable portable chest. Clinical correlation and follow up until resolution is recommended.
[2022-04-23] MEDS: PANTOPRAZOLE 40 MG/10 ML VIAL IVP SCH (08:06)
[2022-04-23] MEDS: LEVOTHYROXINE 25 MCG TAB PO SCH (08:07)
[2022-04-23] MEDS: ASPIRIN 81 MG PO SCH (08:07)
[2022-04-23] MEDS: ENOXAPARIN 40 MG/0.4 ML SYRINGE SQ SCH (08:07)
[2022-04-23] MEDS: IPRATROPIUM-ALBUTEROL 3 ML NEB INHALATION SCH ×3 (08:07→20:11)
[2022-04-23] MEDS: SYMBICORT 80-4.5 MCG INHALER INHALATION SCH ×3 (08:07→20:12)
[2022-04-23 08:39] LABS: Poikilocytosis (M) Present
[2022-04-23] MEDS ORDERED: AZITHROMYCIN 500 MG in SODIUM CHLORIDE 0.9% 250 ML IVPB SCH (09:00)
[2022-04-23] MEDS ORDERED: HYDROmorphone 0.5 MG/0.5 ML SYRINGE IVP STA (10:05)
--- NOTE | 2022-04-23 12:23 | P.PN ---
Subjective Progress Note Date: 04/23/22 Principal diagnosis: Acute hypoxic respiratory failure secondary to aspiration pneumonia This is a 77-year-old white male resident of adult foster care facility, patient does not give any history, unable to communicate, patient was noted by the staff at the foster care facility as having shortness of breath. Patient was also noted to have low pulse oximetry. EMS arrived to see the patient and his O2 saturation was in the 70s patient was placed on a nonrebreather mask, and his O2 satwent up to 90%. Brought into ER, patient apparently was in moderate severe respiratory distress, and his O2 saturation was in the 50s. According to the ER physician patient was noted to be in distress, hence he went ahead and intubated the patient. Patient was placed on mechanical ventilation, CT of the chest was done and there was no evidence of pulmonary embolism. There was however diffuse bronchial wall thickening and opacities in the bases of his lungs patchy groundglass changes consistent with airspace disease. Consistent with pneumonia. Looking at the chart from previous admission the patient was diagnosed previously with aspiration pneumonia and he failed his swallow e valuation back then. It is not surprising that the patient presented again with a similar presentation of aspiration pneumonia however it seems to be more severe, associated with respiratory failure requiring intubation and mechanical ventilation. Not much history could be obtained from the patient himself. Reevaluated today on 04/23/2022, patient remains intubated and mechanically ventilated, I saw this patient yesterday in the ER. Apparently the patient was DO NOT RESUSCITATE CODE STATUS, however he was intubated by the ER physician because there was no available documentation regarding his CODE STATUS. Yesterday we learned that the patient has been DO NOT RESUSCITATE, and today I discussed his condition with his legal guardian who is agreeable to extubate the patient but not to reintubate if the patient's condition deteriorates then proceed to comfort care. Patient is awake, he is intubated and mechanically ventilated, he is on assist control rate of 1612 oh to 400 FiO2 30% PEEP of 5 patient had an ABG showed a pO2 of 85 pCO2 48 pH of 7.41. He is on propofol which I have discontinued placed the patient on a pressure support mode of mechanical ventilation with a pressure support of 8 and CPAP, he seems to be comfortable, was moving good tidal volume in the range of 500, and his rate was in the teens. Hence explained to his legal guardian that the plan to extubate but not to reintubate if the patient fails extubation. Chest x-ray clearly showed bilateral pneumonia. Patient was extubated and placed on BiPAP. Again CODE STATUS has been DO NOT RESUSCITATE all along. Patient is awake and he is following simple instructions he is on Zosyn for aspiration pneumonia. WBC count today is 8.9 hemoglobin is 10.2. Basic metabolic profile is normal BUN is 34 creatinine 1.15 Objective - Vital Signs Vital signs: Vital Signs Temp 98.5 F 04/23/22 04:00 Pulse 100 04/23/22 11:41 Resp 26 H 04/23/22 10:00 BP 103/58 04/23/22 10:00 Pulse Ox 90 L 04/23/22 10:00 FiO2 50 04/23/22 11:42 Intake & Output 04/22/22 04/23/22 04/23/22 18:59 06:59 18:59 Intake Total 63.000 1050 305.025 Output Total 1500 1410 145 Balance -1437.000 -360 160.025 Weight 63.4 kg 63.5 kg Intake: IV 900 Sodium Chloride 0.9% 1, 900 000 ml @ 75 mls/hr IV . [id number] [facility] Rx#:[id number] Intake, IV Titration 63.000 150 205.025 Amount Piperacillin-Tazobactam 3 50 100 .375 gm In Sodium Chloride 0.9% 100 ml @ 25 mls/hr IVPB Q8HR [facility] Rx# :[id number] propofoL 1,000 mg In 63.000 100 105.025 Empty Bag 1 bag @ 5 MCG/ KG/MIN 2.313 mls/hr IV . Q24H [facility] Rx#:[id number] Other 100 Output: Urine 1500 1410 145 Other: Voiding Method Indwelling Catheter Indwelling Catheter Indwelling Catheter - Exam Physical Exam: Revealed 77-year-old white male,, patient looks frail and chronically ill. intubated mechanically ventilated, patient is asking for the tube to be removed Head: Atraumatic, normocephalic. Endotracheal tube is intact HEENT:[Neck is supple.] [No neck masses.] [No thyromegaly.] [No JVD.] Chest: [Crackles nor rhonchi no wheezes noted bilaterally. Cardiac Exam: [Normal S1 and S2, no S3 gallop, no murmur.] Abdomen: [Soft, nontender, no megaly, no rebound, no guarding, normal bowel sounds.] Extremities: [No clubbing, no edema, no cyanosis.] Neurological Exam: Patient is awake, trying to talk to me with the endotracheal tube in place. However asking to have the endotracheal tube pulled out. Psychiatric: Cannot fully assess. Patient seems to be in anxious mood, and flat affect. Skin: No rashes - Labs CBC & Chem 7: 04/23/22 05:20 04/23/22 05:20 Labs: Abnormal Lab Results - Last 24 Hours (Table) 04/22/22 04/22/22 04/22/22 Range/Units 12:00 14:38 15:14 RBC (4.30-5.90) m/uL Hgb (13.0-17.5) gm/dL Hct (39.0-53.0) % ABG pCO2 (35-45) mmHg ABG HCO3 (21-25) mmol/L ABG Total CO2 (19-24) mmol/L Potassium (3.5-5.1) mmol/L BUN (9-20) mg/dL Glucose (74-99) mg/dL POC Glucose (mg/dL) 158 H (70-110) mg/dL Total Protein (6.3-8.2) g/dL Albumin (3.5-5.0) g/dL Procalcitonin 0.99 H (0.02-0.09) ng/mL Urine Protein Trace H (Negative) Urine Glucose (UA) 2+ H (Negative) 04/22/22 04/23/22 04/23/22 Range/Units 23:57 05:20 05:20 RBC 3.31 L (4.30-5.90) m/uL Hgb 10.2 L (13.0-17.5) gm/dL Hct 32.7 L (39.0-53.0) % ABG pCO2 (35-45) mmHg ABG HCO3 (21-25) mmol/L ABG Total CO2 (19-24) mmol/L Potassium 3.4 L (3.5-5.1) mmol/L BUN 34 H (9-20) mg/dL Glucose 103 H (74-99) mg/dL POC Glucose (mg/dL) 117 H (70-110) mg/dL Total Protein 5.6 L (6.3-8.2) g/dL Albumin 3.1 L (3.5-5.0) g/dL Procalcitonin (0.02-0.09) ng/mL Urine Protein (Negative) Urine Glucose (UA) (Negative) 04/23/22 Range/Units 05:45 RBC (4.30-5.90) m/uL Hgb (13.0-17.5) gm/dL Hct (39.0-53.0) % ABG pCO2 48 H (35-45) mmHg ABG HCO3 30 H (21-25) mmol/L ABG Total CO2 32 H (19-24) mmol/L Potassium (3.5-5.1) mmol/L BUN (9-20) mg/dL Glucose (74-99) mg/dL POC Glucose (mg/dL) (70-110) mg/dL Total Protein (6.3-8.2) g/dL Albumin (3.5-5.0) g/dL Procalcitonin (0.02-0.09) ng/mL Urine Protein (Negative) Urine Glucose (UA) (Negative) Microbiology - Last 24 Hours (Table) 04/22/22 20:08 Gram Stain - Preliminary Sputum Sputum Culture - Preliminary 04/22/22 10:30 Gram Stain - Preliminary Sputum Sputum Culture - Preliminary Assessment and Plan Assessment: Impression: Acute hypoxic respiratory failure secondary to aspiration pneumonia Recurrent episodes of aspiration pneumonia last episode was on 01/10/22 History of failed swallow evaluation History of underlying COPD History of diastolic congestive heart failure History of underlying dementia History of hypothyroidism Benign essential hypertension. Recommendation: Discussed the patient's condition with legal guardian over the phone. Explained to the legal guardian about extubation and not to reintubate if the patient fails. And discussed CODE STATUS although her again. In the meantime continue Zosyn. Extubate to BiPAP. Continue DuoNeb updrafts 4 times a day and when necessary Continue GI and DVT prophylaxis Monitor electrolytes We will continue to follow. Critical care time is over 35 minutes Time with Patient: Greater than 30
--- NOTE | 2022-04-23 13:41 | P.PN ---
Subjective Progress Note Date: 04/23/22 Patient is a 77-year-old male with hypothyroidism, depression, hypertension, and COPD who presented to the ER for hypoxemia. On arrival to the ER patient was satting in the mid 60s despite nonrebreather and was therefore intubated. In the ER an extensive evaluation was done. Laboratory analysis was notable for leukocytosis of 16.6, anemia 10.6, BUN 41, creatinine 1.2 (which is better than baseline), point. Initial coag testing was negative. D-dimer was elevated at 1.9. ABG post intubation showed a pH of 7.1, pCO2 of 58, PaO2 of 248. Chest x- ray showed interstitial opacities. CT angiography of the chest showed diffuse bronchial wall thickening, scattered tree-in-bud opacities as well as groundglass changes and consolidations at the bilateral posterior lung bases with no pulmonary embolism noted, EKG demonstrated sinus tachycardia, and CT brain showed nonspecific degenerative white matter changes with sinusitis and left sided mastoiditis. He was started on Zosyn for possible pneumonia, bronchodilators, steroids, a cultures were obtained. Patient was admitted to the ICU. Pulmonary critical care was consulted. He was extubated on 04/23/22 and placed on BiPap. Patient seen and examined at bedside. He is complaining of right hip pain and does not like the BiPap, per nursing no other acute concerns. General: ill appearing, mild distress, appears at stated age Derm: warm, dry Head: atraumatic, normocephalic, symmetric Eyes: EOMI, no lid lag, anicteric sclera Mouth: no lip lesion, mucus membranes moist Cardiovascular: S1S2 reg, no murmur, positive posterior tibial pulse bilateral, Lungs: Course bs bilateral, no rhonchi, no rales , no accessory muscle use, on BiPap Abdominal: soft, nontender to palpation, no guarding, no appreciable organomegaly, urine bright orange. Ext: no gross muscle atrophy, no edema, no contractures Neuro: CN II-XI grossly intact, no focal neuro deficits Psych: Alert, appears anxious Assessment/Plan: Pneumonia with sepsis Acute hypoxic respiratory failure COPD without exacerbation Lactic acidosis -Zosyn -Await sputum and blood cultures -Bronchodilators -Patient was also recently here with pneumonia in January 2022 and was suggest for modified diet after MBS. Recommend speech evaluation after extubation. -Pulmonary recommendations. Hypertension - low normal - follow BP - Hold aldactone/HCTZ, continue metoprolol Anemia, at baseline - follow CBC - outpatient follow-up - continue with iron Cognitive impairment -Safe and supportive environment Chronic: Depression Hypothyroidism DVT prophylaxis: SCDs Discussed with: Patient, nursing Anticipated discharge: pending clinical course Anticipated discharge place: pending clinical course A total of 37 minutes was spent on the care of this complex patient more than 50% of the time was spent in counseling and care coordination. Active Medications Generic Name Dose Route Start Last Admin Trade Name Freq PRN Reason Stop Dose Admin Albuterol/Ipratropium 3 ml 04/22/22 14:28 Ipratropium-Albuterol 3 Ml Neb INHALATION RT-Q2H PRN Shortness Of Breath Or Wheezing Albuterol/Ipratropium 3 ml 04/22/22 20:00 04/23/22 11:27 Ipratropium-Albuterol 3 Ml Neb INHALATION 3 ml RT-TID [facility] Administration Ascorbic Acid 500 mg 04/23/22 09:00 Ascorbic Acid 500 Mg Tab PO DAILY [facility] Aspirin 81 mg 04/23/22 07:00 04/23/22 08:07 Aspirin 81 Mg PO 81 mg DAILY@0700 [facility] Administration Budesonide/Formoterol Fumarate 2 puff 04/22/22 20:00 04/23/22 08:13 Symbicort 80-4.5 Mcg Inhaler INHALATION 2 puff RT-BID [facility] Administration Cholecalciferol 25 mcg 04/22/22 17:00 04/22/22 16:36 Cholecalciferol 25 Mcg (1000 Iu) Tablet PO 25 mcg BID@0700,1700 [facility] Administration Cyanocobalamin 1,000 mcg 04/23/22 07:00 Cyanocobalamin 500 Mcg Tab PO DAILY@0700 [facility] Docusate Sodium 100 mg 04/22/22 14:50 Docusate 100 Mg Cap PO DAILY PRN Constipation Enoxaparin Sodium 40 mg 04/22/22 14:45 04/23/22 08:07 Enoxaparin 40 Mg/0.4 Ml Syringe SQ 40 mg DAILY [facility] Administration Ferrous Sulfate 325 mg 04/23/22 09:00 Ferrous Sulfate 325 Mg Tab PO Q48H [facility] Guaifenesin 600 mg 04/22/22 18:00 04/22/22 22:08 Guaifenesin 600 Mg Tablet.Er PO Not Given QID [facility] Hydromorphone HCl 0.25 mg 04/23/22 13:24 Hydromorphone 0.5 Mg/0.5 Ml Syringe IVP Q3HR PRN Pain Piperacillin Sod/Tazobactam 100 mls @ 25 mls/hr 04/22/22 16:00 04/23/22 08:06 Sod 3.375 gm/ Sodium Chloride IVPB 25 mls/hr Q8HR [facility] Administration Protocol Sodium Chloride 1,000 mls @ 75 mls/hr 04/22/22 14:30 04/23/22 05:54 Saline 0.9% IV Not Given .[id number] [facility] Acetaminophen 1,000 mg/ IV 100 mls @ 400 mls/hr 04/23/22 14:00 Solution IVPB 04/24/22 08:14 Q6H [facility] Lactulose 20 gm 04/23/22 07:00 Lactulose 20 Gm/30 Ml Cup PO DAILY@0700 [facility] Levothyroxine Sodium 25 mcg 04/23/22 07:00 04/23/22 08:07 Levothyroxine 25 Mcg Tab PO 25 mcg DAILY@0700 [facility] Administration Loratadine 10 mg 04/23/22 07:00 Loratadine 10 Mg Tab PO DAILY@0700 PRN Allergy Symptoms Melatonin 10 mg 04/22/22 21:00 04/22/22 20:07 Melatonin 5 Mg Tablet PO 10 mg HS@2100 [facility] Administration Metoprolol Tartrate 25 mg 04/22/22 17:00 04/22/22 16:24 Metoprolol Tartrate 25 Mg Tab PO Not Given BID@0700,1700 [facility] Naloxone HCl 0.2 mg 04/22/22 13:40 Naloxone 0.4 Mg/Ml 1 Ml Vial IV Q2M PRN Opioid Reversal Pantoprazole Sodium 40 mg 04/22/22 14:45 04/23/22 08:06 Pantoprazole 40 Mg/10 Ml Vial IVP 40 mg DAILY [facility] Administration Paroxetine HCl 40 mg 04/22/22 21:00 04/22/22 20:07 Paroxetine 20 Mg Tab PO 40 mg HS@2100 [facility] Administration Phenazopyridine HCl 200 mg 04/22/22 16:00 04/22/22 22:47 Phenazopyridine 200 Mg Tab PO 200 mg TID [facility] Administration Sucralfate 1 gm 04/22/22 17:30 04/22/22 16:36 Sucralfate 1 Gm Tab PO 1 gm TID-W/MEALS [facility] Administration Zinc Sulfate 220 mg 04/23/22 09:00 Zinc Sulfate 220 Mg Cap PO DAILY [facility] Objective - Vital Signs Vital signs: Vital Signs Temp 98.5 F 04/23/22 04:00 Pulse 99 04/23/22 07:30 Resp 17 04/23/22 07:30 BP 86/52 04/23/22 07:30 Pulse Ox 95 04/23/22 07:30 FiO2 30 04/23/22 07:00 Intake & Output 04/22/22 04/23/22 04/23/22 18:59 06:59 18:59 Intake Total 63.000 1050 Output Total 1500 1410 Balance -1437.000 -360 Weight 63.4 kg 63.5 kg Intake: IV 900 Sodium Chloride 0.9% 1, 900 000 ml @ 75 mls/hr IV . [id number] [facility] Rx#:[id number] Intake, IV Titration 63.000 150 Amount Piperacillin-Tazobactam 3 50 .375 gm In Sodium Chloride 0.9% 100 ml @ 25 mls/hr IVPB Q8HR [facility] Rx# :[id number] propofoL 1,000 mg In 63.000 100 Empty Bag 1 bag @ 5 MCG/ KG/MIN 2.313 mls/hr IV . Q24H [facility] Rx#:[id number] Output: Urine 1500 1410 Other: Voiding Method Indwelling Catheter Indwelling Catheter - Labs CBC & Chem 7: 04/23/22 05:20 04/23/22 05:20 Labs: Abnormal Lab Results - Last 24 Hours (Table) 04/22/22 04/22/22 04/22/22 Range/Units 10:19 10:19 10:19 WBC 16.6 H (3.8-10.6) k/uL RBC 3.42 L (4.30-5.90) m/uL Hgb 10.6 L (13.0-17.5) gm/dL Hct 33.5 L (39.0-53.0) % Neutrophils # 10.9 H (1.3-7.7) k/uL Lymphocytes # 4.9 H (1.0-4.8) k/uL D-Dimer (<0.60) mg/L FEU ABG pH (7.35-7.45) ABG pCO2 (35-45) mmHg ABG pO2 (83-108) mmHg ABG HCO3 (21-25) mmol/L ABG Total CO2 (19-24) mmol/L ABG O2 Saturation (94-97) % Potassium (3.5-5.1) mmol/L BUN 41 H (9-20) mg/dL Glucose 315 H (74-99) mg/dL POC Glucose (mg/dL) (70-110) mg/dL Plasma Lactic Acid Ata 2.8 H* (0.7-2.0) mmol/L Total Protein 6.0 L (6.3-8.2) g/dL Albumin (3.5-5.0) g/dL Procalcitonin (0.02-0.09) ng/mL Urine Protein (Negative) Urine Glucose (UA) (Negative) 04/22/22 04/22/22 04/22/22 Range/Units 10:19 11:08 12:00 WBC (3.8-10.6) k/uL RBC (4.30-5.90) m/uL Hgb (13.0-17.5) gm/dL Hct (39.0-53.0) % Neutrophils # (1.3-7.7) k/uL Lymphocytes # (1.0-4.8) k/uL D-Dimer 1.90 H (<0.60) mg/L FEU ABG pH 7.31 L (7.35-7.45) ABG pCO2 58 H (35-45) mmHg ABG pO2 248 H (83-108) mmHg ABG HCO3 29 H (21-25) mmol/L ABG Total CO2 31 H (19-24) mmol/L ABG O2 Saturation 100.0 H (94-97) % Potassium (3.5-5.1) mmol/L BUN (9-20) mg/dL Glucose (74-99) mg/dL POC Glucose (mg/dL) (70-110) mg/dL Plasma Lactic Acid Ata (0.7-2.0) mmol/L Total Protein (6.3-8.2) g/dL Albumin (3.5-5.0) g/dL Procalcitonin (0.02-0.09) ng/mL Urine Protein Trace H (Negative) Urine Glucose (UA) 2+ H (Negative) 04/22/22 04/22/22 04/22/22 Range/Units 14:38 15:14 23:57 WBC (3.8-10.6) k/uL RBC (4.30-5.90) m/uL Hgb (13.0-17.5) gm/dL Hct (39.0-53.0) % Neutrophils # (1.3-7.7) k/uL Lymphocytes # (1.0-4.8) k/uL D-Dimer (<0.60) mg/L FEU ABG pH (7.35-7.45) ABG pCO2 (35-45) mmHg ABG pO2 (83-108) mmHg ABG HCO3 (21-25) mmol/L ABG Total CO2 (19-24) mmol/L ABG O2 Saturation (94-97) % Potassium (3.5-5.1) mmol/L BUN (9-20) mg/dL Glucose (74-99) mg/dL POC Glucose (mg/dL) 158 H 117 H (70-110) mg/dL Plasma Lactic Acid Ata (0.7-2.0) mmol/L Total Protein (6.3-8.2) g/dL Albumin (3.5-5.0) g/dL Procalcitonin 0.99 H (0.02-0.09) ng/mL Urine Protein (Negative) Urine Glucose (UA) (Negative) 04/23/22 04/23/22 04/23/22 Range/Units 05:20 05:20 05:45 WBC (3.8-10.6) k/uL RBC 3.31 L (4.30-5.90) m/uL Hgb 10.2 L (13.0-17.5) gm/dL Hct 32.7 L (39.0-53.0) % Neutrophils # (1.3-7.7) k/uL Lymphocytes # (1.0-4.8) k/uL D-Dimer (<0.60) mg/L FEU ABG pH (7.35-7.45) ABG pCO2 48 H (35-45) mmHg ABG pO2 (83-108) mmHg ABG HCO3 30 H (21-25) mmol/L ABG Total CO2 32 H (19-24) mmol/L ABG O2 Saturation (94-97) % Potassium 3.4 L (3.5-5.1) mmol/L BUN 34 H (9-20) mg/dL Glucose 103 H (74-99) mg/dL POC Glucose (mg/dL) (70-110) mg/dL Plasma Lactic Acid Ata (0.7-2.0) mmol/L Total Protein 5.6 L (6.3-8.2) g/dL Albumin 3.1 L (3.5-5.0) g/dL Procalcitonin (0.02-0.09) ng/mL Urine Protein (Negative) Urine Glucose (UA) (Negative) Microbiology - Last 24 Hours (Table) 04/22/22 10:30 Gram Stain - Preliminary Sputum Sputum Culture - Preliminary 04/22/22 20:08 Sputum Culture - Preliminary Sputum
[2022-04-23] MEDS: ACETAMINOPHEN IV (For NPO) 1,000 MG in EMPTY BAG 1 BAG IVPB SCH ×2 (13:56→20:31)
[2022-04-23] MEDS: CYANOCOBALAMIN 500 MCG TAB PO SCH (17:22)
[2022-04-23] MEDS: CHOLECALCIFEROL 25 MCG (1000 IU) TABLET PO SCH ×2 (17:22→17:25)
[2022-04-23] MEDS: LACTULOSE 20 GM/30 ML CUP PO SCH (17:22)
[2022-04-23] MEDS: FERROUS SULFATE 325 MG TAB PO SCH (17:23)
[2022-04-23] MEDS: SUCRALFATE 1 GM TAB PO SCH ×3 (17:23→18:10)
[2022-04-23] MEDS: ASCORBIC ACID 500 MG TAB PO SCH (17:23)
[2022-04-23] MEDS: guaiFENesin 600 MG TABLET.ER PO SCH ×4 (17:23→20:27)
[2022-04-23] MEDS: METOPROLOL TARTRATE 25 MG TAB PO SCH ×2 (17:23→17:25)
[2022-04-23] MEDS: ZINC SULFATE 220 MG CAP PO SCH (17:24)
[2022-04-23] MEDS: PHENAZOPYRIDINE 200 MG TAB PO SCH ×3 (17:26→21:33)
[2022-04-23] MEDS: HYDROmorphone 0.5 MG/0.5 ML SYRINGE IVP PRN (17:43)
[2022-04-23] MEDS: MELATONIN 5 MG TABLET PO SCH (20:27)
[2022-04-23] MEDS: PARoxetine 20 MG TAB PO SCH (20:27)
[2022-04-23] MEDS ORDERED: DILTIAZEM DRIP BOLUS FROM BAG 1 MG SOLN IV ONE (21:20)
[2022-04-23] MEDS: DILTIAZEM 125 MG in SODIUM CHLORIDE 0.9% 100 ML IV SCH (21:33)
[2022-04-23 22:38] LABS: Calcium 8.5 mg/dL (8.4-10.2); Magnesium 1.8 mg/dL (1.6-2.3); Potassium 2.9 mmol/L (3.5-5.1)
[2022-04-23] MEDS ORDERED: Magnesium Replacement Protocol 1 EACH MISC MISCELLANE PRN (22:43)
[2022-04-23] MEDS ORDERED: Potassium Replacement Protocol 1 EACH MISC MISCELLANE PRN (22:43)
[2022-04-23] MEDS ORDERED: POTASSIUM CHLORIDE 10 MEQ in WATER FOR INJECTION 1 100ML.BAG IVPB SCH (23:00)
[2022-04-23] MEDS: MAGNESIUM SULFATE-D5W PMX 1 GM in DEXTROSE/WATER 1 100ML.BAG IVPB SCH (23:14)
[2022-04-24] MEDS: MAGNESIUM SULFATE-D5W PMX 1 GM in DEXTROSE/WATER 1 100ML.BAG IVPB SCH (00:33)
[2022-04-24] MEDS: PIPERACILLIN-TAZOBACTAM 3.375 GM in SODIUM CHLORIDE 0.9% 100 ML IVPB SCH ×3 (00:34→16:23)
[2022-04-24] MEDS: POTASSIUM CHLORIDE 10 MEQ in WATER FOR INJECTION 1 100ML.BAG IVPB SCH ×5 (00:35→05:48)
[2022-04-24] MEDS: HYDROmorphone 0.5 MG/0.5 ML SYRINGE IVP PRN ×2 (00:38→14:41)
[2022-04-24] MEDS: ACETAMINOPHEN IV (For NPO) 1,000 MG in EMPTY BAG 1 BAG IVPB SCH ×2 (01:44→09:09)
[2022-04-24 05:46] LABS: Basophils % (A) 0 %; Eosinophils % (A) 0 %; HCT 29.6 % (39.0-53.0); HGB 9.4 gm/dL (13.0-17.5); Hypochromasia Slight; Lymphocytes # (A) 1.3 k/uL (1.0-4.8); Lymphocytes % (A) 18 %; MCH 31.3 pg (25.0-35.0); MCHC 31.8 g/dL (31.0-37.0); MCV 98.3 fL (80.0-100.0); Monocytes # (A) 0.2 k/uL (0-1.0); Monocytes % (A) 3 %; Neutrophils # (A) 5.6 k/uL (1.3-7.7); Neutrophils % (A) 78 %; Platelet Count 252 k/uL (150-450); RBC 3.01 m/uL (4.30-5.90); RDW 14.9 % (11.5-15.5); WBC 7.3 k/uL (3.8-10.6)
[2022-04-24 06:15] LABS: Albumin 2.9 g/dL (3.5-5.0); Calcium 8.4 mg/dL (8.4-10.2); Potassium 4.1 mmol/L (3.5-5.1); Total Bilirubin 0.6 mg/dL (0.2-1.3); Total Protein 5.3 g/dL (6.3-8.2)
[2022-04-24] MEDS: CHOLECALCIFEROL 25 MCG (1000 IU) TABLET PO SCH ×2 (06:57→16:24)
[2022-04-24] MEDS: ASPIRIN 81 MG PO SCH (06:57)
[2022-04-24] MEDS: LACTULOSE 20 GM/30 ML CUP PO SCH (06:57)
[2022-04-24] MEDS: SUCRALFATE 1 GM TAB PO SCH ×3 (06:57→17:13)
[2022-04-24] MEDS: CYANOCOBALAMIN 500 MCG TAB PO SCH (06:57)
[2022-04-24] MEDS: METOPROLOL TARTRATE 25 MG TAB PO SCH ×2 (06:57→16:24)
[2022-04-24] MEDS: LEVOTHYROXINE 25 MCG TAB PO SCH (06:57)
[2022-04-24] MEDS: SODIUM CHLORIDE 0.9% 1,000 ML IV SCH ×2 (06:59→16:32)
--- NOTE | 2022-04-24 07:46 | XR ---
EXAMINATION TYPE: XR chest 1V portable DATE OF EXAM: 04/24/2022 5:29 AM COMPARISON: Chest radiograph from one day prior. TECHNIQUE: XR chest 1V portable Frontal view of the chest. CLINICAL INDICATION:Male, 77 years old with history of pneumonia; FINDINGS: Lungs/Pleura: There remains airspace consolidation in the left lower lobe. There is no evidence of pl eural effusion, focal consolidation, or pneumothorax. Pulmonary vascularity: Unremarkable. Heart/mediastinum: Cardiomediastinal silhouette is unremarkable. Musculoskeletal: No acute osseous pathology. IMPRESSION: 1. Persistent left lower lobe airspace disease. 2. Interval removal of endotracheal nasogastric tubes.
[2022-04-24] MEDS: SYMBICORT 80-4.5 MCG INHALER INHALATION SCH ×2 (07:59→20:21)
[2022-04-24] MEDS: IPRATROPIUM-ALBUTEROL 3 ML NEB INHALATION SCH ×3 (07:59→20:21)
[2022-04-24] MEDS: ENOXAPARIN 40 MG/0.4 ML SYRINGE SQ SCH (09:08)
[2022-04-24] MEDS: PANTOPRAZOLE 40 MG/10 ML VIAL IVP SCH (09:08)
[2022-04-24] MEDS: ASCORBIC ACID 500 MG TAB PO SCH (09:13)
[2022-04-24] MEDS: guaiFENesin 600 MG TABLET.ER PO SCH ×4 (09:13→21:30)
[2022-04-24] MEDS: DILTIAZEM 125 MG in SODIUM CHLORIDE 0.9% 100 ML IV SCH ×2 (09:14→22:09)
[2022-04-24] MEDS: ZINC SULFATE 220 MG CAP PO SCH (09:14)
[2022-04-24] MEDS: PHENAZOPYRIDINE 200 MG TAB PO SCH ×3 (09:14→21:34)
--- NOTE | 2022-04-24 10:12 | P.PN ---
Subjective Progress Note Date: 04/24/22 Principal diagnosis: Acute hypoxic respiratory failure secondary to aspiration pneumonia This is a 77-year-old white male resident of adult foster care facility, patient does not give any history, unable to communicate, patient was noted by the staff at the foster care facility as having shortness of breath. Patient was also noted to have low pulse oximetry. EMS arrived to see the patient and his O2 saturation was in the 70s patient was placed on a nonrebreather mask, and his O2 satwent up to 90%. Brought into ER, patient apparently was in moderate severe respiratory distress, and his O2 saturation was in the 50s. According to the ER physician patient was noted to be in distress, hence he went ahead and intubated the patient. Patient was placed on mechanical ventilation, CT of the chest was done and there was no evidence of pulmonary embolism. There was however diffuse bronchial wall thickening and opacities in the bases of his lungs patchy groundglass changes consistent with airspace disease. Consistent with pneumonia. Looking at the chart from previous admission the patient was diagnosed previously with aspiration pneumonia and he failed his swallow e valuation back then. It is not surprising that the patient presented again with a similar presentation of aspiration pneumonia however it seems to be more severe, associated with respiratory failure requiring intubation and mechanical ventilation. Not much history could be obtained from the patient himself. Reevaluated today on 04/23/2022, patient remains intubated and mechanically ventilated, I saw this patient yesterday in the ER. Apparently the patient was DO NOT RESUSCITATE CODE STATUS, however he was intubated by the ER physician because there was no available documentation regarding his CODE STATUS. Yesterday we learned that the patient has been DO NOT RESUSCITATE, and today I discussed his condition with his legal guardian who is agreeable to extubate the patient but not to reintubate if the patient's condition deteriorates then proceed to comfort care. Patient is awake, he is intubated and mechanically ventilated, he is on assist control rate of 1612 oh to 400 FiO2 30% PEEP of 5 patient had an ABG showed a pO2 of 85 pCO2 48 pH of 7.41. He is on propofol which I have discontinued placed the patient on a pressure support mode of mechanical ventilation with a pressure support of 8 and CPAP, he seems to be comfortable, was moving good tidal volume in the range of 500, and his rate was in the teens. Hence explained to his legal guardian that the plan to extubate but not to reintubate if the patient fails extubation. Chest x-ray clearly showed bilateral pneumonia. Patient was extubated and placed on BiPAP. Again CODE STATUS has been DO NOT RESUSCITATE all along. Patient is awake and he is following simple instructions he is on Zosyn for aspiration pneumonia. WBC count today is 8.9 hemoglobin is 10.2. Basic metabolic profile is normal BUN is 34 creatinine 1.15 Reevaluated today on 04/24/22, patient was extubated yesterday, tolerated the extubation well, presently on BiPAP 12/6/40%. Patient is receiving IV fluid in the formal 0.9 normal saline at 75 mL per hour. Chest x-ray continues to show bilateral airspace disease, left more so than right. Patient is awake, does not seem to be in any distress, however patient failed his bedside swallow evalua tion, and eventually the patient may need a PEG tube placement if his legal guardian and is agreeable. This is to be decided upon in the next couple of days. In the meantime the patient will remain in the ICU, I have him start transitioned from BiPAP to a nasal cannula and I would recommend a nasogastric tube placement to start tube feeding. In the meantime remains on antibiotics and definitely nothing by mouth CBC is relatively normal basic metabolic profile is normal and his renal functioning is improving creatinine is down to 1.20 from 1.35 yesterday. Objective - Vital Signs Vital signs: Vital Signs Temp 98.7 F 04/24/22 08:00 Pulse 94 04/24/22 09:00 Resp 15 04/24/22 09:00 BP 134/73 04/24/22 09:00 Pulse Ox 98 04/24/22 09:00 FiO2 40 04/24/22 08:00 Intake & Output 04/23/22 04/24/22 04/24/22 18:59 06:59 18:59 Intake Total 730.025 900 425 Output Total 510 535 165 Balance 220.025 365 260 Weight 64.8 kg Intake: IV 225 825 225 Sodium Chloride 0.9% 1, 225 825 225 000 ml @ 75 mls/hr IV . [id number] [facility] Rx#:[id number] Intake, IV Titration 405.025 200 Amount ACETAMINOPHEN IV (For NPO 100 100 ) 1,000 mg In Empty Bag 1 bag @ 400 mls/hr IVPB Q6H [facility] Rx#:[id number] Piperacillin-Tazobactam 3 200 100 .375 gm In Sodium Chloride 0.9% 100 ml @ 25 mls/hr IVPB Q8HR [facility] Rx# :[id number] propofoL 1,000 mg In 105.025 Empty Bag 1 bag @ 5 MCG/ KG/MIN 2.313 mls/hr IV . Q24H [facility] Rx#:[id number] Lipid 75 Sodium Chloride 0.9% 1, 75 000 ml @ 75 mls/hr IV . [id number] [facility] Rx#:[id number] Other 100 Output: Urine 510 535 165 Other: Voiding Method Indwelling Catheter Indwelling Catheter Indwelling Catheter - Exam Physical Exam: Revealed 77-year-old white male,, patient looks frail and chronically ill. On BiPAP 08/10/40% Head: Atraumatic, normocephalic. HEENT:[Neck is supple.] [No neck masses.] [No thyromegaly.] [No JVD.] Chest: [Crackles at the bases no rhonchi no wheezes Cardiac Exam: [Normal S1 and S2, no S3 gallop, no murmur.] Abdomen: [Soft, nontender, no megaly, no rebound, no guarding, normal bowel sounds.] Extremities: [No clubbing, no edema, no cyanosis.] Neurological Exam: Patient is awake, bit anxious, follows simple instructions. But nonverbal. Psychiatric: Anxious mood and flat affect, confused. Skin: No rashes - Labs CBC & Chem 7: 04/24/22 05:28 04/24/22 05:28 Labs: Abnormal Lab Results - Last 24 Hours (Table) 04/23/22 04/24/22 04/24/22 Range/Units 22:03 05:28 05:28 RBC 3.01 L (4.30-5.90) m/uL Hgb 9.4 L (13.0-17.5) gm/dL Hct 29.6 L (39.0-53.0) % Potassium 2.9 L (3.5-5.1) mmol/L BUN 29 H 27 H (9-20) mg/dL Creatinine 1.35 H (0.66-1.25) mg/dL Glucose 100 H (74-99) mg/dL Total Protein 5.3 L (6.3-8.2) g/dL Albumin 2.9 L (3.5-5.0) g/dL Microbiology - Last 24 Hours (Table) 04/22/22 14:38 Blood Culture - Preliminary Blood No Growth after 24 hours 04/22/22 20:08 Gram Stain - Preliminary Sputum Sputum Culture - Preliminary 04/22/22 10:30 Gram Stain - Preliminary Sputum Sputum Culture - Preliminary Assessment and Plan Assessment: Impression: Acute hypoxic respiratory failure secondary to aspiration pneumonia Recurrent episodes of aspiration pneumonia last episode was on 01/10/22 History of failed swallow evaluation History of underlying COPD History of diastolic congestive heart failure History of underlying dementia History of hypothyroidism Benign essential hypertension. Recommendation: Patient tolerated exudation well to BiPAP, I plan to transition BiPAP to nasal cannula and I am planning and nasogastric tube for enteral feeding. Keep patient nothing by mouth for now, may have to be considered for a PEG tube early next week otherwise he will continue to have recurrent episodes of aspiration pneumonia. Continue DuoNeb updrafts 4 times a day and when necessary Continue antibiotics for aspiration pneumonia. Patient is on Zosyn Continue GI and DVT prophylaxis Monitor electrolytes Possibly transferred to a regular medical floor in the next 24 hours Time with Patient: Less than 30
--- NOTE | 2022-04-24 10:47 | XR ---
EXAMINATION TYPE: XR abdomen 1V DATE OF EXAM: 04/24/2022 10:41 AM INDICATION: Patient age:Male; 77 years old; Reason for study: NG tube placement; COMPARISON: Prior exam same day. TECHNIQUE: One radiographic view of the abdomen was obtained. FINDINGS: Nasogastric tube with distal tip and side-port in appropriate position. The remainder of ex am is unchanged from prior. IMPRESSION: Nasogastric tube distal tip and side-port now projecting under the diaphragm.
--- NOTE | 2022-04-24 12:06 | P.CRDCN ---
History of Present Illness History of present illness: HISTORY OF PRESENTING ILLNESS Patient is a 77-year-old male with history of hypothyroidism, depression, hypertension, COPD, recurrent aspiration who presents secondary to respiratory distress. Patient apparently lives at the adult foster care facility and has had recurrent admissions for aspiration. Previous workup has shown aspiration with recommendations for aspiration precautions however appears he will go home and eat a normal diet. Patient currently with NG tube in place and having gurgling in unable to clear his secretions. Cardiology was consult date for episode of irregular rhythm concerning for atrial fibrillation overnight. On review of telemetry EKG shows sinus rhythm with frequent PACs and no evidence of atrial fibrillation. Initial EKG shows sinus tachycardia, normal axis, minimal ST depressions. Blood work shows white blood cell count 16.6, hemoglobin 10.6, dimer 1.9, creatinine 1.1, lactic acid 2.8, proBNP 1200, pro-calcitonin 0.99. During his PACs patient's potassium was noted to be 2.9. REVIEW OF SYSTEMS At the time of my exam: CONSTITUTIONAL: Denies fever or chills. CARDIOVASCULAR: Denies chest pain, +shortness of breath, no orthopnea, PND or pa lpitations. RESPIRATORY: Denies cough. GASTROINTESTINAL: Denies abdominal pain, diarrhea, constipation, nausea or vomiting. MUSCULOSKELETAL: Denies myalgias. NEUROLOGIC: Denies numbness, tingling or weakness. ENDOCRINE: Denies fatigue, weight change, polydipsia or polyurina. GENITOURINARY: Denies burning, hematuria or urgency with micturation. HEMATOLOGIC: Denies history of anemia or bleeding. PHYSICAL EXAMINATION Vital signs reviewed. CONSTITUTIONAL: No apparent distress, ill appearing, unable to clear secretions HEENT: Head is normocephalic. Pupils are equal, round. Sclerae anicteric. Mucous membranes of the mouth are moist. No JVD. No carotid bruit. CHEST EXAMINATION: Bilateral rhonchi HEART EXAMINATION: Regular rate and rhythm. S1, S2 heard. No murmurs, gallops or rub. ABDOMEN: Soft, nontender. Positive bowel sounds. EXTREMITIES: 2+ peripheral pulses, no lower extremity edema and no calf tenderness. NEUROLOGIC EXAMINATION: Patient is awake, alert and oriented x3. ASSESSMENT 1. Aspiration pneumonia 2. Acute on chronic respiratory failure related to aspiration 3. Irregular heart rhythm, sinus rhythm with PACs no evidence of atrial fibrillation 4. Hypokalemia 5. Hypertension PLAN No evidence of any atrial fibrillation or arrhythmias noted on telemetry and EKG. Continue with current supportive care. Aspiration precautions. Previous echo from January 2022 showed preserved EF 55-60% without significant valvular disease. No further recommendations from cardiology standpoint. Please call with any questions. Past Medical History Past Medical History: Unable to Obtain Additional Past Medical History / Comment(s): Fall with R hip fracture 07/2021 with surgical repair, gastric ulcers with surgical repair/covid pneumonia and PE/dvt in 09/2021, developmentally delayed, possible aspiration pneumonia/sepsis with acute hypoxic respiratory failure/exacerbation of COPD in Jan, 2022, past high cholesterol, osteoporosis, gait dysfunction, incontinent of urine, constipation History of Any Multi-Drug Resistant Organisms: Unobtainable Past Surgical History: Unable to Obtain Additional Past Surgical History / Comment(s): R Hip Surgery; unspecified abdominal surgery Past Anesthesia/Blood Transfusion Reactions: No Reported Reaction Smoking Status: Never smoker - Past Family History Father History Unknown: Yes Mother History Unknown: Yes Medications and Allergies Home Medications Medication Instructions Recorded Confirmed Type Cholecalciferol [Vitamin D3 (25 25 mcg PO BID@0700,1700 01/09/22 04/22/22 History Mcg = 1000 Iu)] Cyanocobalamin (Vitamin B-12) 1,000 mcg PO DAILY@0700 01/09/22 04/22/22 History [Vitamin B-12] Docusate [Colace] 100 mg PO DAILY PRN 01/09/22 04/22/22 History Ferrous Sulfate [Iron (65 MG 325 mg PO Q48H 01/09/22 04/22/22 History Elemental)] Lactulose 20 gm PO DAILY@0700 01/09/22 04/22/22 History Levothyroxine Sodium [Synthroid] 25 mcg PO DAILY@0700 01/09/22 04/22/22 History Loratadine 10 mg PO DAILY@0700 PRN 01/09/22 04/22/22 History Melatonin [Melatonin ER] 10 mg PO HS@2100 01/09/22 04/22/22 History Metoprolol Tartrate 25 mg PO BID@0700,1700 01/09/22 04/22/22 History Culver-3 Fatty Acids/Fish Oil [Fish 1 cap PO DAILY@0700 01/09/22 04/22/22 History Oil 1,000 mg Softgel] Omeprazole [PriLOSEC] 20 mg PO BID@0700,2100 01/09/22 04/22/22 History PARoxetine HCL 40 mg PO HS@2100 01/09/22 04/22/22 History Triamterene/Hydrochlorothiazid 1 tab PO DAILY@0700 01/09/22 04/22/22 History [Triamterene-Hctz 37.5-25 mg Tb] guaiFENesin [Mucinex] 600 mg PO QID #20 tablet 01/16/22 04/22/22 Rx Ascorbic Acid [Vitamin C] 500 mg PO DAILY 04/22/22 04/22/22 History Aspirin EC [Ecotrin Low Dose] 81 mg PO DAILY@0700 04/22/22 04/22/22 History Benzonatate [Tessalon Perles] 100 - 200 mg PO TID PRN 04/22/22 04/22/22 History Budesonide [Pulmicort] 0.25 mg INHALATION RT-BID 04/22/22 04/22/22 History Fluticasone Propion/Salmeterol 1 puff INHALATION RT-BID@0700,1900 04/22/22 04/22/22 History [Advair 250-50 Diskus] Ipratropium-Albuterol Nebulize 3 ml INHALATION RT-TID 04/22/22 04/22/22 History [Duoneb 0.5 mg-3 mg/3 ml Soln] Liquacel 30 ml PO BID 04/22/22 04/22/22 History Phenazopyridine [Pyridium] 200 mg PO TID 04/22/22 04/22/22 History Sucralfate [Carafate] 1 gm PO TID-W/MEALS 04/22/22 04/22/22 History Zinc 50 mg PO DAILY 04/22/22 04/22/22 History Allergies Allergy/AdvReac Type Severity Reaction Status Date / Time No Known Allergies Allergy Verified 04/22/22 11:00 Physical Exam Vitals: Vital Signs Temp Pulse Resp BP Pulse Ox FiO2 04/24/22 09:00 94 15 134/73 98 04/24/22 08:15 95 04/24/22 08:03 95 04/24/22 08:00 98.7 F 94 18 122/64 100 40 04/24/22 07:37 40 04/24/22 07:00 102 H 13 123/64 100 40 04/24/22 06:00 91 13 130/71 100 40 04/24/22 05:00 93 17 125/63 100 40 04/24/22 04:00 93 16 129/63 100 40 04/24/22 03:00 90 93 H 128/66 100 40 04/24/22 02:00 95 16 126/64 100 40 04/24/22 01:00 97 17 111/58 94 L 40 04/24/22 00:54 40 04/24/22 00:00 98.9 F 101 H 18 108/58 97 40 04/23/22 23:00 101 H 15 105/52 96 40 04/23/22 22:00 108 H 18 99/63 96 40 04/23/22 21:00 109 H 20 112/54 96 40 04/23/22 20:34 102 H 04/23/22 20:12 104 H 04/23/22 20:09 40 04/23/22 20:00 101.2 F H 111 H 17 119/57 95 40 04/23/22 19:00 100 22 103/62 99 04/23/22 18:00 100.1 F H 101 H 19 107/49 97 04/23/22 17:00 100 23 113/62 98 04/23/22 16:00 101 H 23 110/58 99 04/23/22 15:54 40 04/23/22 15:00 99 13 112/57 99 04/23/22 14:00 104 H 18 108/70 97 04/23/22 13:00 98 21 120/70 97 Intake and Output 04/23/22 04/24/22 04/24/22 22:59 06:59 14:59 Intake Total 550 600 500 Output Total 350 380 190 Balance 200 220 310 Intake: IV 450 525 300 Sodium Chloride 0.9% 1, 450 525 300 000 ml @ 75 mls/hr IV . [id number] [facility] Rx#:[id number] Intake, IV Titration 100 200 Amount ACETAMINOPHEN IV (For NPO 100 ) 1,000 mg In Empty Bag 1 bag @ 400 mls/hr IVPB Q6H [facility] Rx#:[id number] Piperacillin-Tazobactam 3 100 100 .375 gm In Sodium Chloride 0.9% 100 ml @ 25 mls/hr IVPB Q8HR [facility] Rx# :[id number] Lipid 75 Sodium Chloride 0.9% 1, 75 000 ml @ 75 mls/hr IV . [id number] [facility] Rx#:[id number] Output: Urine 350 380 190 Other: Voiding Method Indwelling Catheter Indwelling Catheter Indwelling Catheter Weight 64.8 kg Results 04/24/22 05:28 04/24/22 05:28 Cardiac Enzymes 04/24/22 Range/Units 05:28 AST 35 (17-59) U/L CBC 04/24/22 Range/Units 05:28 WBC 7.3 (3.8-10.6) k/uL RBC 3.01 L (4.30-5.90) m/uL Hgb 9.4 L (13.0-17.5) gm/dL Hct 29.6 L (39.0-53.0) % Plt Count 252 (150-450) k/uL Comprehensive Metabolic Panel 04/23/22 04/24/22 Range/Units 22:03 05:28 Sodium 138 139 (137-145) mmol/L Potassium 2.9 L 4.1 (3.5-5.1) mmol/L Chloride 103 104 (98-107) mmol/L Carbon Dioxide 26 28 (22-30) mmol/L BUN 29 H 27 H (9-20) mg/dL Creatinine 1.35 H 1.20 (0.66-1.25) mg/dL Glucose 100 H 91 (74-99) mg/dL Calcium 8.5 8.4 (8.4-10.2) mg/dL AST 35 (17-59) U/L ALT 28 (4-49) U/L Alkaline Phosphatase 102 (38-126) U/L Total Protein 5.3 L (6.3-8.2) g/dL Albumin 2.9 L (3.5-5.0) g/dL Current Medications Generic Name Dose Route Start Last Admin Trade Name Freq PRN Reason Stop Dose Admin Albuterol/Ipratropium 3 ml 04/22/22 14:28 Ipratropium-Albuterol 3 Ml Neb INHALATION RT-Q2H PRN Shortness Of Breath Or Wheezing Albuterol/Ipratropium 3 ml 04/22/22 20:00 04/24/22 11:54 Ipratropium-Albuterol 3 Ml Neb INHALATION Not Given RT-TID [facility] Ascorbic Acid 500 mg 04/23/22 09:00 04/24/22 09:13 Ascorbic Acid 500 Mg Tab PO Not Given DAILY [facility] Aspirin 81 mg 04/23/22 07:00 04/24/22 06:57 Aspirin 81 Mg PO Not Given DAILY@0700 [facility] Budesonide/Formoterol Fumarate 2 puff 04/22/22 20:00 04/24/22 07:59 Symbicort 80-4.5 Mcg Inhaler INHALATION 2 puff RT-BID [facility] Administration Cholecalciferol 25 mcg 04/22/22 17:00 04/24/22 06:57 Cholecalciferol 25 Mcg (1000 Iu) Tablet PO Not Given BID@0700,1700 [facility] Cyanocobalamin 1,000 mcg 04/23/22 07:00 04/24/22 06:57 Cyanocobalamin 500 Mcg Tab PO Not Given DAILY@0700 [facility] Docusate Sodium 100 mg 04/22/22 14:50 Docusate 100 Mg Cap PO DAILY PRN Constipation Enoxaparin Sodium 40 mg 04/22/22 14:45 04/24/22 09:08 Enoxaparin 40 Mg/0.4 Ml Syringe SQ 40 mg DAILY [facility] Administration Ferrous Sulfate 325 mg 04/23/22 09:00 04/23/22 17:23 Ferrous Sulfate 325 Mg Tab PO Not Given Q48H [facility] Guaifenesin 600 mg 04/22/22 18:00 04/24/22 09:13 Guaifenesin 600 Mg Tablet.Er PO Not Given QID [facility] Hydromorphone HCl 0.25 mg 04/23/22 13:24 04/24/22 00:38 Hydromorphone 0.5 Mg/0.5 Ml Syringe IVP 0.25 mg Q3HR PRN Administration Pain Piperacillin Sod/Tazobactam 100 mls @ 25 mls/hr 04/22/22 16:00 04/24/22 09:10 Sod 3.375 gm/ Sodium Chloride IVPB 25 mls/hr Q8HR [facility] Administration Protocol Sodium Chloride 1,000 mls @ 75 mls/hr 04/22/22 14:30 04/24/22 06:59 Saline 0.9% IV 75 mls/hr .[id number] [facility] Administration Diltiazem HCl 125 mg/ Sodium 125 mls @ 10 mls/hr 04/23/22 21:30 04/24/22 09:14 Chloride IV Not Given .[id number] [facility] 10 MG/HR Lactulose 20 gm 04/23/22 07:00 04/24/22 06:57 Lactulose 20 Gm/30 Ml Cup PO Not Given DAILY@0700 [facility] Levothyroxine Sodium 25 mcg 04/23/22 07:00 04/24/22 06:57 Levothyroxine 25 Mcg Tab PO Not Given DAILY@0700 [facility] Loratadine 10 mg 04/23/22 07:00 Loratadine 10 Mg Tab PO DAILY@0700 PRN Allergy Symptoms Melatonin 10 mg 04/22/22 21:00 04/23/22 20:27 Melatonin 5 Mg Tablet PO Not Given HS@2100 [facility] Metoprolol Tartrate 25 mg 04/22/22 17:00 04/24/22 06:57 Metoprolol Tartrate 25 Mg Tab PO Not Given BID@0700,1700 [facility] Miscellaneous Information 1 each 04/23/22 22:43 Potassium Replacement Protocol 1 Each [facility] [place] [facility] PRN Per Protocol Protocol Miscellaneous Information 1 each 04/23/22 22:43 Magnesium Replacement Protocol 1 Each [facility] PRN Per Protocol Protocol Naloxone HCl 0.2 mg 04/22/22 13:40 Naloxone 0.4 Mg/Ml 1 Ml Vial IV Q2M PRN Opioid Reversal Pantoprazole Sodium 40 mg 04/22/22 14:45 04/24/22 09:08 Pantoprazole 40 Mg/10 Ml Vial IVP 40 mg DAILY [facility] Administration Paroxetine HCl 40 mg 04/22/22 21:00 04/23/22 20:27 Paroxetine 20 Mg Tab PO Not Given HS@2100 [facility] Phenazopyridine HCl 200 mg 04/22/22 16:00 04/24/22 09:14 Phenazopyridine 200 Mg Tab PO Not Given TID [facility] Sucralfate 1 gm 04/22/22 17:30 04/24/22 06:57 Sucralfate 1 Gm Tab PO Not Given TID-W/MEALS [facility] Zinc Sulfate 220 mg 04/23/22 09:00 04/24/22 09:14 Zinc Sulfate 220 Mg Cap PO Not Given DAILY [facility] Intake and Output 04/23/22 04/24/22 04/24/22 22:59 06:59 14:59 Intake Total 550 600 500 Output Total 350 380 190 Balance 200 220 310 Intake: IV 450 525 300 Sodium Chloride 0.9% 1, 450 525 300 000 ml @ 75 mls/hr IV . [id number] [facility] Rx#:[id number] Intake, IV Titration 100 200 Amount ACETAMINOPHEN IV (For NPO 100 ) 1,000 mg In Empty Bag 1 bag @ 400 mls/hr IVPB Q6H [facility] Rx#:[id number] Piperacillin-Tazobactam 3 100 100 .375 gm In Sodium Chloride 0.9% 100 ml @ 25 mls/hr IVPB Q8HR [facility] Rx# :[id number] Lipid 75 Sodium Chloride 0.9% 1, 75 000 ml @ 75 mls/hr IV . [id number] [facility] Rx#:[id number] Output: Urine 350 380 190 Other: Voiding Method Indwelling Catheter Indwelling Catheter Indwelling Catheter Weight 64.8 kg 04/24/22 05:28 04/24/22 05:28
--- NOTE | 2022-04-24 14:01 | P.PN ---
Subjective Progress Note Date: 04/24/22 Principal diagnosis: Acute hypoxic respiratory failure The patient is a 77-year-old male with history of hypothyroidism depression COPD who has been hospitalized for hypoxemia. The patient presented to the emergency room with saturations in the mid 60s despite a nonrebreather and he was intubated. His workup in the emergency room showed leukocytosis of 16.6, 10.6, BU and 41, creatinine 1.2. The patient was intubated on chest x-ray showed interstitial opacities. CT angiogram of the chest showed diffuse bronchial wall thickening with tree-in-bud opacities as well as groundglass changes and consolidation of the bilateral posterior lung bases with no pulmonary embolism n oted. Patient had a CT of the brain that showed nonspecific degenerative white matter disease. Ratio was admitted to the ICU he was started on Zosyn for possible pneumonia pulmonary critical care was consulted. Post hospitalization it was noted that patient was a DO NOT RESUSCITATE and after discussion with his guardian patient was active extubated of 04/23/22 and placed on BiPAP. The patient continues to have aspiration of his secretions and has failed swallow evaluation. Currently has an NG tube in place Objective - Vital Signs Vital signs: Vital Signs Temp 98.7 F 04/24/22 08:00 Pulse 94 04/24/22 09:00 Resp 15 04/24/22 09:00 BP 134/73 04/24/22 09:00 Pulse Ox 98 04/24/22 09:00 FiO2 40 04/24/22 08:00 Intake & Output 04/23/22 04/24/22 04/24/22 18:59 06:59 18:59 Intake Total 730.025 900 500 Output Total 510 535 190 Balance 220.025 365 310 Weight 64.8 kg 64.8 kg Intake: IV 225 825 300 Sodium Chloride 0.9% 1, 225 825 300 000 ml @ 75 mls/hr IV . [id number] [facility] Rx#:[id number] Intake, IV Titration 405.025 200 Amount ACETAMINOPHEN IV (For NPO 100 100 ) 1,000 mg In Empty Bag 1 bag @ 400 mls/hr IVPB Q6H [facility] Rx#:[id number] Piperacillin-Tazobactam 3 200 100 .375 gm In Sodium Chloride 0.9% 100 ml @ 25 mls/hr IVPB Q8HR [facility] Rx# :[id number] propofoL 1,000 mg In 105.025 Empty Bag 1 bag @ 5 MCG/ KG/MIN 2.313 mls/hr IV . Q24H [facility] Rx#:[id number] Lipid 75 Sodium Chloride 0.9% 1, 75 000 ml @ 75 mls/hr IV . [id number] [facility] Rx#:[id number] Other 100 Output: Urine 510 535 190 Other: Voiding Method Indwelling Catheter Indwelling Catheter Indwelling Catheter - Constitutional General appearance: Present: no acute distress - Respiratory Respiratory: bilateral: diminished, rhonchi - Cardiovascular Rhythm: regular - Gastrointestinal General gastrointestinal: Present: normal bowel sounds - Integumentary Integumentary: Present: normal - Psychiatric Psychiatric Comment(s): Alert and oriented x 2 Psychiatric: Present: appropriate affect - Labs CBC & Chem 7: 04/24/22 05:28 04/24/22 05:28 Labs: Abnormal Lab Results - Last 24 Hours (Table) 04/23/22 04/24/22 04/24/22 Range/Units 22:03 05:28 05:28 RBC 3.01 L (4.30-5.90) m/uL Hgb 9.4 L (13.0-17.5) gm/dL Hct 29.6 L (39.0-53.0) % Potassium 2.9 L (3.5-5.1) mmol/L BUN 29 H 27 H (9-20) mg/dL Creatinine 1.35 H (0.66-1.25) mg/dL Glucose 100 H (74-99) mg/dL Total Protein 5.3 L (6.3-8.2) g/dL Albumin 2.9 L (3.5-5.0) g/dL Microbiology - Last 24 Hours (Table) 04/22/22 20:08 Gram Stain - Preliminary Sputum Sputum Culture - Preliminary 04/22/22 10:30 Gram Stain - Final Sputum Sputum Culture - Final 04/22/22 14:38 Blood Culture - Preliminary Blood No Growth after 24 hours Assessment and Plan (1) Acute respiratory failure Narrative/Plan: Secondary to aspiration pneumonia currently extubated appreciate pulmonary input Current Visit: No Status: Acute Code(s): J96.00 - ACUTE RESPIRATORY FAILURE, UNSP W HYPOXIA OR HYPERCAPNIA SNOMED Code(s): 40064358 (2) Pneumonia Narrative/Plan: Secondary to aspiration continue Zosyn Current Visit: Yes Status: Acute Code(s): J18.9 - PNEUMONIA, UNSPECIFIED ORGANISM SNOMED Code(s): 181143568 (3) Dysphagia Narrative/Plan: Patient failed swallow evaluation. He is currently nothing by mouth will need PEG if guardian is agreeable NG tube has been placed for feeding Current Visit: Yes Status: Acute Code(s): R13.10 - DYSPHAGIA, UNSPECIFIED SNOMED Code(s): 61396563 Plan: Continue IV antibiotics, ICU care, oxygen supplementation, aspiration precautions
[2022-04-24] MEDS: PARoxetine 20 MG TAB PO SCH (21:34)
[2022-04-24] MEDS: MELATONIN 5 MG TABLET PO SCH (21:34)
[2022-04-24 23:48] LABS: Glucose,Whole Blood 147 mg/dL (70-110)
[2022-04-25] MEDS: PIPERACILLIN-TAZOBACTAM 3.375 GM in SODIUM CHLORIDE 0.9% 100 ML IVPB SCH ×4 (00:15→23:34)
[2022-04-25 01:33] LABS: Calcium 8.1 mg/dL (8.4-10.2); Magnesium 2.1 mg/dL (1.6-2.3); Potassium 3.6 mmol/L (3.5-5.1)
[2022-04-25] MEDS ORDERED: POTASSIUM BICARBONATE/CIT AC 20 MEQ TABLET.EFF NG-TUBE SCH (02:15)
[2022-04-25] MEDS: DILTIAZEM 125 MG in SODIUM CHLORIDE 0.9% 100 ML IV SCH (02:50)
[2022-04-25 06:16] LABS: Basophils % (A) 0 %; Eosinophils # (A) 0.1 k/uL (0-0.7); Eosinophils % (A) 1 %; HCT 27.8 % (39.0-53.0); HGB 8.7 gm/dL (13.0-17.5); Hypochromasia Slight; Lymphocytes # (A) 1.3 k/uL (1.0-4.8); Lymphocytes % (A) 18 %; MCH 30.6 pg (25.0-35.0); MCHC 31.2 g/dL (31.0-37.0); MCV 97.8 fL (80.0-100.0); Mean Platelet Volume 7.9; Monocytes # (A) 0.2 k/uL (0-1.0); Monocytes % (A) 3 %; Neutrophils # (A) 5.3 k/uL (1.3-7.7); Neutrophils % (A) 76 %; Platelet Count 262 k/uL (150-450); RBC 2.84 m/uL (4.30-5.90); RDW 14.6 % (11.5-15.5)
[2022-04-25] MEDS: LEVOTHYROXINE 25 MCG TAB PO SCH (06:17)
[2022-04-25 06:19] LABS: Glucose,Whole Blood 132 mg/dL (70-110)
[2022-04-25 06:31] LABS: Albumin 2.4 g/dL (3.5-5.0); Calcium 8.2 mg/dL (8.4-10.2); Potassium 3.9 mmol/L (3.5-5.1); Total Bilirubin 0.3 mg/dL (0.2-1.3); Total Protein 4.7 g/dL (6.3-8.2)
[2022-04-25] MEDS: CHOLECALCIFEROL 25 MCG (1000 IU) TABLET PO SCH ×2 (06:57→16:00)
[2022-04-25] MEDS: METOPROLOL TARTRATE 25 MG TAB PO SCH ×2 (06:57→17:06)
[2022-04-25] MEDS: SUCRALFATE 1 GM TAB PO SCH ×3 (06:58→17:20)
[2022-04-25] MEDS: LACTULOSE 20 GM/30 ML CUP PO SCH (06:58)
[2022-04-25] MEDS: ASPIRIN 81 MG PO SCH (06:58)
[2022-04-25] MEDS: CYANOCOBALAMIN 500 MCG TAB PO SCH (06:58)
--- NOTE | 2022-04-25 07:15 | XR ---
EXAMINATION TYPE: XR chest 1V portable DATE OF EXAM: 04/25/2022 5:45 AM COMPARISON: Chest x-ray 2021, chest x-ray 04/23/2022, CTA chest 04/22/2022 TECHNIQUE: XR chest 1V portable . CLINICAL INDICATION:Male, 77 years old with history of pneumonia; FINDINGS: Lungs/Pleura: There is complete opacification of the left hemithorax which is new from 04/24/2022. No evidence for pneumothorax. Right lung is clear. Pulmonary vascularity: Unremarkable. Heart/mediastinum: Obscuration of the mediastinal silhouette secondary to left lung opacification. N o evidence for midline shift of the mediastinum. Musculoskeletal: Diffuse osteopenia. No acute osseous process is identified. Other findings: None Lines/Tubes: Nasogastric tube with its distal tip and side-port projecting under the diaphragm. IMPRESSION: 1. Complete opacification of the left hemithorax, suspected to relate to the large pleural effusion v ersus atelectasis from mucous plugging, given rapid onset. 2. Nasogastric tube with distal tip projecting below the diaphragm.
[2022-04-25] MEDS: SYMBICORT 80-4.5 MCG INHALER INHALATION SCH (08:26)
[2022-04-25] MEDS: IPRATROPIUM-ALBUTEROL 3 ML NEB INHALATION SCH ×3 (08:26→19:11)
[2022-04-25] MEDS ORDERED: SUCCINYLCHOLINE CHLORIDE 200 MG/10 ML VIAL IV STA (08:34)
[2022-04-25] MEDS ORDERED: HYDROmorphone 1 MG/ML 1 ML SYRINGE IVP STA (08:35)
--- NOTE | 2022-04-25 09:27 | P.PN ---
Subjective Progress Note Date: 04/25/22 Principal diagnosis: Acute hypoxic respiratory failure secondary to aspiration pneumonia The patient is a 77-year-old male with history of hypothyroidism depression COPD who has been hospitalized for hypoxemia. The patient presented to the emergency room with saturations in the mid 60s despite a nonrebreather and he was intubated. His workup in the emergency room showed leukocytosis of 16.6, 10.6, BU and 41, creatinine 1.2. The patient was intubated on chest x-ray showed interstitial opacities. CT angiogram of the chest showed diffuse bronchial wall thickening with tree-in-bud opacities as well as groundglass changes and consolidation of the bilateral posterior lung bases with no pulmonary embolism noted. Patient had a CT of the brain that showed nonspecific degenerative white matter disease. Ratio was admitted to the ICU he was started on Zosyn for possible pneumonia pulmonary critical care was consulted. Post hospitalization it was noted that patient was a DO NOT RESUSCITATE and after discussion with his guardian patient was extubated on 04/23/22 and placed on BiPAP. The patient continues to have aspiration of his secretions and has failed swallow eval uation. Currently he is NPO and has an NG tube in place 04/25/22: Chest x-ray showed opacification of the left hemithorax consistent with mucous plugging. Objective - Vital Signs Vital signs: Vital Signs Temp 98.5 F 04/25/22 08:00 Pulse 71 04/25/22 09:00 Resp 24 04/25/22 09:00 BP 106/65 04/25/22 09:00 Pulse Ox 93 L 04/25/22 09:00 FiO2 40 04/24/22 08:00 Intake & Output 04/24/22 04/25/22 04/25/22 18:59 06:59 18:59 Intake Total 1280 1520 290 Output Total 450 605 125 Balance 830 915 165 Weight 64.8 kg 65 kg Intake: IV 900 1020 240 Diltiazem 125 mg In 20 15 Sodium Chloride 0.9% 100 ml @ 10 MG/HR 10 mls/hr IV .[id number] [facility] Rx#: [id number] Piperacillin-Tazobactam 3 100 .375 gm In Sodium Chloride 0.9% 100 ml @ 25 mls/hr IVPB Q8HR [facility] Rx# :[id number] Sodium Chloride 0.9% 1, 900 900 225 000 ml @ 75 mls/hr IV . [id number] [facility] Rx#:[id number] Intake, IV Titration 200 Amount ACETAMINOPHEN IV (For NPO 100 ) 1,000 mg In Empty Bag 1 bag @ 400 mls/hr IVPB Q6H [facility] Rx#:[id number] Piperacillin-Tazobactam 3 100 .375 gm In Sodium Chloride 0.9% 100 ml @ 25 mls/hr IVPB Q8HR [facility] Rx# :[id number] Tube Feeding 180 410 50 Other 90 Output: Urine 450 605 125 Other: Voiding Method Indwelling Catheter Indwelling Catheter - Constitutional General appearance: Present: mild distress - Respiratory Respiratory: right: rhonchi, left: diminished - Cardiovascular Rhythm: regular - Gastrointestinal General gastrointestinal: Present: normal bowel sounds - Labs CBC & Chem 7: 04/25/22 05:40 04/25/22 05:40 Labs: Abnormal Lab Results - Last 24 Hours (Table) 04/24/22 04/25/22 04/25/22 Range/Units 23:46 00:40 05:40 RBC 2.84 L (4.30-5.90) m/uL Hgb 8.7 L (13.0-17.5) gm/dL Hct 27.8 L (39.0-53.0) % BUN 22 H (9-20) mg/dL Glucose 124 H (74-99) mg/dL POC Glucose (mg/dL) 147 H (70-110) mg/dL Calcium 8.1 L (8.4-10.2) mg/dL Total Protein (6.3-8.2) g/dL Albumin (3.5-5.0) g/dL 04/25/22 04/25/22 Range/Units 05:40 06:18 RBC (4.30-5.90) m/uL Hgb (13.0-17.5) gm/dL Hct (39.0-53.0) % BUN 21 H (9-20) mg/dL Glucose 120 H (74-99) mg/dL POC Glucose (mg/dL) 132 H (70-110) mg/dL Calcium 8.2 L (8.4-10.2) mg/dL Total Protein 4.7 L (6.3-8.2) g/dL Albumin 2.4 L (3.5-5.0) g/dL Microbiology - Last 24 Hours (Table) 04/22/22 20:08 Gram Stain - Final Sputum Sputum Culture - Final 04/22/22 14:38 Blood Culture - Preliminary Blood No Growth after 48 hours 04/22/22 10:30 Gram Stain - Final Sputum Sputum Culture - Final - Imaging and Cardiology Chest x-ray: report reviewed Assessment and Plan (1) Acute respiratory failure Narrative/Plan: Secondary to aspiration pneumonia currently extubated appreciate pulmonary input. Chest x-ray with evidence of mucus plugging pulmonary has discussed with the patient's guardian advocate definitive removal patient will be intubated for bronchoscopy and then the plan is for him to be extubated. Current Visit: No Status: Acute Code(s): J96.00 - ACUTE RESPIRATORY FAILURE, UNSP W HYPOXIA OR HYPERCAPNIA SNOMED Code(s): 84548460 (2) Pneumonia Narrative/Plan: Secondary to aspiration which perists despite patient being NPO. Continue antibiotic coverage with Zosyn Current Visit: Yes Status: Acute Code(s): J18.9 - PNEUMONIA, UNSPECIFIED ORGANISM SNOMED Code(s): 053468336 (3) Dysphagia Narrative/Plan: Patient failed swallow evaluation. He is currently nothing by mouth will need PEG if guardian is agreeable NG tube has been placed for feeding. He continues to have difficulty with secretions Current Visit: Yes Status: Acute Code(s): R13.10 - DYSPHAGIA, UNSPECIFIED SNOMED Code(s): 50035477 Plan: Bronch today, Continue IV antibiotics, ICU care, oxygen supplementation, aspiration precautions
[2022-04-25] MEDS: PHENAZOPYRIDINE 200 MG TAB PO SCH ×3 (10:02→21:26)
[2022-04-25] MEDS: FERROUS SULFATE 325 MG TAB PO SCH (10:02)
[2022-04-25] MEDS: ASCORBIC ACID 500 MG TAB PO SCH (10:03)
[2022-04-25] MEDS: guaiFENesin 600 MG TABLET.ER PO SCH ×4 (10:03→21:23)
[2022-04-25] MEDS: ZINC SULFATE 220 MG CAP PO SCH (10:03)
[2022-04-25] MEDS: ENOXAPARIN 40 MG/0.4 ML SYRINGE SQ SCH (10:03)
[2022-04-25] MEDS: PANTOPRAZOLE 40 MG/10 ML VIAL IVP SCH (10:04)
[2022-04-25] MEDS: SODIUM CHLORIDE 0.9% 1,000 ML IV SCH (10:04)
[2022-04-25] MEDS ORDERED: SODIUM CHLORIDE 0.9% 1,000 ML IV ONE (10:26)
--- NOTE | 2022-04-25 10:27 | XR ---
EXAMINATION TYPE: XR chest 1V portable DATE OF EXAM: 04/25/2022 10:05 AM COMPARISON: Chest x-ray 04/25/2022 5:28 AM, chest x-ray 04/24/2022 TECHNIQUE: XR chest 1V portable . CLINICAL INDICATION:Male, 77 years old with history of Tube placement; FINDINGS: Lungs/Pleura: Improved aeration of the left lung apex. There is still persistent opacification of the left lower lobe. Right lung remains clear. Pulmonary vascularity: Unremarkable. Heart/mediastinum: Mediastinal silhouette is obscured secondary to left lung opacification. No evide nce for mediastinal shift. Musculoskeletal: No acute osseous pathology. Diffuse osteopenia. Lines/Tubes: Endotracheal tube with distal tip 4.0 cm above the donnie Nasogastric tube with its distal tip and side-port projecting under the diaphragm. IMPRESSION: 1. Interval placement of endotracheal tube which is 4 cm above the donnie. 2. Improved aeration the left lung apex. Persistent opacification of the left lower lobe.
[2022-04-25 10:57] LABS: ABG Base Excess 1.9 mmol/L; ABG HCO3 27 mmol/L (21-25); ABG Oxygen Saturation 93.8 % (94-97); ABG PCO2 47 mmHg (35-45); ABG PH 7.37 (7.35-7.45); ABG PO2 64 mmHg (83-108); ABG TCO2 29 mmol/L (19-24)
[2022-04-25 10:58] LABS: Allen Test Performed? Yes
--- NOTE | 2022-04-25 11:02 | P.PN ---
Subjective Progress Note Date: 04/25/22 Principal diagnosis: Acute hypoxic respiratory failure secondary to aspiration pneumonia This is a 77-year-old white male resident of adult foster care facility, patient does not give any history, unable to communicate, patient was noted by the staff at the foster care facility as having shortness of breath. Patient was also noted to have low pulse oximetry. EMS arrived to see the patient and his O2 saturation was in the 70s patient was placed on a nonrebreather mask, and his O2 satwent up to 90%. Brought into ER, patient apparently was in moderate severe respiratory distress, and his O2 saturation was in the 50s. According to the ER physician patient was noted to be in distress, hence he went ahead and intubated the patient. Patient was placed on mechanical ventilation, CT of the chest was done and there was no evidence of pulmonary embolism. There was however diffuse bronchial wall thickening and opacities in the bases of his lungs patchy groundglass changes consistent with airspace disease. Consistent with pneumonia. Looking at the chart from previous admission the patient was diagnosed previously with aspiration pneumonia and he failed his swallow e valuation back then. It is not surprising that the patient presented again with a similar presentation of aspiration pneumonia however it seems to be more severe, associated with respiratory failure requiring intubation and mechanical ventilation. Not much history could be obtained from the patient himself. Reevaluated today on 04/23/2022, patient remains intubated and mechanically ventilated, I saw this patient yesterday in the ER. Apparently the patient was DO NOT RESUSCITATE CODE STATUS, however he was intubated by the ER physician because there was no available documentation regarding his CODE STATUS. Yesterday we learned that the patient has been DO NOT RESUSCITATE, and today I discussed his condition with his legal guardian who is agreeable to extubate the patient but not to reintubate if the patient's condition deteriorates then proceed to comfort care. Patient is awake, he is intubated and mechanically ventilated, he is on assist control rate of 1612 oh to 400 FiO2 30% PEEP of 5 patient had an ABG showed a pO2 of 85 pCO2 48 pH of 7.41. He is on propofol which I have discontinued placed the patient on a pressure support mode of mechanical ventilation with a pressure support of 8 and CPAP, he seems to be comfortable, was moving good tidal volume in the range of 500, and his rate was in the teens. Hence explained to his legal guardian that the plan to extubate but not to reintubate if the patient fails extubation. Chest x-ray clearly showed bilateral pneumonia. Patient was extubated and placed on BiPAP. Again CODE STATUS has been DO NOT RESUSCITATE all along. Patient is awake and he is following simple instructions he is on Zosyn for aspiration pneumonia. WBC count today is 8.9 hemoglobin is 10.2. Basic metabolic profile is normal BUN is 34 creatinine 1.15 Reevaluated today on 04/24/22, patient was extubated yesterday, tolerated the extubation well, presently on BiPAP 12/6/40%. Patient is receiving IV fluid in the formal 0.9 normal saline at 75 mL per hour. Chest x-ray continues to show bilateral airspace disease, left more so than right. Patient is awake, does not seem to be in any distress, however patient failed his bedside swallow evalua tion, and eventually the patient may need a PEG tube placement if his legal guardian and is agreeable. This is to be decided upon in the next couple of days. In the meantime the patient will remain in the ICU, I have him start transitioned from BiPAP to a nasal cannula and I would recommend a nasogastric tube placement to start tube feeding. In the meantime remains on antibiotics and definitely nothing by mouth CBC is relatively normal basic metabolic profile is normal and his renal functioning is improving creatinine is down to 1.20 from 1.35 yesterday. Reevaluated today on 04/25/22, patient remains extubated, however his chest x-ray this morning showed complete opacification of the left lung with tracheal deviation to the ipsilateral side. Hence this is consistent with mucous pluggin g involving the left mainstem bronchus. Patient seems to be gurgling with secretions he has a weak cough, and unable to clear his secretions. Remains on few liters nasal cannula with good saturations. However patient seems to be agitated, and gurgling with secretions. After reviewing the chest x-ray, I discussed his condition with his legal guardian and discussed the option of bronchoscopy and the patient will need to be intubated for the bronchoscopy and may be kept on mechanical ventilation overnight. I also discussed the option of comfort care measures with the legal guardian. She prefers to go ahead and proceed with a bronchoscopy and cleared up his left lung, and decisions will be made down the line regarding further care, she is very well aware that the patient may have to have a PEG tube placement. Patient had recurrent aspiration pneumonias for quite some time, and I believe it is about time that we should consider PEG tube placement in this patient. This is to be decided upon hopefully in the next 24-48 hours. Today I went ahead and bronchoscope the patient, cleaned up his mucus plugging from the left mainstem bronchus. And I kept him on mechanical ventilation post bronchoscopy. Chest x-ray showed significant improvement but not completely cleared specially the left lower lobe continues to have opacity and possible distal mucus plugging. Labs today showed WBC count of 7 hemoglobin 8.7 and left. Normal renal profile is normal Objective - Vital Signs Vital signs: Vital Signs Temp 98.5 F 04/25/22 08:00 Pulse 58 L 04/25/22 10:00 Resp 20 04/25/22 10:00 BP 78/44 04/25/22 10:00 Pulse Ox 92 L 04/25/22 10:00 FiO2 40 04/25/22 10:00 Intake & Output 04/24/22 04/25/22 04/25/22 18:59 06:59 18:59 Intake Total 1280 1520 825.13 Output Total 450 605 125 Balance 830 915 700.13 Weight 64.8 kg 65 kg Intake: IV 900 1020 740 Diltiazem 125 mg In 20 15 Sodium Chloride 0.9% 100 ml @ 10 MG/HR 10 mls/hr IV .[id number] [facility] Rx#: [id number] Piperacillin-Tazobactam 3 100 .375 gm In Sodium Chloride 0.9% 100 ml @ 25 mls/hr IVPB Q8HR [facility] Rx# :[id number] Sodium Chloride 0.9% 1, 900 900 725 000 ml @ 75 mls/hr IV . [id number] [facility] Rx#:[id number] Intake, IV Titration 200 35.13 Amount ACETAMINOPHEN IV (For NPO 100 ) 1,000 mg In Empty Bag 1 bag @ 400 mls/hr IVPB Q6H [facility] Rx#:[id number] Diltiazem 125 mg In 35 Sodium Chloride 0.9% 100 ml @ 10 MG/HR 10 mls/hr IV .[id number] [facility] Rx#: [id number] Piperacillin-Tazobactam 3 100 .375 gm In Sodium Chloride 0.9% 100 ml @ 25 mls/hr IVPB Q8HR [facility] Rx# :[id number] propofoL 1,000 mg In 0.13 Empty Bag 1 bag @ 5 MCG/ KG/MIN 1.95 mls/hr IV . Q24H [facility] Rx#:[id number] Tube Feeding 180 410 50 Other 90 Output: Urine 450 605 125 Other: Voiding Method Indwelling Catheter Indwelling Catheter - Exam Physical Exam: Revealed 77-year-old white male,, patient looks frail and chronically ill. On 2 L nasal cannula, gurgling with secretions, quite anxious. Head: Atraumatic, normocephalic. HEENT:[Neck is supple.] [No neck masses.] [No thyromegaly.] [No JVD.] Chest: [Symmetrical expansion, rhonchi bilaterally. Cardiac Exam: [Normal S1 and S2, no S3 gallop, no murmur.] Abdomen: [Soft, nontender, no megaly, no rebound, no guarding, normal bowel sounds.] Extremities: [No clubbing, no edema, no cyanosis.] Neurological Exam: Patient is awake, bit anxious, follows simple instructions. Psychiatric: Anxious mood and flat affect, confused. Skin: No rashes - Labs CBC & Chem 7: 04/25/22 05:40 04/25/22 05:40 Labs: Abnormal Lab Results - Last 24 Hours (Table) 04/24/22 04/25/22 04/25/22 Range/Units 23:46 00:40 05:40 RBC 2.84 L (4.30-5.90) m/uL Hgb 8.7 L (13.0-17.5) gm/dL Hct 27.8 L (39.0-53.0) % BUN 22 H (9-20) mg/dL Glucose 124 H (74-99) mg/dL POC Glucose (mg/dL) 147 H (70-110) mg/dL Calcium 8.1 L (8.4-10.2) mg/dL Total Protein (6.3-8.2) g/dL Albumin (3.5-5.0) g/dL 04/25/22 04/25/22 Range/Units 05:40 06:18 RBC (4.30-5.90) m/uL Hgb (13.0-17.5) gm/dL Hct (39.0-53.0) % BUN 21 H (9-20) mg/dL Glucose 120 H (74-99) mg/dL POC Glucose (mg/dL) 132 H (70-110) mg/dL Calcium 8.2 L (8.4-10.2) mg/dL Total Protein 4.7 L (6.3-8.2) g/dL Albumin 2.4 L (3.5-5.0) g/dL Microbiology - Last 24 Hours (Table) 04/22/22 20:08 Gram Stain - Final Sputum Sputum Culture - Preliminary 04/22/22 14:38 Blood Culture - Preliminary Blood No Growth after 48 hours 04/22/22 10:30 Gram Stain - Final Sputum Sputum Culture - Final Assessment and Plan Assessment: Impression: Left lung collapse/opacification secondary to mucous plugging involving the left mainstem bronchus Acute hypoxic respiratory failure secondary to aspiration pneumonia, required intubation on his initial presentation extubated 2 days ago, tolerated the extubation well until he developed mucous plugs in the left mainstem bronchus and left lung collapse requiring bronchoscopy on 04/25/22 to and clearing of the mucous plugs. Recurrent episodes of aspiration pneumonia last episode was on 01/10/22 History of failed swallow evaluation History of underlying COPD History of diastolic congestive heart failure History of underlying dementia History of hypothyroidism Benign essential hypertension. Recommendation: Patient underwent a bronchoscopy after intubation, lavage of the left lung was done, extraction of mucous plugs, was done from the left mainstem bronchus. Significant improvement of chest x-ray was noted post bronchoscopy Continue ventilatory support for the next 24 hours and based on chest x-ray findings beside whether the patient could be extubated. Consider PEG tube placement , however this is to be discussed with the legal guardian again Continue DuoNeb updrafts 4 times a day and when necessary Continue antibiotics for aspiration pneumonia. Patient is on Zosyn, cultures from the BAL are pending Continue GI and DVT prophylaxis Monitor electrolytes Continue to monitor in the ICU Patient remains critically ill. Critical care time is over 30 minutes not including the time spent on procedures. Time with Patient: Greater than 30
--- NOTE | 2022-04-25 11:15 | P.PN ---
Subjective HISTORY OF PRESENTING ILLNESS Patient is a 77-year-old male with history of hypothyroidism, depression, hypertension, COPD, recurrent aspiration who presents secondary to respiratory distress. Patient apparently lives at the adult foster care facility and has had recurrent admissions for aspiration. Previous workup has shown aspiration with recommendations for aspiration precautions however appears he will go home and eat a normal diet. Patient currently with NG tube in place and having gurgling in unable to clear his secretions. Cardiology was consult date for episode of irregular rhythm concerning for atrial fibrillation overnight. On review of telemetry EKG shows sinus rhythm with frequent PACs and no evidence of atrial fibrillation. Initial EKG shows sinus tachycardia, normal axis, minimal ST depressions. Blood work shows white blood cell count 16.6, hemoglobin 10.6, dimer 1.9, creatinine 1.1, lactic acid 2.8, proBNP 1200, pro-calcitonin 0.99. During his PACs patient's potassium was noted to be 2.9. 04/25 Patient seen and examined. Patient had worsening respiratory distress yesterday and was intubated. He was noted to have atrial fibrillation with mild RVR heart rates in the 120s to 140s. He was placed on Cardizem drip. He converted back to sinus rhythm and heart rates currently in the 70s and Cardizem drip was discontinued. Receiving IV fluids. Currently on ventilator 40% FiO2 and PEEP of 5. He also underwent bronchoscopy with improvement in the left lung. PHYSICAL EXAMINATION Vital signs reviewed. CONSTITUTIONAL: No apparent distress, ill appearing, unable to clear secretions HEENT: Head is normocephalic. Pupils are equal, round. Sclerae anicteric. Mucous membranes of the mouth are moist. No JVD. No carotid bruit. CHEST EXAMINATION: Bilateral rhonchi HEART EXAMINATION: Regular rate and rhythm. S1, S2 heard. No murmurs, gallops or rub. ABDOMEN: Soft, nontender. Positive bowel sounds. EXTREMITIES: 2+ peripheral pulses, no lower extremity edema and no calf tenderness. NEUROLOGIC EXAMINATION: Patient is awake, alert and oriented x3. ASSESSMENT 1. Aspiration pneumonia, s/p bronch 2. Acute on chronic respiratory failure related to aspiration 3. Paroxysmal atrial fibrillation with episode 04/24 for approximately 45 mins 4. Hypokalemia 5. Hypertension PLAN Previously EKG showed more frequent PACs however episode overnight that showed atrial fibrillation. Patient with only brief episode of A. fib as well as anemia and multiple comorbidities with possibility of PEG tube down the line. We will hold anticoagulation however if has recurrent A. fib episodes and hemoglobin stable we will start anticoagulation. Continue with metoprolol 25 twice a day and Cardizem drip as needed. Objective - Vital Signs Vital signs: Vital Signs Temp 98.5 F 04/25/22 08:00 Pulse 58 L 04/25/22 10:00 Resp 20 04/25/22 10:00 BP 78/44 04/25/22 10:00 Pulse Ox 92 L 04/25/22 10:00 FiO2 40 04/25/22 10:59 Intake & Output 04/24/22 04/25/22 04/25/22 18:59 06:59 18:59 Intake Total 1280 1520 825.13 Output Total 450 605 125 Balance 830 915 700.13 Weight 64.8 kg 65 kg Intake: IV 900 1020 740 Diltiazem 125 mg In 20 15 Sodium Chloride 0.9% 100 ml @ 10 MG/HR 10 mls/hr IV .[id number] [facility] Rx#: [id number] Piperacillin-Tazobactam 3 100 .375 gm In Sodium Chloride 0.9% 100 ml @ 25 mls/hr IVPB Q8HR [facility] Rx# :[id number] Sodium Chloride 0.9% 1, 900 900 725 000 ml @ 75 mls/hr IV . [id number] [facility] Rx#:[id number] Intake, IV Titration 200 35.13 Amount ACETAMINOPHEN IV (For NPO 100 ) 1,000 mg In Empty Bag 1 bag @ 400 mls/hr IVPB Q6H [facility] Rx#:[id number] Diltiazem 125 mg In 35 Sodium Chloride 0.9% 100 ml @ 10 MG/HR 10 mls/hr IV .[id number] [facility] Rx#: [id number] Piperacillin-Tazobactam 3 100 .375 gm In Sodium Chloride 0.9% 100 ml @ 25 mls/hr IVPB Q8HR [facility] Rx# :[id number] propofoL 1,000 mg In 0.13 Empty Bag 1 bag @ 5 MCG/ KG/MIN 1.95 mls/hr IV . Q24H [facility] Rx#:[id number] Tube Feeding 180 410 50 Other 90 Output: Urine 450 605 125 Other: Voiding Method Indwelling Catheter Indwelling Catheter - Labs CBC & Chem 7: 04/25/22 05:40 04/25/22 05:40 Labs: Abnormal Lab Results - Last 24 Hours (Table) 04/24/22 04/25/22 04/25/22 Range/Units 23:46 00:40 05:40 RBC 2.84 L (4.30-5.90) m/uL Hgb 8.7 L (13.0-17.5) gm/dL Hct 27.8 L (39.0-53.0) % ABG pCO2 (35-45) mmHg ABG pO2 (83-108) mmHg ABG HCO3 (21-25) mmol/L ABG Total CO2 (19-24) mmol/L ABG O2 Saturation (94-97) % BUN 22 H (9-20) mg/dL Glucose 124 H (74-99) mg/dL POC Glucose (mg/dL) 147 H (70-110) mg/dL Calcium 8.1 L (8.4-10.2) mg/dL Total Protein (6.3-8.2) g/dL Albumin (3.5-5.0) g/dL 04/25/22 04/25/22 04/25/22 Range/Units 05:40 06:18 10:55 RBC (4.30-5.90) m/uL Hgb (13.0-17.5) gm/dL Hct (39.0-53.0) % ABG pCO2 47 H (35-45) mmHg ABG pO2 64 L (83-108) mmHg ABG HCO3 27 H (21-25) mmol/L ABG Total CO2 29 H (19-24) mmol/L ABG O2 Saturation 93.8 L (94-97) % BUN 21 H (9-20) mg/dL Glucose 120 H (74-99) mg/dL POC Glucose (mg/dL) 132 H (70-110) mg/dL Calcium 8.2 L (8.4-10.2) mg/dL Total Protein 4.7 L (6.3-8.2) g/dL Albumin 2.4 L (3.5-5.0) g/dL Microbiology - Last 24 Hours (Table) 04/22/22 20:08 Gram Stain - Final Sputum Sputum Culture - Preliminary 04/22/22 14:38 Blood Culture - Preliminary Blood No Growth after 48 hours 04/22/22 10:30 Gram Stain - Final Sputum Sputum Culture - Final
--- NOTE | 2022-04-25 12:01 | OP ---
OPERATIVE REPORT PROCEDURE: Therapeutic bronchoscopy and bronchoalveolar lavage of left lung, extraction of mucus plugs from the left mainstem bronchus. ANESTHESIA USED: The patient received 50 mg of propofol, succinylcholine 75 mg, and Dilaudid 1 mg IV push. DESCRIPTION OF PROCEDURE: The patient was placed in a supine position, after adequate sedation, the patient was intubated using the GlideScope, and a size 8 endotracheal tube was placed in the airways and connected to an Ambu bag. In the meantime, we were monitoring his O2 saturation continuously, blood pressure was intermittently monitored, and cardiac rhythm was continuously monitored. While the patient was Ambu bagged, the bronchoscope/disposable bronchoscope was advanced through the endotracheal tube all the way down to the distal end of the endotracheal tube, and I was able to visualize complete obstruction of the left mainstem bronchus with mucus plugs. The right side was noted to have some secretions, but they were easily suctioned. Then, the bronchoscope was placed in the left mainstem bronchus, and I was able to lavage the left mainstem bronchus until the mucus plugs were suctioned and extracted completely out of the left mainstem bronchus. Then, more lavage was done of the left upper lobe, lingula, and left lower lobe, until all the airways were clear. The fluid was slightly purulent and tenacious. It was sent for different diagnostic studies/cultures. Procedure was well tolerated, however, considering the patient had that much secretions, I decided to keep the patient on the ventilator overnight, and reassess whether he needs a repeat bronchoscopy in the morning. Chest x-ray was ordered postoperatively. ADDENDUM: Before the bronchoscopy was done, I discussed his condition with his legal guardian, and agreed over the phone to go ahead and proceed with the bronchoscopy while the patient is intubated, and she was made aware that the patient may be left on mechanical ventilation, although he has a DNR code status. The patient remains DNR, and I believe the issue of possible PEG tube placement would have to be addressed in the next 24 hours with the legal guardian again. Verbal consent was obtained over the phone from the legal guardian before the bronchoscopy was performed. MMMALICKL / IJN: [id number] /
[2022-04-25 14:50] LABS: Glucose,Whole Blood 139 mg/dL (70-110)
--- NOTE | 2022-04-25 16:51 | OP ---
OPERATIVE REPORT PROCEDURES PERFORMED: Intubation and mechanical ventilation prior to bronchoscopy. The procedure was mostly done by nurse practitioner, Ja Hancock, and I was supervising the intubation. INDICATIONS FOR PROCEDURE: Impending respiratory failure secondary to mucus plugging of the left mainstem bronchus and left lung collapse. The patient needed therapeutic bronchoscopy and lavage of the left lung. POSTOPERATIVE DIAGNOSIS: Impending respiratory failure secondary to mucus plugging of the left mainstem bronchus and left lung collapse. The patient needed therapeutic bronchoscopy and lavage of the left lung. ANESTHESIA USED: The patient was given propofol 50 mg IV push, succinylcholine 75 mg IV push, and Dilaudid 1 mg IV push. DESCRIPTION OF PROCEDURE: The patient was placed in the supine position, and the medications were given prior to intubation. Then, using a GlideScope, the vocal cords were visualized. The upper airways were suctioned until secretions were cleared, and there were a significant amount of purulent secretions. The vocal cords were visualized, and a size 8.0 endotracheal tube was inserted through the vocal cords, and upon entering the vocal cords, the cuff was inflated. There was a color change noted, and good breath sounds noted bilaterally. The patient was Ambu bagged before connected to mechanical ventilation. The procedure was well tolerated. No complications. MMODL / IJN: [id number] /
[2022-04-25 18:40] LABS: Glucose,Whole Blood 137 mg/dL (70-110)
[2022-04-25] MEDS: CHLORHEXIDINE GLUCONATE 15 ML CUP MUCOUS MEM SCH (21:22)
[2022-04-25] MEDS: MELATONIN 5 MG TABLET PO SCH (21:22)
[2022-04-25] MEDS: PARoxetine 20 MG TAB PO SCH (21:23)
[2022-04-26] MEDS: DILTIAZEM 125 MG in SODIUM CHLORIDE 0.9% 100 ML IV SCH (03:35)
[2022-04-26] MEDS: SODIUM CHLORIDE 0.9% 1,000 ML IV SCH ×2 (05:26→09:30)
[2022-04-26 06:04] LABS: Basophils % (A) 0 %; Eosinophils # (A) 0.2 k/uL (0-0.7); Eosinophils % (A) 5 %; HCT 24.9 % (39.0-53.0); HGB 7.7 gm/dL (13.0-17.5); Hypochromasia Moderate; Lymphocytes # (A) 1.1 k/uL (1.0-4.8); Lymphocytes % (A) 24 %; MCH 30.7 pg (25.0-35.0); MCHC 30.8 g/dL (31.0-37.0); MCV 99.7 fL (80.0-100.0); Monocytes # (A) 0.3 k/uL (0-1.0); Monocytes % (A) 5 %; Neutrophils % (A) 63 %; Platelet Count 228 k/uL (150-450); RDW 14.6 % (11.5-15.5); WBC 4.7 k/uL (3.8-10.6)
[2022-04-26 06:18] LABS: Glucose,Whole Blood 130 mg/dL (70-110)
[2022-04-26 06:29] LABS: Potassium 3.6 mmol/L (3.5-5.1)
--- NOTE | 2022-04-26 07:10 | P.PN ---
Subjective Progress Note Date: 04/26/22 Principal diagnosis: Paroxysmal atrial fibrillation This is a 77-year-old gentleman who was admitted to the hospital from an extended care facility with respiratory distress where he was intubated and placed on mechanical ventilation and he was diagnosed with aspiration pneumonia. We involved in the care of the patient because of one a brief episode of atrial fibrillation. The patient was seen this morning. He continues to be intubated on mechanical ventilation. He has been maintaining sinus rhythm. No established history of paroxysmal atrial fibrillation based on the previous medical records. When the patient was seen and evaluated by our service yesterday when he started to not consider anticoagulation at this point because it was only one brief episode but if the patient develop any more episode of atrial fibrillation we would consider starting him on oral anticoagulation. At this point he is on metoprolol 25 mg twice daily which we will continue. Continue monitor the hemoglobin and kidney function Objective - Vital Signs Vital signs: Vital Signs Temp 98.0 F 04/26/22 04:00 Pulse 88 04/26/22 06:00 Resp 17 04/26/22 06:00 BP 94/69 04/26/22 06:00 Pulse Ox 99 04/26/22 06:00 FiO2 40 04/26/22 04:00 Intake & Output 04/25/22 04/26/22 04/26/22 18:59 06:59 18:59 Intake Total 2597.905 1093.263 Output Total 325 402 Balance 2272.905 691.263 Weight 67.5 kg Intake: IV 1940 850 Diltiazem 125 mg In 15 Sodium Chloride 0.9% 100 ml @ 10 MG/HR 10 mls/hr IV .[id number] [facility] Rx#: [id number] Piperacillin-Tazobactam 3 100 100 .375 gm In Sodium Chloride 0.9% 100 ml @ 25 mls/hr IVPB Q8HR [facility] Rx# :[id number] Sodium Chloride 0.9% 1, 1825 750 000 ml @ 75 mls/hr IV . [id number] [facility] Rx#:[id number] Intake, IV Titration 82.905 148.263 Amount Diltiazem 125 mg In 35 Sodium Chloride 0.9% 100 ml @ 10 MG/HR 10 mls/hr IV .[id number] [facility] Rx#: [id number] propofoL 1,000 mg In 47.905 148.263 Empty Bag 1 bag @ 5 MCG/ KG/MIN 1.95 mls/hr IV . Q24H [facility] Rx#:[id number] Tube Feeding 515 95 Other 60 Output: Urine 325 402 Other: Voiding Method Indwelling Catheter Indwelling Catheter # Bowel Movements 1 0 - Constitutional General appearance: Present: no acute distress - Respiratory Respiratory: bilateral: diminished - Cardiovascular Rhythm: regular - Labs CBC & Chem 7: 04/26/22 05:29 04/26/22 05:29 Labs: Abnormal Lab Results - Last 24 Hours (Table) 04/25/22 04/25/22 04/25/22 Range/Units 10:55 14:48 18:38 RBC (4.30-5.90) m/uL Hgb (13.0-17.5) gm/dL Hct (39.0-53.0) % MCHC (31.0-37.0) g/dL ABG pCO2 47 H (35-45) mmHg ABG pO2 64 L (83-108) mmHg ABG HCO3 27 H (21-25) mmol/L ABG Total CO2 29 H (19-24) mmol/L ABG O2 Saturation 93.8 L (94-97) % BUN (9-20) mg/dL Glucose (74-99) mg/dL POC Glucose (mg/dL) 139 H 137 H (70-110) mg/dL Calcium (8.4-10.2) mg/dL 04/26/22 04/26/22 04/26/22 Range/Units 05:29 05:29 06:17 RBC 2.50 L (4.30-5.90) m/uL Hgb 7.7 L (13.0-17.5) gm/dL Hct 24.9 L (39.0-53.0) % MCHC 30.8 L (31.0-37.0) g/dL ABG pCO2 (35-45) mmHg ABG pO2 (83-108) mmHg ABG HCO3 (21-25) mmol/L ABG Total CO2 (19-24) mmol/L ABG O2 Saturation (94-97) % BUN 21 H (9-20) mg/dL Glucose 139 H (74-99) mg/dL POC Glucose (mg/dL) 130 H (70-110) mg/dL Calcium 8.0 L (8.4-10.2) mg/dL Microbiology - Last 24 Hours (Table) 04/22/22 14:38 Blood Culture - Preliminary Blood No Growth after 72 hours 04/22/22 20:08 Gram Stain - Final Sputum Sputum Culture - Preliminary Assessment and Plan Assessment: Assessment #1 aspiration pneumonia status post bronchoscopy #2 acute on chronic hypoxic respiratory failure secondary to the above #3 one episode appears to be brief of atrial fibrillation. Currently the patient is a sinus rhythm Plan #1 continue the current dose of metoprolol #2 continue monitor the heart rate and blood pressure #3 consider oral anticoagulation if the patient develops any more episodes of atrial fibrillation #4 consider switching the patient to amiodarone if the pressure started to be down below 90 mmHg systolic #5 follow-up with the patient
[2022-04-26] MEDS ORDERED: POTASSIUM BICARBONATE/CIT AC 20 MEQ TABLET.EFF NG-TUBE ONE (07:30)
[2022-04-26] MEDS: IPRATROPIUM-ALBUTEROL 3 ML NEB INHALATION SCH ×3 (07:40→19:44)
--- NOTE | 2022-04-26 07:42 | XR ---
EXAMINATION TYPE: XR chest 1V portable DATE OF EXAM: 04/26/2022 6:13 AM COMPARISON: Chest radiographs from 04/25/2022 TECHNIQUE: XR chest 1V portable Frontal view of the chest. CLINICAL INDICATION:Male, 77 years old with history of Tube placement; FINDINGS: Lungs/Pleura: Persistent left lower lobe airspace consolidation changes. Pulmonary vascularity: Unremarkable. Heart/mediastinum: Cardiomediastinal silhouette is unremarkable. Musculoskeletal: No acute osseous pathology. Other findings: None Lines/Tubes: Endotracheal tube with distal tip 4.5 cm above the donnie Nasogastric tube with its distal tip and side-port projecting under the diaphragm. IMPRESSION: 1. Similar left lower lobe airspace opacification. 2. Support lines and tubes in appropriate position.
[2022-04-26] MEDS: CYANOCOBALAMIN 500 MCG TAB PO SCH (07:47)
[2022-04-26] MEDS: LACTULOSE 20 GM/30 ML CUP PO SCH (07:48)
[2022-04-26] MEDS: CHOLECALCIFEROL 25 MCG (1000 IU) TABLET PO SCH ×2 (07:48→17:22)
[2022-04-26] MEDS: ASPIRIN 81 MG PO SCH (07:48)
[2022-04-26] MEDS: LEVOTHYROXINE 25 MCG TAB PO SCH (07:49)
[2022-04-26] MEDS: METOPROLOL TARTRATE 25 MG TAB PO SCH ×2 (07:54→17:22)
[2022-04-26 08:13] LABS: Reticulocyte % 1.6 % (0.5-2.0)
[2022-04-26 08:24] LABS: ABG Base Excess 3.7 mmol/L; ABG HCO3 29 mmol/L (21-25); ABG Oxygen Saturation 99.5 % (94-97); ABG PCO2 46 mmHg (35-45); ABG PO2 161 mmHg (83-108); ABG TCO2 30 mmol/L (19-24); Allen Test Performed? Yes
[2022-04-26] MEDS: CHLORHEXIDINE GLUCONATE 15 ML CUP MUCOUS MEM SCH ×2 (09:37→20:28)
[2022-04-26] MEDS: PANTOPRAZOLE 40 MG/10 ML VIAL IVP SCH (09:37)
[2022-04-26] MEDS: ASCORBIC ACID 500 MG TAB PO SCH (09:37)
[2022-04-26] MEDS: ZINC SULFATE 220 MG CAP PO SCH (09:37)
[2022-04-26] MEDS: ENOXAPARIN 40 MG/0.4 ML SYRINGE SQ SCH (09:38)
[2022-04-26] MEDS: PIPERACILLIN-TAZOBACTAM 3.375 GM in SODIUM CHLORIDE 0.9% 100 ML IVPB SCH ×3 (09:38→23:53)
[2022-04-26] MEDS: PHENAZOPYRIDINE 200 MG TAB PO SCH (09:40)
[2022-04-26] MEDS: HYDROmorphone 0.5 MG/0.5 ML SYRINGE IVP PRN ×3 (09:42→20:19)
[2022-04-26] MEDS ORDERED: guaiFENesin SYRUP 100MG/5ML 200 MG/10 ML CUP PO SCH (10:00)
--- NOTE | 2022-04-26 10:03 | P.PN ---
Subjective Progress Note Date: 04/26/22 Principal diagnosis: Respiratory failure. Reevaluated today on 04/24/22, patient was extubated yesterday, tolerated the extubation well, presently on BiPAP 12//40%. Patient is receiving IV fluid in the formal 0.9 normal saline at 75 mL per hour. Chest x-ray continues to show b ilateral airspace disease, left more so than right. Patient is awake, does not seem to be in any distress, however patient failed his bedside swallow evaluation, and eventually the patient may need a PEG tube placement if his legal guardian and is agreeable. This is to be decided upon in the next couple of days. In the meantime the patient will remain in the ICU, I have him start transitioned from BiPAP to a nasal cannula and I would recommend a nasogastric tube placement to start tube feeding. In the meantime remains on antibiotics and definitely nothing by mouth CBC is relatively normal basic metabolic profile is normal and his renal functioning is improving creatinine is down to 1.20 from 1.35 yesterday. Reevaluated today on 04/25/22, patient remains extubated, however his chest x-ray this morning showed complete opacification of the left lung with tracheal deviation to the ipsilateral side. Hence this is consistent with mucous plugging involving the left mainstem bronchus. Patient seems to be gurgling with secretions he has a weak cough, and unable to clear his secretions. Remains on few liters nasal cannula with good saturations. However patient seems to be agitated, and gurgling with secretions. After reviewing the chest x-ray, I discussed his condition with his legal guardian and discussed the option of bronchoscopy and the patient will need to be intubated for the bronchoscopy and may be kept on mechanical ventilation overnight. I also discussed the option of comfort care measures with the legal guardian. She prefers to go ahead and proceed with a bronchoscopy and cleared up his left lung, and decisions will be made down the line regarding further care, she is very well aware that the patient may have to have a PEG tube placement. Patient had recurrent aspiration pneumonias for quite some time, and I believe it is about time that we should consider PEG tube placement in this patient. This is to be decided upon hopefully in the next 24-48 hours. Today I went ahead and bronchoscope the patient, cleaned up his mucus plugging from the left mainstem bronchus. And I kept him on mechanical ventilation post bronchoscopy. Chest x- ray showed significant improvement but not completely cleared specially the left lower lobe continues to have opacity and possible distal mucus plugging. Labs today showed WBC count of 7 hemoglobin 8.7 and left. Normal renal profile is normal Progress note dated 04/26/2022. This is a patient was admitted on April 22 for aspiration pneumonia. The patient was intubated on April 22, respiratory failure, and subsequently extubated the following day on April 23. Yesterday, the chest x-ray showed complete collapse of the left lung, and the patient was electively intubated again for bronchoscopy. He remains on the ventilator. The patient is on volume assist control, rate 20, tidal volume 400, FiO2 40%, and PEEP of 5. Her blood gases show pO2 161, pCO2 46, and a pH is 7.4. FiO2 was reduced down to 30%. The patient's on propofol at 35 mcg/kg/m, saline at 75 mL an hour Jevity 55 mL an hour, which is goal. White count 4.7, hemoglobin 7.7, hematocrit 24.9, with a normal platelet count. Sodium 138, potassium 3.6, chlorides 106, CO2 27, urine 21, creatinine 0.97. Microbiologic studies are currently pending. The patient is on Zosyn empirically. Chest x-ray shows improved aeration to the left lung, with some residual infiltrate in the left mid lung and left lower lobe. Objective - Vital Signs Vital signs: Vital Signs Temp 98.0 F 04/26/22 04:00 Pulse 85 04/26/22 07:50 Resp 20 04/26/22 07:00 BP 132/69 04/26/22 07:00 Pulse Ox 99 04/26/22 07:00 FiO2 30 04/26/22 08:54 Intake & Output 04/25/22 04/26/22 04/26/22 18:59 06:59 18:59 Intake Total 2597.905 1343.263 75 Output Total 325 502 50 Balance 2272.905 841.263 25 Weight 67.5 kg Intake: IV 1940 1100 75 Diltiazem 125 mg In 15 Sodium Chloride 0.9% 100 ml @ 10 MG/HR 10 mls/hr IV .[id number] [facility] Rx#: [id number] Piperacillin-Tazobactam 3 100 200 .375 gm In Sodium Chloride 0.9% 100 ml @ 25 mls/hr IVPB Q8HR [facility] Rx# :[id number] Sodium Chloride 0.9% 1, 1825 900 75 000 ml @ 75 mls/hr IV . [id number] [facility] Rx#:[id number] Intake, IV Titration 82.905 148.263 Amount Diltiazem 125 mg In 35 Sodium Chloride 0.9% 100 ml @ 10 MG/HR 10 mls/hr IV .[id number] [facility] Rx#: [id number] propofoL 1,000 mg In 47.905 148.263 Empty Bag 1 bag @ 5 MCG/ KG/MIN 1.95 mls/hr IV . Q24H [facility] Rx#:[id number] Tube Feeding 515 95 Other 60 Output: Urine 325 502 50 Other: Voiding Method Indwelling Catheter Indwelling Catheter # Bowel Movements 1 0 0 - Exam No acute distress, orally placed endotracheal tube, and an NG tube noted. HEENT examination is grossly unremarkable. Neck supple. Full range of motion. No adenopathy thyromegaly or neck vein distention. Cardiovascular examination reveals regular rhythm rate. S1-S2 normal. No S3 or S4. No discernible murmur noted. Heart sounds are distant. Heart rate 85 bpm. Lungs reveal scattered bilateral rhonchi. No wheezes or crackles. Breath sounds equal bilaterally. Saturations are 99%. Abdomen soft bowel sounds are heard. No masses or tenderness. Extremities are intact. No cyanosis clubbing or edema. Skin is without rash or lesion. Neurologic examination cannot be adequately assessed. - Labs CBC & Chem 7: 04/26/22 05:29 04/26/22 05:29 Labs: Abnormal Lab Results - Last 24 Hours (Table) 04/25/22 04/25/22 04/25/22 Range/Units 10:55 14:48 18:38 RBC (4.30-5.90) m/uL Hgb (13.0-17.5) gm/dL Hct (39.0-53.0) % MCHC (31.0-37.0) g/dL ABG pCO2 47 H (35-45) mmHg ABG pO2 64 L (83-108) mmHg ABG HCO3 27 H (21-25) mmol/L ABG Total CO2 29 H (19-24) mmol/L ABG O2 Saturation 93.8 L (94-97) % BUN (9-20) mg/dL Glucose (74-99) mg/dL POC Glucose (mg/dL) 139 H 137 H (70-110) mg/dL Calcium (8.4-10.2) mg/dL 04/26/22 04/26/22 04/26/22 Range/Units 05:29 05:29 06:17 RBC 2.50 L (4.30-5.90) m/uL Hgb 7.7 L (13.0-17.5) gm/dL Hct 24.9 L (39.0-53.0) % MCHC 30.8 L (31.0-37.0) g/dL ABG pCO2 (35-45) mmHg ABG pO2 (83-108) mmHg ABG HCO3 (21-25) mmol/L ABG Total CO2 (19-24) mmol/L ABG O2 Saturation (94-97) % BUN 21 H (9-20) mg/dL Glucose 139 H (74-99) mg/dL POC Glucose (mg/dL) 130 H (70-110) mg/dL Calcium 8.0 L (8.4-10.2) mg/dL 04/26/22 Range/Units 08:17 RBC (4.30-5.90) m/uL Hgb (13.0-17.5) gm/dL Hct (39.0-53.0) % MCHC (31.0-37.0) g/dL ABG pCO2 46 H (35-45) mmHg ABG pO2 161 H (83-108) mmHg ABG HCO3 29 H (21-25) mmol/L ABG Total CO2 30 H (19-24) mmol/L ABG O2 Saturation 99.5 H (94-97) % BUN (9-20) mg/dL Glucose (74-99) mg/dL POC Glucose (mg/dL) (70-110) mg/dL Calcium (8.4-10.2) mg/dL Microbiology - Last 24 Hours (Table) 04/25/22 09:37 Fungal Culture - Preliminary Bronchial Washings - Left 04/25/22 09:37 Bronchial Washings Culture - Preliminary Bronchial Washings - Left 04/22/22 14:38 Blood Culture - Preliminary Blood No Growth after 72 hours 04/22/22 20:08 Gram Stain - Final Sputum Sputum Culture - Preliminary Assessment and Plan Assessment: Acute hypoxemic respiratory failure, status post intubation on April 22, extubation on April 23, and reintubation on April 25, with bronchoscopy, for left lung collapse. Chronic aspiration pneumonia. Chronic dysphagia. History of COPD. His CHF. History of dementia. History of hypothyroidism. History of essential hypertension. Plan: Plan dated 04/26/2022. I had a long conversation with the patient's court-appointed decision maker. Her name was Marisela. She said today on the phone that the patient would be okay with a feeding tube, but no tracheostomy tube. The plan would be to see we can get a feeding tube placed tomorrow. We will consult one of the surgeons. Afterwards, the patient will hopefully be extubated, but not be reintubated. She is certainly in agreement with that. We continue on antibiotics, and propofol for the time being. The patient's FiO2 was reduced from 40%, down to 30%. Additional recommendations and suggestions are forthcoming. Prognosis is guarded. Medications are reviewed. Unnecessary medications are discontinued. Time with Patient: Greater than 30
--- NOTE | 2022-04-26 10:39 | P.PN ---
Subjective Progress Note Date: 04/26/22 Patient is a 77-year-old male with hypothyroidism, depression, hypertension, and COPD who presented to the ER for hypoxemia. On arrival to the ER patient was satting in the mid 60s despite nonrebreather and was therefore intubated. In the ER an extensive evaluation was done. Laboratory analysis was notable for leukocytosis of 16.6, anemia 10.6, BUN 41, creatinine 1.2 (which is better than baseline), point. Initial coag testing was negative. D-dimer was elevated at 1.9. ABG post intubation showed a pH of 7.1, pCO2 of 58, PaO2 of 248. Chest x- ray showed interstitial opacities. CT angiography of the chest showed diffuse bronchial wall thickening, scattered tree-in-bud opacities as well as groundglass changes and consolidations at the bilateral posterior lung bases with no pulmonary embolism noted, EKG demonstrated sinus tachycardia, and CT brain showed nonspecific degenerative white matter changes with sinusitis and left sided mastoiditis. He was started on Zosyn for possible pneumonia, bronchodilators, steroids, a cultures were obtained. Patient was admitted to the ICU. Pulmonary critical care was consulted. He was extubated on 04/23/22 and placed on BiPap. He developed complete opacification of the left hemithorax on 04/25 requiring intubation and bronchosocopy which revealed mucus plugging. The procedure required re-intubation. Patient seen and examined at bedside. Sedated on vent. Per nursing no significant events overnight. Plan is for PEG tube. General: ill appearing, no distress, appears at stated age Derm: warm, dry Head: atraumatic, normocephalic, symmetric Eyes: EOMI, no lid lag, anicteric sclera Mouth: no lip lesion, mucus membranes dry Cardiovascular: S1S2 reg, no murmur, positive posterior tibial pulse bilateral, Lungs: Course bs bilateral, no rhonchi, no rales , no accessory muscle use, on Vent Abdominal: soft, nontender to palpation, no guarding, no appreciable organomegaly, urine bright orange. Ext: no gross muscle atrophy, trace edema b/l LE, no contractures Neuro: breathing over vent, no tremors, no fasiculations Psych: Sedated on vent Assessment/Plan: Pneumonia with sepsis, probable aspiration Acute hypoxic respiratory failure COPD without exacerbation Lactic acidosis -Zosyn -Await repeat sputum CX, initial was no growth -blood cultures Negative to date -Bronchodilators -Patient was also recently here with pneumonia in January 2022 and was suggest for modified diet after MBS. Recommend speech evaluation after extubation. -Pulmonary recommendations. Parosyxmal A fib - cardio recs - required Dilt gtt for a short time - conitnue metoprolol - will need AC if recurrent episode noted. - check echo Dysphagia - going for PEG now - will need speech eval in AM Hypertension - low normal - follow BP - Hold aldactone/HCTZ, - continue metoprolol Anemia, at baseline - follow CBC - outpatient follow-up - continue with iron Cognitive impairment -Safe and supportive environment Chronic: Depression Hypothyroidism DVT prophylaxis: SCDs Discussed with: Patient, nursing Anticipated discharge: pending clinical course Anticipated discharge place: pending clinical course A total of 37 minutes was spent on the care of this complex patient more than 50% of the time was spent in counseling and care coordination. Active Medications Generic Name Dose Route Start Last Admin Trade Name Freq PRN Reason Stop Dose Admin Albuterol/Ipratropium 3 ml 04/22/22 14:28 Ipratropium-Albuterol 3 Ml Neb INHALATION RT-Q2H PRN Shortness Of Breath Or Wheezing Albuterol/Ipratropium 3 ml 04/22/22 20:00 04/26/22 07:40 Ipratropium-Albuterol 3 Ml Neb INHALATION 3 ml RT-TID [facility] Administration Ascorbic Acid 500 mg 04/23/22 09:00 04/26/22 09:37 Ascorbic Acid 500 Mg Tab PO 500 mg DAILY [facility] Administration Aspirin 81 mg 04/23/22 07:00 04/26/22 07:48 Aspirin 81 Mg PO 81 mg DAILY@0700 [facility] Administration Chlorhexidine Gluconate 15 ml 04/25/22 21:00 04/26/22 09:37 Chlorhexidine Gluconate 15 Ml Cup MUCOUS MEM 15 ml BID [facility] Administration Cholecalciferol 25 mcg 04/22/22 17:00 04/26/22 07:48 Cholecalciferol 25 Mcg (1000 Iu) Tablet PO 25 mcg BID@0700,1700 [facility] Administration Cyanocobalamin 1,000 mcg 04/23/22 07:00 04/26/22 07:47 Cyanocobalamin 500 Mcg Tab PO 1,000 mcg DAILY@0700 [facility] Administration Docusate Sodium 100 mg 04/22/22 14:50 Docusate 100 Mg Cap PO DAILY PRN Constipation Enoxaparin Sodium 40 mg 04/22/22 14:45 04/26/22 09:38 Enoxaparin 40 Mg/0.4 Ml Syringe SQ 40 mg DAILY [facility] Administration Ferrous Sulfate 325 mg 04/23/22 09:00 04/25/22 10:02 Ferrous Sulfate 325 Mg Tab PO Not Given Q48H [facility] Hydromorphone HCl 0.25 mg 04/23/22 13:24 04/26/22 09:42 Hydromorphone 0.5 Mg/0.5 Ml Syringe IVP 0.25 mg Q3HR PRN Administration Pain Piperacillin Sod/Tazobactam 100 mls @ 25 mls/hr 04/22/22 16:00 04/26/22 09:38 Sod 3.375 gm/ Sodium Chloride IVPB 25 mls/hr Q8HR [facility] Administration Protocol Sodium Chloride 1,000 mls @ 75 mls/hr 04/22/22 14:30 04/26/22 09:30 Saline 0.9% IV 75 mls/hr .[id number] [facility] Administration Propofol 1,000 mg/ IV Solution 100 mls @ 1.95 mls/hr 04/25/22 08:45 04/26/22 06:00 IV 35 mcg/kg/min .Q24H [facility] 13.65 mls/hr Titration Protocol 5 MCG/KG/MIN Lactulose 20 gm 04/23/22 07:00 04/26/22 07:48 Lactulose 20 Gm/30 Ml Cup PO Not Given DAILY@0700 [facility] Levothyroxine Sodium 25 mcg 04/23/22 07:00 04/26/22 07:49 Levothyroxine 25 Mcg Tab PO 25 mcg DAILY@0700 [facility] Administration Metoprolol Tartrate 25 mg 04/22/22 17:00 04/26/22 07:54 Metoprolol Tartrate 25 Mg Tab PO Not Given BID@0700,1700 [facility] Miscellaneous Information 1 each 04/23/22 22:43 Potassium Replacement Protocol 1 Each Mis MISCELLANE DAILY PRN Per Protocol Protocol Miscellaneous Information 1 each 04/23/22 22:43 Magnesium Replacement Protocol 1 Each [facility] [place] DAILY PRN Per Protocol Protocol Naloxone HCl 0.2 mg 04/22/22 13:40 Naloxone 0.4 Mg/Ml 1 Ml Vial IV Q2M PRN Opioid Reversal Pantoprazole Sodium 40 mg 04/22/22 14:45 04/26/22 09:37 Pantoprazole 40 Mg/10 Ml Vial IVP 40 mg DAILY [facility] Administration Paroxetine HCl 40 mg 04/22/22 21:00 04/25/22 21:23 Paroxetine 20 Mg Tab PO 40 mg HS@2100 [facility] Administration Objective - Vital Signs Vital signs: Vital Signs Temp 98.0 F 04/26/22 04:00 Pulse 85 04/26/22 07:50 Resp 20 04/26/22 07:00 BP 132/69 04/26/22 07:00 Pulse Ox 99 04/26/22 07:00 FiO2 30 04/26/22 08:54 Intake & Output 04/25/22 04/26/22 04/26/22 18:59 06:59 18:59 Intake Total 2597.905 1343.263 75 Output Total 325 502 50 Balance 2272.905 841.263 25 Weight 67.5 kg Intake: IV 1940 1100 75 Diltiazem 125 mg In 15 Sodium Chloride 0.9% 100 ml @ 10 MG/HR 10 mls/hr IV .[id number] [facility] Rx#: [id number] Piperacillin-Tazobactam 3 100 200 .375 gm In Sodium Chloride 0.9% 100 ml @ 25 mls/hr IVPB Q8HR [facility] Rx# :[id number] Sodium Chloride 0.9% 1, 1825 900 75 000 ml @ 75 mls/hr IV . [id number] [facility] Rx#:[id number] Intake, IV Titration 82.905 148.263 Amount Diltiazem 125 mg In 35 Sodium Chloride 0.9% 100 ml @ 10 MG/HR 10 mls/hr IV .[id number] [facility] Rx#: [id number] propofoL 1,000 mg In 47.905 148.263 Empty Bag 1 bag @ 5 MCG/ KG/MIN 1.95 mls/hr IV . Q24H [facility] Rx#:[id number] Tube Feeding 515 95 Other 60 Output: Urine 325 502 50 Other: Voiding Method Indwelling Catheter Indwelling Catheter # Bowel Movements 1 0 0 - Labs CBC & Chem 7: 04/26/22 05:29 04/26/22 05:29 Labs: Abnormal Lab Results - Last 24 Hours (Table) 04/25/22 04/25/22 04/25/22 Range/Units 10:55 14:48 18:38 RBC (4.30-5.90) m/uL Hgb (13.0-17.5) gm/dL Hct (39.0-53.0) % MCHC (31.0-37.0) g/dL ABG pCO2 47 H (35-45) mmHg ABG pO2 64 L (83-108) mmHg ABG HCO3 27 H (21-25) mmol/L ABG Total CO2 29 H (19-24) mmol/L ABG O2 Saturation 93.8 L (94-97) % BUN (9-20) mg/dL Glucose (74-99) mg/dL POC Glucose (mg/dL) 139 H 137 H (70-110) mg/dL Calcium (8.4-10.2) mg/dL 04/26/22 04/26/22 04/26/22 Range/Units 05:29 05:29 06:17 RBC 2.50 L (4.30-5.90) m/uL Hgb 7.7 L (13.0-17.5) gm/dL Hct 24.9 L (39.0-53.0) % MCHC 30.8 L (31.0-37.0) g/dL ABG pCO2 (35-45) mmHg ABG pO2 (83-108) mmHg ABG HCO3 (21-25) mmol/L ABG Total CO2 (19-24) mmol/L ABG O2 Saturation (94-97) % BUN 21 H (9-20) mg/dL Glucose 139 H (74-99) mg/dL POC Glucose (mg/dL) 130 H (70-110) mg/dL Calcium 8.0 L (8.4-10.2) mg/dL 04/26/22 Range/Units 08:17 RBC (4.30-5.90) m/uL Hgb (13.0-17.5) gm/dL Hct (39.0-53.0) % MCHC (31.0-37.0) g/dL ABG pCO2 46 H (35-45) mmHg ABG pO2 161 H (83-108) mmHg ABG HCO3 29 H (21-25) mmol/L ABG Total CO2 30 H (19-24) mmol/L ABG O2 Saturation 99.5 H (94-97) % BUN (9-20) mg/dL Glucose (74-99) mg/dL POC Glucose (mg/dL) (70-110) mg/dL Calcium (8.4-10.2) mg/dL Microbiology - Last 24 Hours (Table) 04/25/22 09:37 Fungal Culture - Preliminary Bronchial Washings - Left 04/25/22 09:37 Bronchial Washings Culture - Preliminary Bronchial Washings - Left 04/22/22 14:38 Blood Culture - Preliminary Blood No Growth after 72 hours 04/22/22 20:08 Gram Stain - Final Sputum Sputum Culture - Preliminary
[2022-04-26 11:10] LABS: % Iron Saturation 19.3 (15.00-50.00)
[2022-04-26 11:25] LABS: Glucose,Whole Blood 129 mg/dL (70-110)
--- NOTE | 2022-04-26 12:31 | P.GSCN ---
History of Present Illness Consult date: 04/26/22 History of present illness: CHIEF COMPLAINT: Shortness of breath HISTORY OF PRESENT ILLNESS: This is a 77-year-old male presenting with possible worsening shortness of breath from the adult foster care. Patient presented with evidence of acute respiratory failure. He did require to be intubated during his admission. He had findings consistent with aspiration pneumonia. Patient does have chronic dysphagia and episodes of recurrent aspiration pneumonia. He did have a left lung collapse during this admission and did require bronchoscopy. Patient does remain intubated. Surgical service has been consulted for PEG tube placement. Apparently they're planning on extubating patient after the PEG tube was placed. Surgical service consulted for PEG tube placement. PAST MEDICAL HISTORY: Hypothyroidism, depression, hypertension, COPD, episode of A. fib, dementia PAST SURGICAL HISTORY: See list. MEDICATIONS: See list. ALLERGIES: See list. SOCIAL HISTORY: No illicit drug use. REVIEW OF SYSTEMS: CONSTITUTIONAL: Denies fever or chills. HEENT: Denies blurred vision, vision changes, or eye pain. Denies hemoptysis CARDIOVASCULAR: Denies chest pain or pressure. RESPIRATORY: No shortness of breath. GASTROINTESTINAL: See HPI for pertinent findings HEMATOLOGIC: Denies bleeding disorders. GENITOURINARY: Denies any blood in urine or increased urinary frequency. SKIN: Denies pruitis. Denies rash. PHYSICAL EXAM: VITAL SIGNS: Reviewed GENERAL: Well-developed in no acute distress. HEENT: No sclera icterus. Extraocular movements grossly intact. Moist buccal mucosa. Head is atraumatic, normocephalic. No nasal drainage. ABDOMEN: Soft. Nondistended. Nontender NEUROLOGIC: Alert and oriented. Cranial nerves II through XII grossly intact. LABORATORY DATA: WBC is 4.7 Hgb 7.7 platelets 228 Sodium 138 potassium 3.6 creatinine 0.97 Albumin 2.4 IMAGING: ASSESSMENT: 1. Severe protein calorie malnutrition 2. Dysphagia 3. Chronic aspiration pneumonia 4. Acute hypoxic respiratory failure PLAN: -Patient scheduled for PEG tube placement today with Dr. giles -Hold tube feedings Thank you for this consultation Physician Form Raiser note has been reviewed by physician. Signing provider agrees with the documented findings, assessment, and plan of care. Past Medical History Past Medical History: Unable to Obtain Additional Past Medical History / Comment(s): Fall with R hip fracture 07/2021 with surgical repair, gastric ulcers with surgical repair/covid pneumonia and PE/dvt in 09/2021, developmentally delayed, possible aspiration pneumonia/sepsis with acute hypoxic respiratory failure/exacerbation of COPD in Jan, 2022, past high cholesterol, osteoporosis, gait dysfunction, incontinent of urine, constipation History of Any Multi-Drug Resistant Organisms: Unobtainable Past Surgical History: Unable to Obtain Additional Past Surgical History / Comment(s): R Hip Surgery; unspecified abd ominal surgery Past Anesthesia/Blood Transfusion Reactions: No Reported Reaction Smoking Status: Never smoker - Past Family History Father History Unknown: Yes Mother History Unknown: Yes Medications and Allergies Home Medications Medication Instructions Recorded Confirmed Type Cholecalciferol [Vitamin D3 (25 25 mcg PO BID@0700,1700 01/09/22 04/22/22 History Mcg = 1000 Iu)] Cyanocobalamin (Vitamin B-12) 1,000 mcg PO DAILY@0700 01/09/22 04/22/22 History [Vitamin B-12] Docusate [Colace] 100 mg PO DAILY PRN 01/09/22 04/22/22 History Ferrous Sulfate [Iron (65 MG 325 mg PO Q48H 01/09/22 04/22/22 History Elemental)] Lactulose 20 gm PO DAILY@0700 01/09/22 04/22/22 History Levothyroxine Sodium [Synthroid] 25 mcg PO DAILY@0700 01/09/22 04/22/22 History Loratadine 10 mg PO DAILY@0700 PRN 01/09/22 04/22/22 History Melatonin [Melatonin ER] 10 mg PO HS@209901/09/22 04/22/22 History Metoprolol Tartrate 25 mg PO BID@0700,1700 01/09/22 04/22/22 History [place]-3 Fatty Acids/Fish Oil [Fish 1 cap PO DAILY@00 01/09/22 04/22/22 History Oil 1,000 mg Softgel] Omeprazole [PriLOSEC] 20 mg PO BID@0700,2100 01/09/22 04/22/22 History PARoxetine HCL 40 mg PO HS@209901/09/22 04/22/22 History Triamterene/Hydrochlorothiazid 1 tab PO DAILY@0700 01/09/22 04/22/22 History [Triamterene-Hctz 37.5-25 mg Tb] guaiFENesin [Mucinex] 600 mg PO QID #20 tablet 01/16/22 04/22/22 Rx Ascorbic Acid [Vitamin C] 500 mg PO DAILY 04/22/22 04/22/22 History Aspirin EC [Ecotrin Low Dose] 81 mg PO DAILY@0700 04/22/22 04/22/22 History Benzonatate [Tessalon Perles] 100 - 200 mg PO TID PRN 04/22/22 04/22/22 History Budesonide [Pulmicort] 0.25 mg INHALATION RT-BID 04/22/22 04/22/22 History Fluticasone Propion/Salmeterol 1 puff INHALATION RT-BID@0700,1900 04/22/22 04/22/22 History [Advair 250-50 Diskus] Ipratropium-Albuterol Nebulize 3 ml INHALATION RT-TID 04/22/22 04/22/22 History [Duoneb 0.5 mg-3 mg/3 ml Soln] Liquacel 30 ml PO BID 04/22/22 04/22/22 History Phenazopyridine [Pyridium] 200 mg PO TID 04/22/22 04/22/22 History Sucralfate [Carafate] 1 gm PO TID-W/MEALS 04/22/22 04/22/22 History Zinc 50 mg PO DAILY 04/22/22 04/22/22 History Allergies Allergy/AdvReac Type Severity Reaction Status Date / Time No Known Allergies Allergy Verified 04/22/22 11:00 Surgical - Exam Vital Signs Temp Pulse Resp BP Pulse Ox 97.4 F L 123 H 18 117/67 91 L 04/22/22 10:03 04/22/22 10:03 04/22/22 10:03 04/22/22 10:03 04/22/22 10:03 Results - Labs 04/26/22 05:29 04/26/22 05:29 Abnormal Lab Results - Last 24 Hours (Table) 04/25/22 04/25/22 04/26/22 Range/Units 14:48 18:38 05:29 RBC 2.50 L (4.30-5.90) m/uL Hgb 7.7 L (13.0-17.5) gm/dL Hct 24.9 L (39.0-53.0) % MCHC 30.8 L (31.0-37.0) g/dL ABG pCO2 (35-45) mmHg ABG pO2 (83-108) mmHg ABG HCO3 (21-25) mmol/L ABG Total CO2 (19-24) mmol/L ABG O2 Saturation (94-97) % BUN (9-20) mg/dL Glucose (74-99) mg/dL POC Glucose (mg/dL) 139 H 137 H (70-110) mg/dL Calcium (8.4-10.2) mg/dL 04/26/22 04/26/22 04/26/22 Range/Units 05:29 06:17 08:17 RBC (4.30-5.90) m/uL Hgb (13.0-17.5) gm/dL Hct (39.0-53.0) % MCHC (31.0-37.0) g/dL ABG pCO2 46 H (35-45) mmHg ABG pO2 161 H (83-108) mmHg ABG HCO3 29 H (21-25) mmol/L ABG Total CO2 30 H (19-24) mmol/L ABG O2 Saturation 99.5 H (94-97) % BUN 21 H (9-20) mg/dL Glucose 139 H (74-99) mg/dL POC Glucose (mg/dL) 130 H (70-110) mg/dL Calcium 8.0 L (8.4-10.2) mg/dL Microbiology - Last 24 Hours (Table) 04/25/22 09:37 Fungal Culture - Preliminary Bronchial Washings - Left 04/25/22 09:37 Bronchial Washings Culture - Preliminary Bronchial Washings - Left 04/22/22 14:38 Blood Culture - Preliminary Blood No Growth after 72 hours 04/22/22 20:08 Gram Stain - Final Sputum Sputum Culture - Preliminary Diabetes panel 04/26/22 Range/Units 05:29 Sodium 138 (137-145) mmol/L Potassium 3.6 (3.5-5.1) mmol/L Chloride 106 (98-107) mmol/L Carbon Dioxide 27 (22-30) mmol/L BUN 21 H (9-20) mg/dL Creatinine 0.97 (0.66-1.25) mg/dL Glucose 139 H (74-99) mg/dL Calcium 8.0 L (8.4-10.2) mg/dL Calcium panel 04/26/22 Range/Units 05:29 Calcium 8.0 L (8.4-10.2) mg/dL Pituitary panel 04/26/22 Range/Units 05:29 Sodium 138 (137-145) mmol/L Potassium 3.6 (3.5-5.1) mmol/L Chloride 106 (98-107) mmol/L Carbon Dioxide 27 (22-30) mmol/L BUN 21 H (9-20) mg/dL Creatinine 0.97 (0.66-1.25) mg/dL Glucose 139 H (74-99) mg/dL Calcium 8.0 L (8.4-10.2) mg/dL Adrenal panel 04/26/22 Range/Units 05:29 Sodium 138 (137-145) mmol/L Potassium 3.6 (3.5-5.1) mmol/L Chloride 106 (98-107) mmol/L Carbon Dioxide 27 (22-30) mmol/L BUN 21 H (9-20) mg/dL Creatinine 0.97 (0.66-1.25) mg/dL Glucose 139 H (74-99) mg/dL Calcium 8.0 L (8.4-10.2) mg/dL
[2022-04-26] MEDS ORDERED: KETAMINE 10 MG/ML 20 ML VIAL ONE (15:59)
[2022-04-26] MEDS ORDERED: MIDAZOLAM 2 MG/2 ML VIAL ONE (15:59)
[2022-04-26 17:47] LABS: Glucose,Whole Blood 96 mg/dL (70-110)
--- NOTE | 2022-04-26 18:27 | CA ---
Transthoracic Echo Report Name: Rambo Burton Age: 77 Gender: M : 1945 Exam Date: 04/26/2022 13:53 Exam Location: [place] [facility] Ht (in): 70 Wt (lb): 148 Ordering Physician: Trish Patten DO Attending/Referring Phys: [id number], Sandor [employer] Alicia Gunter, MARIANA Procedure CPT: Indications: a fib Cardiac Hx: Technical Quality: Good Contrast 1: Total Dose (mL): Contrast 2: Total Dose (mL): MEASUREMENTS (Male / Female) Normal Values 2D ECHO LV Diastolic Diameter PLAX 3.7 cm 4.2 - 5.9 / 3.9 - 5.3 cm LV Systolic Diameter PLAX 2.6 cm IVS Diastolic Thickness 1.1 cm 0.6 - 1.0 / 0.6 - 0.9 cm LVPW Diastolic Thickness 1.1 cm 0.6 - 1.0 / 0.6 - 0.9 cm LV Relative Wall Thickness 0.6 RV Internal Dim ED PLAX 2.7 cm LA Systolic Diameter LX 3.0 cm 3.0 - 4.0 / 2.7 - 3.8 cm M-MODE Aortic Root Diameter MM 3.2 cm MV E Point Septal Separation 0.5 cm AV Cusp Separation MM 1.8 cm DOPPLER AV Peak Velocity 116.3 cm/s AV Peak Gradient 5.4 mmHg MV Area PHT 2.4 cm??? Mitral E Point Velocity 115.1 cm/s Mitral A Point Velocity 97.6 cm/s Mitral E to A Ratio 1.2 MV Deceleration Time 315.8 ms MV E' Velocity 6.4 cm/s Mitral E to MV E' Ratio 18.1 TR Peak Velocity 226.7 cm/s TR Peak Gradient 20.6 mmHg Right Ventricular Systolic Press 35.6 mmHg FINDINGS Left Ventricle Left ventricular ejection fraction is estimated at 55-60 %. Left ventricular cavity size normal. Right Ventricle Normal right ventricular size and function. Mild pulmonary hypertension. Right Atrium Normal right atrial size. Left Atrium Normal left atrial size. No evidence for an atrial septal defect. Mitral Valve Structurally normal mitral valve. No mitral stenosis, regurgitation or prolapse. Mild mitral regurgitation, thickened mitral valve leaflets Aortic Valve Trileaflet aortic valve. Aortic sclerosis with no evidence of stenosis. Tricuspid Valve Mild tricuspid regurgitation.structurally normal tricuspid valve. Pulmonic Valve Pulmonic valve not well visualized. Pericardium Normal pericardium. No pericardial effusion. Aorta Normal size aortic root and proximal ascending aorta. CONCLUSIONS 1. Normal left ventricle size and systolic function 2. Mild mitral and tricuspid regurgitation 3. No pericardial effusion Previewed by: Dr. Vianney Gold MD (Electronically Signed) Final Date: 26 April 2022 18:26
[2022-04-26] MEDS: PARoxetine 20 MG TAB PO SCH (20:23)
[2022-04-26 23:37] LABS: Glucose,Whole Blood 91 mg/dL (70-110)
[2022-04-27] MEDS: SODIUM CHLORIDE 0.9% 1,000 ML IV SCH ×2 (00:47→16:30)
[2022-04-27] MEDS: HYDROmorphone 0.5 MG/0.5 ML SYRINGE IVP PRN ×3 (02:08→12:20)
[2022-04-27] MEDS: CYANOCOBALAMIN 500 MCG TAB PO SCH (06:24)
[2022-04-27] MEDS: ASPIRIN 81 MG PO SCH (06:24)
[2022-04-27] MEDS: CHOLECALCIFEROL 25 MCG (1000 IU) TABLET PO SCH ×2 (06:24→17:54)
[2022-04-27] MEDS: LEVOTHYROXINE 25 MCG TAB PO SCH (06:24)
[2022-04-27] MEDS: METOPROLOL TARTRATE 25 MG TAB PO SCH ×2 (06:24→17:54)
[2022-04-27] MEDS: LACTULOSE 20 GM/30 ML CUP PO SCH (06:25)
--- NOTE | 2022-04-27 06:34 | P.PN ---
Subjective Progress Note Date: 04/27/22 Principal diagnosis: Respiratory failure. Reevaluated today on 04/24/22, patient was extubated yesterday, tolerated the extubation well, presently on BiPAP 12//40%. Patient is receiving IV fluid in the formal 0.9 normal saline at 75 mL per hour. Chest x-ray continues to show b ilateral airspace disease, left more so than right. Patient is awake, does not seem to be in any distress, however patient failed his bedside swallow evaluation, and eventually the patient may need a PEG tube placement if his legal guardian and is agreeable. This is to be decided upon in the next couple of days. In the meantime the patient will remain in the ICU, I have him start transitioned from BiPAP to a nasal cannula and I would recommend a nasogastric tube placement to start tube feeding. In the meantime remains on antibiotics and definitely nothing by mouth CBC is relatively normal basic metabolic profile is normal and his renal functioning is improving creatinine is down to 1.20 from 1.35 yesterday. Reevaluated today on 04/25/22, patient remains extubated, however his chest x-ray this morning showed complete opacification of the left lung with tracheal deviation to the ipsilateral side. Hence this is consistent with mucous plugging involving the left mainstem bronchus. Patient seems to be gurgling with secretions he has a weak cough, and unable to clear his secretions. Remains on few liters nasal cannula with good saturations. However patient seems to be agitated, and gurgling with secretions. After reviewing the chest x-ray, I discussed his condition with his legal guardian and discussed the option of bronchoscopy and the patient will need to be intubated for the bronchoscopy and may be kept on mechanical ventilation overnight. I also discussed the option of comfort care measures with the legal guardian. She prefers to go ahead and proceed with a bronchoscopy and cleared up his left lung, and decisions will be made down the line regarding further care, she is very well aware that the patient may have to have a PEG tube placement. Patient had recurrent aspiration pneumonias for quite some time, and I believe it is about time that we should consider PEG tube placement in this patient. This is to be decided upon hopefully in the next 24-48 hours. Today I went ahead and bronchoscope the patient, cleaned up his mucus plugging from the left mainstem bronchus. And I kept him on mechanical ventilation post bronchoscopy. Chest x- ray showed significant improvement but not completely cleared specially the left lower lobe continues to have opacity and possible distal mucus plugging. Labs today showed WBC count of 7 hemoglobin 8.7 and left. Normal renal profile is normal Progress note dated 04/26/2022. This is a patient was admitted on April 22 for aspiration pneumonia. The patient was intubated on April 22, respiratory failure, and subsequently extubated the following day on April 23. Yesterday, the chest x-ray showed complete collapse of the left lung, and the patient was electively intubated again for bronchoscopy. He remains on the ventilator. The patient is on volume assist control, rate 20, tidal volume 400, FiO2 40%, and PEEP of 5. Her blood gases show pO2 161, pCO2 46, and a pH is 7.4. FiO2 was reduced down to 30%. The patient's on propofol at 35 mcg/kg/m, saline at 75 mL an hour Jevity 55 mL an hour, which is goal. White count 4.7, hemoglobin 7.7, hematocrit 24.9, with a normal platelet count. Sodium 138, potassium 3.6, chlorides 106, CO2 27, urine 21, creatinine 0.97. Microbiologic studies are currently pending. The patient is on Zosyn empirically. Chest x-ray shows improved aeration to the left lung, with some residual infiltrate in the left mid lung and left lower lobe. Progress note dated 04/27/2022. 77-year-old patient who was admitted on April 22 for aspiration pneumonia. He was intubated on April 22, respiratory failure, and subsequently extubated the following day on April 23. On Tuesday, because of left lung collapse, he was intubated, for bronchoscopy, and he remains on the ventilator. The patient did receive a PEG tube yesterday, April 26. His vent settings include the volume assist control, rate 20, tidal volume 400, FiO2 30%, PEEP of 5. The patient's on saline at 75 mL an hour, and propofol at 35 g kilogram per minute. Blood gases today have not yet been done. I told the nurses and respiratory therapist to place the patient on CPAP of 5, and pressure support of 5, get a full set a weaning parameters after 30 minutes, and a cuff leak test, and a rapid shallow breathing index, and that me know to see if he can be extubated. He is not to be reintubated should he fail. I clarified that with his medical decision-maker yesterday. Chest x-ray has been reviewed. Objective - Vital Signs Vital signs: Vital Signs Temp 97.8 F 04/27/22 04:00 Pulse 57 L 04/27/22 05:00 Resp 20 04/27/22 05:00 BP 106/59 04/27/22 05:00 Pulse Ox 97 04/27/22 05:00 FiO2 30 04/27/22 04:00 Intake & Output 04/26/22 04/26/22 04/27/22 06:59 18:59 06:59 Intake Total 4302.638 0799.737 1060 Output Total 502 666 670 Balance 841.263 645.737 390 Weight 67.5 kg 67.5 kg 68.9 kg Intake: IV 1100 925 860 Piperacillin-Tazobactam 3 200 100 100 .375 gm In Sodium Chloride 0.9% 100 ml @ 25 mls/hr IVPB Q8HR [facility] Rx# :[id number] Sodium Chloride 0.9% 1, 900 825 760 000 ml @ 75 mls/hr IV . [id number] [facility] Rx#:[id number] Intake, IV Titration 148.263 51.737 200 Amount propofoL 1,000 mg In 148.263 51.737 200 Empty Bag 1 bag @ 5 MCG/ KG/MIN 1.95 mls/hr IV . Q24H [facility] Rx#:[id number] Tube Feeding 95 275 Other 60 Output: Urine 502 665 670 Stool 1 Other: Voiding Method Indwelling Catheter Indwelling Catheter Indwelling Catheter # Bowel Movements 0 0 - Exam No acute distress, orally placed endotracheal tube, and an NG tube noted. HEENT examination is grossly unremarkable. Neck supple. Full range of motion. No adenopathy thyromegaly or neck vein distention. Cardiovascular examination reveals regular rhythm rate. S1-S2 normal. No S3 or S4. No discernible murmur noted. Heart sounds are distant. Heart rate 57 bpm. Lungs reveal scattered bilateral rhonchi. No wheezes or crackles. Breath sounds equal bilaterally. Saturations are 97 %. Abdomen soft bowel sounds are heard. No masses or tenderness. PEG tube is noted. Extremities are intact. No cyanosis clubbing or edema. Skin is without rash or lesion. Neurologic examination reveals the patient to be awake, and nodding, despite being on propofol at 35 mcg/kg/m. - Labs CBC & Chem 7: 04/26/22 05:29 04/26/22 05:29 Labs: Abnormal Lab Results - Last 24 Hours (Table) 04/26/22 04/26/22 04/26/22 Range/Units 05:29 05:29 08:17 ABG pCO2 46 H (35-45) mmHg ABG pO2 161 H (83-108) mmHg ABG HCO3 29 H (21-25) mmol/L ABG Total CO2 30 H (19-24) mmol/L ABG O2 Saturation 99.5 H (94-97) % BUN 21 H (9-20) mg/dL Glucose 139 H (74-99) mg/dL POC Glucose (mg/dL) (70-110) mg/dL Calcium 8.0 L (8.4-10.2) mg/dL Iron 28 L (65-175) ug/dL TIBC 146 L (228-460) ug/dL Transferrin 104.0 L (204.0-354.0) mg/dL Ferritin 376.0 H (22.0-322.0) ng/mL 04/26/22 Range/Units 11:24 ABG pCO2 (35-45) mmHg ABG pO2 (83-108) mmHg ABG HCO3 (21-25) mmol/L ABG Total CO2 (19-24) mmol/L ABG O2 Saturation (94-97) % BUN (9-20) mg/dL Glucose (74-99) mg/dL POC Glucose (mg/dL) 129 H (70-110) mg/dL Calcium (8.4-10.2) mg/dL Iron (65-175) ug/dL TIBC (228-460) ug/dL Transferrin (204.0-354.0) mg/dL Ferritin (22.0-322.0) ng/mL Microbiology - Last 24 Hours (Table) 04/25/22 09:37 Acid Fast Bacilli Culture - Preliminary Bronchial Washings - Left 04/22/22 14:38 Blood Culture - Preliminary Blood No Growth after 96 hours 04/25/22 09:37 Gram Stain - Preliminary Bronchial Washings - Left Bronchial Washings Culture - Preliminary 04/25/22 09:37 Fungal Culture - Preliminary Bronchial Washings - Left Assessment and Plan Assessment: Acute hypoxemic respiratory failure, status post intubation on April 22, extubation on April 23, and reintubation on April 25, with bronchoscopy, for left lung collapse. Status post PEG tube placement 04/26/2022. Chronic aspiration pneumonia. Chronic dysphagia. History of COPD. His CHF. History of dementia. History of hypothyroidism. History of essential hypertension. Plan: Plan dated 04/26/2022. I had a long conversation with the patient's court-appointed decision maker. Her name was Marisela. She said today on the phone that the patient would be okay with a feeding tube, but no tracheostomy tube. The plan would be to see we can get a feeding tube placed tomorrow. We will consult one of the surgeons. Afterwards, the patient will hopefully be extubated, but not be reintubated. She is certainly in agreement with that. We continue on antibiotics, and propofol for the time being. The patient's FiO2 was reduced from 40%, down to 30%. Additional recommendations and suggestions are forthcoming. Prognosis is guarded. Medications are reviewed. Unnecessary medications are discontinued. Plan dated 04/27/2022. The patient will be placed on pressure support and CPAP, and after 30 minutes, will have a full set a weaning parameters. If adequate, the patient will be extubated. The patient is not to be reintubated. I had a long conversation with her court-appointed decision maker. That person's name is Marisela. She made it very clear that the patient was not to be reintubated if he fails, but did agree with the PEG tube. The PEG tube was placed yesterday. Labs, x-rays, and medications are reviewed. Prognosis is certainly guarded. Unnecessary medications are discontinued. Time with Patient: Greater than 30
[2022-04-27 06:39] LABS: Glucose,Whole Blood 91 mg/dL (70-110)
--- NOTE | 2022-04-27 06:50 | XR ---
EXAMINATION TYPE: XR chest 1V portable DATE OF EXAM: 04/27/2022 5:29 AM COMPARISON: Chest radiographs from 04/26/2022. TECHNIQUE: XR chest 1V portable Frontal view of the chest. CLINICAL INDICATION:Male, 77 years old with history of Tube placement; FINDINGS: Lungs/Pleura: Persistent left lower lobe airspace disease. Suggested small left pleural effusion. No pneumothorax. Pulmonary vascularity: Unremarkable. Heart/mediastinum: Cardiomediastinal silhouette is stable. Musculoskeletal: No acute osseous pathology. Other findings: None Lines/Tubes: Endotracheal tube with distal tip 5.5 cm above the donnie Interval removal of nasogastric tube. IMPRESSION: 1. Stable endotracheal tube. 2. Persistent left lower lobe airspace opacification. 3. Suggested small left pleural effusion.
--- NOTE | 2022-04-27 06:50 | P.PN ---
Subjective Progress Note Date: 04/27/22 Principal diagnosis: Paroxysmal atrial fibrillation This is a 77-year-old gentleman who was admitted to the hospital from an extended care facility with respiratory distress where he was intubated and placed on mechanical ventilation and he was diagnosed with aspiration pneumonia. We involved in the care of the patient because of one a brief episode of atrial fibrillation. The patient was seen this morning. He is in process of getting extubated. He has been in normal sinus mechanism so far. We would hold on any anticoagulation at this point until he developed any more episodes of atrial fibrillation at that point we will consider starting him on oral anticoagulation. Otherwise he remains stable hemodynamically with marginally low heart rate during the night. He underwent an echo which revealed normal LV function. Objective - Vital Signs Vital signs: Vital Signs Temp 97.8 F 04/27/22 04:00 Pulse 83 04/27/22 06:00 Resp 15 04/27/22 06:00 BP 97/59 04/27/22 06:00 Pulse Ox 98 04/27/22 06:34 FiO2 30 04/27/22 04:00 Intake & Output 04/26/22 04/26/22 04/27/22 06:59 18:59 06:59 Intake Total 0918.419 6537.737 1060 Output Total 502 666 670 Balance 841.263 645.737 390 Weight 67.5 kg 67.5 kg 68.9 kg Intake: IV 1100 925 860 Piperacillin-Tazobactam 3 200 100 100 .375 gm In Sodium Chloride 0.9% 100 ml @ 25 mls/hr IVPB Q8HR [facility] Rx# :[id number] Sodium Chloride 0.9% 1, 900 825 760 000 ml @ 75 mls/hr IV . [id number] [facility] Rx#:[id number] Intake, IV Titration 148.263 51.737 200 Amount propofoL 1,000 mg In 148.263 51.737 200 Empty Bag 1 bag @ 5 MCG/ KG/MIN 1.95 mls/hr IV . Q24H [facility] Rx#:[id number] Tube Feeding 95 275 Other 60 Output: Urine 502 665 670 Stool 1 Other: Voiding Method Indwelling Catheter Indwelling Catheter Indwelling Catheter # Bowel Movements 0 0 - Constitutional General appearance: Present: no acute distress - Respiratory Respiratory: bilateral: diminished - Cardiovascular Rhythm: regular - Labs CBC & Chem 7: 04/26/22 05:29 04/26/22 05:29 Labs: Abnormal Lab Results - Last 24 Hours (Table) 04/26/22 04/26/22 04/26/22 Range/Units 05:29 08:17 11:24 ABG pCO2 46 H (35-45) mmHg ABG pO2 161 H (83-108) mmHg ABG HCO3 29 H (21-25) mmol/L ABG Total CO2 30 H (19-24) mmol/L ABG O2 Saturation 99.5 H (94-97) % POC Glucose (mg/dL) 129 H (70-110) mg/dL Iron 28 L (65-175) ug/dL TIBC 146 L (228-460) ug/dL Transferrin 104.0 L (204.0-354.0) mg/dL Ferritin 376.0 H (22.0-322.0) ng/mL Microbiology - Last 24 Hours (Table) 04/25/22 09:37 Acid Fast Bacilli Culture - Preliminary Bronchial Washings - Left 04/22/22 14:38 Blood Culture - Preliminary Blood No Growth after 96 hours 04/25/22 09:37 Gram Stain - Preliminary Bronchial Washings - Left Bronchial Washings Culture - Preliminary 04/25/22 09:37 Fungal Culture - Preliminary Bronchial Washings - Left Assessment and Plan Assessment: Assessment #1 aspiration pneumonia status post bronchoscopy #2 acute on chronic hypoxic respiratory failure secondary to the above #3 one episode appears to be brief of atrial fibrillation. Currently the patient is a sinus rhythm Plan #1 continue the current dose of metoprolol #2 continue monitor the heart rate and blood pressure #3 consider oral anticoagulation if the patient develops any more episodes of atrial fibrillation #4 follow-up with the patient
[2022-04-27] MEDS: IPRATROPIUM-ALBUTEROL 3 ML NEB INHALATION SCH ×3 (07:51→19:25)
[2022-04-27] MEDS: ENOXAPARIN 40 MG/0.4 ML SYRINGE SQ SCH (08:36)
[2022-04-27] MEDS: PIPERACILLIN-TAZOBACTAM 3.375 GM in SODIUM CHLORIDE 0.9% 100 ML IVPB SCH ×2 (08:36→16:30)
[2022-04-27] MEDS: FERROUS SULFATE 325 MG TAB PO SCH (08:37)
[2022-04-27] MEDS: ASCORBIC ACID 500 MG TAB PO SCH (08:37)
[2022-04-27] MEDS: PANTOPRAZOLE 40 MG/10 ML VIAL IVP SCH (08:37)
[2022-04-27 09:15] LABS: HCT 28.8 % (39.0-53.0); HGB 8.9 gm/dL (13.0-17.5); Hypochromasia Marked; MCH 31.2 pg (25.0-35.0); MCV 100.5 fL (80.0-100.0); Macrocytosis Slight; Platelet Count 333 k/uL (150-450); RBC 2.87 m/uL (4.30-5.90); WBC 7.5 k/uL (3.8-10.6)
[2022-04-27 09:26] LABS: African American GFR (CKD) >90 (>60 ml/min/1.73 sqM); Anion Gap 8 mmol/L; Blood Urea Nitrogen 16 mg/dL (9-20); Calcium 8.7 mg/dL (8.4-10.2); Carbon Dioxide 28 mmol/L (22-30); Chloride 103 mmol/L (98-107); Glucose 91 mg/dL (74-99); Non-African American GFR(CKD) 79 (>60 ml/min/1.73 sqM); Potassium 4.1 mmol/L (3.5-5.1); Sodium 139 mmol/L (137-145)
[2022-04-27 12:36] LABS: Glucose,Whole Blood 84 mg/dL (70-110)
--- NOTE | 2022-04-27 12:40 | P.PN ---
Subjective Progress Note Date: 04/27/22 CHIEF COMPLAINT: Shortness of breath HISTORY OF PRESENT ILLNESS: Patient is postop day #1 status post PEG tube placement. Patient was extubated this morning. He is sitting up in bed. Denies any abdominal pain. Denies any nausea or vomiting. Afebrile. WBC is 7.5 Hgb 8.9 PHYSICAL EXAM: VITAL SIGNS: Reviewed. GENERAL: no acute distress. HEENT: No sclera icterus. Extraocular movements grossly intact. Moist buccal mucosa. Head is atraumatic, normocephalic. ABDOMEN: Soft. Nondistended. Nontender. PEG tube site clean dry and intact NEUROLOGIC: awake ASSESSMENT: 1. Severe protein calorie malnutrition status post PEG tube placement 2. Dysphagia 3. Chronic aspiration pneumonia 4. Acute hypoxic respiratory failure PLAN: -Okay to start tube feedings at 4:00 this afternoon -Consult dietitian to start tube feedings -Continue ICU management -Continue supportive care Physician Management Accountant note has been reviewed by physician. Signing provider agrees with the documented findings, assessment, and plan of care. Objective - Vital Signs Vital signs: Vital Signs Temp 98.2 F 04/27/22 08:00 Pulse 77 04/27/22 12:20 Resp 15 04/27/22 11:00 BP 127/71 04/27/22 11:00 Pulse Ox 98 04/27/22 11:00 FiO2 30 04/27/22 04:00 Intake & Output 04/26/22 04/27/22 04/27/22 18:59 06:59 18:59 Intake Total 8444.442 7864 325 Output Total 666 720 515 Balance 645.737 415 -190 Weight 67.5 kg 68.9 kg Intake: IV 925 935 325 Piperacillin-Tazobactam 3 100 100 100 .375 gm In Sodium Chloride 0.9% 100 ml @ 25 mls/hr IVPB Q8HR [facility] Rx# :[id number] Sodium Chloride 0.9% 1, 825 835 225 000 ml @ 75 mls/hr IV . [id number] [facility] Rx#:[id number] Intake, IV Titration 51.737 200 Amount propofoL 1,000 mg In 51.737 200 Empty Bag 1 bag @ 5 MCG/ KG/MIN 1.95 mls/hr IV . Q24H [facility] Rx#:[id number] Tube Feeding 275 Other 60 Output: Urine 665 720 515 Stool 1 Other: Voiding Method Indwelling Catheter Indwelling Catheter Indwelling Catheter # Bowel Movements 0 1 - Labs CBC & Chem 7: 04/27/22 08:50 04/27/22 08:50 Labs: Abnormal Lab Results - Last 24 Hours (Table) 04/27/22 Range/Units 08:50 RBC 2.87 L (4.30-5.90) m/uL Hgb 8.9 L (13.0-17.5) gm/dL Hct 28.8 L (39.0-53.0) % MCV 100.5 H (80.0-100.0) fL Microbiology - Last 24 Hours (Table) 04/25/22 09:37 Gram Stain - Preliminary Bronchial Washings - Left Bronchial Washings Culture - Preliminary Yeast species 04/25/22 09:37 Acid Fast Bacilli Culture - Preliminary Bronchial Washings - Left 04/22/22 14:38 Blood Culture - Preliminary Blood No Growth after 96 hours 04/25/22 09:37 Fungal Culture - Preliminary Bronchial Washings - Left
--- NOTE | 2022-04-27 17:37 | P.PN ---
Subjective Progress Note Date: 04/27/22 (delayed charting seen at 1245) Patient is a 77-year-old male with hypothyroidism, depression, hypertension, and COPD who presented to the ER for hypoxemia. On arrival to the ER patient was satting in the mid 60s despite nonrebreather and was therefore intubated. In the ER an extensive evaluation was done. Laboratory analysis was notable for leukocytosis of 16.6, anemia 10.6, BUN 41, creatinine 1.2 (which is better than baseline), point. Initial coag testing was negative. D-dimer was elevated at 1.9. ABG post intubation showed a pH of 7.1, pCO2 of 58, PaO2 of 248. Chest x- ray showed interstitial opacities. CT angiography of the chest showed diffuse bronchial wall thickening, scattered tree-in-bud opacities as well as groundglass changes and consolidations at the bilateral posterior lung bases with no pulmonary embolism noted, EKG demonstrated sinus tachycardia, and CT brain showed nonspecific degenerative white matter changes with sinusitis and left sided mastoiditis. He was started on Zosyn for possible pneumonia, bronchodilators, steroids, a cultures were obtained. Patient was admitted to the ICU. Pulmonary critical care was consulted. He was extubated on 04/23/22 and placed on BiPap. He developed complete opacification of the left hemithorax on 04/25 requiring intubation and bronchosocopy which revealed mucus plugging. The procedure required re-intubation. He had a PEG tube placed on 04/26. He was extubated the morning of 04/27. Patient seen and examined at bedside. He is having difficulty expressing himself. It appears that he is having some left hand pain. He appears short of breath and is complaining that he cannot cough things up. General: ill appearing, mild distress, appears at stated age Derm: warm, dry Head: atraumatic, normocephalic, symmetric Eyes: EOMI, no lid lag, anicteric sclera Mouth: no lip lesion, mucus membranes dry Cardiovascular: S1S2 reg, no murmur, positive posterior tibial pulse bilateral, Lungs: Rhonchorous bilateral,, no accessory muscle use Abdominal: soft, nontender to palpation, no guarding, no appreciable organomeg gonsalo, urine bright orange. Ext: no gross muscle atrophy, trace edema b/l LE, no contractures Neuro: Cranial nerves II through XII grossly intact, no focal neuro deficits, no swelling over left hand Psych: Awake, alert to self difficult to assess whether he answers questions appropriately for year and place, appears anxious Assessment/Plan: Pneumonia with sepsis, probable aspiration Acute hypoxic respiratory failure COPD without exacerbation Lactic acidosis -Zosyn day #5 of 7 -Await repeat sputum CX, now with yeast -blood cultures Negative to date -Bronchodilators -Patient was also recently here with pneumonia in January 2022 and was suggest for modified diet after MBS. Recommend speech evaluation after extubation. -Pulmonary recommendations. Parosyxmal A fib - cardio recs - required Dilt gtt for a short time - continue metoprolol - will need AC if recurrent episode noted. - Echo with EF 55-60%, mild pulmonary hypertension Dysphagia - s/p PEG Hypertension - low normal - follow BP - Hold aldactone/HCTZ, - continue metoprolol Anemia, at baseline - follow CBC - outpatient follow-up - continue with iron Cognitive impairment -Safe and supportive environment Chronic: Depression Hypothyroidism DVT prophylaxis: SCDs Discussed with: Patient, nursing Anticipated discharge: pending clinical course Anticipated discharge place: pending clinical course A total of 37 minutes was spent on the care of this complex patient more than 50% of the time was spent in counseling and care coordination. Active Medications Generic Name Dose Route Start Last Admin Trade Name Freq PRN Reason Stop Dose Admin Acetaminophen 650 mg 04/27/22 12:18 Acetaminophen Oral Susp (Peds) 3,840 Mg/120 Ml Bottle PO Q4HR PRN Pain Albuterol/Ipratropium 3 ml 04/22/22 14:28 Ipratropium-Albuterol 3 Ml Neb INHALATION RT-Q2H PRN Shortness Of Breath Or Wheezing Albuterol/Ipratropium 3 ml 04/22/22 20:00 04/27/22 12:11 Ipratropium-Albuterol 3 Ml Neb INHALATION 3 ml RT-TID [facility] Administration Ascorbic Acid 500 mg 04/23/22 09:00 04/27/22 08:37 Ascorbic Acid 500 Mg Tab PO 500 mg DAILY [facility] Administration Aspirin 81 mg 04/23/22 07:00 04/27/22 06:24 Aspirin 81 Mg PO 81 mg DAILY@0700 [facility] Administration Cholecalciferol 25 mcg 04/22/22 17:00 04/27/22 06:24 Cholecalciferol 25 Mcg (1000 Iu) Tablet PO 25 mcg BID@0700,1700 [facility] Administration Cyanocobalamin 1,000 mcg 04/23/22 07:00 04/27/22 06:24 Cyanocobalamin 500 Mcg Tab PO 1,000 mcg DAILY@0700 [facility] Administration Docusate Sodium 100 mg 04/22/22 14:50 Docusate 100 Mg Cap PO DAILY PRN Constipation Enoxaparin Sodium 40 mg 04/22/22 14:45 04/27/22 08:36 Enoxaparin 40 Mg/0.4 Ml Syringe SQ 40 mg DAILY [facility] Administration Ferrous Sulfate 325 mg 04/23/22 09:00 04/27/22 08:37 Ferrous Sulfate 325 Mg Tab PO 325 mg Q48H [facility] Administration Hydromorphone HCl 0.25 mg 04/23/22 13:24 04/27/22 12:20 Hydromorphone 0.5 Mg/0.5 Ml Syringe IVP 0.25 mg Q3HR PRN Administration Pain Piperacillin Sod/Tazobactam 100 mls @ 25 mls/hr 04/22/22 16:00 04/27/22 16:30 Sod 3.375 gm/ Sodium Chloride IVPB 25 mls/hr Q8HR [facility] Administration Protocol Sodium Chloride 1,000 mls @ 75 mls/hr 04/22/22 14:30 04/27/22 16:30 Saline 0.9% IV 75 mls/hr .[id number] [facility] Administration Propofol 1,000 mg/ IV Solution 100 mls @ 1.95 mls/hr 04/25/22 08:45 04/27/22 06:22 IV 35 mcg/kg/min .Q24H [facility] 13.65 mls/hr Administration Protocol 5 MCG/KG/MIN Lactulose 20 gm 04/23/22 07:00 04/27/22 06:25 Lactulose 20 Gm/30 Ml Cup PO Not Given DAILY@0700 [facility] Levothyroxine Sodium 25 mcg 04/23/22 07:00 04/27/22 06:24 Levothyroxine 25 Mcg Tab PO 25 mcg DAILY@0700 [facility] Administration Metoprolol Tartrate 25 mg 04/22/22 17:00 04/27/22 06:24 Metoprolol Tartrate 25 Mg Tab PO 25 mg BID@0700,1700 [facility] Administration Miscellaneous Information 1 each 04/23/22 22:43 Potassium Replacement Protocol 1 Each [facility] DAILY PRN Per Protocol Protocol Miscellaneous Information 1 each 04/23/22 22:43 Magnesium Replacement Protocol 1 Each [facility] DAILY PRN Per Protocol Protocol Naloxone HCl 0.2 mg 04/22/22 13:40 Naloxone 0.4 Mg/Ml 1 Ml Vial IV Q2M PRN Opioid Reversal Pantoprazole Sodium 40 mg 04/22/22 14:45 04/27/22 08:37 Pantoprazole 40 Mg/10 Ml Vial IVP 40 mg DAILY [facility] Administration Paroxetine HCl 40 mg 04/22/22 21:00 04/26/22 20:23 Paroxetine 20 Mg Tab PO 40 mg HS@2100 [facility] Administration Objective - Vital Signs Vital signs: Vital Signs Temp 97.6 F 04/27/22 16:00 Pulse 81 04/27/22 17:00 Resp 24 04/27/22 17:00 BP 131/102 04/27/22 17:00 Pulse Ox 96 04/27/22 17:00 FiO2 30 04/27/22 04:00 Intake & Output 04/26/22 04/27/22 04/27/22 18:59 06:59 18:59 Intake Total 7122.202 3479 650 Output Total 901 617 6913 Balance 645.737 415 -355 Weight 67.5 kg 68.9 kg Intake: IV 925 935 650 Piperacillin-Tazobactam 3 100 100 200 .375 gm In Sodium Chloride 0.9% 100 ml @ 25 mls/hr IVPB Q8HR [facility] Rx# :[id number] Sodium Chloride 0.9% 1, 825 835 450 000 ml @ 75 mls/hr IV . [id number] [facility] Rx#:[id number] Intake, IV Titration 51.737 200 Amount propofoL 1,000 mg In 51.737 200 Empty Bag 1 bag @ 5 MCG/ KG/MIN 1.95 mls/hr IV . Q24H [facility] Rx#:[id number] Tube Feeding 275 Other 60 Output: Urine 075 492 7237 Stool 1 Other: Voiding Method Indwelling Catheter Indwelling Catheter Indwelling Catheter # Bowel Movements 0 1 - Labs CBC & Chem 7: 04/27/22 08:50 04/27/22 08:50 Labs: Abnormal Lab Results - Last 24 Hours (Table) 04/27/22 Range/Units 08:50 RBC 2.87 L (4.30-5.90) m/uL Hgb 8.9 L (13.0-17.5) gm/dL Hct 28.8 L (39.0-53.0) % MCV 100.5 H (80.0-100.0) fL Microbiology - Last 24 Hours (Table) 04/22/22 14:38 Blood Culture - Preliminary Blood No Growth after 120 hours 04/25/22 09:37 Gram Stain - Preliminary Bronchial Washings - Left Bronchial Washings Culture - Preliminary Yeast species 04/25/22 09:37 Acid Fast Bacilli Culture - Preliminary Bronchial Washings - Left
[2022-04-27] MEDS ORDERED: FUROSEMIDE 10 MG/ML 10 ML VIAL IV STA (17:51)
[2022-04-27] MEDS: ACETAMINOPHEN ORAL SUSP (PEDS) 3,840 MG/120 ML BOTTLE PO PRN (17:55)
[2022-04-27 18:39] LABS: Glucose,Whole Blood 109 mg/dL (70-110)
[2022-04-27] MEDS: PARoxetine 20 MG TAB PO SCH (21:00)
[2022-04-28] MEDS: PIPERACILLIN-TAZOBACTAM 3.375 GM in SODIUM CHLORIDE 0.9% 100 ML IVPB SCH (00:16)
[2022-04-28 01:02] LABS: Glucose,Whole Blood 95 mg/dL (70-110)
[2022-04-28] MEDS: SODIUM CHLORIDE 0.9% 1,000 ML IV SCH ×2 (03:45→17:47)
[2022-04-28 06:06] LABS: Glucose,Whole Blood 97 mg/dL (70-110)
[2022-04-28] MEDS: CHOLECALCIFEROL 25 MCG (1000 IU) TABLET PO SCH ×2 (06:29→16:40)
[2022-04-28] MEDS: METOPROLOL TARTRATE 25 MG TAB PO SCH ×2 (06:29→16:39)
[2022-04-28] MEDS: ASPIRIN 81 MG PO SCH (06:29)
[2022-04-28] MEDS: LACTULOSE 20 GM/30 ML CUP PO SCH (06:29)
[2022-04-28] MEDS: LEVOTHYROXINE 25 MCG TAB PO SCH (06:29)
[2022-04-28] MEDS: CYANOCOBALAMIN 500 MCG TAB PO SCH (06:29)
[2022-04-28 07:04] LABS: Basophils % (A) 0 %; Eosinophils # (A) 0.3 k/uL (0-0.7); Eosinophils % (A) 4 %; HCT 27.7 % (39.0-53.0); HGB 8.7 gm/dL (13.0-17.5); Hypochromasia Slight; Lymphocytes # (A) 1.2 k/uL (1.0-4.8); Lymphocytes % (A) 17 %; MCH 30.7 pg (25.0-35.0); MCHC 31.5 g/dL (31.0-37.0); MCV 97.3 fL (80.0-100.0); Mean Platelet Volume 7.7; Monocytes # (A) 0.3 k/uL (0-1.0); Monocytes % (A) 4 %; Neutrophils # (A) 5.4 k/uL (1.3-7.7); Neutrophils % (A) 74 %; Platelet Count 346 k/uL (150-450); RBC 2.84 m/uL (4.30-5.90); RDW 14.5 % (11.5-15.5); WBC 7.3 k/uL (3.8-10.6)
--- NOTE | 2022-04-28 07:19 | P.PN ---
Subjective Progress Note Date: 04/28/22 Principal diagnosis: Respiratory failure. Reevaluated today on 04/24/22, patient was extubated yesterday, tolerated the extubation well, presently on BiPAP 12//40%. Patient is receiving IV fluid in the formal 0.9 normal saline at 75 mL per hour. Chest x-ray continues to show b ilateral airspace disease, left more so than right. Patient is awake, does not seem to be in any distress, however patient failed his bedside swallow evaluation, and eventually the patient may need a PEG tube placement if his legal guardian and is agreeable. This is to be decided upon in the next couple of days. In the meantime the patient will remain in the ICU, I have him start transitioned from BiPAP to a nasal cannula and I would recommend a nasogastric tube placement to start tube feeding. In the meantime remains on antibiotics and definitely nothing by mouth CBC is relatively normal basic metabolic profile is normal and his renal functioning is improving creatinine is down to 1.20 from 1.35 yesterday. Reevaluated today on 04/25/22, patient remains extubated, however his chest x-ray this morning showed complete opacification of the left lung with tracheal deviation to the ipsilateral side. Hence this is consistent with mucous plugging involving the left mainstem bronchus. Patient seems to be gurgling with secretions he has a weak cough, and unable to clear his secretions. Remains on few liters nasal cannula with good saturations. However patient seems to be agitated, and gurgling with secretions. After reviewing the chest x-ray, I discussed his condition with his legal guardian and discussed the option of bronchoscopy and the patient will need to be intubated for the bronchoscopy and may be kept on mechanical ventilation overnight. I also discussed the option of comfort care measures with the legal guardian. She prefers to go ahead and proceed with a bronchoscopy and cleared up his left lung, and decisions will be made down the line regarding further care, she is very well aware that the patient may have to have a PEG tube placement. Patient had recurrent aspiration pneumonias for quite some time, and I believe it is about time that we should consider PEG tube placement in this patient. This is to be decided upon hopefully in the next 24-48 hours. Today I went ahead and bronchoscope the patient, cleaned up his mucus plugging from the left mainstem bronchus. And I kept him on mechanical ventilation post bronchoscopy. Chest x- ray showed significant improvement but not completely cleared specially the left lower lobe continues to have opacity and possible distal mucus plugging. Labs today showed WBC count of 7 hemoglobin 8.7 and left. Normal renal profile is normal Progress note dated 04/26/2022. This is a patient was admitted on April 22 for aspiration pneumonia. The patient was intubated on April 22, respiratory failure, and subsequently extubated the following day on April 23. Yesterday, the chest x-ray showed complete collapse of the left lung, and the patient was electively intubated again for bronchoscopy. He remains on the ventilator. The patient is on volume assist control, rate 20, tidal volume 400, FiO2 40%, and PEEP of 5. Her blood gases show pO2 161, pCO2 46, and a pH is 7.4. FiO2 was reduced down to 30%. The patient's on propofol at 35 mcg/kg/m, saline at 75 mL an hour Jevity 55 mL an hour, which is goal. White count 4.7, hemoglobin 7.7, hematocrit 24.9, with a normal platelet count. Sodium 138, potassium 3.6, chlorides 106, CO2 27, urine 21, creatinine 0.97. Microbiologic studies are currently pending. The patient is on Zosyn empirically. Chest x-ray shows improved aeration to the left lung, with some residual infiltrate in the left mid lung and left lower lobe. Progress note dated 04/27/2022. 77-year-old patient who was admitted on April 22 for aspiration pneumonia. He was intubated on April 22, respiratory failure, and subsequently extubated the following day on April 23. On Tuesday, because of left lung collapse, he was intubated, for bronchoscopy, and he remains on the ventilator. The patient did receive a PEG tube yesterday, April 26. His vent settings include the volume assist control, rate 20, tidal volume 400, FiO2 30%, PEEP of 5. The patient's on saline at 75 mL an hour, and propofol at 35 g kilogram per minute. Blood gases today have not yet been done. I told the nurses and respiratory therapist to place the patient on CPAP of 5, and pressure support of 5, get a full set a weaning parameters after 30 minutes, and a cuff leak test, and a rapid shallow breathing index, and that me know to see if he can be extubated. He is not to be reintubated should he fail. I clarified that with his medical decision-maker yesterday. Chest x-ray has been reviewed. Progress note dated 04/28/2022. 77-year-old patient who was admitted on April 22 for aspiration pneumonia. The patient was intubated on April 22, respiratory failure, subsequently extubated the following day and April 23. Over the weekend, he developed left lung collapse, and was intubated for bronchoscopy, on Tuesday, and was extubated yesterday. He did have a PEG tube placed as well. Currently, the patient is on saline at 75 mL an hour, vital high protein at 30 mL now with a goal of 50, and 5 L nasal cannula. The patient is stable and my opinion to go to the general medical floor without telemetry. He is a DO NOT RESUSCITATE patient. He is not to be reintubated according to his court-appointed decision-maker. Labs today include a white count of 7.3, hemoglobin 8.7, hematocrit 27.7, and a platelet count of 346,000. Bronchoscopy results are still pending or negative. Microbiologic studies are negative. Chest x-ray today again shows partial collapse of the left lung, and I will request some chest physiotherapy to the left. It can be done either manually or mechanically. Objective - Vital Signs Vital signs: Vital Signs Temp 97.5 F L 04/28/22 04:00 Pulse 87 04/28/22 06:00 Resp 20 04/28/22 06:00 BP 126/83 04/28/22 06:00 Pulse Ox 100 04/28/22 06:00 FiO2 30 04/27/22 04:00 Intake & Output 04/27/22 04/28/22 04/28/22 18:59 06:59 18:59 Intake Total 820 1275 105 Output Total 1155 1261 200 Balance -335 14 -95 Weight 69.4 kg Intake: IV 650 925 75 Piperacillin-Tazobactam 3 200 100 .375 gm In Sodium Chloride 0.9% 100 ml @ 25 mls/hr IVPB Q8HR [facility] Rx# :[id number] Sodium Chloride 0.9% 1, 450 825 75 000 ml @ 75 mls/hr IV . [id number] [facility] Rx#:[id number] Tube Feeding 20 290 30 Other 150 60 Output: Urine 1155 1260 200 Stool 1 Other: Voiding Method Indwelling Catheter Indwelling Catheter # Bowel Movements 1 1 - Exam No acute distress, Currently on 5 L nasal cannula. HEENT examination is grossly unremarkable. Neck supple. Full range of motion. No adenopathy thyromegaly or neck vein distention. Cardiovascular examination reveals regular rhythm rate. S1-S2 normal. No S3 or S4. No discernible murmur noted. Heart sounds are distant. Heart rate 87 bpm. Lungs reveal scattered bilateral rhonchi. No wheezes or crackles. Breath sounds equal bilaterally. Saturations are 100 %. Abdomen soft bowel sounds are heard. No masses or tenderness. PEG tube is noted. Extremities are intact. No cyanosis clubbing or edema. Skin is without rash or lesion. Neurologic examination reveals the patient to be awake, and nodding. - Labs CBC & Chem 7: 04/28/22 06:25 04/27/22 08:50 Labs: Abnormal Lab Results - Last 24 Hours (Table) 04/27/22 04/28/22 Range/Units 08:50 06:25 RBC 2.87 L 2.84 L (4.30-5.90) m/uL Hgb 8.9 L 8.7 L (13.0-17.5) gm/dL Hct 28.8 L 27.7 L (39.0-53.0) % MCV 100.5 H (80.0-100.0) fL Microbiology - Last 24 Hours (Table) 04/25/22 09:37 Acid Fast Bacilli Smear - Final Bronchial Washings - Left Acid Fast Bacilli Culture - Preliminary 04/22/22 14:38 Blood Culture - Preliminary Blood No Growth after 120 hours 04/25/22 09:37 Gram Stain - Preliminary Bronchial Washings - Left Bronchial Washings Culture - Preliminary Yeast species Assessment and Plan Assessment: Acute hypoxemic respiratory failure, status post intubation on April 22, extubation on April 23, and reintubation on April 25, with bronchoscopy, for left lung collapse, status post re-extubation on April 27. Status post PEG tube placement 04/26/2022. Chronic aspiration pneumonia. Chronic dysphagia. History of COPD. His CHF. History of dementia. History of hypothyroidism. History of essential hypertension. Plan: Plan dated 04/26/2022. I had a long conversation with the patient's court-appointed decision maker. Her name was Marisela. She said today on the phone that the patient would be okay with a feeding tube, but no tracheostomy tube. The plan would be to see we can get a feeding tube placed tomorrow. We will consult one of the surgeons. Afterwards, the patient will hopefully be extubated, but not be reintubated. She is certainly in agreement with that. We continue on antibiotics, and propofol for the time being. The patient's FiO2 was reduced from 40%, down to 30%. Additional recommendations and suggestions are forthcoming. Prognosis is guarded. Medications are reviewed. Unnecessary medications are discontinued. Plan dated 04/27/2022. The patient will be placed on pressure support and CPAP, and after 30 minutes, will have a full set a weaning parameters. If adequate, the patient will be extubated. The patient is not to be reintubated. I had a long conversation with her court-appointed decision maker. That person's name is Marisela. She made it very clear that the patient was not to be reintubated if he fails, but did agree with the PEG tube. The PEG tube was placed yesterday. Labs, x-rays, and medications are reviewed. Prognosis is certainly guarded. Unnecessary medications are discontinued. Plan dated 04/28/2022. The patient was extubated yesterday. The patient is currently being nourished with tube feedings, at 30 mL an hour. He does have a PEG tube in place. He is not to be reintubated. Labs, x-rays, medications are reviewed. We will request some chest physiotherapy to the left lung. The patient could be transferred to the general medical floor without telemetry. Overall prognosis remains very poor. We will continue to follow make recommendations along the way. Time with Patient: Less than 30
[2022-04-28] MEDS: IPRATROPIUM-ALBUTEROL 3 ML NEB INHALATION SCH ×3 (07:30→20:12)
[2022-04-28 07:34] LABS: Calcium 8.9 mg/dL (8.4-10.2)
--- NOTE | 2022-04-28 08:13 | XR ---
EXAMINATION TYPE: XR chest 1V portable DATE OF EXAM: 04/28/2022 COMPARISON: 04/27/2022 INDICATION: Tube placement TECHNIQUE: Single frontal view of the chest is obtained. FINDINGS: The heart size is normal. The pulmonary vasculature is normal. There is opacification through the left lower lung field increased from comparison. Milder infiltrate is to the left upper lung field. These are increased from comparison. Some mild infiltrate at the [employer]. Patient has been extubated. IMPRESSION: 1. Worsening left lung infiltrate. An increasing small left pleural effusion is suspected. 2. Mild increasing right lower lobe infiltrate. 3. Follow-up is recommended.
[2022-04-28] MEDS: ASCORBIC ACID 500 MG TAB PO SCH (09:06)
[2022-04-28] MEDS: ENOXAPARIN 40 MG/0.4 ML SYRINGE SQ SCH (09:06)
[2022-04-28] MEDS: PANTOPRAZOLE 40 MG/10 ML VIAL IVP SCH (09:06)
[2022-04-28] MEDS: ACETAMINOPHEN ORAL SUSP (PEDS) 3,840 MG/120 ML BOTTLE PO PRN ×2 (09:46→16:40)
[2022-04-28 11:28] LABS: Glucose,Whole Blood 129 mg/dL (70-110)
--- NOTE | 2022-04-28 12:01 | P.PN ---
Subjective Progress Note Date: 04/28/22 CHIEF COMPLAINT: Shortness of breath HISTORY OF PRESENT ILLNESS: Patient is postop day #2 status post PEG tube placement. Patient is tolerating tube feeds. Tube feeds are currently at 30 mL per hour. He is having bowel movements. No nausea or vomiting. No abdominal pain. Patient currently MedSurg overflow. Afebrile WBC 7.3 Hgb 8.7 Patient seen and examined with Dr. Stanley PHYSICAL EXAM: VITAL SIGNS: Reviewed. GENERAL: no acute distress. HEENT: No sclera icterus. Extraocular movements grossly intact. Moist buccal mucosa. Head is atraumatic, normocephalic. ABDOMEN: Soft. Nondistended. Nontender. PEG tube site clean dry and intact NEUROLOGIC: awake ASSESSMENT: 1. Severe protein calorie malnutrition status post PEG tube placement 2. Dysphagia 3. Chronic aspiration pneumonia 4. Acute hypoxic respiratory failure PLAN: -Continue to titrate tube feedings per dietitian recommendations -Continue supportive care [employer] Worker note has been reviewed by physician. Signing provider agrees with the documented findings, assessment, and plan of care. Objective - Vital Signs Vital signs: Vital Signs Temp 97.5 F L 04/28/22 04:00 Pulse 70 04/28/22 08:00 Resp 19 04/28/22 08:00 BP 139/89 04/28/22 08:00 Pulse Ox 100 04/28/22 08:00 FiO2 30 04/27/22 04:00 Intake & Output 04/27/22 04/28/22 04/28/22 18:59 06:59 18:59 Intake Total 820 1275 105 Output Total 1155 1261 200 Balance -335 14 -95 Weight 69.4 kg Intake: IV 650 925 75 Piperacillin-Tazobactam 3 200 100 .375 gm In Sodium Chloride 0.9% 100 ml @ 25 mls/hr IVPB Q8HR [facility] Rx# :[id number] Sodium Chloride 0.9% 1, 450 825 75 000 ml @ 75 mls/hr IV . [id number] [facility] Rx#:[id number] Tube Feeding 20 290 30 Other 150 60 Output: Urine 1155 1260 200 Stool 1 Other: Voiding Method Indwelling Catheter Indwelling Catheter Indwelling Catheter # Bowel Movements 1 1 - Labs CBC & Chem 7: 04/28/22 06:25 04/28/22 06:25 Labs: Abnormal Lab Results - Last 24 Hours (Table) 04/28/22 04/28/22 04/28/22 Range/Units 06:25 06:25 11:27 RBC 2.84 L (4.30-5.90) m/uL Hgb 8.7 L (13.0-17.5) gm/dL Hct 27.7 L (39.0-53.0) % Carbon Dioxide 31 H (22-30) mmol/L POC Glucose (mg/dL) 129 H (70-110) mg/dL Microbiology - Last 24 Hours (Table) 04/25/22 09:37 Gram Stain - Final Bronchial Washings - Left Bronchial Washings Culture - Final Domitila albicans 04/25/22 09:37 Acid Fast Bacilli Smear - Final Bronchial Washings - Left Acid Fast Bacilli Culture - Preliminary 04/22/22 14:38 Blood Culture - Preliminary Blood No Growth after 120 hours
--- NOTE | 2022-04-28 14:26 | P.PN ---
Subjective Progress Note Date: 04/28/22 (delayed charting seen at 0800) Patient is a 77-year-old male with hypothyroidism, depression, hypertension, and COPD who presented to the ER for hypoxemia. On arrival to the ER patient was satting in the mid 60s despite nonrebreather and was therefore intubated. In the ER an extensive evaluation was done. Laboratory analysis was notable for leukocytosis of 16.6, anemia 10.6, BUN 41, creatinine 1.2 (which is better than baseline), point. Initial coag testing was negative. D-dimer was elevated at 1.9. ABG post intubation showed a pH of 7.1, pCO2 of 58, PaO2 of 248. Chest x- ray showed interstitial opacities. CT angiography of the chest showed diffuse bronchial wall thickening, scattered tree-in-bud opacities as well as groundglass changes and consolidations at the bilateral posterior lung bases with no pulmonary embolism noted, EKG demonstrated sinus tachycardia, and CT brain showed nonspecific degenerative white matter changes with sinusitis and left sided mastoiditis. He was started on Zosyn for possible pneumonia, bronchodilators, steroids, a cultures were obtained. Patient was admitted to the ICU. Pulmonary critical care was consulted. He was extubated on 04/23/22 and placed on BiPap. He developed complete opacification of the left hemithorax on 04/25 requiring intubation and bronchosocopy which revealed mucus plugging. The procedure required re-intubation. He had a PEG tube placed on 04/26. He was extubated the morning of 04/27. He was seen by speech and does not initiate swallow. He is having difficulty clearing secretions and has required frequent suctioning. Echocardiogram showed normal left ventricular size with systolic function with EF 55-60% and mild mitral and tricuspid regurgitation. Patient seen and examined at bedside. He complains of some shortness of breath, no nausea or vomiting, no belly pain. He continues to complain of left hand p ain. He is unable to describe this further. General: nontoxic, no distress, appears at stated age Derm: warm, dry Head: atraumatic, normocephalic, symmetric Eyes: EOMI, no lid lag, anicteric sclera Mouth: no lip lesion, mucus membranes moist Cardiovascular: S1S2 reg, no murmur, positive posterior tibial pulse bilateral, Lungs: Coarse breath sounds bilateral, no rhonchi, no rales , no accessory muscle use Abdominal: soft, nontender to palpation, no guarding, no appreciable organomegaly Ext: no gross muscle atrophy, no edema, no contractures Left hand without edema, warmth, erythema, patient does have limited flexion of his fingers. Neuro: CN II-XI grossly intact, no focal neuro deficits Psych: Alert, oriented, appropriate affect Assessment/Plan: Pneumonia with sepsis, probable aspiration Acute hypoxic respiratory failure COPD without exacerbation Lactic acidosis Dysphagia s/p PEG -completed a course of zosyn -Repeat sputum CX with domitila -blood cultures Negative to date -Bronchodilators - continue with Peg feedings - speech recs -Pulmonary recommendations. Parosyxmal A fib - cardio recs - required Dilt gtt for a short time - continue metoprolol - will need AC if recurrent episode noted. - Echo with EF 55-60%, mild pulmonary hypertension Hypertension - low normal - follow BP - Hold aldactone/HCTZ, - continue metoprolol Anemia, at baseline - follow CBC - outpatient follow-up - continue with iron Cognitive impairment -Safe and supportive environment Chronic: Depression Hypothyroidism Poor overall prognosis, as the patient is unable to clear secretions on his own and already underwent PEG tube placement this hospital stay. Consult palliative care. DVT prophylaxis: lovenox Discussed with: Patient, nursing Anticipated discharge: pending clinical course Anticipated discharge place: pending clinical course A total of 25 minutes was spent on the care of this complex patient more than 50% of the time was spent in counseling and care coordination. Active Medications Generic Name Dose Route Start Last Admin Trade Name Freq PRN Reason Stop Dose Admin Acetaminophen 650 mg 04/27/22 12:18 04/28/22 09:46 Acetaminophen Oral Susp (Peds) 3,840 Mg/120 Ml Bottle PO 650 mg Q4HR PRN Administration Pain Albuterol/Ipratropium 3 ml 04/22/22 14:28 Ipratropium-Albuterol 3 Ml Neb INHALATION RT-Q2H PRN Shortness Of Breath Or Wheezing Albuterol/Ipratropium 3 ml 04/22/22 20:00 04/28/22 07:30 Ipratropium-Albuterol 3 Ml Neb INHALATION 3 ml RT-TID [facility] Administration Ascorbic Acid 500 mg 04/23/22 09:00 04/28/22 09:06 Ascorbic Acid 500 Mg Tab PO 500 mg DAILY [facility] Administration Aspirin 81 mg 08/19/22 07:00 04/28/22 06:29 Aspirin 81 Mg PO 81 mg DAILY@0700 [facility] Administration Cholecalciferol 25 mcg 04/22/22 17:00 04/28/22 06:29 Cholecalciferol 25 Mcg (1000 Iu) Tablet PO 25 mcg BID@0700,1700 [facility] Administration Cyanocobalamin 1,000 mcg 04/23/22 07:00 04/28/22 06:29 Cyanocobalamin 500 Mcg Tab PO 1,000 mcg DAILY@0700 [facility] Administration Docusate Sodium 100 mg 04/22/22 14:50 Docusate 100 Mg Cap PO DAILY PRN Constipation Enoxaparin Sodium 40 mg 04/22/22 14:45 04/28/22 09:06 Enoxaparin 40 Mg/0.4 Ml Syringe SQ 40 mg DAILY [facility] Administration Ferrous Sulfate 325 mg 04/23/22 09:00 04/27/22 08:37 Ferrous Sulfate 325 Mg Tab PO 325 mg Q48H [facility] Administration Hydromorphone HCl 0.25 mg 04/23/22 13:24 04/27/22 12:20 Hydromorphone 0.5 Mg/0.5 Ml Syringe IVP 0.25 mg Q3HR PRN Administration Pain Sodium Chloride 1,000 mls @ 75 mls/hr 04/22/22 14:30 04/28/22 03:45 Saline 0.9% IV Not Given .[id number] [facility] Propofol 1,000 mg/ IV Solution 100 mls @ 1.95 mls/hr 04/25/22 08:45 04/27/22 06:22 IV 35 mcg/kg/min .Q24H [facility] 13.65 mls/hr Administration Protocol 5 MCG/KG/MIN Lactulose 20 gm 04/23/22 07:00 04/28/22 06:29 Lactulose 20 Gm/30 Ml Cup PO 20 gm DAILY@0700 [facility] Administration Levothyroxine Sodium 25 mcg 04/23/22 07:00 04/28/22 06:29 Levothyroxine 25 Mcg Tab PO 25 mcg DAILY@0700 [facility] Administration Metoprolol Tartrate 25 mg 04/22/22 17:00 04/28/22 06:29 Metoprolol Tartrate 25 Mg Tab PO 25 mg BID@0700,1700 [facility] Administration Miscellaneous Information 1 each 04/23/22 22:43 Potassium Replacement Protocol 1 Each [facility] [place] PRN Per Protocol Protocol Miscellaneous Information 1 each 04/23/22 22:43 Magnesium Replacement Protocol 1 Each [facility] [place] PRN Per Protocol Protocol Naloxone HCl 0.2 mg 04/22/22 13:40 Naloxone 0.4 Mg/Ml 1 Ml Vial IV Q2M PRN Opioid Reversal Pantoprazole Sodium 40 mg 04/22/22 14:45 04/28/22 09:06 Pantoprazole 40 Mg/10 Ml Vial IVP 40 mg DAILY [facility] Administration Paroxetine HCl 40 mg 04/22/22 21:00 04/27/22 21:00 Paroxetine 20 Mg Tab PO 40 mg HS@2100 [facility] Administration Objective - Vital Signs Vital signs: Vital Signs Temp 97.5 F L 04/28/22 04:00 Pulse 70 04/28/22 08:00 Resp 19 04/28/22 08:00 BP 139/89 04/28/22 08:00 Pulse Ox 100 04/28/22 08:00 FiO2 30 04/27/22 04:00 Intake & Output 04/27/22 04/28/22 04/28/22 18:59 06:59 18:59 Intake Total 820 1275 105 Output Total 1155 1261 200 Balance -335 14 -95 Weight 69.4 kg Intake: IV 650 925 75 Piperacillin-Tazobactam 3 200 100 .375 gm In Sodium Chloride 0.9% 100 ml @ 25 mls/hr IVPB Q8HR [facility] Rx# :[id number] Sodium Chloride 0.9% 1, 450 825 75 000 ml @ 75 mls/hr IV . [id number] [facility] Rx#:[id number] Tube Feeding 20 290 30 Other 150 60 Output: Urine 1155 1260 200 Stool 1 Other: Voiding Method Indwelling Catheter Indwelling Catheter Indwelling Catheter # Bowel Movements 1 1 - Labs CBC & Chem 7: 04/28/22 06:25 04/28/22 06:25 Labs: Abnormal Lab Results - Last 24 Hours (Table) 04/28/22 04/28/22 04/28/22 Range/Units 06:25 06:25 11:27 RBC 2.84 L (4.30-5.90) m/uL Hgb 8.7 L (13.0-17.5) gm/dL Hct 27.7 L (39.0-53.0) % Carbon Dioxide 31 H (22-30) mmol/L POC Glucose (mg/dL) 129 H (70-110) mg/dL Microbiology - Last 24 Hours (Table) 04/25/22 09:37 Gram Stain - Final Bronchial Washings - Left Bronchial Washings Culture - Final Domitila albicans 04/25/22 09:37 Acid Fast Bacilli Smear - Final Bronchial Washings - Left Acid Fast Bacilli Culture - Preliminary 04/22/22 14:38 Blood Culture - Preliminary Blood No Growth after 120 hours
--- NOTE | 2022-04-28 15:43 | XR ---
EXAMINATION TYPE: XR hand limited LT DATE OF EXAM: 04/28/2022 COMPARISON: None HISTORY: Pain left hand TECHNIQUE: 2 view left hand FINDINGS: No acute fracture or dislocation is evident. Soft tissues appear normal. There may be some resorption of the proximal scaphoid. Scapholunate space is somewhat prominent. MRI could be performed if closer evaluation would be of benefit. MRI can be performed if there is clinical concern for a sc aphoid fracture. IMPRESSION: 1. No acute osseous abnormality. 2. Some chronic changes at the scapholunate space. However scapholunate disassociation.
[2022-04-28 18:00] LABS: Glucose,Whole Blood 133 mg/dL (70-110)
[2022-04-28] MEDS: PARoxetine 20 MG TAB PO SCH (21:14)
[2022-04-29 00:40] LABS: Glucose,Whole Blood 118 mg/dL (70-110)
[2022-04-29] MEDS: ACETAMINOPHEN ORAL SUSP (PEDS) 3,840 MG/120 ML BOTTLE PO PRN ×2 (01:07→21:53)
[2022-04-29 06:45] LABS: Glucose,Whole Blood 118 mg/dL (70-110)
--- NOTE | 2022-04-29 08:02 | PN ---
PROGRESS NOTE Mr. Burton had an episode of atrial fibrillation and was seen by Dr. Moya yesterday. He is maintaining sinus rhythm. Cardiac-peña, he appears to be fairly stable. OBJECTIVE: VITALS: Stable. NECK: No JVD. HEART: S1, S2 heard normally. There is no significant murmur audible. LUNGS: Revealed decent air entry. ABDOMEN: Soft. EXTREMITIES: Lower extremities reveal diminished pulses. NEUROLOGIC: Central nervous system assessment was not performed. Grossly no focal deficits. Patient is in sinus rhythm. I am recommending that we continue current medications which include beta blockers and also continue telemetry, perform an EKG in the morning. His echocardiogram revealed fairly well preserved systolic function. The patient's echocardiogram revealed preserved systolic function. He has some malnourishment and no has a PEG tube. Advised to have EKG in the morning. If the patient has any atrial fibrillation, we should consider anticoagulation. Otherwise we would defer anticoagulation for now according to Dr. Moya's note which I concur with. MMODL / IJN: [id number] /
--- NOTE | 2022-04-29 08:04 | XR ---
EXAMINATION TYPE: XR chest 1V portable DATE OF EXAM: 04/29/2022 CLINICAL HISTORY: Difficulty breathing progress study. TECHNIQUE: Single AP portable right view of the chest is obtained. COMPARISON: Chest x-ray from one day earlier and older studies. FINDINGS: Continued worsening left lung opacification with more prominent left apical component. Inc reasing silhouetting of the left heart border noted. Patient slightly rotated to the left. Right lung remains clear. Osseous structures are demineralized. Old right-sided rib fractures redemonstrated. IMPRESSION: Worsening left lung opacities suggest worsening left lung pleural fluid collection along with worsening left lung infiltrate and/or atelectasis.
[2022-04-29] MEDS: IPRATROPIUM-ALBUTEROL 3 ML NEB INHALATION SCH ×3 (09:30→20:05)
[2022-04-29] MEDS: PANTOPRAZOLE 40 MG/10 ML VIAL IVP SCH (10:13)
[2022-04-29] MEDS: ENOXAPARIN 40 MG/0.4 ML SYRINGE SQ SCH (10:13)
[2022-04-29] MEDS: CYANOCOBALAMIN 500 MCG TAB PO SCH (10:13)
[2022-04-29] MEDS: ASPIRIN 81 MG PO SCH (10:13)
[2022-04-29] MEDS: FERROUS SULFATE 325 MG TAB PO SCH (10:14)
[2022-04-29] MEDS: LEVOTHYROXINE 25 MCG TAB PO SCH (10:14)
[2022-04-29] MEDS: ASCORBIC ACID 500 MG TAB PO SCH (10:14)
[2022-04-29] MEDS: METOPROLOL TARTRATE 25 MG TAB PO SCH ×2 (10:14→17:31)
[2022-04-29] MEDS: LACTULOSE 20 GM/30 ML CUP PO SCH (10:15)
[2022-04-29] MEDS: CHOLECALCIFEROL 25 MCG (1000 IU) TABLET PO SCH ×2 (10:19→17:31)
--- NOTE | 2022-04-29 10:33 | P.PN ---
Subjective Progress Note Date: 04/29/22 Principal diagnosis: Respiratory failure. Reevaluated today on 04/24/22, patient was extubated yesterday, tolerated the extubation well, presently on BiPAP 12//40%. Patient is receiving IV fluid in the formal 0.9 normal saline at 75 mL per hour. Chest x-ray continues to show b ilateral airspace disease, left more so than right. Patient is awake, does not seem to be in any distress, however patient failed his bedside swallow evaluation, and eventually the patient may need a PEG tube placement if his legal guardian and is agreeable. This is to be decided upon in the next couple of days. In the meantime the patient will remain in the ICU, I have him start transitioned from BiPAP to a nasal cannula and I would recommend a nasogastric tube placement to start tube feeding. In the meantime remains on antibiotics and definitely nothing by mouth CBC is relatively normal basic metabolic profile is normal and his renal functioning is improving creatinine is down to 1.20 from 1.35 yesterday. Reevaluated today on 04/25/22, patient remains extubated, however his chest x-ray this morning showed complete opacification of the left lung with tracheal deviation to the ipsilateral side. Hence this is consistent with mucous plugging involving the left mainstem bronchus. Patient seems to be gurgling with secretions he has a weak cough, and unable to clear his secretions. Remains on few liters nasal cannula with good saturations. However patient seems to be agitated, and gurgling with secretions. After reviewing the chest x-ray, I discussed his condition with his legal guardian and discussed the option of bronchoscopy and the patient will need to be intubated for the bronchoscopy and may be kept on mechanical ventilation overnight. I also discussed the option of comfort care measures with the legal guardian. She prefers to go ahead and proceed with a bronchoscopy and cleared up his left lung, and decisions will be made down the line regarding further care, she is very well aware that the patient may have to have a PEG tube placement. Patient had recurrent aspiration pneumonias for quite some time, and I believe it is about time that we should consider PEG tube placement in this patient. This is to be decided upon hopefully in the next 24-48 hours. Today I went ahead and bronchoscope the patient, cleaned up his mucus plugging from the left mainstem bronchus. And I kept him on mechanical ventilation post bronchoscopy. Chest x- ray showed significant improvement but not completely cleared specially the left lower lobe continues to have opacity and possible distal mucus plugging. Labs today showed WBC count of 7 hemoglobin 8.7 and left. Normal renal profile is normal Progress note dated 04/26/2022. This is a patient was admitted on April 22 for aspiration pneumonia. The patient was intubated on April 22, respiratory failure, and subsequently extubated the following day on April 23. Yesterday, the chest x-ray showed complete collapse of the left lung, and the patient was electively intubated again for bronchoscopy. He remains on the ventilator. The patient is on volume assist control, rate 20, tidal volume 400, FiO2 40%, and PEEP of 5. Her blood gases show pO2 161, pCO2 46, and a pH is 7.4. FiO2 was reduced down to 30%. The patient's on propofol at 35 mcg/kg/m, saline at 75 mL an hour Jevity 55 mL an hour, which is goal. White count 4.7, hemoglobin 7.7, hematocrit 24.9, with a normal platelet count. Sodium 138, potassium 3.6, chlorides 106, CO2 27, urine 21, creatinine 0.97. Microbiologic studies are currently pending. The patient is on Zosyn empirically. Chest x-ray shows improved aeration to the left lung, with some residual infiltrate in the left mid lung and left lower lobe. Progress note dated 04/27/2022. 77-year-old patient who was admitted on April 22 for aspiration pneumonia. He was intubated on April 22, respiratory failure, and subsequently extubated the following day on April 23. On Tuesday, because of left lung collapse, he was intubated, for bronchoscopy, and he remains on the ventilator. The patient did receive a PEG tube yesterday, April 26. His vent settings include the volume assist control, rate 20, tidal volume 400, FiO2 30%, PEEP of 5. The patient's on saline at 75 mL an hour, and propofol at 35 g kilogram per minute. Blood gases today have not yet been done. I told the nurses and respiratory therapist to place the patient on CPAP of 5, and pressure support of 5, get a full set a weaning parameters after 30 minutes, and a cuff leak test, and a rapid shallow breathing index, and that me know to see if he can be extubated. He is not to be reintubated should he fail. I clarified that with his medical decision-maker yesterday. Chest x-ray has been reviewed. Progress note dated 04/28/2022. 77-year-old patient who was admitted on April 22 for aspiration pneumonia. The patient was intubated on April 22, respiratory failure, subsequently extubated the following day and April 23. Over the weekend, he developed left lung collapse, and was intubated for bronchoscopy, on Tuesday, and was extubated yesterday. He did have a PEG tube placed as well. Currently, the patient is on saline at 75 mL an hour, vital high protein at 30 mL now with a goal of 50, and 5 L nasal cannula. The patient is stable and my opinion to go to the general medical floor without telemetry. He is a DO NOT RESUSCITATE patient. He is not to be reintubated according to his court-appointed decision-maker. Labs today include a white count of 7.3, hemoglobin 8.7, hematocrit 27.7, and a platelet count of 346,000. Bronchoscopy results are still pending or negative. Microbiologic studies are negative. Chest x-ray today again shows partial collapse of the left lung, and I will request some chest physiotherapy to the left. It can be done either manually or mechanically. Progress note dated 04/29/2022. 77-year-old male who was admitted on April 22 for aspiration pneumonia. The patient was intubated on the same day, and subsequently extubated following day, and April 23. He was reintubated on April 25, for left lung collapse, and had bronchoscopy on the same day. The patient subsequently had a PEG tube placed. He then was re-extubated. Currently, the patient's on 5 L nasal cannula. He's not receiving any IV fluids. He is on vital high protein at goal, which is 50 mL an hour. The patient can be transferred to the general medical floor without telemetry. Unfortunately, his chest x-ray today, again shows complete opacification of the left lung. He is getting chest physiotherapy, mechanically. No new labs today other than a blood glucose of 118. Objective - Vital Signs Vital signs: Vital Signs Temp 97.6 F 04/28/22 20:00 Pulse 82 04/29/22 02:00 Resp 16 04/29/22 02:00 BP 129/79 04/29/22 02:00 Pulse Ox 96 04/29/22 02:00 FiO2 50 04/29/22 09:21 Intake & Output 04/28/22 04/29/22 04/29/22 18:59 06:59 18:59 Intake Total 665 Output Total 200 500 Balance 465 -500 Weight 66.7 kg Intake: IV 75 Sodium Chloride 0.9% 1, 75 000 ml @ 75 mls/hr IV . [id number] [facility] Rx#:[id number] Tube Feeding 500 Other 90 Output: Urine 200 500 Other: Voiding Method Indwelling Catheter Indwelling Catheter # Bowel Movements 2 - Exam No acute distress, Currently on 5 L nasal cannula. HEENT examination is grossly unremarkable. Neck supple. Full range of motion. No adenopathy thyromegaly or neck vein distention. Cardiovascular examination reveals regular rhythm rate. S1-S2 normal. No S3 or S4. No discernible murmur noted. Heart sounds are distant. Heart rate 82 bpm. Lungs reveal scattered bilateral rhonchi. Breath sounds diminished on the left. No wheezes or crackles. Saturations are 96%. Abdomen soft bowel sounds are heard. No masses or tenderness. PEG tube is noted. Extremities are intact. No cyanosis clubbing or edema. Skin is without rash or lesion. Neurologic examination reveals the patient to be awake, and nodding. - Labs CBC & Chem 7: 04/28/22 06:25 04/28/22 06:25 Labs: Abnormal Lab Results - Last 24 Hours (Table) 04/28/22 04/28/22 04/29/22 Range/Units 11:27 18:00 00:38 POC Glucose (mg/dL) 129 H 133 H 118 H (70-110) mg/dL 04/29/22 Range/Units 06:43 POC Glucose (mg/dL) 118 H (70-110) mg/dL Microbiology - Last 24 Hours (Table) 04/22/22 14:38 Blood Culture - Final Blood No Growth after 144 hours 04/25/22 09:37 Gram Stain - Final Bronchial Washings - Left Bronchial Washings Culture - Final Domitila albicans Assessment and Plan Assessment: Acute hypoxemic respiratory failure, status post intubation on April 22, extubation on April 23, and reintubation on April 25, with bronchoscopy, for left lung collapse, status post re-extubation on April 27. Status post PEG tube placement 04/26/2022. Chronic aspiration pneumonia. Chronic dysphagia. History of COPD. His CHF. History of dementia. History of hypothyroidism. History of essential hypertension. Plan: Plan dated 04/26/2022. I had a long conversation with the patient's court-appointed decision maker. Her name was Marisela. She said today on the phone that the patient would be okay with a feeding tube, but no tracheostomy tube. The plan would be to see we can get a feeding tube placed tomorrow. We will consult one of the surgeons. Afterwards, the patient will hopefully be extubated, but not be reintubated. She is certainly in agreement with that. We continue on antibiotics, and propofol for the time being. The patient's FiO2 was reduced from 40%, down to 30%. Additional recommendations and suggestions are forthcoming. Prognosis is guarded. Medications are reviewed. Unnecessary medications are discontinued. Plan dated 04/27/2022. The patient will be placed on pressure support and CPAP, and after 30 minutes, will have a full set a weaning parameters. If adequate, the patient will be extubated. The patient is not to be reintubated. I had a long conversation with her court-appointed decision maker. That person's name is Marisela. She made it very clear that the patient was not to be reintubated if he fails, but did agree with the PEG tube. The PEG tube was placed yesterday. Labs, x-rays, and medications are reviewed. Prognosis is certainly guarded. Unnecessary medications are discontinued. Plan dated 04/28/2022. The patient was extubated yesterday. The patient is currently being nourished with tube feedings, at 30 mL an hour. He does have a PEG tube in place. He is not to be reintubated. Labs, x-rays, medications are reviewed. We will request some chest physiotherapy to the left lung. The patient could be transferred to the general medical floor without telemetry. Overall prognosis remains very poor. We will continue to follow make recommendations along the way. Plan dated 04/29/2022. The patient is currently on 5 L nasal cannula. He is getting tube feedings at goal. His chest x-ray again shows complete opacification of the left lung. I've asked the nurses and respiratory therapist about the right lung down, and focus on chest physiotherapy to the left lung. The patient's overall prognosis remains very poor. We will continue to follow make recommendations along the way. Labs, x-rays, and medications are reviewed. The patient can be transferred to a general medical floor, without telemetry. I will also mention to respiratory therapy, that they can use BiPAP if necessary. Time with Patient: Less than 30
--- NOTE | 2022-04-29 11:15 | P.PN ---
Subjective Progress Note Date: 04/29/22 CHIEF COMPLAINT: Shortness of breath HISTORY OF PRESENT ILLNESS: Patient is postop day #3 status post PEG tube placement. Patient is tolerating tube feeds. Tube feeds are currently at 50 mL per hour. He is having bowel movements. No nausea or vomiting. No abdominal pain. Patient is requiring BiPAP. Followed by pulmonary service. Palliative care has been consulted Patient seen and examined with Dr. Gerber PHYSICAL EXAM: VITAL SIGNS: Reviewed. GENERAL: no acute distress. HEENT: No sclera icterus. Extraocular movements grossly intact. Moist buccal mucosa. Head is atraumatic, normocephalic. ABDOMEN: Soft. Nondistended. Nontender. PEG tube site clean dry and intact NEUROLOGIC: awake ASSESSMENT: 1. Severe protein calorie malnutrition status post PEG tube placement 2. Dysphagia 3. Chronic aspiration pneumonia 4. Acute hypoxic respiratory failure PLAN: -Continue to titrate tube feedings per dietitian recommendations -Continue supportive care Physician Optical Laboratory Technician note has been reviewed by physician. Signing provider agrees with the documented findings, assessment, and plan of care. Objective - Vital Signs Vital signs: Vital Signs Temp 97.6 F 04/28/22 20:00 Pulse 82 04/29/22 02:00 Resp 16 04/29/22 02:00 BP 129/79 04/29/22 02:00 Pulse Ox 96 04/29/22 02:00 FiO2 50 04/29/22 09:21 Intake & Output 04/28/22 04/29/22 04/29/22 18:59 06:59 18:59 Intake Total 665 Output Total 200 500 Balance 465 -500 Weight 66.7 kg 66.7 kg Intake: IV 75 Sodium Chloride 0.9% 1, 75 000 ml @ 75 mls/hr IV . [id number] [facility] Rx#:[id number] Tube Feeding 500 Other 90 Output: Urine 200 500 Other: Voiding Method Indwelling Catheter Indwelling Catheter # Bowel Movements 2 - Labs CBC & Chem 7: 04/28/22 06:25 04/28/22 06:25 Labs: Abnormal Lab Results - Last 24 Hours (Table) 04/28/22 04/28/22 04/29/22 Range/Units 11:27 18:00 00:38 POC Glucose (mg/dL) 129 H 133 H 118 H (70-110) mg/dL 04/29/22 Range/Units 06:43 POC Glucose (mg/dL) 118 H (70-110) mg/dL Microbiology - Last 24 Hours (Table) 04/22/22 14:38 Blood Culture - Final Blood No Growth after 144 hours 04/25/22 09:37 Gram Stain - Final Bronchial Washings - Left Bronchial Washings Culture - Final Domitila albicans
--- NOTE | 2022-04-29 11:53 | P.PN ---
Progress Note - Text Progress Note Date: 04/29/22 Patient resting in bed with BiPAP on. Attempted to reach the patient's legal guardian, Marisela. Left voice mail with call back number. Awaiting call back.
[2022-04-29 12:06] LABS: Glucose,Whole Blood 106 mg/dL (70-110)
--- NOTE | 2022-04-29 18:32 | P.PN ---
Subjective Progress Note Date: 04/29/22 (delayed charting seen at 1045) Patient is a 77-year-old male with hypothyroidism, depression, hypertension, and COPD who presented to the ER for hypoxemia. On arrival to the ER patient was satting in the mid 60s despite nonrebreather and was therefore intubated. In the ER an extensive evaluation was done. Laboratory analysis was notable for leukocytosis of 16.6, anemia 10.6, BUN 41, creatinine 1.2 (which is better than baseline), point. Initial coag testing was negative. D-dimer was elevated at 1.9. ABG post intubation showed a pH of 7.1, pCO2 of 58, PaO2 of 248. Chest x- ray showed interstitial opacities. CT angiography of the chest showed diffuse bronchial wall thickening, scattered tree-in-bud opacities as well as groundglass changes and consolidations at the bilateral posterior lung bases with no pulmonary embolism noted, EKG demonstrated sinus tachycardia, and CT brain showed nonspecific degenerative white matter changes with sinusitis and left sided mastoiditis. He was started on Zosyn for possible pneumonia, bronchodilators, steroids, a cultures were obtained. Patient was admitted to the ICU. Pulmonary critical care was consulted. He was extubated on 04/23/22 and placed on BiPap. He developed complete opacification of the left hemithorax on 04/25 requiring intubation and bronchosocopy which revealed mucus plugging. The procedure required re-intubation. He had a PEG tube placed on 04/26. He was extubated the morning of 04/27. He was seen by speech and does not initiate swallow. He is having difficulty clearing secretions and has required frequent suctioning. Echocardiogram showed normal left ventricular size with systolic function with EF 55-60% and mild mitral and tricuspid regurgitation. Overnight on 04/28 he developed worsening respiratory distress. He then was noted to have a complete white out of his left hemithorax. Pulmonary ordered him to be restarted on BiPAP. No plans for bronchoscopy at this point in time. Palliative care has been consulted. Patient seen and examined at bedside. He is very difficult to understand with BiPAP in place. He indicates that he continues to have some left hand pain. General: Ill-appearing, moderate distress appears at stated age Derm: warm, dry Head: atraumatic, normocephalic, symmetric Eyes: EOMI, no lid lag, anicteric sclera Mouth: no lip lesion, mucus membranes dry Cardiovascular: S1S2 reg, no murmur, positive posterior tibial pulse bilateral, Lungs: Decreased breath sounds on left, no rhonchi, no rales , no accessory muscle use, BiPAP in place Abdominal: soft, nontender to palpation, no guarding, no appreciable organomegaly Ext: no gross muscle atrophy, trace edema, no contractures Left hand without edema, warmth, erythema, patient does have limited flexion of his fingers. Neuro: CN II-XI grossly intact, no focal neuro deficits Psych: Awake, difficult to assess orientation, speech is garbled, appears anxious Assessment/Plan: Pneumonia with sepsis, probable aspiration Acute hypoxic respiratory failure COPD without exacerbation Lactic acidosis Dysphagia s/p PEG -completed a course of zosyn -Repeat sputum CX with jesse -blood cultures Negative to date -Bronchodilators - continue with Peg feedings - speech recs: absent swallow -Pulmonary recommendations. Mucus plugging with complete opacification of the left hemithorax -Pulmonary following -Palliative care consulted as patient likely will need hospice and/or end-of-life care as he appears to be unable to complete his secretions and we will guardian has stated would not want tracheostomy. Parosyxmal A fib - cardio recs - required Dilt gtt for a short time - continue metoprolol - will need AC if recurrent episode noted. - Echo with EF 55-60%, mild pulmonary hypertension Hypertension - low normal - follow BP - Hold aldactone/HCTZ, - continue metoprolol Anemia, at baseline, iron deficient - follow CBC - outpatient follow-up - continue with iron Cognitive impairment -Safe and supportive environment Chronic: Depression Hypothyroidism Poor overall prognosis, as the patient is unable to clear secretions on his own and already underwent PEG tube placement this hospital stay. Consult palliative care. DVT prophylaxis: lovenox Discussed with: Patient, nursing, palliative care Anticipated discharge: pending clinical course Anticipated discharge place: pending clinical course A total of 30 minutes was spent on the care of this complex patient more than 50% of the time was spent in counseling and care coordination. Active Medications Generic Name Dose Route Start Last Admin Trade Name Freq PRN Reason Stop Dose Admin Acetaminophen 650 mg 04/27/22 12:18 04/29/22 01:07 Acetaminophen Oral Susp (Peds) 3,840 Mg/120 Ml Bottle PO 650 mg Q4HR PRN Administration Pain Albuterol/Ipratropium 3 ml 04/22/22 14:28 Ipratropium-Albuterol 3 Ml Neb INHALATION RT-Q2H PRN Shortness Of Breath Or Wheezing Albuterol/Ipratropium 3 ml 04/22/22 20:00 04/29/22 12:20 Ipratropium-Albuterol 3 Ml Neb INHALATION 3 ml RT-TID LANCE Administration Ascorbic Acid 500 mg 04/23/22 09:00 04/29/22 10:14 Ascorbic Acid 500 Mg Tab PO 500 mg DAILY LANCE Administration Aspirin 81 mg 04/23/22 07:00 04/29/22 10:13 Aspirin 81 Mg PO 81 mg DAILY@0700 [facility] Administration Cholecalciferol 25 mcg 04/22/22 17:00 04/29/22 17:31 Cholecalciferol 25 Mcg (1000 Iu) Tablet PO 25 mcg BID@0700,1700 [facility] Administration Cyanocobalamin 1,000 mcg 04/23/22 07:00 04/29/22 10:13 Cyanocobalamin 500 Mcg Tab PO 1,000 mcg DAILY@0700 [facility] Administration Docusate Sodium 100 mg 04/22/22 14:50 Docusate 100 Mg Cap PO DAILY PRN Constipation Enoxaparin Sodium 40 mg 04/22/22 14:45 04/29/22 10:13 Enoxaparin 40 Mg/0.4 Ml Syringe SQ 40 mg DAILY LANCE Administration Ferrous Sulfate 325 mg 04/23/22 09:00 04/29/22 10:14 Ferrous Sulfate 325 Mg Tab PO 325 mg Q48H [facility] Administration Hydromorphone HCl 0.25 mg 04/23/22 13:24 04/27/22 12:20 Hydromorphone 0.5 Mg/0.5 Ml Syringe IVP 0.25 mg Q3HR PRN Administration Pain Lactulose 20 gm 04/23/22 07:00 04/29/22 10:15 Lactulose 20 Gm/30 Ml Cup PO Not Given DAILY@0700 [facility] Levothyroxine Sodium 25 mcg 04/23/22 07:00 04/29/22 10:14 Levothyroxine 25 Mcg Tab PO 25 mcg DAILY@0700 [facility] Administration Metoprolol Tartrate 25 mg 04/22/22 17:00 04/29/22 17:31 Metoprolol Tartrate 25 Mg Tab PO 25 mg BID@0700,1700 LANCE Administration Miscellaneous Information 1 each 04/23/22 22:43 Potassium Replacement Protocol 1 Each Misc MISCELLANE DAILY PRN Per Protocol Protocol Miscellaneous Information 1 each 04/23/22 22:43 Magnesium Replacement Protocol 1 Each Misc MISCELLANE DAILY PRN Per Protocol Protocol Naloxone HCl 0.2 mg 04/22/22 13:40 Naloxone 0.4 Mg/Ml 1 Ml Vial IV Q2M PRN Opioid Reversal Pantoprazole Sodium 40 mg 04/22/22 14:45 04/29/22 10:13 Pantoprazole 40 Mg/10 Ml Vial IVP 40 mg DAILY LANCE Administration Paroxetine HCl 40 mg 04/22/22 21:00 04/28/22 21:14 Paroxetine 20 Mg Tab PO 40 mg HS@2100 LANCE Administration Objective - Vital Signs Vital signs: Vital Signs Temp 97.7 F 04/29/22 14:00 Pulse 78 04/29/22 14:00 Resp 15 04/29/22 14:00 BP 138/86 04/29/22 14:00 Pulse Ox 97 04/29/22 08:00 FiO2 50 04/29/22 15:24 Intake & Output 04/28/22 04/29/22 04/29/22 18:59 06:59 18:59 Intake Total 665 Output Total 200 500 Balance 465 -500 Weight 66.7 kg 66.7 kg Intake: IV 75 Sodium Chloride 0.9% 1, 75 000 ml @ 75 mls/hr IV . [id number] [facility] Rx#:[id number] Tube Feeding 500 Other 90 Output: Urine 200 500 Other: Voiding Method Indwelling Catheter Indwelling Catheter External Catheter # Bowel Movements 2 - Labs CBC & Chem 7: 04/28/22 06:25 04/28/22 06:25 Labs: Abnormal Lab Results - Last 24 Hours (Table) 04/29/22 04/29/22 Range/Units 00:38 06:43 POC Glucose (mg/dL) 118 H 118 H (70-110) mg/dL Microbiology - Last 24 Hours (Table) 04/22/22 14:38 Blood Culture - Final Blood No Growth after 144 hours
[2022-04-29 19:00] LABS: Glucose,Whole Blood 97 mg/dL (70-110)
[2022-04-29] MEDS: PARoxetine 20 MG TAB PO SCH (21:56)
[2022-04-29 23:51] LABS: Glucose,Whole Blood 110 mg/dL (70-110)
[2022-04-30 06:09] LABS: Glucose,Whole Blood 114 mg/dL (70-110)
[2022-04-30] MEDS: LEVOTHYROXINE 25 MCG TAB PO SCH (06:38)
[2022-04-30] MEDS: ASPIRIN 81 MG PO SCH (06:38)
[2022-04-30] MEDS: CHOLECALCIFEROL 25 MCG (1000 IU) TABLET PO SCH ×2 (06:38→17:31)
[2022-04-30] MEDS: CYANOCOBALAMIN 500 MCG TAB PO SCH (06:38)
[2022-04-30] MEDS: METOPROLOL TARTRATE 25 MG TAB PO SCH ×2 (06:39→17:32)
[2022-04-30] MEDS: LACTULOSE 20 GM/30 ML CUP PO SCH (06:39)
[2022-04-30 07:39] LABS: Basophils % (A) 0 %; Eosinophils # (A) 0.4 k/uL (0-0.7); Eosinophils % (A) 6 %; HCT 27.7 % (39.0-53.0); HGB 8.6 gm/dL (13.0-17.5); Hypochromasia Slight; Lymphocytes # (A) 1.6 k/uL (1.0-4.8); Lymphocytes % (A) 27 %; MCH 30.4 pg (25.0-35.0); MCV 98.1 fL (80.0-100.0); Mean Platelet Volume 7.6; Monocytes # (A) 0.2 k/uL (0-1.0); Monocytes % (A) 4 %; Neutrophils # (A) 3.6 k/uL (1.3-7.7); Neutrophils % (A) 60 %; Platelet Count 396 k/uL (150-450); RBC 2.82 m/uL (4.30-5.90); RDW 14.4 % (11.5-15.5); WBC 5.9 k/uL (3.8-10.6)
[2022-04-30] MEDS: IPRATROPIUM-ALBUTEROL 3 ML NEB INHALATION SCH ×3 (07:49→19:05)
[2022-04-30 07:50] LABS: African American GFR (CKD) >90 (>60 ml/min/1.73 sqM); Anion Gap 5 mmol/L; Blood Urea Nitrogen 16 mg/dL (9-20); Carbon Dioxide 36 mmol/L (22-30); Chloride 95 mmol/L (98-107); Glucose 121 mg/dL (74-99); Non-African American GFR(CKD) 85 (>60 ml/min/1.73 sqM); Potassium 3.6 mmol/L (3.5-5.1); Sodium 136 mmol/L (137-145)
[2022-04-30] MEDS: ACETAMINOPHEN ORAL SUSP (PEDS) 3,840 MG/120 ML BOTTLE PO PRN (08:27)
[2022-04-30] MEDS: PANTOPRAZOLE 40 MG/10 ML VIAL IVP SCH (08:28)
[2022-04-30] MEDS: ASCORBIC ACID 500 MG TAB PO SCH (08:28)
[2022-04-30] MEDS: ENOXAPARIN 40 MG/0.4 ML SYRINGE SQ SCH (08:28)
--- NOTE | 2022-04-30 09:07 | XR ---
EXAMINATION TYPE: XR chest 1V portable DATE OF EXAM: 04/30/2022 6:04 AM COMPARISON: Chest radiographs from 04/29/2022. TECHNIQUE: XR chest 1V portable Portable AP radiograph of the chest. CLINICAL INDICATION:Male, 77 years old with history of Tube placement; FINDINGS: Lungs/Pleura: Multifocal airspace opacities in the left lung with improved aeration in today's exam. Small left pleural effusion. No pneumothorax. Right lung is grossly stable and unremarkable. Pulmonary vascularity: Unremarkable. Heart/mediastinum: Cardiomediastinal silhouette is enlarged and stable. Musculoskeletal: No acute osseous pathology. IMPRESSION: 1. Improved aeration of the left lung with persistent left basilar airspace opacities. 2. Small left pleural effusion.
--- NOTE | 2022-04-30 10:03 | P.PN ---
Subjective Progress Note Date: 04/30/22 Principal diagnosis: Respiratory failure. Reevaluated today on 04/24/22, patient was extubated yesterday, tolerated the extubation well, presently on BiPAP 12//40%. Patient is receiving IV fluid in the formal 0.9 normal saline at 75 mL per hour. Chest x-ray continues to show b ilateral airspace disease, left more so than right. Patient is awake, does not seem to be in any distress, however patient failed his bedside swallow evaluation, and eventually the patient may need a PEG tube placement if his legal guardian and is agreeable. This is to be decided upon in the next couple of days. In the meantime the patient will remain in the ICU, I have him start transitioned from BiPAP to a nasal cannula and I would recommend a nasogastric tube placement to start tube feeding. In the meantime remains on antibiotics and definitely nothing by mouth CBC is relatively normal basic metabolic profile is normal and his renal functioning is improving creatinine is down to 1.20 from 1.35 yesterday. Reevaluated today on 04/25/22, patient remains extubated, however his chest x-ray this morning showed complete opacification of the left lung with tracheal deviation to the ipsilateral side. Hence this is consistent with mucous plugging involving the left mainstem bronchus. Patient seems to be gurgling with secretions he has a weak cough, and unable to clear his secretions. Remains on few liters nasal cannula with good saturations. However patient seems to be agitated, and gurgling with secretions. After reviewing the chest x-ray, I discussed his condition with his legal guardian and discussed the option of bronchoscopy and the patient will need to be intubated for the bronchoscopy and may be kept on mechanical ventilation overnight. I also discussed the option of comfort care measures with the legal guardian. She prefers to go ahead and proceed with a bronchoscopy and cleared up his left lung, and decisions will be made down the line regarding further care, she is very well aware that the patient may have to have a PEG tube placement. Patient had recurrent aspiration pneumonias for quite some time, and I believe it is about time that we should consider PEG tube placement in this patient. This is to be decided upon hopefully in the next 24-48 hours. Today I went ahead and bronchoscope the patient, cleaned up his mucus plugging from the left mainstem bronchus. And I kept him on mechanical ventilation post bronchoscopy. Chest x- ray showed significant improvement but not completely cleared specially the left lower lobe continues to have opacity and possible distal mucus plugging. Labs today showed WBC count of 7 hemoglobin 8.7 and left. Normal renal profile is normal Progress note dated 04/26/2022. This is a patient was admitted on April 22 for aspiration pneumonia. The patient was intubated on April 22, respiratory failure, and subsequently extubated the following day on April 23. Yesterday, the chest x-ray showed complete collapse of the left lung, and the patient was electively intubated again for bronchoscopy. He remains on the ventilator. The patient is on volume assist control, rate 20, tidal volume 400, FiO2 40%, and PEEP of 5. Her blood gases show pO2 161, pCO2 46, and a pH is 7.4. FiO2 was reduced down to 30%. The patient's on propofol at 35 mcg/kg/m, saline at 75 mL an hour Jevity 55 mL an hour, which is goal. White count 4.7, hemoglobin 7.7, hematocrit 24.9, with a normal platelet count. Sodium 138, potassium 3.6, chlorides 106, CO2 27, urine 21, creatinine 0.97. Microbiologic studies are currently pending. The patient is on Zosyn empirically. Chest x-ray shows improved aeration to the left lung, with some residual infiltrate in the left mid lung and left lower lobe. Progress note dated 04/27/2022. 77-year-old patient who was admitted on April 22 for aspiration pneumonia. He was intubated on April 22, respiratory failure, and subsequently extubated the following day on April 23. On Tuesday, because of left lung collapse, he was intubated, for bronchoscopy, and he remains on the ventilator. The patient did receive a PEG tube yesterday, April 26. His vent settings include the volume assist control, rate 20, tidal volume 400, FiO2 30%, PEEP of 5. The patient's on saline at 75 mL an hour, and propofol at 35 g kilogram per minute. Blood gases today have not yet been done. I told the nurses and respiratory therapist to place the patient on CPAP of 5, and pressure support of 5, get a full set a weaning parameters after 30 minutes, and a cuff leak test, and a rapid shallow breathing index, and that me know to see if he can be extubated. He is not to be reintubated should he fail. I clarified that with his medical decision-maker yesterday. Chest x-ray has been reviewed. Progress note dated 04/28/2022. 77-year-old patient who was admitted on April 22 for aspiration pneumonia. The patient was intubated on April 22, respiratory failure, subsequently extubated the following day and April 23. Over the weekend, he developed left lung collapse, and was intubated for bronchoscopy, on Tuesday, and was extubated yesterday. He did have a PEG tube placed as well. Currently, the patient is on saline at 75 mL an hour, vital high protein at 30 mL now with a goal of 50, and 5 L nasal cannula. The patient is stable and my opinion to go to the general medical floor without telemetry. He is a DO NOT RESUSCITATE patient. He is not to be reintubated according to his court-appointed decision-maker. Labs today include a white count of 7.3, hemoglobin 8.7, hematocrit 27.7, and a platelet count of 346,000. Bronchoscopy results are still pending or negative. Microbiologic studies are negative. Chest x-ray today again shows partial collapse of the left lung, and I will request some chest physiotherapy to the left. It can be done either manually or mechanically. Progress note dated 04/29/2022. 77-year-old male who was admitted on April 22 for aspiration pneumonia. The patient was intubated on the same day, and subsequently extubated following day, and April 23. He was reintubated on April 25, for left lung collapse, and had bronchoscopy on the same day. The patient subsequently had a PEG tube placed. He then was re-extubated. Currently, the patient's on 5 L nasal cannula. He's not receiving any IV fluids. He is on vital high protein at goal, which is 50 mL an hour. The patient can be transferred to the general medical floor without telemetry. Unfortunately, his chest x-ray today, again shows complete opacification of the left lung. He is getting chest physiotherapy, mechanically. No new labs today other than a blood glucose of 118. Progress note dated 04/30/2022. 77-year-old male who was admitted to the hospital on April 22, for aspiration pneumonia. He was intubated on the same day, and extubated on the following d ay, April 23. On April 25, the patient developed left lung collapse, and was intubated for bronchoscopy. He was extubated 2 days later after a PEG tube was placed. Currently, using BiPAP as needed, to reexpand the left lung. His BiPAP settings included 12/6 and 50%. He's not receiving any IV fluids. He is getting Jevity 1.5 at 50 mL an hour, which is goal. White count 5.9, hemoglobin 8.6, hematocrit 27.7, with a normal platelet count. Sodium 136, potassium 3.6, chlorides 95, CO2 36, with a BUN of 16 and creatinine 0.80. Chest x-ray done this morning, shows improvement in the left lung collapse, while on BiPAP. Objective - Vital Signs Vital signs: Vital Signs Temp 98.2 F 04/30/22 02:00 Pulse 75 04/30/22 08:10 Resp 15 04/30/22 02:00 BP 150/83 04/30/22 02:00 Pulse Ox 97 04/29/22 08:00 FiO2 50 04/30/22 07:30 Intake & Output 04/29/22 04/30/22 04/30/22 18:59 06:59 18:59 Intake Total 315 450 Output Total 550 350 Balance -235 100 Weight 67.1 kg Intake: IV 0 Sodium Chloride 0.9% 1, 0 000 ml @ 75 mls/hr IV . [id number] [facility] Rx#:[id number] Tube Feeding 210 360 Other 105 90 Output: Urine 550 350 Other: Voiding Method External Catheter External Catheter # Voids 2 - Exam No acute distress, Currently on BiPAP, 12/6, at 50%. HEENT examination is grossly unremarkable. Neck supple. Full range of motion. No adenopathy thyromegaly or neck vein distention. Cardiovascular examination reveals regular rhythm rate. S1-S2 normal. No S3 or S4. No discernible murmur noted. Heart sounds are distant. Heart rate 75 bpm. Lungs reveal scattered bilateral rhonchi. Breath sounds diminished on the left. No wheezes or crackles. Saturations are 97%. Abdomen soft bowel sounds are heard. No masses or tenderness. PEG tube is noted. Extremities are intact. No cyanosis clubbing or edema. Skin is without rash or lesion. Neurologic examination reveals the patient to be awake, and nodding. - Labs CBC & Chem 7: 04/30/22 07:04 04/30/22 07:04 Labs: Abnormal Lab Results - Last 24 Hours (Table) 04/30/22 04/30/22 04/30/22 Range/Units 06:08 07:04 07:04 RBC 2.82 L (4.30-5.90) m/uL Hgb 8.6 L (13.0-17.5) gm/dL Hct 27.7 L (39.0-53.0) % Sodium 136 L (137-145) mmol/L Chloride 95 L (98-107) mmol/L Carbon Dioxide 36 H (22-30) mmol/L Glucose 121 H (74-99) mg/dL POC Glucose (mg/dL) 114 H (70-110) mg/dL Assessment and Plan Assessment: Acute hypoxemic respiratory failure, status post intubation on April 22, extubation on April 23, and reintubation on April 25, with bronchoscopy, for left lung collapse, status post re-extubation on April 27. Status post PEG tube placement 04/26/2022. Chronic aspiration pneumonia. Chronic dysphagia. History of COPD. His CHF. History of dementia. History of hypothyroidism. History of essential hypertension. Plan: Plan dated 04/26/2022. I had a long conversation with the patient's court-appointed decision maker. Her name was Marisela. She said today on the phone that the patient would be okay with a feeding tube, but no tracheostomy tube. The plan would be to see we can get a feeding tube placed tomorrow. We will consult one of the surgeons. Afterwards, the patient will hopefully be extubated, but not be reintubated. She is certainly in agreement with that. We continue on antibiotics, and propofol for the time being. The patient's FiO2 was reduced from 40%, down to 30%. Additional recommendations and suggestions are forthcoming. Prognosis is guarded. Medications are reviewed. Unnecessary medications are discontinued. Plan dated 04/27/2022. The patient will be placed on pressure support and CPAP, and after 30 minutes, will have a full set a weaning parameters. If adequate, the patient will be extubated. The patient is not to be reintubated. I had a long conversation with her court-appointed decision maker. That person's name is Marisela. She made it very clear that the patient was not to be reintubated if he fails, but did agree with the PEG tube. The PEG tube was placed yesterday. Labs, x-rays, and medications are reviewed. Prognosis is certainly guarded. Unnecessary medications are discontinued. Plan dated 04/28/2022. The patient was extubated yesterday. The patient is currently being nourished with tube feedings, at 30 mL an hour. He does have a PEG tube in place. He is not to be reintubated. Labs, x-rays, medications are reviewed. We will request some chest physiotherapy to the left lung. The patient could be transferred to the general medical floor without telemetry. Overall prognosis remains very poor. We will continue to follow make recommendations along the way. Plan dated 04/29/2022. The patient is currently on 5 L nasal cannula. He is getting tube feedings at goal. His chest x-ray again shows complete opacification of the left lung. I've asked the nurses and respiratory therapist about the right lung down, and focus on chest physiotherapy to the left lung. The patient's overall prognosis remains very poor. We will continue to follow make recommendations along the way. Labs, x-rays, and medications are reviewed. The patient can be transferred to a general medical floor, without telemetry. I will also mention to respiratory therapy, that they can use BiPAP if necessary. Plan dated 04/30/2022. The patient is on BiPAP specifically to help reexpand the left lung. Chest x- ray today is improved. Labs, x-rays, and medications are reviewed. He is getting tube feedings at goal. The patient could be transferred out to the general medical floor, without telemetry. He is a no code patient. He is not to be intubated or mechanically ventilated. We will continue to follow and make recommendations along the way. Overall prognosis remains very guarded. Time with Patient: Less than 30
--- NOTE | 2022-04-30 11:15 | P.CONS ---
History of Present Illness - Reason for Consult Consult date: 04/30/22 Goals of care Requesting physician: Trish Patten - Chief Complaint Difficulty in breathing - History of Present Illness The patient is a 77-year-old male with hypothyroidism, depression, hypertension, and COPD who presented to the ER for hypoxemia. On arrival to the ER patient was satting in the mid 60s despite nonrebreather and was therefore intubated. In the ER an extensive evaluation was done. Laboratory analysis was notable for leukocytosis of 16.6, anemia 10.6, BUN 41, creatinine 1.2 (which is better than baseline), point. Initial coag testing was negative. D-dimer was elevated at 1.9. ABG post intubation showed a pH of 7.1, pCO2 of 58, PaO2 of 248. Chest x- ray showed interstitial opacities. CT angiography of the chest showed diffuse bronchial wall thickening, scattered tree-in-bud opacities as well as groundglass changes and consolidations at the bilateral posterior lung bases with no pulmonary embolism noted, EKG demonstrated sinus tachycardia, and CT brain showed nonspecific degenerative white matter changes with sinusitis and left sided mastoiditis. He was started on Zosyn for possible pneumonia, bronchodilators, steroids, a cultures were obtained. Patient was admitted to the ICU. Pulmonary critical care was consulted. He was extubated on 04/23/22 and placed on BiPap. He developed complete opacification of the left hemithorax on 04/25 requiring intubation and bronchosocopy which revealed mucus plugging. The procedure required re-intubation. He had a PEG tube placed on 04/26. He was extubated the morning of 04/27. He was seen by speech and does not initiate swallow. He is having difficulty clearing secretions and has required frequent suctioning. Echocardiogram showed normal left ventricular size with systolic function with EF 55-60% and mild mitral and tricuspid regurgitation. Overnight on 04/28 he developed worsening respiratory distress. He then was noted to have a complete white out of his left hemithorax. Pulmonary ordered him to be restarted on BiPAP. No plans for bronchoscopy at this point in time. Review of Systems ROS unobtainable: due to mental status Constitutional: Reports as per HPI Past Medical History Past Medical History: Unable to Obtain Additional Past Medical History / Comment(s): Fall with R hip fracture 07/2021 with surgical repair, gastric ulcers with surgical repair/covid pneumonia and PE/dvt in 09/2021, developmentally delayed, possible aspiration pneumonia/sepsis with acute hypoxic respiratory failure/exacerbation of COPD in Jan, 2022, past high cholesterol, osteoporosis, gait dysfunction, incontinent of urine, constipation History of Any Multi-Drug Resistant Organisms: Unobtainable Past Surgical History: Unable to Obtain Additional Past Surgical History / Comment(s): R Hip Surgery; unspecified abdominal surgery Past Anesthesia/Blood Transfusion Reactions: No Reported Reaction Smoking Status: Never smoker - Past Family History Father History Unknown: Yes Mother History Unknown: Yes Medications and Allergies Home Medications Medication Instructions Recorded Confirmed Type Cholecalciferol [Vitamin D3 (25 25 mcg PO BID@0700,1700 01/09/22 04/22/22 History Mcg = 1000 Iu)] Cyanocobalamin (Vitamin B-12) 1,000 mcg PO DAILY@0700 01/09/22 04/22/22 History [Vitamin B-12] Docusate [Colace] 100 mg PO DAILY PRN 01/09/22 04/22/22 History Ferrous Sulfate [Iron (65 MG 325 mg PO Q48H 01/09/22 04/22/22 History Elemental)] Lactulose 20 gm PO DAILY@0700 01/09/22 04/22/22 History Levothyroxine Sodium [Synthroid] 25 mcg PO DAILY@0700 01/09/22 04/22/22 History Loratadine 10 mg PO DAILY@0700 PRN 01/09/22 04/22/22 History Melatonin [Melatonin ER] 10 mg PO HS@209901/09/22 04/22/22 History Metoprolol Tartrate 25 mg PO BID@0700,1700 01/09/22 04/22/22 History Thorp-3 Fatty Acids/Fish Oil [Fish 1 cap PO DAILY@00 01/09/22 04/22/22 History Oil 1,000 mg Softgel] Omeprazole [PriLOSEC] 20 mg PO BID@0700,209901/09/22 04/22/22 History PARoxetine HCL 40 mg PO HS@209901/09/22 04/22/22 History Triamterene/Hydrochlorothiazid 1 tab PO DAILY@0700 01/09/22 04/22/22 History [Triamterene-Hctz 37.5-25 mg Tb] guaiFENesin [Mucinex] 600 mg PO QID #20 tablet 01/16/22 04/22/22 Rx Ascorbic Acid [Vitamin C] 500 mg PO DAILY 04/22/22 04/22/22 History Aspirin EC [Ecotrin Low Dose] 81 mg PO DAILY@0700 04/22/22 04/22/22 History Benzonatate [Tessalon Perles] 100 - 200 mg PO TID PRN 04/22/22 04/22/22 History Budesonide [Pulmicort] 0.25 mg INHALATION RT-BID 04/22/22 04/22/22 History Fluticasone Propion/Salmeterol 1 puff INHALATION RT-BID@0700,1900 04/22/22 04/22/22 History [Advair 250-50 Diskus] Ipratropium-Albuterol Nebulize 3 ml INHALATION RT-TID 04/22/22 04/22/22 History [Duoneb 0.5 mg-3 mg/3 ml Soln] Liquacel 30 ml PO BID 04/22/22 04/22/22 History Phenazopyridine [Pyridium] 200 mg PO TID 04/22/22 04/22/22 History Sucralfate [Carafate] 1 gm PO TID-W/MEALS 04/22/22 04/22/22 History Zinc 50 mg PO DAILY 04/22/22 04/22/22 History Allergies Allergy/AdvReac Type Severity Reaction Status Date / Time No Known Allergies Allergy Verified 04/22/22 11:00 Physical Exam Vitals: Vital Signs Temp Pulse Pulse Resp BP FiO2 04/30/22 08:10 75 04/30/22 07:54 75 04/30/22 07:30 50 04/30/22 03:57 50 04/30/22 02:00 98.2 F 82 15 150/83 50 04/29/22 22:57 50 04/29/22 20:19 75 04/29/22 20:06 78 28 H 04/29/22 20:00 99.5 F 85 15 126/78 50 04/29/22 15:24 50 04/29/22 14:00 97.7 F 78 15 138/86 50 04/29/22 12:31 74 04/29/22 12:21 72 04/29/22 11:23 50 Intake and Output 04/29/22 04/30/22 04/30/22 22:59 06:59 14:59 Intake Total 315 450 Output Total 550 350 Balance -235 100 Intake: IV 0 Sodium Chloride 0.9% 1, 0 000 ml @ 75 mls/hr IV . [id number] [facility] Rx#:[id number] Tube Feeding 210 360 Other 105 90 Output: Urine 550 350 Other: Voiding Method External Catheter # Voids 2 Weight 67.1 kg General: Well developed. Chronically ill appearing No acute distress. HEENT: Head is atraumatic, normocephalic. Sclerae are clear. Pupils equal, round and reactive to light bilaterally. CV: Heart regular in rate and rhythm positive S1 and S2. Peripheral pulses equal. 2/4 Lungs: Diminished breath sounds on left. No wheezes rales or rhonchi. On BiPAP 12/6 50%. Abdomen/GI: Soft. Bowel sounds present in all 4 quadrants.No gaurding, rigidity, or abdominal tenderness. Musculoskeletal/ Extremities: CARDOZA, no joint deformity or swelling. No gross atrophy. + generalized weakness Vascular: Radial pulses equal. 2/4. No peripheral edema Skin: Warm and dry, No rash. Neurologic: Awake, alert and nodding head. Follows commands. Psychiatric: Unable to assess due to BiPAP. Results CBC & Chem 7: 04/30/22 07:04 04/30/22 07:04 Labs: Abnormal Lab Results - Last 24 Hours (Table) 04/30/22 04/30/22 04/30/22 Range/Units 06:08 07:04 07:04 RBC 2.82 L (4.30-5.90) m/uL Hgb 8.6 L (13.0-17.5) gm/dL Hct 27.7 L (39.0-53.0) % Sodium 136 L (137-145) mmol/L Chloride 95 L (98-107) mmol/L Carbon Dioxide 36 H (22-30) mmol/L Glucose 121 H (74-99) mg/dL POC Glucose (mg/dL) 114 H (70-110) mg/dL Microbiology - Last 24 Hours (Table) 04/25/22 09:37 Fungal Culture - Preliminary Bronchial Washings - Left Yeast species Abdominal x-ray: report reviewed, image reviewed CT scan - chest: report reviewed Assessment and Plan Assessment: *Information obtained from chart review and legal guardian, Marisela. Social * Occupation - Never worked, on disability * Marital status - Single * Children/grandchildren - None * Residence - [facility] * ETOH - No * Tobacco - No * Illicit drugs - No Spiritual/Cultural * A spiritual person - No * Worship - N/A * Belong to a particular jehovah's witness - No * Beliefs a source of comfort and strength - No * Nondenominational or cultural practices restrictions - none * EOL considerations/rituals - None Functional Assessment * Able to walk independently - No * Assistive devices - Walker * Able to use the bathroom independently - No * Continent - No * Require assistance bathing- Yes * Able to feed self - Yes * Who prepares meals - AFC * How many meals a day eaten - Unknown * What percentage of meals eaten daily - Unknown * Able to clean house/do laundry - NO * Transportation - AFC * Able to shop - No * Who manages medications - [facility] Psychological/Emotional * Dementia present - Patient has cognitive impairment and is confused at [facility] * Insight and judgment - Not intact * Depression - Unable to assess * Suicidal thoughts - Unable to assess * Good support system - [facility] and legal guardian * Patients goals - Unable to assess Symptoms * Pain - Patient nods his head no.. Continue Tylenol, and Dilaudid prn * Fatigue - + generalized weakness. Continue B1 and Ferrous sulfate * SOB - + shortness of breath, continue Duoneb, frequent suctioning and BiPAP as needed * Insomnia - No * N/V - No * Anxiety - No * Depression - Continue Paxil * Confusion - + cognitive impairment and confusion at baseline * Agitation - No * Hallucinations - KATIUSKA * Appetite/weight loss - + malnourishment, unknown if recent weight loss. Continue tube feeding via Peg tube per program services planner recommendations * Dysphagia - + dysphagia, keep NPO and continue tube feeding via Peg tube per program services planner recommendations * Constipation - Yes, LBM 04/28. Continue Colace and Lactulose. * Incontinence - Hunter catheter in place * Itch - No Plan: Summary/Goals - Patient resting in bed with BiPAP on. No distress noted. He was able to nod his head when asked questions. However, his speech is garbled and difficult to understand with the mask on. Spoke with his legal guardian, Marisela, via telephone. She was educated on the patients condition and poor prognosis. She stated that she had a conversation in the past about what his wishes may be. However, this was difficult due to his advanced dementia. He did indicate to her that he would not want to be put on life support and would rather let nature take it's course. She confirmed that he would not want a tracheostomy tube. She was informed that the patient has an inability to clear his own secretions which end up in his lungs. He does not initiate swallow and requires frequent suctioning. He is at high risk for mucus plugging, pneumonia, and further respiratory distress. It was explained to her that his left lung was cleared out previously with a bronchoscopy, but unfortunately was opacified again. She understands that without a trachestomy, this will be a recurring issue for the patient. Information regarding palliative care and hospice philosophies and services was provided. She is troubled by having to make such big decisions for the patient. She would like time to think it through and talk about it with the patient's caregiver. She states there is a hospice house in [place] that she would consider. Recommendations - Hospice Advanced Directives - None Code Status - DNR Thank you for this consult Gianna Gilmore [facility] Palliative Care Spectralink [phone] Email: [email or web address] Time with Patient: Greater than 30
--- NOTE | 2022-04-30 11:45 | P.PN ---
Subjective Progress Note Date: 04/30/22 Principal diagnosis: Patient seen and examined at bedside. Unable to speak with BiPAP, nodding to questions. BiPAP setting / at 50%. Tube feeds running, Jevity 1.5 at 50 cc/hr. CXR shows improved aeration in the left lung. General: Ill-appearing, no distress, appears at stated age Derm: warm, dry Head: atraumatic, normocephalic, symmetric Eyes: EOMI, no lid lag, anicteric sclera Mouth: no lip lesion, mucus membranes dry Cardiovascular: S1S2 reg, no murmur Lungs: Decreased breath sounds on left, no rhonchi, no rales , no accessory muscle use, BiPAP in place Abd: PEG in place Ext: no gross muscle atrophy, trace edema, no contractures Neuro: no focal neuro deficits Psych: Awake, difficult to assess orientation, nodding to questions Assessment/Plan: Pneumonia with sepsis, probable aspiration Acute hypoxic respiratory failure COPD without exacerbation Lactic acidosis Dysphagia s/p PEG - completed a course of zosyn - repeat sputum culture with jesse - blood cultures negative to date - bronchodilators - continue with PEG feedings - speech recs: absent swallow - Pulmonary recommendations Mucus plugging with complete opacification of the left hemithorax - pulmonary following - palliative care consulted as patient likely will need hospice and/or end-of-life care as he appears to be unable to complete his secretions and we will guardian has stated would not want tracheostomy Parosyxmal A fib - cardio recs - required diltiazem gtt for a short time - continue metoprolol - will need AC if recurrent episode noted. - echo with EF 55-60%, mild pulmonary hypertension Hypertension - low normal - follow BP - hold aldactone/HCTZ, - continue metoprolol Anemia, at baseline, iron deficient - follow CBC - outpatient follow-up - continue with iron Cognitive impairment - safe and supportive environment - frequent redirection Poor overall prognosis, as the patient is unable to clear secretions on his own and underwent PEG tube placement this hospital stay. Palliative care on board Objective - Vital Signs Vital signs: Vital Signs Temp 98.1 F 04/30/22 08:00 Pulse 75 04/30/22 08:10 Resp 14 04/30/22 08:00 BP 114/73 04/30/22 08:00 Pulse Ox 97 04/29/22 08:00 FiO2 40 04/30/22 10:36 Intake & Output 04/29/22 04/30/22 04/30/22 18:59 06:59 18:59 Intake Total 315 450 Output Total 550 350 Balance -235 100 Weight 67.1 kg 67.1 kg Intake: IV 0 Sodium Chloride 0.9% 1, 0 000 ml @ 75 mls/hr IV . [id number] [facility] Rx#:[id number] Tube Feeding 210 360 Other 105 90 Output: Urine 550 350 Other: Voiding Method External Catheter External Catheter External Catheter # Voids 2 - Labs CBC & Chem 7: 04/30/22 07:04 04/30/22 07:04 Labs: Abnormal Lab Results - Last 24 Hours (Table) 04/30/22 04/30/22 04/30/22 Range/Units 06:08 07:04 07:04 RBC 2.82 L (4.30-5.90) m/uL Hgb 8.6 L (13.0-17.5) gm/dL Hct 27.7 L (39.0-53.0) % Sodium 136 L (137-145) mmol/L Chloride 95 L (98-107) mmol/L Carbon Dioxide 36 H (22-30) mmol/L Glucose 121 H (74-99) mg/dL POC Glucose (mg/dL) 114 H (70-110) mg/dL Microbiology - Last 24 Hours (Table) 04/25/22 09:37 Fungal Culture - Preliminary Bronchial Washings - Left Yeast species
[2022-04-30 11:57] LABS: Glucose,Whole Blood 123 mg/dL (70-110)
[2022-04-30] MEDS: SODIUM CHLORIDE 0.9% 1,000 ML IV SCH (14:10)
[2022-04-30] MEDS: SUCRALFATE 1 GM TAB PO SCH (14:11)
[2022-04-30] MEDS: CHLORHEXIDINE GLUCONATE 15 ML CUP MUCOUS MEM SCH (14:11)
[2022-04-30 17:29] LABS: Glucose,Whole Blood 131 mg/dL (70-110)
[2022-04-30] MEDS: PARoxetine 20 MG TAB PO SCH (22:00)
[2022-05-01 00:42] LABS: Glucose,Whole Blood 138 mg/dL (70-110)
[2022-05-01] MEDS: LEVOTHYROXINE 25 MCG TAB PO SCH (06:34)
[2022-05-01] MEDS: METOPROLOL TARTRATE 25 MG TAB PO SCH ×2 (06:34→16:31)
[2022-05-01] MEDS: CHOLECALCIFEROL 25 MCG (1000 IU) TABLET PO SCH ×2 (06:35→16:30)
[2022-05-01] MEDS: CYANOCOBALAMIN 500 MCG TAB PO SCH (06:35)
[2022-05-01] MEDS: ASPIRIN 81 MG PO SCH (06:38)
[2022-05-01] MEDS: LACTULOSE 20 GM/30 ML CUP PO SCH (06:39)
[2022-05-01 06:49] LABS: Glucose,Whole Blood 148 mg/dL (70-110)
--- NOTE | 2022-05-01 07:02 | XR ---
EXAMINATION TYPE: XR chest 1V portable DATE OF EXAM: 05/01/2022 5:43 AM COMPARISON: Chest radiographs from 04/30/2022 TECHNIQUE: XR chest 1V portable Portable AP radiograph of the chest. CLINICAL INDICATION:Male, 77 years old with history of Tube placement; FINDINGS: Lungs/Pleura: Improved airspace opacities in the left. Persistent left lower airspace opacities are h owever present. There is no evidence of pneumothorax. Pulmonary vascularity: Unremarkable. Heart/mediastinum: Cardiomediastinal silhouette is unremarkable. Musculoskeletal: No acute osseous pathology. IMPRESSION: 1. No tube visualized. 2. Improved aeration in the left lung with persistent airspace opacities.
[2022-05-01] MEDS: IPRATROPIUM-ALBUTEROL 3 ML NEB INHALATION SCH ×3 (07:13→20:59)
[2022-05-01] MEDS: ENOXAPARIN 40 MG/0.4 ML SYRINGE SQ SCH (08:19)
[2022-05-01] MEDS: FERROUS SULFATE 325 MG TAB PO SCH (08:20)
[2022-05-01] MEDS: PANTOPRAZOLE 40 MG/10 ML VIAL IVP SCH (08:20)
[2022-05-01] MEDS: ACETAMINOPHEN ORAL SUSP (PEDS) 3,840 MG/120 ML BOTTLE PO PRN ×2 (08:20→16:31)
[2022-05-01] MEDS: ASCORBIC ACID 500 MG TAB PO SCH (08:20)
--- NOTE | 2022-05-01 09:55 | P.PN ---
Subjective Progress Note Date: 05/01/22 Principal diagnosis: Patient is a 77-year-old male with hypothyroidism, depression, hypertension, and COPD who presented to the ER for hypoxemia. On arrival to the ER patient was satting in the mid 60s despite nonrebreather and was therefore intubated. In the ER an extensive evaluation was done. Laboratory analysis was notable for leukocytosis of 16.6, anemia 10.6, BUN 41, creatinine 1.2 (which is better than baseline), point. Initial coag testing was negative. D-dimer was elevated at 1.9. ABG post intubation showed a pH of 7.1, pCO2 of 58, PaO2 of 248. Chest x- ray showed interstitial opacities. CT angiography of the chest showed diffuse bronchial wall thickening, scattered tree-in-bud opacities as well as groundglass changes and consolidations at the bilateral posterior lung bases with no pulmonary embolism noted, EKG demonstrated sinus tachycardia, and CT br ain showed nonspecific degenerative white matter changes with sinusitis and left sided mastoiditis. He was started on Zosyn for possible pneumonia, bronchodilators, steroids, a cultures were obtained. Patient was admitted to the ICU. Pulmonary critical care was consulted. He was extubated on 04/23/22 and placed on BiPap. He developed complete opacification of the left hemithorax on 04/25 requiring intubation and bronchosocopy which revealed mucus plugging. The procedure required re-intubation. He had a PEG tube placed on 04/26. He was extubated the morning of 04/27. He was seen by speech and does not initiate swallow. He is having difficulty clearing secretions and has required frequent suctioning. Echocardiogram showed normal left ventricular size with systolic function with EF 55-60% and mild mitral and tricuspid regurgitation. Overnight on 04/28 he developed worsening respiratory distress. He then was noted to have a complete white out of his left hemithorax. Pulmonary ordered him to be restarted on BiPAP. No plans for bronchoscopy at this point in time. Palliative care has been consulted. Palliative care consulted, discussion was had with the guardian who was agreeable to [facility]. Case management Johnny was notified. Patient seen and examined at bedside. Unable to speak with BiPAP, nodding to questions. BiPAP setting 12/ at 40%. Tube feeds running, Jevity 1.5 at 50 cc/hr. CXR shows improved aeration in the left lung. General: Ill-appearing, no distress, appears at stated age Derm: warm, dry Head: atraumatic, normocephalic, symmetric Eyes: EOMI, no lid lag, anicteric sclera Mouth: no lip lesion, mucus membranes dry Cardiovascular: S1S2 reg, no murmur Lungs: Decreased breath sounds on left, no rhonchi, no rales , no accessory muscle use, BiPAP in place Abd: PEG in place Ext: no gross muscle atrophy, trace edema, no contractures Neuro: no focal neuro deficits Psych: Awake, difficult to assess orientation, nodding to questions Assessment/Plan: Pneumonia with sepsis, probable aspiration Acute hypoxic respiratory failure COPD without exacerbation Lactic acidosis Dysphagia s/p PEG - completed a course of zosyn - repeat sputum culture with domitila - blood cultures negative to date - bronchodilators - continue with PEG feedings - speech recs: absent swallow - Pulmonary recommendations Mucus plugging with complete opacification of the left hemithorax - pulmonary following - palliative care consulted as patient likely will need hospice and/or end-of-life care as he appears to be unable to complete his secretions and we will guardian has stated would not want tracheostomy Parosyxmal A fib - cardio recs - required diltiazem gtt for a short time - continue metoprolol - will need AC if recurrent episode noted. - echo with EF 55-60%, mild pulmonary hypertension Hypertension - low normal - follow BP - hold aldactone/HCTZ - continue metoprolol Anemia, at baseline, iron deficient - follow CBC - outpatient follow-up - continue with iron Cognitive impairment - safe and supportive environment - frequent redirection Poor overall prognosis, as the patient is unable to clear secretions on his own and underwent PEG tube placement this hospital stay. Palliative care on board, plans for hospice at [place]. Objective - Vital Signs Vital signs: Vital Signs Temp 98.4 F 05/01/22 02:00 Pulse 80 05/01/22 07:25 Resp 12 05/01/22 02:00 BP 134/69 05/01/22 02:00 Pulse Ox 95 05/01/22 07:16 FiO2 40 05/01/22 07:11 Intake & Output 04/30/22 05/01/22 05/01/22 18:59 06:59 18:59 Intake Total 720 Output Total 500 1200 Balance 220 -1200 Weight 67.1 kg 66.8 kg Intake: Tube Feeding 600 Other 120 Output: Urine 500 1200 Other: Voiding Method External Catheter External Catheter # Bowel Movements 1 - Labs CBC & Chem 7: 04/30/22 07:04 04/30/22 07:04 Labs: Abnormal Lab Results - Last 24 Hours (Table) 04/30/22 04/30/22 05/01/22 Range/Units 11:55 17:28 00:40 POC Glucose (mg/dL) 123 H 131 H 138 H (70-110) mg/dL 05/01/22 Range/Units 06:48 POC Glucose (mg/dL) 148 H (70-110) mg/dL Microbiology - Last 24 Hours (Table) 04/25/22 09:37 Fungal Culture - Preliminary Bronchial Washings - Left Domitila albicans
--- NOTE | 2022-05-01 11:00 | P.PN ---
Subjective Progress Note Date: 05/01/22 Principal diagnosis: Respiratory failure. Reevaluated today on 04/24/22, patient was extubated yesterday, tolerated the extubation well, presently on BiPAP 12//40%. Patient is receiving IV fluid in the formal 0.9 normal saline at 75 mL per hour. Chest x-ray continues to show b ilateral airspace disease, left more so than right. Patient is awake, does not seem to be in any distress, however patient failed his bedside swallow evaluation, and eventually the patient may need a PEG tube placement if his legal guardian and is agreeable. This is to be decided upon in the next couple of days. In the meantime the patient will remain in the ICU, I have him start transitioned from BiPAP to a nasal cannula and I would recommend a nasogastric tube placement to start tube feeding. In the meantime remains on antibiotics and definitely nothing by mouth CBC is relatively normal basic metabolic profile is normal and his renal functioning is improving creatinine is down to 1.20 from 1.35 yesterday. Reevaluated today on 04/25/22, patient remains extubated, however his chest x-ray this morning showed complete opacification of the left lung with tracheal deviation to the ipsilateral side. Hence this is consistent with mucous plugging involving the left mainstem bronchus. Patient seems to be gurgling with secretions he has a weak cough, and unable to clear his secretions. Remains on few liters nasal cannula with good saturations. However patient seems to be agitated, and gurgling with secretions. After reviewing the chest x-ray, I discussed his condition with his legal guardian and discussed the option of bronchoscopy and the patient will need to be intubated for the bronchoscopy and may be kept on mechanical ventilation overnight. I also discussed the option of comfort care measures with the legal guardian. She prefers to go ahead and proceed with a bronchoscopy and cleared up his left lung, and decisions will be made down the line regarding further care, she is very well aware that the patient may have to have a PEG tube placement. Patient had recurrent aspiration pneumonias for quite some time, and I believe it is about time that we should consider PEG tube placement in this patient. This is to be decided upon hopefully in the next 24-48 hours. Today I went ahead and bronchoscope the patient, cleaned up his mucus plugging from the left mainstem bronchus. And I kept him on mechanical ventilation post bronchoscopy. Chest x- ray showed significant improvement but not completely cleared specially the left lower lobe continues to have opacity and possible distal mucus plugging. Labs today showed WBC count of 7 hemoglobin 8.7 and left. Normal renal profile is normal Progress note dated 04/26/2022. This is a patient was admitted on April 22 for aspiration pneumonia. The patient was intubated on April 22, respiratory failure, and subsequently extubated the following day on April 23. Yesterday, the chest x-ray showed complete collapse of the left lung, and the patient was electively intubated again for bronchoscopy. He remains on the ventilator. The patient is on volume assist control, rate 20, tidal volume 400, FiO2 40%, and PEEP of 5. Her blood gases show pO2 161, pCO2 46, and a pH is 7.4. FiO2 was reduced down to 30%. The patient's on propofol at 35 mcg/kg/m, saline at 75 mL an hour Jevity 55 mL an hour, which is goal. White count 4.7, hemoglobin 7.7, hematocrit 24.9, with a normal platelet count. Sodium 138, potassium 3.6, chlorides 106, CO2 27, urine 21, creatinine 0.97. Microbiologic studies are currently pending. The patient is on Zosyn empirically. Chest x-ray shows improved aeration to the left lung, with some residual infiltrate in the left mid lung and left lower lobe. Progress note dated 04/27/2022. 77-year-old patient who was admitted on April 22 for aspiration pneumonia. He was intubated on April 22, respiratory failure, and subsequently extubated the following day on April 23. On Tuesday, because of left lung collapse, he was intubated, for bronchoscopy, and he remains on the ventilator. The patient did receive a PEG tube yesterday, April 26. His vent settings include the volume assist control, rate 20, tidal volume 400, FiO2 30%, PEEP of 5. The patient's on saline at 75 mL an hour, and propofol at 35 g kilogram per minute. Blood gases today have not yet been done. I told the nurses and respiratory therapist to place the patient on CPAP of 5, and pressure support of 5, get a full set a weaning parameters after 30 minutes, and a cuff leak test, and a rapid shallow breathing index, and that me know to see if he can be extubated. He is not to be reintubated should he fail. I clarified that with his medical decision-maker yesterday. Chest x-ray has been reviewed. Progress note dated 04/28/2022. 77-year-old patient who was admitted on April 22 for aspiration pneumonia. The patient was intubated on April 22, respiratory failure, subsequently extubated the following day and April 23. Over the weekend, he developed left lung collapse, and was intubated for bronchoscopy, on Tuesday, and was extubated yesterday. He did have a PEG tube placed as well. Currently, the patient is on saline at 75 mL an hour, vital high protein at 30 mL now with a goal of 50, and 5 L nasal cannula. The patient is stable and my opinion to go to the general medical floor without telemetry. He is a DO NOT RESUSCITATE patient. He is not to be reintubated according to his court-appointed decision-maker. Labs today include a white count of 7.3, hemoglobin 8.7, hematocrit 27.7, and a platelet count of 346,000. Bronchoscopy results are still pending or negative. Microbiologic studies are negative. Chest x-ray today again shows partial collapse of the left lung, and I will request some chest physiotherapy to the left. It can be done either manually or mechanically. Progress note dated 04/29/2022. 77-year-old male who was admitted on April 22 for aspiration pneumonia. The patient was intubated on the same day, and subsequently extubated following day, and April 23. He was reintubated on April 25, for left lung collapse, and had bronchoscopy on the same day. The patient subsequently had a PEG tube placed. He then was re-extubated. Currently, the patient's on 5 L nasal cannula. He's not receiving any IV fluids. He is on vital high protein at goal, which is 50 mL an hour. The patient can be transferred to the general medical floor without telemetry. Unfortunately, his chest x-ray today, again shows complete opacification of the left lung. He is getting chest physiotherapy, mechanically. No new labs today other than a blood glucose of 118. Progress note dated 04/30/2022. 77-year-old male who was admitted to the hospital on April 22, for aspiration pneumonia. He was intubated on the same day, and extubated on the following d ay, April 23. On April 25, the patient developed left lung collapse, and was intubated for bronchoscopy. He was extubated 2 days later after a PEG tube was placed. Currently, using BiPAP as needed, to reexpand the left lung. His BiPAP settings included 12/6 and 50%. He's not receiving any IV fluids. He is getting Jevity 1.5 at 50 mL an hour, which is goal. White count 5.9, hemoglobin 8.6, hematocrit 27.7, with a normal platelet count. Sodium 136, potassium 3.6, chlorides 95, CO2 36, with a BUN of 16 and creatinine 0.80. Chest x-ray done this morning, shows improvement in the left lung collapse, while on BiPAP. Progress note dated 05/01/2022. 77-year-old male was admitted to the hospital on April 22 for aspiration pneumonia and respiratory failure. He was intubated on the same day, and extubated on the following day, April 23. Last Tuesday, on April 25, the patient developed left lung collapse, and was electively intubated for bronchoscopy. He was extubated 2 days later on April 25. A PEG tube was placed. He continues on BiPAP at 12/6 and 40%. His chest x-ray today shows improvement. He is getting Jevity 1.5, at 50 mL an hour, which is goal. I suggested to the nurse that the patient be on nasal cannula during the daytime, and BiPAP at nighttime. The patient is a DO NOT RESUSCITATE patient. The patient is a candidate for the general medical floor without telemetry. No new labs today other than a glucose of 148. Objective - Vital Signs Vital signs: Vital Signs Temp 98.5 F 05/01/22 08:00 Pulse 79 05/01/22 08:00 Resp 20 05/01/22 08:00 BP 109/71 05/01/22 08:00 Pulse Ox 95 05/01/22 07:16 FiO2 30 05/01/22 08:00 Intake & Output 04/30/22 05/01/22 05/01/22 18:59 06:59 18:59 Intake Total 720 Output Total 500 1200 Balance 220 -1200 Weight 67.1 kg 66.8 kg Intake: Tube Feeding 600 Other 120 Output: Urine 500 1200 Other: Voiding Method External Catheter External Catheter External Catheter # Bowel Movements 1 - Exam No acute distress, Currently on BiPAP, 08/10, at 40%. HEENT examination is grossly unremarkable. Neck supple. Full range of motion. No adenopathy thyromegaly or neck vein distention. Cardiovascular examination reveals regular rhythm rate. S1-S2 normal. No S3 or S4. No discernible murmur noted. Heart sounds are distant. Heart rate 80 bpm. Lungs reveal scattered bilateral rhonchi. Breath sounds diminished on the left. No wheezes or crackles. Saturations are 95 %. Abdomen soft bowel sounds are heard. No masses or tenderness. PEG tube is noted. Extremities are intact. No cyanosis clubbing or edema. Skin is without rash or lesion. Neurologic examination reveals the patient to be awake, and nodding. - Labs CBC & Chem 7: 04/30/22 07:04 04/30/22 07:04 Labs: Abnormal Lab Results - Last 24 Hours (Table) 04/30/22 04/30/22 05/01/22 Range/Units 11:55 17:28 00:40 POC Glucose (mg/dL) 123 H 131 H 138 H (70-110) mg/dL 05/01/22 Range/Units 06:48 POC Glucose (mg/dL) 148 H (70-110) mg/dL Microbiology - Last 24 Hours (Table) 04/25/22 09:37 Fungal Culture - Preliminary Bronchial Washings - Left Domitila albicans Assessment and Plan Assessment: Acute hypoxemic respiratory failure, status post intubation on April 22, extubation on April 23, and reintubation on April 25, with bronchoscopy, for left lung collapse, status post re-extubation on April 27. Status post PEG tube placement 04/26/2022. Chronic aspiration pneumonia. Chronic dysphagia. History of COPD. His CHF. History of dementia. History of hypothyroidism. History of essential hypertension. Plan: Plan dated 04/26/2022. I had a long conversation with the patient's court-appointed decision maker. Her name was Marisela. She said today on the phone that the patient would be okay with a feeding tube, but no tracheostomy tube. The plan would be to see we can get a feeding tube placed tomorrow. We will consult one of the surgeons. Afterwards, the patient will hopefully be extubated, but not be reintubated. She is certainly in agreement with that. We continue on antibiotics, and propofol for the time being. The patient's FiO2 was reduced from 40%, down to 30%. Additional recommendations and suggestions are forthcoming. Prognosis is guarded. Medications are reviewed. Unnecessary medications are discontinued. Plan dated 04/27/2022. The patient will be placed on pressure support and CPAP, and after 30 minutes, will have a full set a weaning parameters. If adequate, the patient will be extubated. The patient is not to be reintubated. I had a long conversation with her court-appointed decision maker. That person's name is Marisela. She made it very clear that the patient was not to be reintubated if he fails, but did agree with the PEG tube. The PEG tube was placed yesterday. Labs, x-rays, and medications are reviewed. Prognosis is certainly guarded. Unnecessary medications are discontinued. Plan dated 04/28/2022. The patient was extubated yesterday. The patient is currently being nourished with tube feedings, at 30 mL an hour. He does have a PEG tube in place. He is not to be reintubated. Labs, x-rays, medications are reviewed. We will request some chest physiotherapy to the left lung. The patient could be transferred to the general medical floor without telemetry. Overall prognosis remains very poor. We will continue to follow make recommendations along the way. Plan dated 04/29/2022. The patient is currently on 5 L nasal cannula. He is getting tube feedings at goal. His chest x-ray again shows complete opacification of the left lung. I've asked the nurses and respiratory therapist about the right lung down, and focus on chest physiotherapy to the left lung. The patient's overall prognosis remains very poor. We will continue to follow make recommendations along the way. Labs, x-rays, and medications are reviewed. The patient can be transfe rred to a general medical floor, without telemetry. I will also mention to respiratory therapy, that they can use BiPAP if necessary. Plan dated 04/30/2022. The patient is on BiPAP specifically to help reexpand the left lung. Chest x- ray today is improved. Labs, x-rays, and medications are reviewed. He is getting tube feedings at goal. The patient could be transferred out to the general medical floor, without telemetry. He is a no code patient. He is not to be intubated or mechanically ventilated. We will continue to follow and make recommendations along the way. Overall prognosis remains very guarded. Plan dated 05/01/2022. I would recommend a regimen of daytime nasal cannula, and nighttime BiPAP. The patient can be transferred out of the intensive care unit. The patient is receiving tube feedings at goal. His BiPAP settings are appropriate. He looks pretty comfortable. Labs, x-rays, and medications are reviewed. Overall prognosis remains very guarded. We will continue to follow the patient make recommendations where appropriate. Time with Patient: Less than 30
[2022-05-01 12:04] LABS: Glucose,Whole Blood 129 mg/dL (70-110)
[2022-05-01 19:14] LABS: Glucose,Whole Blood 143 mg/dL (70-110)
[2022-05-01] MEDS: PARoxetine 20 MG TAB PO SCH (21:52)
[2022-05-02 03:17] LABS: Glucose,Whole Blood 133 mg/dL (70-110)
[2022-05-02 06:10] LABS: Glucose,Whole Blood 144 mg/dL (70-110)
[2022-05-02] MEDS: IPRATROPIUM-ALBUTEROL 3 ML NEB INHALATION SCH ×3 (07:53→19:36)
[2022-05-02] MEDS: CHOLECALCIFEROL 25 MCG (1000 IU) TABLET PO SCH ×2 (09:15→16:48)
[2022-05-02] MEDS: ASPIRIN 81 MG PO SCH (09:16)
[2022-05-02] MEDS: LEVOTHYROXINE 25 MCG TAB PO SCH (09:16)
[2022-05-02] MEDS: ASCORBIC ACID 500 MG TAB PO SCH (09:16)
[2022-05-02] MEDS: CYANOCOBALAMIN 500 MCG TAB PO SCH (09:16)
[2022-05-02] MEDS: PANTOPRAZOLE 40 MG/10 ML VIAL IVP SCH (09:16)
[2022-05-02] MEDS: METOPROLOL TARTRATE 25 MG TAB PO SCH ×2 (09:16→16:49)
[2022-05-02] MEDS: LACTULOSE 20 GM/30 ML CUP PO SCH (09:17)
[2022-05-02] MEDS: ENOXAPARIN 40 MG/0.4 ML SYRINGE SQ SCH (09:17)
--- NOTE | 2022-05-02 11:22 | P.PN ---
Subjective Progress Note Date: 05/02/22 Progress note dated 05/01/2022. 77-year-old male was admitted to the hospital on April 22 for aspiration pneumonia and respiratory failure. He was intubated on the same day, and extubated on the following day, April 23. Last Tuesday, on April 25, the patient developed left lung collapse, and was electively intubated for bronchoscopy. He was extubated 2 days later on April 25. A PEG tube was plac ed. He continues on BiPAP at 12/6 and 40%. His chest x-ray today shows improvement. He is getting Jevity 1.5, at 50 mL an hour, which is goal. I suggested to the nurse that the patient be on nasal cannula during the daytime, and BiPAP at nighttime. The patient is a DO NOT RESUSCITATE patient. The patient is a candidate for the general medical floor without telemetry. No new labs today other than a glucose of 148. The patient is seen today 05/02/2022 in follow-up on the regular medical floor. He is currently resting in bed. He is awake. Alert. He is maintaining O2 saturations in the 90s on 4 L/m per nasal cannula. No IV fluids. He is being nourished with Jevity at 50 MLS per hour. Bronchial wash findings were positive for Domitila only. Blood glucose 144. He is continued on DuoNeb inhalations. Lovenox for DVT prophylaxis. Completed a course of Zosyn. He remains a DO NOT RESUSCITATE/DO NOT INTUBATE CODE STATUS. Palliative care has been consulted. Objective - Vital Signs Vital signs: Vital Signs Temp 97.6 F 05/02/22 07:51 Pulse 110 H 05/02/22 11:10 Resp 19 05/02/22 07:51 BP 108/53 05/02/22 07:51 Pulse Ox 95 05/02/22 07:51 FiO2 40 05/01/22 23:44 Intake & Output 05/01/22 05/02/22 05/02/22 18:59 06:59 18:59 Intake Total 600 Balance 600 Intake: Tube Feeding 600 Other: Voiding Method External Catheter External Catheter Incontinent External Catheter # Voids 2 - Exam 77-year-old male patient. No acute distress, Currently on oxygen at 4 L/m per nasal cannula, alternating with BiPAP, 12/6, at 40%. HEENT examination is grossly unremarkable. Neck supple. Full range of motion. No adenopathy thyromegaly or neck vein distention. Cardiovascular examination reveals regular rhythm rate. S1-S2 normal. No S3 or S4. No discernible murmur noted. Heart sounds are distant. . Lungs reveal scattered bilateral rhonchi. Breath sounds diminished on the left. No wheezes or crackles. Saturations are 95 %. Abdomen soft bowel sounds are heard. No masses or tenderness. PEG tube is noted. Extremities are intact. No cyanosis clubbing or edema. Skin is without rash or lesion. Neurologic examination reveals the patient to be awake, and nodding. - Labs CBC & Chem 7: 04/30/22 07:04 04/30/22 07:04 Labs: Abnormal Lab Results - Last 24 Hours (Table) 05/01/22 05/01/22 05/02/22 Range/Units 12:02 19:12 03:15 POC Glucose (mg/dL) 129 H 143 H 133 H (70-110) mg/dL 05/02/22 Range/Units 06:08 POC Glucose (mg/dL) 144 H (70-110) mg/dL Assessment and Plan Assessment: Acute hypoxemic respiratory failure, status post intubation on April 22, extubation on April 23, and reintubation on April 25, with bronchoscopy, for left lung collapse, status post re-extubation on April 27. Status post PEG tube placement 04/26/2022. Chronic aspiration pneumonia. Chronic dysphagia. History of COPD. His CHF. History of dementia. History of hypothyroidism. History of essential hypertension. Plan: The patient was seen and evaluated Currently stable on oxygen at 4 L alternating with BiPAP Completed antibiotics, remains on bronchodilators Palliative care has been consulted and hospice was recommended We will see the patient as needed I have personally seen and examined the patient, performed the documentation and the assessment and plan as written. Number of minutes spent on the visit: 10.
[2022-05-02 11:31] LABS: Glucose,Whole Blood 156 mg/dL (70-110)
--- NOTE | 2022-05-02 14:39 | P.PN ---
Subjective Progress Note Date: 05/02/22 Principal diagnosis: Respiratory failure Interval history: Patient is a 77-year-old male who was admitted on April 22 for aspiration pneumonia acute hypoxic respiratory failure. Patient required intubation and was extubated successfully. Unfortunately patient developed left lung collapse and was reintubated for bronchoscopy. Patient was transferred out of the intensive care unit on 05/01/2022. He is currently on 4 L nasal cannula with an O2 saturation of greater than 88% patient completed a course of IV antibiotics [facility] pulmonary critical care team is also following on the case. Palliative care has been consulted for hospice recommendation given patient's overall guarded long-term prognosis. 05/02/2022. History is limited given patient's ability to provide. At this time no acute issues reported per nursing staff he is resting comfortably on 4 L nasal cannula he is on BiPAP daily at bedtime. He does continue to have increased oral upper airway secretions. Objective - Vital Signs Vital signs: Vital Signs Temp 98.3 F 05/02/22 14:00 Pulse 94 05/02/22 14:00 Resp 18 05/02/22 14:00 BP 105/52 05/02/22 14:00 Pulse Ox 97 05/02/22 14:00 FiO2 40 05/01/22 23:44 Intake & Output 05/01/22 05/02/22 05/02/22 18:59 06:59 18:59 Intake Total 600 Output Total 600 Balance 600 -600 Intake: Tube Feeding 600 Output: Urine 600 Other: Voiding Method External Catheter External Catheter Incontinent External Catheter # Voids 2 - Exam HEENT examination is grossly unremarkable. Neck supple. Full range of motion. No adenopathy thyromegaly or neck vein distention. Cardiovascular examination reveals regular rhythm rate. S1-S2 normal. No S3 or S4. No discernible murmur noted. Heart sounds are distant. . Lungs reveal scattered bilateral rhonchi. Breath sounds diminished on the left. No wheezes or crackles. Saturations are 95 %. Abdomen soft bowel sounds are heard. No masses or tenderness. PEG tube is noted. Extremities are intact. No cyanosis clubbing or edema. Skin is without rash or lesion. Neurologic examination reveals the patient to be awake, and nodding. - Labs CBC & Chem 7: 04/30/22 07:04 04/30/22 07:04 Labs: Abnormal Lab Results - Last 24 Hours (Table) 05/01/22 05/02/22 05/02/22 Range/Units 19:12 03:15 06:08 POC Glucose (mg/dL) 143 H 133 H 144 H (70-110) mg/dL 05/02/22 Range/Units 11:30 POC Glucose (mg/dL) 156 H (70-110) mg/dL Assessment and Plan (1) Pneumonia Current Visit: Yes Status: Acute Code(s): J18.9 - PNEUMONIA, UNSPECIFIED ORGANISM SNOMED Code(s): 248570796 Plan: Acute hypoxemic respiratory failure Chronic aspiration pneumonia Sepsis -Status post IV antibiotics Zosyn treatment complete -Status post a AVDRF -Status post bronchoscopy -Sputum cultures revealed Domitila Dysphagia Status post PEG tube placement 04/26/2022. COPD CHF Continue with bronchodilators Mucus plugging with complete opacification of the left hemothorax -Pulmonary critical care team following -Patient is at high risk for recurrent aspirations as he is unable to clear his secretions. He family does not want tracheostomy for patient. -Palliative care team has been consulted Chronic conditions of: Anemia CHF Dementia Hypertension Hypothyroidism Disposition: Patient is currently requiring 4 L oxygen support with BiPAP daily at bedtime. Pulmonary critical care team is following. Patient will benefit from palliative care consultation.
[2022-05-02 17:59] LABS: Glucose,Whole Blood 134 mg/dL (70-110)
[2022-05-02] MEDS: PARoxetine 20 MG TAB PO SCH (22:22)
[2022-05-03 01:20] LABS: Glucose,Whole Blood 130 mg/dL (70-110)
[2022-05-03 06:05] LABS: Glucose,Whole Blood 136 mg/dL (70-110)
[2022-05-03] MEDS: PANTOPRAZOLE 40 MG/10 ML VIAL IVP SCH (08:27)
[2022-05-03] MEDS: ASCORBIC ACID 500 MG TAB PO SCH (08:29)
[2022-05-03] MEDS: FERROUS SULFATE 325 MG TAB PO SCH (08:29)
[2022-05-03] MEDS: METOPROLOL TARTRATE 25 MG TAB PO SCH ×2 (08:29→17:06)
[2022-05-03] MEDS: ASPIRIN 81 MG PO SCH (08:29)
[2022-05-03] MEDS: CHOLECALCIFEROL 25 MCG (1000 IU) TABLET PO SCH ×2 (08:29→17:06)
[2022-05-03] MEDS: LACTULOSE 20 GM/30 ML CUP PO SCH (08:29)
[2022-05-03] MEDS: CYANOCOBALAMIN 500 MCG TAB PO SCH (08:29)
[2022-05-03] MEDS: LEVOTHYROXINE 25 MCG TAB PO SCH (08:29)
[2022-05-03] MEDS: ACETAMINOPHEN ORAL SUSP (PEDS) 3,840 MG/120 ML BOTTLE PO PRN (08:30)
[2022-05-03] MEDS: ENOXAPARIN 40 MG/0.4 ML SYRINGE SQ SCH (08:30)
[2022-05-03] MEDS: IPRATROPIUM-ALBUTEROL 3 ML NEB INHALATION SCH ×3 (08:52→20:24)
--- NOTE | 2022-05-03 10:12 | P.PN ---
Subjective Progress Note Date: 05/03/22 Principal diagnosis: Respiratory failure The patient is a 77-year-old male with hypothyroidism, depression, hypertension, and COPD who presented to the ER for hypoxemia. On arrival to the ER patient was satting in the mid 60s despite nonrebreather and was therefore intubated. In the ER an extensive evaluation was done. Laboratory analysis was notable for leukocytosis of 16.6, anemia 10.6, BUN 41, creatinine 1.2 (which is better than baseline), point. Initial coag testing was negative. D-dimer was elevated at 1.9. ABG post intubation showed a pH of 7.1, pCO2 of 58, PaO2 of 248. Chest x- ray showed interstitial opacities. CT angiography of the chest showed diffuse bronchial wall thickening, scattered tree-in-bud opacities as well as groundglass changes and consolidations at the bilateral posterior lung bases with no pulmonary embolism noted, EKG demonstrated sinus tachycardia, and CT brain showed nonspecific degenerative white matter changes with sinusitis and left sided mastoiditis. He was started on Zosyn for possible pneumonia, bronchodilators, steroids, a cultures were obtained. Patient was admitted to the ICU. Pulmonary critical care was consulted. He was extubated on 04/23/22 and placed on BiPap. He developed complete opacification of the left hemithorax on 04/25 requiring intubation and bronchosocopy which revealed mucus plugging. The procedure required re-intubation. He had a PEG tube placed on 04/26. He was extubated the morning of 04/27. He was seen by speech and does not initiate swallow. He is having difficulty clearing secretions and has required frequent suctioning. Echocardiogram showed normal left ventricular size with systolic function with EF 55-60% and mild mitral and tricuspid regurgitation. Overnight on 04/28 he developed worsening respiratory distress. He then was noted to have a complete white out of his left hemithorax. Pulmonary ordered him to be restarted on BiPAP. No plans for bronchoscopy at this point in time. 04/30 Patient resting in bed with BiPAP on. No distress noted. He was able to nod his head when asked questions. However, his speech is garbled and difficult to understand with the mask on. Spoke with his legal guardian, Marisela, via telephone. She was educated on the patients condition and poor prognosis. She stated that she had a conversation in the past about what his wishes may be. However, this was difficult due to his advanced dementia. He did indicate to her that he would not want to be put on life support and would rather let nature take it's course. She confirmed that he would not want a tracheostomy tube. She was informed that the patient has an inability to clear his own secretions which end up in his lungs. He does not initiate swallow and requires frequent suctioning. He is at high risk for mucus plugging, pneumonia, and further respiratory distress. It was explained to her that his left lung was cleared out previously with a bronchoscopy, but unfortunately was opacified again. She understands that without a trachestomy, this will be a recurring issue for the patient. Information regarding palliative care and hospice philosophies and services was provided. She is troubled by having to make such big decisions for the patient. She would like time to think it through and talk about it with the patient's caregiver. She states there is a hospice house in [place] that she would consider. Objective - Vital Signs Vital signs: Vital Signs Temp 100.7 F H 05/03/22 08:55 Pulse 98 05/03/22 09:07 Resp 21 05/03/22 08:55 BP 100/63 05/03/22 08:55 Pulse Ox 93 L 05/03/22 08:55 FiO2 40 05/01/22 23:44 Intake & Output 05/02/22 05/03/22 05/03/22 18:59 06:59 18:59 Output Total 600 900 Balance -600 -900 Output: Urine 600 900 Other: Voiding Method Incontinent Incontinent Incontinent External Catheter External Catheter # Bowel Movements 1 - Exam General: Well developed. Chronically ill appearing No acute distress. Cachectic HEENT: Head is atraumatic, normocephalic. Sclerae are clear. Pupils equal, round and reactive to light bilaterally. CV: Heart regular in rate and rhythm positive S1 and S2. Peripheral pulses equal. 2/4 Lungs: Coarse throughout. Scattered rhonchi. Diminished on left. 4L NC Abdomen/GI: Soft. Bowel sounds present in all 4 quadrants.No guarding, rigidity, or abdominal tenderness. + peg tube with TF Musculoskeletal/ Extremities: CARDOZA, no joint deformity or swelling. + generalized weakness Vascular: Radial pulses equal. 2/4. No peripheral edema Skin: Warm and dry, No rash. Neurologic: Awake, alert and nodding head. Follows commands. - Labs CBC & Chem 7: 04/30/22 07:04 04/30/22 07:04 Labs: Abnormal Lab Results - Last 24 Hours (Table) 05/02/22 05/02/22 05/03/22 Range/Units 11:30 17:57 01:17 POC Glucose (mg/dL) 156 H 134 H 130 H (70-110) mg/dL 05/03/22 Range/Units 06:01 POC Glucose (mg/dL) 136 H (70-110) mg/dL Assessment and Plan Assessment: Symptoms * Pain - Patient nods his head no. Continue Tylenol and DIlaudid prn * Fatigue - + generalized weakness. Continue B1 and Ferrous sulfate * SOB - + shortness of breath, continue Duoneb, frequent suctioning and BiPAP as needed * Insomnia - No * N/V - No * Anxiety - No * Depression - Continue Paxil * Confusion - + cognitive impairment and confusion at baseline * Agitation - No, Calm and cooperative * Hallucinations - KATIUSKA * Appetite/weight loss - + malnourishment, unknown if recent weight loss. Continue tube feeding via Peg tube per fraud investigator recommendations * Dysphagia - + dysphagia, keep NPO and continue tube feeding via Peg tube per fraud investigator recommendations * Constipation - Yes, LBM 05/03. Continue Colace and Lactulose. * Incontinence - Condom catheter in place * Itch - No Plan: Summary/Goals - The patient is resting in bed and appears comfortable. He is able to answer questions and follow commands. Spoke with patient's guardian via telephone. She stated that after thinking things through over the weekend she has decided he would like the patient to return to his adult foster long term with hospice services. Received phone call from patient's home care provider at the adult [facility]. She stated they are able to accommodate the patient there with hospice. She stated that they have been receiving nursing care from [facility] and would like to continue with that company. She stated that [facility] is able to provide hospice service. crm manager, mariam Loera. Recommendations - Hospice Advanced Directives - None Code Status - DNR Thank you for this consult Gianna Gilmore [facility] Palliative Care [facility] [id number] Email: [email or web address] Time with Patient: Greater than 30
[2022-05-03 10:59] LABS: Basophils # (A) 0.02 X 10*3/uL (0.00-0.10); Basophils % (A) 0.2 %; Eosinophils # (A) 0.14 X 10*3/uL (0.04-0.35); Eosinophils % (A) 1.5 %; HCT 24.4 % (39.6-50.0); HGB 7.5 g/dL (13.0-17.0); Immature Grans, Automated 1.4 %; Lymphocytes # (A) 1.92 X 10*3/uL (0.90-5.00); Lymphocytes % (A) 20.3 %; MCH 29.8 pg (27.0-32.0); MCHC 30.7 g/dL (32.0-37.0); MCV 96.8 fL (80.0-97.0); Mean Platelet Volume 10.4 fL (9.5-12.2); Monocytes # (A) 0.46 X 10*3/uL (0.20-1.00); Monocytes % (A) 4.9 %; NRBC Per 100 WBC 0 /100 WBCS (0.0-0.0); Neutrophils # (A) 6.78 X 10*3/uL (1.80-7.70); Neutrophils % (A) 71.7 %; Platelet Count 473 X 10*3/uL (140-440); RBC 2.52 X 10*6/uL (4.40-5.60); RDW 14.3 % (11.5-14.5); WBC 9.45 X 10*3/uL (4.50-10.00)
[2022-05-03 11:18] LABS: African American GFR (CKD) 73.6 (60.0-200.0); Anion Gap 8.3 mmol/L (10.00-18.00); BUN/Creat Ratio 26.27 Ratio (12.00-20.00); Blood Urea Nitrogen 28.9 mg/dL (9.0-27.0); Calcium 9.2 mg/dL (8.7-10.3); Carbon Dioxide 31.7 mmol/L (20.0-27.5); Non-African American GFR(CKD) 63.5 (60.0-200.0); Potassium 4.9 mmol/L (3.5-5.5)
[2022-05-03 11:38] LABS: Glucose,Whole Blood 128 mg/dL (70-110)
--- NOTE | 2022-05-03 13:08 | P.PN ---
Subjective Progress Note Date: 05/03/22 Progress note dated 05/01/2022. 77-year-old male was admitted to the hospital on April 22 for aspiration pneumonia and respiratory failure. He was intubated on the same day, and extubated on the following day, April 23. Last Tuesday, on April 25, the patient developed left lung collapse, and was electively intubated for bronchoscopy. He was extubated 2 days later on April 25. A PEG tube was plac ed. He continues on BiPAP at 12/6 and 40%. His chest x-ray today shows improvement. He is getting Jevity 1.5, at 50 mL an hour, which is goal. I suggested to the nurse that the patient be on nasal cannula during the daytime, and BiPAP at nighttime. The patient is a DO NOT RESUSCITATE patient. The patient is a candidate for the general medical floor without telemetry. No new labs today other than a glucose of 148. The patient is seen today 05/02/2022 in follow-up on the regular medical floor. He is currently resting in bed. He is awake. Alert. He is maintaining O2 saturations in the 90s on 4 L/m per nasal cannula. No IV fluids. He is being nourished with Jevity at 50 MLS per hour. Bronchial wash findings were positive for Domitila only. Blood glucose 144. He is continued on DuoNeb inhalations. Lovenox for DVT prophylaxis. Completed a course of Zosyn. He remains a DO NOT RESUSCITATE/DO NOT INTUBATE CODE STATUS. Palliative care has been consulted. The patient is seen today 05/03/2022 in follow-up on the regular medical floor. He is awake. Alert. Resting comfortably in bed. He is maintaining O2 saturations in the 90s on room air. He did have a fever today. White count 9.4. Hemoglobin 7.5. Platelets 473. Sodium 136. Potassium 4.9. BUN 29. Creatinine 1.1. Glucose 129. He is continued on DuoNeb inhalations. Completed antibiotics. Objective - Vital Signs Vital signs: Vital Signs Temp 99.5 F 05/03/22 10:20 Pulse 87 05/03/22 12:32 Resp 21 05/03/22 08:55 BP 100/63 05/03/22 08:55 Pulse Ox 93 L 05/03/22 08:55 FiO2 40 05/01/22 23:44 Intake & Output 05/02/22 05/03/22 05/03/22 18:59 06:59 18:59 Output Total 600 900 Balance -600 -900 Output: Urine 600 900 Other: Voiding Method Incontinent Incontinent Incontinent External Catheter External Catheter # Bowel Movements 1 - Exam Alert 77-year-old male patient. No acute distress, Currently on oxygen at room air, alternating with BiPAP, 12/6, at 40%. HEENT examination is grossly unremarkable. Neck supple. Full range of motion. No adenopathy thyromegaly or neck vein distention. Cardiovascular examination reveals regular rhythm rate. S1-S2 normal. No S3 or S4. No discernible murmur noted. Heart sounds are distant. . Lungs reveal scattered bilateral rhonchi. Breath sounds diminished on the left. No wheezes or crackles. Saturations are 93 %. Abdomen soft bowel sounds are heard. No masses or tenderness. PEG tube is noted. Extremities are intact. No cyanosis clubbing or edema. Skin is without rash or lesion. Neurologic examination reveals the patient to be awake, and nodding. - Labs CBC & Chem 7: 05/03/22 06:41 05/03/22 06:41 Labs: Abnormal Lab Results - Last 24 Hours (Table) 05/02/22 05/03/22 05/03/22 Range/Units 17:57 01:17 06:01 RBC (4.40-5.60) X 10*6/uL Hgb (13.0-17.0) g/dL Hct (39.6-50.0) % MCHC (32.0-37.0) g/dL Plt Count (140-440) X 10*3/uL Immature Gran # (0.00-0.04) X 10*3/uL Carbon Dioxide (20.0-27.5) mmol/L Anion Gap (10.00-18.00) mmol/L BUN (9.0-27.0) mg/dL BUN/Creatinine Ratio (12.00-20.00) Ratio Glucose (70-110) mg/dL POC Glucose (mg/dL) 134 H 130 H 136 H (70-110) mg/dL 05/03/22 05/03/22 05/03/22 Range/Units 06:41 06:41 11:35 RBC 2.52 L (4.40-5.60) X 10*6/uL Hgb 7.5 L (13.0-17.0) g/dL Hct 24.4 L (39.6-50.0) % MCHC 30.7 L (32.0-37.0) g/dL Plt Count 473 H (140-440) X 10*3/uL Immature Gran # 0.13 H (0.00-0.04) X 10*3/uL Carbon Dioxide 31.7 H (20.0-27.5) mmol/L Anion Gap 8.30 L (10.00-18.00) mmol/L BUN 28.9 H (9.0-27.0) mg/dL BUN/Creatinine Ratio 26.27 H (12.00-20.00) Ratio Glucose 129 H (70-110) mg/dL POC Glucose (mg/dL) 128 H (70-110) mg/dL Assessment and Plan Assessment: Acute hypoxemic respiratory failure, status post intubation on April 22, extubation on April 23, and reintubation on April 25, with bronchoscopy, for left lung collapse, status post extubation on April 27. Status post PEG tube placement 04/26/2022. Chronic aspiration pneumonia. Chronic dysphagia. History of COPD. His CHF. History of dementia. History of hypothyroidism. History of essential hypertension. Plan: The patient was seen and evaluated Currently stable on room air alternating with BiPAP Remains on bronchodilators Palliative care has been consulted and hospice was recommended We will see the patient as needed I have personally seen and examined the patient, performed the documentation and the assessment and plan as written. Number of minutes spent on the visit: 10. I have personally seen and examined the patient and reviewed the documentation. I performed a joint evaluation with the nurse practitioner in this evaluation was done more than 20 minutes. I fully agree with the documentation above and the plan of care.. The patient is being seen for a follow-up in a joint evaluation with the nurse practitioner. The patient is doing well. The patient is still using the BiPAP overnight. The patient however has a congested cough. his cough remains weak and the patient unable to do adequate pulmonary toileting. there is a high likelihood that the patient may feel again in the future and the patient is currently being considered for palliative care/hospice. Meanwhile, the patient continues to receive enteral feeding for nutritional support.
[2022-05-03 16:55] LABS: Glucose,Whole Blood 158 mg/dL (70-110)
[2022-05-03 18:48] LABS: Glucose,Whole Blood 140 mg/dL (70-110)
--- NOTE | 2022-05-03 18:51 | P.PN ---
Progress Note - Text Progress Note Date: 05/03/22 Interval history: Patient is a 77-year-old male who was admitted on April 22 for aspiration pn eumonia acute hypoxic respiratory failure. Patient required intubation and was extubated successfully. Unfortunately patient developed left lung collapse and was reintubated for bronchoscopy. Patient was transferred out of the intensive care unit on 05/01/2022. completed a course of IV antibiotics [facility] pulmonary critical care team is also following on the case. Palliative care following 05/02/2022. History is limited given patient's ability to provide. At this time no acute issues reported per nursing staff he is resting comfortably on 4 L nasal cannula he is on BiPAP daily at bedtime. He does continue to have increased oral upper airway secretions. May 03: I assumed care on the patient today from sound physicians Patient getting PEG tube feeding. Nothing by mouth. Speech is garbled. On 5-6 L of oxygen. Patient has failed swallowing. Patient does attempt to talk but his speech is garbled. Spoke to nurse and top case assembler. Looking for patient to back to the long-term with hospice. We'll try to decrease to oxygen intake. Mouth breather. Per top case assembler using oxygen 2 L at home. Active Medications Acetaminophen (Acetaminophen Oral Susp (Peds) 3,840 Mg/120 Ml Bottle) 650 mg PO Q4HR PRN PRN Reason: Pain Last Admin: 05/03/22 08:30 Dose: 650 mg Albuterol/Ipratropium (Ipratropium-Albuterol 3 Ml Neb) 3 ml INHALATION RT-Q2H PRN PRN Reason: Shortness Of Breath Or Wheezing Albuterol/Ipratropium (Ipratropium-Albuterol 3 Ml Neb) 3 ml INHALATION RT-TID [facility] Last Admin: 05/03/22 12:19 Dose: 3 ml Ascorbic Acid (Ascorbic Acid 500 Mg Tab) 500 mg PO DAILY [facility] Last Admin: 05/03/22 08:29 Dose: 500 mg Aspirin (Aspirin 81 Mg) 81 mg PO DAILY@0700 [facility] Last Admin: 05/03/22 08:29 Dose: 81 mg Cholecalciferol (Cholecalciferol 25 Mcg (1000 Iu) Tablet) 25 mcg PO BID@0700,1700 [facility] Last Admin: 05/03/22 17:06 Dose: 25 mcg Cyanocobalamin (Cyanocobalamin 500 Mcg Tab) 1,000 mcg PO DAILY@0700 [facility] Last Admin: 05/03/22 08:29 Dose: 1,000 mcg Docusate Sodium (Docusate 100 Mg Cap) 100 mg PO DAILY PRN PRN Reason: Constipation Enoxaparin Sodium (Enoxaparin 40 Mg/0.4 Ml Syringe) 40 mg SQ DAILY [facility] Last Admin: 05/03/22 08:30 Dose: 40 mg Ferrous Sulfate (Ferrous Sulfate 325 Mg Tab) 325 mg PO Q48H [facility] Last Admin: 05/03/22 08:29 Dose: 325 mg Hydromorphone HCl (Hydromorphone 0.5 Mg/0.5 Ml Syringe) 0.25 mg IVP Q3HR PRN PRN Reason: Pain Last Admin: 04/27/22 12:20 Dose: 0.25 mg Lactulose (Lactulose 20 Gm/30 Ml Cup) 20 gm PO DAILY@0700 [facility] Last Admin: 05/03/22 08:29 Dose: 20 gm Levothyroxine Sodium (Levothyroxine 25 Mcg Tab) 25 mcg PO DAILY@0700 [facility] Last Admin: 05/03/22 08:29 Dose: 25 mcg Metoprolol Tartrate (Metoprolol Tartrate 25 Mg Tab) 25 mg PO BID@0700,1700 [facility] Last Admin: 05/03/22 17:06 Dose: 25 mg Miscellaneous Information (Potassium Replacement Protocol 1 Each Misc) 1 each MISCELLANE DAILY PRN; Protocol PRN Reason: Per Protocol Miscellaneous Information (Magnesium Replacement Protocol 1 Each Misc) 1 each MISCELLANE DAILY PRN; Protocol PRN Reason: Per Protocol Naloxone HCl (Naloxone 0.4 Mg/Ml 1 Ml Vial) 0.2 mg IV Q2M PRN PRN Reason: Opioid Reversal Pantoprazole Sodium (Pantoprazole 40 Mg/10 Ml Vial) 40 mg IVP DAILY [facility] Last Admin: 05/03/22 08:27 Dose: 40 mg Paroxetine HCl (Paroxetine 20 Mg Tab) 40 mg PO HS@2100 [facility] Last Admin: 05/02/22 22:22 Dose: 40 mg On examination: VITAL SIGNS: [98.5, 93, 20, 104/61, 90% on 4 L] GENERAL APPEARANCE: Sitting up in bed, tired, bit lethargic while breathing HEENT: Normal external appearance of nose and ear. Oral cavity grossly dry mucous membranes EYES: Pupils equal. Conjunctiva normal. NECK: JVD not raised. Mass not palpable. RESPIRATORY: Respiratory effort increased. Decreased breath sounds occasional crackles CARDIOVASCULAR: First and second sounds normal. No edema. ABDOMEN: Soft. Liver and spleen not palpable. No tenderness. No mass palpable. PSYCHIATRY: Unable to assess patient's speech is garbled NEUROLOGICAL: Speech is garbled. Does move all his limbs. INVESTIGATIONS, reviewed in the clinical context: 2-D echocardiogram: EF 55-60% Chest x-ray: Airspace opacities Assessment and plan: -Pneumonia, aspiration Completed course of IV Zosyn -Acute hypoxemic respiratory failure-from recurrent aspiration Currently in 5-6 L nasal cannula -Sepsis Status post IV antibiotics Zosyn treatment complete -Status post a AVDRF -Status post bronchoscopy -Dysphagia, having failed swallow test. PEG tube placement 04/26/2022. -COPD, nonsmoker DuoNeb -Paroxysmal atrial fibrillation, back in sinus rhythm Not for anticoagulation because of poor overall medical condition -Mucus plugging with complete opacification of the left hemithorax -Severe cognitive impairment from underlying developmental delay -Hypothyroid Synthroid 25 g -DO NOT RESUSCITATE -Legal guardian: Marisela Herrera Discussed with the nurse at length. We'll try to decrease the FiO2. Mouth breathing. Communicated with top case assembler. Patient be going back to the assisted living with hospice. Total time spent today about 40 minutes including 20 minutes of discussion. Consult for hospice being placed.
[2022-05-03] MEDS: PARoxetine 20 MG TAB PO SCH (21:09)
[2022-05-04 00:39] LABS: Glucose,Whole Blood 123 mg/dL (70-110)
[2022-05-04 06:12] LABS: Glucose,Whole Blood 138 mg/dL (70-110)
[2022-05-04 07:08] LABS: Glucose,Whole Blood 137 mg/dL (70-110)
[2022-05-04] MEDS: ASCORBIC ACID 500 MG TAB PO SCH (07:28)
[2022-05-04] MEDS: LACTULOSE 20 GM/30 ML CUP PO SCH (07:29)
[2022-05-04] MEDS: ENOXAPARIN 40 MG/0.4 ML SYRINGE SQ SCH (07:29)
[2022-05-04] MEDS: LEVOTHYROXINE 25 MCG TAB PO SCH (07:29)
[2022-05-04] MEDS: CHOLECALCIFEROL 25 MCG (1000 IU) TABLET PO SCH (07:29)
[2022-05-04] MEDS: CYANOCOBALAMIN 500 MCG TAB PO SCH (07:29)
[2022-05-04] MEDS: METOPROLOL TARTRATE 25 MG TAB PO SCH (07:29)
[2022-05-04] MEDS: ASPIRIN 81 MG PO SCH (07:29)
[2022-05-04] MEDS: ACETAMINOPHEN ORAL SUSP (PEDS) 3,840 MG/120 ML BOTTLE PO PRN (07:30)
[2022-05-04] MEDS: IPRATROPIUM-ALBUTEROL 3 ML NEB INHALATION SCH ×2 (08:14→11:39)
[2022-05-04 08:46] VITALS: BP 118/72; TEMP 97.6
[2022-05-04 11:42] VITALS: RESP 20
[2022-05-04 11:43] LABS: Glucose,Whole Blood 128 mg/dL (70-110)
[2022-05-04 12:03] VITALS: PULSE 80
--- NOTE | 2022-05-04 12:56 | P.PN ---
Subjective Progress Note Date: 05/04/22 Progress note dated 05/01/2022. 77-year-old male was admitted to the hospital on April 22 for aspiration pneumonia and respiratory failure. He was intubated on the same day, and extubated on the following day, April 23. Last Tuesday, on April 25, the patient developed left lung collapse, and was electively intubated for bronchoscopy. He was extubated 2 days later on April 25. A PEG tube was plac ed. He continues on BiPAP at 12/6 and 40%. His chest x-ray today shows improvement. He is getting Jevity 1.5, at 50 mL an hour, which is goal. I suggested to the nurse that the patient be on nasal cannula during the daytime, and BiPAP at nighttime. The patient is a DO NOT RESUSCITATE patient. The patient is a candidate for the general medical floor without telemetry. No new labs today other than a glucose of 148. The patient is seen today 05/02/2022 in follow-up on the regular medical floor. He is currently resting in bed. He is awake. Alert. He is maintaining O2 saturations in the 90s on 4 L/m per nasal cannula. No IV fluids. He is being nourished with Jevity at 50 MLS per hour. Bronchial wash findings were positive for Domitila only. Blood glucose 144. He is continued on DuoNeb inhalations. Lovenox for DVT prophylaxis. Completed a course of Zosyn. He remains a DO NOT RESUSCITATE/DO NOT INTUBATE CODE STATUS. Palliative care has been consulted. The patient is seen today 05/03/2022 in follow-up on the regular medical floor. He is awake. Alert. Resting comfortably in bed. He is maintaining O2 saturations in the 90s on room air. He did have a fever today. White count 9.4. Hemoglobin 7.5. Platelets 473. Sodium 136. Potassium 4.9. BUN 29. Creatinine 1.1. Glucose 129. He is continued on DuoNeb inhalations. Completed antibiotics. The patient is seen today 05/04/2022 follow-up on the regular medical floor. He is resting comfortably in bed. Awake and alert. Maintaining O2 saturations in the mid 90s on 3 L/m per nasal cannula. He remains afebrile. All cultures reveal no growth. Bronchial wash cultures are positive for Domitila. Glucose 1 28. He is continued on DuoNeb inhalations. Lovenox for DVT prophylaxis. Objective - Vital Signs Vital signs: Vital Signs Temp 97.6 F 05/04/22 08:00 Pulse 80 05/04/22 11:49 Resp 20 05/04/22 11:49 BP 118/72 05/04/22 08:00 Pulse Ox 97 05/04/22 08:14 FiO2 40 05/04/22 08:14 Intake & Output 05/03/22 05/04/22 05/04/22 18:59 06:59 18:59 Intake Total 600 Balance 600 Intake: Tube Feeding 600 Other: Voiding Method Incontinent External Catheter Diaper Incontinent # Voids 2 - Exam Alert 77-year-old male patient. No acute distress, Currently on oxygen at 3 L per nasal cannula HEENT examination is grossly unremarkable. Neck supple. Full range of motion. No adenopathy thyromegaly or neck vein distention. Cardiovascular examination reveals regular rhythm rate. S1-S2 normal. No S3 or S4. No discernible murmur noted. Heart sounds are distant. . Lungs reveal scattered bilateral rhonchi. Breath sounds diminished on the left. No wheezes or crackles. Saturations are 97 %. Abdomen soft bowel sounds are heard. No masses or tenderness. PEG tube is noted. Extremities are intact. No cyanosis clubbing or edema. Skin is without rash or lesion. Neurologic examination reveals the patient to be awake, and nodding. - Labs CBC & Chem 7: 05/03/22 06:41 05/03/22 06:41 Labs: Abnormal Lab Results - Last 24 Hours (Table) 05/03/22 05/03/22 05/04/22 Range/Units 16:54 18:46 00:37 POC Glucose (mg/dL) 158 H 140 H 123 H (70-110) mg/dL 05/04/22 05/04/22 05/04/22 Range/Units 06:11 07:03 11:42 POC Glucose (mg/dL) 138 H 137 H 128 H (70-110) mg/dL Assessment and Plan Assessment: Acute hypoxemic respiratory failure, status post intubation on April 22, extubation on April 23, and reintubation on April 25, with bronchoscopy, for left lung collapse, status post extubation on April 27. Status post PEG tube placement 04/26/2022. Chronic aspiration pneumonia. Chronic dysphagia. History of COPD. His CHF. History of dementia. History of hypothyroidism. History of essential hypertension. Plan: The patient was seen and evaluated Currently stable on 2 L nasal cannula alternating with BiPAP Remains on bronchodilators Plan is for return to [facility] with hospice I have personally seen and examined the patient, performed the documentation and the assessment and plan as written. Number of minutes spent on the visit: 10. I have personally seen and examined the patient and reviewed the documentation. I performed a joint evaluation with the nurse practitioner in this evaluation was done more than 20 minutes. I fully agree with the documentation above and the plan of care.. The patient's is going to be discharged to [facility] home with hospice. Condition is stable on 2 L of oxygen by nasal cannula. She is to be less congested in his lungs on today's evaluation. Continues incentive feeding for nutritional support. No new issues for now.
[2022-05-04 13:07] VITALS: BMI 21.1
--- NOTE | 2022-05-04 13:17 | P.PN ---
Subjective Progress Note Date: 05/04/22 Principal diagnosis: Respiratory failure The patient is a 77-year-old male with hypothyroidism, depression, hypertension, and COPD who presented to the ER for hypoxemia. On arrival to the ER patient was satting in the mid 60s despite nonrebreather and was therefore intubated. In the ER an extensive evaluation was done. Laboratory analysis was notable for leukocytosis of 16.6, anemia 10.6, BUN 41, creatinine 1.2 (which is better than baseline), point. Initial coag testing was negative. D-dimer was elevated at 1.9. ABG post intubation showed a pH of 7.1, pCO2 of 58, PaO2 of 248. Chest x- ray showed interstitial opacities. CT angiography of the chest showed diffuse bronchial wall thickening, scattered tree-in-bud opacities as well as groundglass changes and consolidations at the bilateral posterior lung bases with no pulmonary embolism noted, EKG demonstrated sinus tachycardia, and CT brain showed nonspecific degenerative white matter changes with sinusitis and left sided mastoiditis. He was started on Zosyn for possible pneumonia, bronchodilators, steroids, a cultures were obtained. Patient was admitted to the ICU. Pulmonary critical care was consulted. He was extubated on 04/23/22 and placed on BiPap. He developed complete opacification of the left hemithorax on 04/25 requiring intubation and bronchosocopy which revealed mucus plugging. The procedure required re-intubation. He had a PEG tube placed on 04/26. He was extubated the morning of 04/27. He was seen by speech and does not initiate swallow. He is having difficulty clearing secretions and has required frequent suctioning. Echocardiogram showed normal left ventricular size with systolic function with EF 55-60% and mild mitral and tricuspid regurgitation. Overnight on 04/28 he developed worsening respiratory distress. He then was noted to have a complete white out of his left hemithorax. Pulmonary ordered him to be restarted on BiPAP. No plans for bronchoscopy at this point in time. 04/30 Patient resting in bed with BiPAP on. No distress noted. He was able to nod his head when asked questions. However, his speech is garbled and difficult to understand with the mask on. Spoke with his legal guardian, Marisela, via telephone. She was educated on the patients condition and poor prognosis. She stated that she had a conversation in the past about what his wishes may be. However, this was difficult due to his advanced dementia. He did indicate to her that he would not want to be put on life support and would rather let nature take it's course. She confirmed that he would not want a tracheostomy tube. She was informed that the patient has an inability to clear his own secretions which end up in his lungs. He does not initiate swallow and requires frequent suctioning. He is at high risk for mucus plugging, pneumonia, and further respiratory distress. It was explained to her that his left lung was cleared out previously with a bronchoscopy, but unfortunately was opacified again. She understands that without a trachestomy, this will be a recurring issue for the patient. Information regarding palliative care and hospice philosophies and services was provided. She is troubled by having to make such big decisions for the patient. She would like time to think it through and talk about it with the patient's caregiver. She states there is a hospice house in [place] that she would consider. 05/03 The patient is resting in bed and appears comfortable. He is able to answer questions and follow commands. Spoke with patient's guardian via telephon e. She stated that after thinking things through over the weekend she has decided he would like the patient to return to his adult foster residential with hospice services. Received phone call from patient's infant caregiver at the adult foster [facility]. She stated they are able to accommodate the patient there with hospice. She stated that they have been receiving nursing care from [facility] and would like to continue with that company. She stated that [facility] is able to provide hospice service. division service manager, mariam Loera. Objective - Vital Signs Vital signs: Vital Signs Temp 97.6 F 05/04/22 08:00 Pulse 80 05/04/22 11:49 Resp 20 05/04/22 11:49 BP 118/72 05/04/22 08:00 Pulse Ox 97 05/04/22 08:14 FiO2 40 05/04/22 08:14 Intake & Output 05/03/22 05/04/22 05/04/22 18:59 06:59 18:59 Intake Total 600 Balance 600 Intake: Tube Feeding 600 Other: Voiding Method Incontinent External Catheter Diaper Incontinent # Voids 2 - Exam General: Well developed. Chronically ill appearing No acute distress. Cachectic HEENT: Head is atraumatic, normocephalic. Sclerae are clear. Pupils equal, round and reactive to light bilaterally. CV: Heart regular in rate and rhythm positive S1 and S2. Peripheral pulses equal. 2/4 Lungs: Coarse throughout. Scattered rhonchi. Diminished on left. 3L NC Abdomen/GI: Soft. Bowel sounds present in all 4 quadrants.No guarding, rigidity, or abdominal tenderness. + peg tube with TF Musculoskeletal/ Extremities: CARDOZA, no joint deformity or swelling. + generalized weakness Vascular: Radial pulses equal. 2/4. No peripheral edema Skin: Warm and dry, No rash. Neurologic: Awake, alert and nodding head. Follows commands. - Labs CBC & Chem 7: 05/03/22 06:41 05/03/22 06:41 Labs: Abnormal Lab Results - Last 24 Hours (Table) 05/03/22 05/03/22 05/04/22 Range/Units 16:54 18:46 00:37 POC Glucose (mg/dL) 158 H 140 H 123 H (70-110) mg/dL 05/04/22 05/04/22 05/04/22 Range/Units 06:11 07:03 11:42 POC Glucose (mg/dL) 138 H 137 H 128 H (70-110) mg/dL Assessment and Plan Assessment: Symptoms * Pain - Patient nods his head no. Continue Tylenol and Dilaudid prn * Fatigue - + generalized weakness. Continue B1 and Ferrous sulfate * SOB - + shortness of breath, continue Duoneb, frequent suctioning and BiPAP as needed * Insomnia - No * N/V - No * Anxiety - No * Depression - Continue Paxil * Confusion - + cognitive impairment and confusion at baseline * Agitation - No, Calm and cooperative * Hallucinations - KATIUSKA * Appetite/weight loss - + malnourishment, unknown if recent weight loss. Continue tube feeding via Peg tube per associate partner recommendations * Dysphagia - + dysphagia, keep NPO and continue tube feeding via Peg tube per associate partner recommendations * Constipation - Yes, LBM 05/03. Continue Colace and Lactulose. * Incontinence - Condom catheter in place * Itch - No Plan: Summary/Goals - The patient is resting in bed. He is awake and alert. There is a lot audible upper airway congestion. Encouraged patient to cough and clear his airway. He is maintaining O2 saturations in the mid 90s on 3 L/m per nasal cannula. The patient is signed on with [facility]. Patient to be discharged today. Recommendations - Return to [facility] Advanced Directives - None Code Status - DNR Thank you for this consult Gianna ZEPEDA- Palliative Care [facility] [id number] Email: [email or web address] Time with Patient: Less than 30
--- NOTE | 2022-05-04 18:15 | P.DS ---
Providers Date of admission: 04/22/22 13:43 Expected date of discharge: 05/04/22 Attending physician: Jarred Cullen Consults: 04/22/22 13:41 Consult Physician Stat Consulting Provider: Niyah Ho Consult Reason/Comments: Critical care management Do you want consulting provider notified?: Yes 04/25/22 11:08 Consult Physician Routine Consulting Provider: Nestor Claire Consult Reason/Comments: re: Afib Do you want consulting provider notified?: Already Contacted 04/28/22 14:19 Consult to Palliative Care Routine Consulting Provider: Gianna Gilmore Consult Reason/Comments: goals of care Do you want consulting provider notified?: Yes Primary care physician: [facility] Course: nterval history: Patient is a 77-year-old male who was admitted on April 22 for aspiration pneumonia acute hypoxic respiratory failure. Patient required intubation and was extubated successfully. Unfortunately patient developed left lung collapse and was reintubated for bronchoscopy. Patient was transferred out of the intensive care unit on 05/01/2022. completed a course of IV antibiotics [facility] pulmonary critical care team is also following on the case. Palliative care following 05/02/2022. History is limited given patient's ability to provide. At this time no acute issues reported per nursing staff he is resting comfortably on 4 L nasal cannula he is on BiPAP daily at bedtime. He does continue to have increased oral upper airway secretions. May 03: I assumed care on the patient today from sound physicians Patient getting PEG tube feeding. Nothing by mouth. Speech is garbled. On 5-6 L of oxygen. Patient has failed swallowing. Patient does attempt to talk but his speech is garbled. Spoke to nurse and showcase trimmer. Looking for patient to back to the nursing home with hospice. We'll try to decrease to oxygen intake. Mouth breather. Per showcase trimmer using oxygen 2 L at home. May 04: Tolerating PEG tube feeding. Remains nothing by mouth. Oxygen decreased to 2 L. This try to communicate. Will be discharged with hospice. Medications sorted out. Discussed with showcase trimmer. In the nurse. Discussion and discharge planning more than 35 minutes On examination: VITAL SIGNS: 97.6, 95, 17, 118/72, 92% on 3 L GENERAL APPEARANCE: Sitting up in bed, tired, HEENT: Normal external appearance of nose and ear. Oral cavity grossly dry mucous membranes EYES: Pupils equal. Conjunctiva normal. NECK: JVD not raised. Mass not palpable. RESPIRATORY: Respiratory effort increased. Decreased breath sounds occasional crackles CARDIOVASCULAR: First and second sounds normal. No edema. ABDOMEN: Soft. Liver and spleen not palpable. No tenderness. No mass palpable. PSYCHIATRY: Unable to assess patient's speech is garbled NEUROLOGICAL: Speech is garbled. Does move all his limbs. INVESTIGATIONS, reviewed in the clinical context: 2-D echocardiogram: EF 55-60% Chest x-ray: Airspace opacities Assessment and plan: -Pneumonia, aspiration Completed course of IV Zosyn -Acute hypoxemic respiratory failure-from recurrent aspiration: Better Currently in 5-6 L nasal cannula. Down to 3 L -Sepsis Status post IV antibiotics Zosyn treatment complete -Status post a AVDRF -Status post bronchoscopy -Dysphagia, having failed swallow test. PEG tube placement 04/26/2022. -COPD, nonsmoker DuoNeb -Chronic hypoxic respiratory failure from COPD On 2 L of oxygen at home -Paroxysmal atrial fibrillation, back in sinus rhythm Not for anticoagulation because of poor overall medical condition -Mucus plugging with complete opacification of the left hemithorax -Severe cognitive impairment from underlying developmental delay -Hypothyroid Synthroid 25 g -DO NOT RESUSCITATE -Legal guardian: Marisela Herrera Disposition: [facility] with residential hospice Plan - Discharge Summary Discharge Rx Participant: No New Discharge Prescriptions: New Acetaminophen Oral Susp (Peds) [Tylenol Oral Susp For Peds (Grape)] 650 mg PO Q4HR PRN ml PRN Reason: Pain Continue Omeprazole [PriLOSEC] 20 mg PO BID@0700,2100 Levothyroxine Sodium [Synthroid] 25 mcg PO DAILY@0700 Aspirin EC [Ecotrin Low Dose] 81 mg PO DAILY@0700 Ipratropium-Albuterol Nebulize [Duoneb 0.5 mg-3 mg/3 ml Soln] 3 ml INHALATION RT-TID PARoxetine HCL 40 mg PO HS@2100 Metoprolol Tartrate 25 mg PO BID@0700,1700 Melatonin [Melatonin ER] 10 mg PO HS@2100 Lactulose 20 gm PO DAILY@0700 Discontinued Docusate [Colace] 100 mg PO DAILY PRN PRN Reason: Constipation Cyanocobalamin (Vitamin B-12) [Vitamin B-12] 1,000 mcg PO DAILY@0700 Cholecalciferol [Vitamin D3 (25 Mcg = 1000 Iu)] 25 mcg PO BID@0700,1700 Triamterene/Hydrochlorothiazid [Triamterene-Hctz 37.5-25 mg Tb] 1 tab PO DAILY@0700 guaiFENesin [Mucinex] 600 mg PO QID #20 tablet Ascorbic Acid [Vitamin C] 500 mg PO DAILY Benzonatate [Tessalon Perles] 100 - 200 mg PO TID PRN PRN Reason: Cough Budesonide [Pulmicort] 0.25 mg INHALATION RT-BID Phenazopyridine [Pyridium] 200 mg PO TID Loratadine 10 mg PO DAILY@0700 PRN PRN Reason: Allergy Symptoms [place]-3 Fatty Acids/Fish Oil [Fish Oil 1,000 mg Softgel] 1 cap PO DAILY@0700 Ferrous Sulfate [Iron (65 MG Elemental)] 325 mg PO Q48H Liquacel 30 ml PO BID Fluticasone Propion/Salmeterol [Advair 250-50 Diskus] 1 puff INHALATION RT- BID@0700,1900 Sucralfate [Carafate] 1 gm PO TID-W/MEALS Zinc 50 mg PO DAILY Discharge Medication List Lactulose 20 gm PO DAILY@0700 01/09/22 [History] Levothyroxine Sodium [Synthroid] 25 mcg PO DAILY@0701/09/22 [History] Melatonin [Melatonin ER] 10 mg PO HS@209901/09/22 [History] Metoprolol Tartrate 25 mg PO BID@0700,1700 01/09/22 [History] Omeprazole [PriLOSEC] 20 mg PO BID@0700,209901/09/22 [History] PARoxetine HCL 40 mg PO HS@209901/09/22 [History] Aspirin EC [Ecotrin Low Dose] 81 mg PO DAILY@0700 04/22/22 [History] Ipratropium-Albuterol Nebulize [Duoneb 0.5 mg-3 mg/3 ml Soln] 3 ml INHALATION RT-TID 04/22/22 [History] Acetaminophen Oral Susp (Peds) [Tylenol Oral Susp For Peds (Grape)] 650 mg PO Q4HR PRN ml 05/04/22 [Rx] Follow up Appointment(s)/Referral(s): [facility] [[facility]] - As Needed (hospice) Ritesh Watson MD [Primary Care Provider] - 1-2 days (Home on Hospice ) Patient Instructions/Handouts: Hospice (DC) Discharge Disposition: HOME WITH HOSPICE
== END 2022-05-04 14:55 | disposition hospice, home (50) | DRG 871 ==
LOC: EC 10:02 → EEVIPCON 13:43 → 2SICU 13:43 → 4SSUR 05-01 17:41
PROVIDERS: ADMIT Hospitalist; ATTEND Hospitalist
PROC: 5A1935Z Respiratory Ventilation, Less than 24 Consecutive Hours (ICD-10-PCS; principal; 2022-04-23)
PROC: 0BH17EZ Insertion of Endotracheal Airway into Trachea, Via Natural or Artificial Opening (ICD-10-PCS; principal; 2022-04-23)
PROC: 5A09357 Assistance with Respiratory Ventilation, Less than 24 Consecutive Hours, Continuous Positive Airway Pressure (ICD-10-PCS; 2022-04-23)
PROC: 3E0G76Z Introduction of Nutritional Substance into Upper GI, Via Natural or Artificial Opening (ICD-10-PCS; 2022-04-24)
PROC: 0DH67UZ Insertion of Feeding Device into Stomach, Via Natural or Artificial Opening (ICD-10-PCS; 2022-04-24)
PROC: 0BH17EZ Insertion of Endotracheal Airway into Trachea, Via Natural or Artificial Opening (ICD-10-PCS; 2022-04-25)
PROC: 5A1945Z Respiratory Ventilation, 24-96 Consecutive Hours (ICD-10-PCS; 2022-04-25)
PROC: 0B9L8ZZ Drainage of Left Lung, Via Natural or Artificial Opening Endoscopic (ICD-10-PCS; 2022-04-25)
PROC: 0BC78ZZ Extirpation of Matter from Left Main Bronchus, Via Natural or Artificial Opening Endoscopic (ICD-10-PCS; 2022-04-25)
DX: A41.9 Sepsis, unspecified organism (principal); E43 Unspecified severe protein-calorie malnutrition; J96.21 Acute and chronic respiratory failure with hypoxia; J69.0 Pneumonitis due to inhalation of food and vomit; E87.2 Acidosis; I50.32 Chronic diastolic (congestive) heart failure; J98.19 Other pulmonary collapse; T17.590A Other foreign object in bronchus causing asphyxiation, initial encounter; D64.9 Anemia, unspecified; E03.9 Hypothyroidism, unspecified; D50.9 Iron deficiency anemia, unspecified; E87.6 Hypokalemia; F03.90 Unspecified dementia, unspecified severity, without behavioral disturbance, psychotic disturbance, mood disturbance, and anxiety; F32.A Depression, unspecified; H70.92 Unspecified mastoiditis, left ear; I11.0 Hypertensive heart disease with heart failure; I27.20 Pulmonary hypertension, unspecified; I48.0 Paroxysmal atrial fibrillation; J39.8 Other specified diseases of upper respiratory tract; J44.9 Chronic obstructive pulmonary disease, unspecified; K59.00 Constipation, unspecified; Z51.5 Encounter for palliative care; Z66 Do not resuscitate; Z20.822 Contact with and (suspected) exposure to COVID-19; R13.10 Dysphagia, unspecified; M81.0 Age-related osteoporosis without current pathological fracture; R26.9 Unspecified abnormalities of gait and mobility; Z68.21 Body mass index [BMI] 21.0-21.9, adult; Z79.51 Long term (current) use of inhaled steroids; Z79.82 Long term (current) use of aspirin; Z79.890 Hormone replacement therapy; Z79.899 Other long term (current) drug therapy; Z86.16 Personal history of COVID-19; Z87.01 Personal history of pneumonia (recurrent); Z87.11 Personal history of peptic ulcer disease; Z71.3 Dietary counseling and surveillance; Z28.311 Partially vaccinated for COVID-19; Z86.718 Personal history of other venous thrombosis and embolism; Z86.711 Personal history of pulmonary embolism; Z91.81 History of falling; Z78.1 Physical restraint status
CPT/HCPCS: 31500; 36415; 36600; 43246; 70450; 71045; 71275; 74018; 80048; 80053; 81003; 82728; 82805; 83540; 83550; 83605; 83735; 83880; 84145; 84484; 85025; 85027; 85045; 85379; 85610; 85730; 87040; 87070; 87102; 87116; 87205; 87206; 87252; 87496; 87498; 87502; 87529; 87634; 87635; 87798; 88108; 88305; 93005; 93306; 94002; 94003; 94640; 94660; 94667; 94668; 94760; 96365; 96375; 99291